=== PATIENT | male | born 1950 | race Caucasian/White ===

== ENCOUNTER 2017-02-12 15:43 | Inpatient (IN) | payer OTHER ==
[~2017-02-12] VITALS: Ht 165.1 cm; Wt 80.4 kg
[~2017-02-12 15:43] MED LIST: ALBU1AER9; ALBUAER19 INH; ASPI1TAB83 PO; CICL0.7718 TOP; COEN150C PO; DOCU-94 PO; FLUT0.0529 NAE; FLUT220A INH; FRS/40 PO; METF1000 PO; METO-478 PO; NITR0.4S UT; OXYC1CAP5 PO; POTA10CA28 PO; PRAV20TA PO; PREN1CAP7 PEG; SENN8.6T94 PO; SNG10 PO; TRAZ-119 PO
[2017-02-12] MEDS ORDERED: SODIUM CHLORIDE 0.9% 1000ML 1,000 ML IV STA (16:00)
[2017-02-12] MEDS ORDERED: DILTIAZEM BOLUS / DRIP IV STA (16:00)
[2017-02-12] MEDS ORDERED: DILTIAZEM BOLUS FROM BAG IV ONE (16:30)
[2017-02-12] MEDS: DILTIAZEM HCL INJ 125 MG in DEXTROSE 5% 100ML IV PRN (16:30)
--- NOTE | 2017-02-12 16:32 | DIAGNOSTIC IMAGING REPORT ---
SINGLE VIEW CHEST CLINICAL HISTORY: Atypical chest pain. FINDINGS: An AP, portable, upright chest radiograph is obtained. No prior studies are available for comparison at the time of dictation. The examination is degraded by portable technique, apical lordotic positioning, and patient rotation. The patient is status post midline sternotomy. The heart is enlarged. The pulmonary vasculature is noncongested. There are layering pleural effusions with bibasilar consolidation. No pneumothorax is seen. The skeletal structures are osteopenic. The bony thorax is grossly intact. IMPRESSION: 1. Cardiomegaly without radiographic evidence of congestive failure. 2. Layering pleural effusions with bibasilar consolidation. This likely represents atelectasis. Clinical correlation will be required. Electronically signed by: Umesh Fyo M.D. 02/12/2017 4:31 PM Dictated Date/Time: 02/12/2017 4:30 PM
[2017-02-12 16:57] LABS: BASO % 0.5 %; BASO ABS # 0.04 K/uL (0-0.2); EOS % 5.7 %; EOS ABS # 0.43 K/uL (0-0.5); HEMATOCRIT 34.5 % (42-52); HEMOGLOBIN 11.3 g/dL (14.0-18.0); IG# 0.02 K/uL (0.00-0.02); LYMPH % 11.2 %; LYMPH ABS # 0.85 K/uL (1.2-3.4); MEAN CORPUSCULAR HEMOGLOBIN 30.5 pg (25-34); MEAN CORPUSCULAR HGB CONC 32.8 g/dl (32-36); MEAN PLATELET VOLUME 9.4 fL (7.4-10.4); MONO % 10.4 %; MONO ABS # 0.79 K/uL (0.11-0.59); NEUT % 71.9 %; NEUT ABS # 5.48 K/uL (1.4-6.5); PLATELET COUNT 264 K/uL (130-400); RED CELL DISTRIBUTION WIDTH CV 14.3 % (11.5-14.5); RED CELL DISTRIBUTION WIDTH SD 48.6 fL (36.4-46.3); WHITE BLOOD COUNT 7.61 K/uL (4.8-10.8)
[2017-02-12] MEDS ORDERED: VNTHFA/IN INH (17:05)
[2017-02-12] MEDS ORDERED: FLVHFA44 INH (17:05)
[2017-02-12] MEDS ORDERED: ACET325T96 PO (17:05)
[2017-02-12] MEDS ORDERED: FLUT0.15 NAE (17:05)
[2017-02-12 17:15] LABS: BLOOD UREA NITROGEN 19 mg/dl (7-18); CALCIUM 10.4 mg/dl (8.5-10.1); CARBON DIOXIDE 26 mmol/L (21-32); CREATININE 0.83 mg/dl (0.60-1.40); GLUCOSE 98 mg/dl (70-99); POTASSIUM 4.3 mmol/L (3.5-5.1); SODIUM 138 mmol/L (136-145)
--- NOTE | 2017-02-12 17:18 | EMERGENCY ROOM VISIT NOTE ---
History Report prepared by Mino: Brad Levy Under the Supervision of: Dr. Toan Mehta D.O. First contact with patient: 15:54 Chief Complaint: IRREGULAR HEARTBEAT Stated Complaint: FAST HEART RATE History of Present Illness The patient is a 66 year old male who presents to the Emergency Room with complaints of constant shortness of breath for the past two days. The patient states that he went to the doctor this morning for his shortness of breath, and he also had a very fast heart rate of 160. The patient states that he had some diarrhea yesterday, and he has a chronic cough. He does not have a history of blood clots or irregular heart beats, though he had open heart surgery 3-4 years ago. Pt denies headache, change in vision, fevers, chest pain, nausea, vomiting, pain with urination, and melena. Source of History: patient Onset: two days ago Position: other (global) Quality: other (shortness of breath) Timing: constant Associated Symptoms: + diarrhea, No chest pain Review of Systems See HPI for pertinent positives & negatives. A total of 10 systems reviewed and were otherwise negative. Past Medical & Surgical Surgical Problems: (1) History of open heart surgery Social History Smoking Status: Never Smoker Marital Status: Housing Status: lives with family Occupation Status: retired Current/Historical Medications Scheduled Aspirin (Aspirin), 81 MG PO BID Docusate Sodium (Colace), 1 TAB PO BID Fluticasone Propionate (Flovent Hfa), 2 PUFFS INH BID Fluticasone Propionate (Nasal) (Flonase Allergy Relief), 1 SPRAY SHALONDA DAILY Metformin Hcl (Glucophage), 1,000 MG PO BID Metoprolol Succinate (Toprol Xl), 25 MG PO BID Montelukast Sod (Montelukast Sodium), 10 MG PO QPM Nitroglycerin (Nitrostat), 0.4 MG UT PRN Potassium Chloride (Micro-K Ext Rel), 10 MEQ PO DAILY Trazodone Hcl (Desyrel), 50 MG PO HS Scheduled PRN Acetaminophen Tab (Tylenol), 650 MG PO UD PRN for BACK PAIN Albuterol Hfa (Ventolin Hfa), 2 PUFFS INH Q4H PRN for SOB/Wheezing Furosemide (Lasix), 40 MG PO DAILY PRN for SWELLING Oxycodone Hcl (Oxycodone Hcl), 5 MG PO Q6 PRN for Pain Allergies Coded Allergies: Statins (Unverified Allergy, Severe, LEG WEAKNESS, 02/12/17) Physical Exam Vital Signs Date Time Temp Pulse Resp B/P (MAP) Pulse Ox O2 Delivery O2 Flow Rate FiO2 02/12/17 16:45 113 20 93/56 94 Room Air 02/12/17 16:07 140 02/12/17 16:06 Room Air 02/12/17 15:51 36.5 154 20 115/75 94 Room Air Physical Exam GENERAL: Sitting up in bed, disheveled, no acute distress, hard of hearing EYE EXAM: normal conjunctiva. OROPHARYNX: no exudate, no erythema, lips, buccal mucosa, and tongue normal and mucous membranes are moist NECK: supple, no nuchal rigidity, no adenopathy, non-tender LUNGS: Clear to auscultation. Normal chest wall mechanics HEART: Tachycardic and irregularly irregular. ABDOMEN: abdomen soft, non-tender, normo-active bowel sounds, no masses, no rebound or guarding. BACK: Back is symmetrical on inspection and there is no deformity, no midline tenderness, no CVA tenderness. SKIN: no rashes and no bruising UPPER EXTREMITIES: upper extremities are grossly normal. LOWER EXTREMITIES: Calves are equal bilaterally with faint pitting edema. NEURO EXAM: Normal sensorium, cranial nerves II-XII grossly intact, normal speech, no gross weakness of arms, no gross weakness of legs. Gross sensation intact. Medical Decision & Procedures ER Provider Diagnostic Interpretation: Radiology results as stated below per my review and the radiologist's interpretation: SINGLE VIEW CHEST CLINICAL HISTORY: Atypical chest pain. FINDINGS: An AP, portable, upright chest radiograph is obtained. No prior studies are available for comparison at the time of dictation. The examination is degraded by portable technique, apical lordotic positioning, and patient rotation. The patient is status post midline sternotomy. The heart is enlarged. The pulmonary vasculature is noncongested. There are layering pleural effusions with bibasilar consolidation. No pneumothorax is seen. The skeletal structures are osteopenic. The bony thorax is grossly intact. IMPRESSION: 1. Cardiomegaly without radiographic evidence of congestive failure. 2. Layering pleural effusions with bibasilar consolidation. This likely represents atelectasis. Clinical correlation will be required. Electronically signed by: Umesh Foy M.D. 02/12/2017 4:31 PM Dictated Date/Time: 02/12/2017 4:30 PM Laboratory Results 02/12/17 16:39 Red Blood Count 3.71, Mean Corpuscular Volume 93.0, Mean Corpuscular Hemoglobin 30.5, Mean Corpuscular Hemoglobin Concent 32.8, Mean Platelet Volume 9.4, Neutrophils (%) (Auto) 71.9, Lymphocytes (%) (Auto) 11.2, Monocytes (%) (Auto) 10.4, Eosinophils (%) (Auto) 5.7, Basophils (%) (Auto) 0.5, Neutrophils # (Auto ) 5.48, Lymphocytes # (Auto) 0.85, Monocytes # (Auto) 0.79, Eosinophils # (Auto ) 0.43, Basophils # (Auto) 0.04 02/12/17 16:39 Test 02/12/17 16:39 White Blood Count 7.61 K/uL (4.8-10.8) Red Blood Count 3.71 M/uL (4.7-6.1) Hemoglobin 11.3 g/dL (14.0-18.0) Hematocrit 34.5 % (42-52) Mean Corpuscular Volume 93.0 fL (80-100) Mean Corpuscular Hemoglobin 30.5 pg (25-34) Mean Corpuscular Hemoglobin Concent 32.8 g/dl (32-36) Platelet Count 264 K/uL (130-400) Mean Platelet Volume 9.4 fL (7.4-10.4) Neutrophils (%) (Auto) 71.9 % Lymphocytes (%) (Auto) 11.2 % Monocytes (%) (Auto) 10.4 % Eosinophils (%) (Auto) 5.7 % Basophils (%) (Auto) 0.5 % Neutrophils # (Auto) 5.48 K/uL (1.4-6.5) Lymphocytes # (Auto) 0.85 K/uL (1.2-3.4) Monocytes # (Auto) 0.79 K/uL (0.11-0.59) Eosinophils # (Auto) 0.43 K/uL (0-0.5) Basophils # (Auto) 0.04 K/uL (0-0.2) RDW Standard Deviation 48.6 fL (36.4-46.3) RDW Coefficient of Variation 14.3 % (11.5-14.5) Immature Granulocyte % (Auto) 0.3 % Immature Granulocyte # (Auto) 0.02 K/uL (0.00-0.02) Anion Gap 9.0 mmol/L (3-11) Est Creatinine Clear Calc Drug Dose 88.8 ml/min Estimated GFR () 106.3 Estimated GFR (Non- 91.7 BUN/Creatinine Ratio 23.4 (10-20) Calcium Level 10.4 mg/dl (8.5-10.1) Total Creatine Kinase 40 U/L (39-308) Creatine Kinase MB < 0.5 ng/ml (0.5-3.6) Creatine Kinase MB Ratio (0-3.0) Troponin I < 0.015 ng/ml (0-0.045) Laboratory results per my review. Medications Administered Medications (Trade) Dose Ordered Sig/Sal Route Start Time Stop Time Status Last Admin Dose Admin Sodium Chloride 1,000 ml @ 999 mls/hr Q1H1M STAT IV 02/12/17 16:00 02/12/17 17:00 DC 02/12/17 16:34 999 MLS/HR Diltiazem HCl (Cardizem Bolus / Drip) 1 ea NOW STAT IV 02/12/17 16:00 02/12/17 16:02 DC 02/12/17 16:00 1 EA Diltiazem HCl (Cardizem Bolus From Bag) 10 mg ONE ONCE IV 02/12/17 16:30 02/12/17 16:31 DC 02/12/17 16:30 10 MG Diltiazem HCl 125 mg/Dextrose 125 ml @ 0 mls/hr Q0M PRN IV 02/12/17 16:15 02/12/17 23:59 02/12/17 16:30 5 MLS/HR ECG Indication: SOB/dyspnea Rate (beats per minute): 156 Rhythm: atrial fibrillation (with RVR) Findings: RBBB, T-wave inversion (Inferior), other (right axis deviation) Comparison ECG Date: 08/29/14 Change: Atrial fibrillation and right axis deviation are new. ED Course ED COURSE: Vital signs were reviewed and showed tachycardia The patients medical record was reviewed The above diagnostic studies were performed and reviewed. ED treatments and interventions as stated above. 1554: The patient was evaluated in room A4. A complete history and physical examination was performed. 1600: Diltiazem HCl IV, Sodium Chloride 1000 ml @ 999 mls/hr IV 1615: Diltiazem HCl 125mg/ Dextrose 5mls/hr IV 1630: Diltiazem HCl 10mg IV 1635: Dr. Brown - Cardiology evaluated the patient at the bedside. 1637: I reevaluated the patient, and his heart rate was down to 120 1702: I reviewed the patient's case with Estelle PEARL. She will evaluate the patient for further management. 1704: Upon reevaluation, the patient is doing well. His heart rate is 114 and systolic pressure down to 111. I discussed my findings with the patient and he understands and agrees with the treatment plan. Based on the patients age, coexisting illnesses, exam and lab findings the decision to treat as an inpatient was made. The patient remained stable while under my care. The patient will be evaluated for further management. Medical Decision Differential diagnoses includes but is not limited to pneumonia, bronchitis, COPD/Asthma exacerbation, pneumothorax, pulmonary embolism, congestive heart failure, acute coronary syndrome. Patient is a 66-year-old male who presents to ER for A. fib with RVR. Heart rate is in the 160s upon presentation. EKG does not show STEMI. Chest x-ray shows bilateral pleural effusions. Patient has no upper respiratory symptoms to suggest infection. He denies any chest pain. He is comfortable as long as he is resting. He was given a bolus of Cardizem at 10mg and placed on a drip of Cardizem at 10mg per hour. Heart rate trended down into the 110s. Systolic blood pressures did dip into the 90s 1 but on repeat was 111. Patient has no complaints. He was evaluated by cardiology at bedside. Discussed with internal medicine and patient will be admitted for A. fib with RVR with initial heart rates in the 160s which trended down to the 110s. Patient family were updated bedside. Patient was admitted to internal medicine for further workup. He will likely need to be diuresed throughout his stay as well after rate control. Medication Reconcilliation Current Medication List: was personally reviewed by me Blood Pressure Screening Patient's blood pressure: Normal blood pressure Consults Consulting Physician: Dr Brown - Cardiology Dr. Brown - Cardiology, evaluated the patient at the bedside. Additional Consults: Time Called: 1655 Consulted Physician: Estelle PEARL Returned Call: 1702 Additional Comments: I reviewed the patient's case with Estelle PEARL. She will evaluate the patient for further management. Impression Primary Impression: Atrial fibrillation with RVR Additional Impressions: Pleural effusion Anemia Critical Care I have personally spent 35 minutes of critical care time in the direct management of this patient. This includes bedside care, interpretation of diagnostic studies, and testing, discussion with consultants, patient, and family members, and other required patient management activities. This 35 minutes is in excess of all separately billable procedures. Scribe Attestation The scribe's documentation has been prepared under my direction and personally reviewed by me in its entirety. I confirm that the note above accurately reflects all work, treatment, procedures, and medical decision making performed by me. Departure Information Dispostion Being Evaluated By Hospitalist Redd Jama D.O. (PCP) Patient Instructions My [facility] [address] Problem Qualifiers Additional Impressions: Anemia Anemia type: unspecified type Qualified Codes: D64.9 - Anemia, unspecified
[2017-02-12 17:20] LABS: CKMB < 0.5 ng/ml (0.5-3.6)
[2017-02-12 17:27] VITALS: O2SAT 94; Ht 165.1 cm; Wt 80.4 kg
[2017-02-12] MEDS ORDERED: DILTIAZEM BOLUS / DRIP IV PRN (17:41)
[2017-02-12] MEDS ORDERED: GLUCOSE 10 TABS/TUBE PO PRN (17:45)
[2017-02-12] MEDS ORDERED: ONDANSETRON INJ 2 MG/ML 2 ML VIAL IV PRN (17:45)
[2017-02-12] MEDS ORDERED: GLUCOSE 40% GEL 15 GM TUBE PO PRN (17:45)
[2017-02-12] MEDS ORDERED: ACETAMINOPHEN 325 MG TAB PO PRN (17:45)
[2017-02-12] MEDS ORDERED: FUROSEMIDE INJ 20 MG in SYRINGE 0 ML IV SCH (17:45)
[2017-02-12] MEDS ORDERED: DEXTROSE 50% 50 ML SYR IV PRN (17:45)
[2017-02-12] MEDS ORDERED: GLUCAGON FOR INJ 1 MG VIAL SQ PRN (17:45)
[2017-02-12] MEDS ORDERED: FENO54TA PO (17:49)
[2017-02-12] MEDS ORDERED: TPRSR/50 PO (17:49)
[2017-02-12] MEDS ORDERED: SPIR25TA PO (17:49)
[2017-02-12] MEDS ORDERED: LISI-729 PO (17:49)
[2017-02-12] MEDS ORDERED: CETI10TA84 PO (17:49)
[2017-02-12] MEDS ORDERED: FURO20TA PO (17:49)
[2017-02-12] MEDS ORDERED: DOCUSATE SODIUM 100 MG CAP PO PRN (18:00)
[2017-02-12] MEDS ORDERED: HEPARIN 25000 UNIT/500 ML D5W ONE (18:23)
--- NOTE | 2017-02-12 18:26 | History and Physical ---
History & Physical Date & Time of Service: Feb 12, 2017 ~ 17:00 Chief Complaint: Sent by Cardiology Clinic for A. Flutter with RVR Primary Care Physician: Redd Rojas D.O. History of Present Illness 66 year old male who was sent to the ED from the cardiology clinic for a. flutter with RVR. Patient is somewhat a poor historian. He reports he has not felt well since he got his flu shot in October. He reports he was treated for bronchitis a few months ago and did feel a little better. He reports feeling worse for the past two weeks. He reports increasing shortness of breath and lower extremity edema. He reports his weight has been stable. He denies orthopnea. No chest pain, palpitations, lightheadedness, dizziness, diaphoresis , or syncopal events. He was noted to have a low grade fever at the cardiology clinic today. He reports a cough productive for clear sputum that has been present the past few months. No abdominal pain, nausea, or vomiting. He reports one episode of diarrhea yesterday. No urinary symptoms. In the clinic, patient was found to be in a. flutter with RVR with rates in the 160s. He was sent to the ED for further eval. Heart rate improved with IV Diltiazem bolus and infusion. Labs are unremarkable. Past Medical/Surgical History Medical Problems: (1) Asthma, mild persistent Status: Chronic (2) BPH (benign prostatic hyperplasia) Status: Chronic (3) CAD (coronary artery disease) Permanent Comment: 2015 - CABG x 3 Status: Chronic (4) Diastolic CHF Status: Chronic (5) DM type 2 (diabetes mellitus, type 2) Status: Chronic (6) Dyslipidemia Status: Chronic (7) GERD (gastroesophageal reflux disease) Status: Chronic (8) HTN (hypertension) Status: Chronic (9) Paroxysmal A-fib Status: Chronic (10) Sleep apnea Status: Chronic Surgical Problems: (1) H/O aortic valve replacement Status: Chronic (2) S/P CABG x 3 Status: Chronic Family History non contributory Social History Smoking Status: Never Smoker Alcohol Use: occasionally Immunizations History of Influenza Vaccine: Yes Influenza Vaccine Date: Oct 26, 2016 History of Tetanus Vaccine?: Yes Tetanus Immunization Date: Dec 08, 2005 History of Pneumococcal: Yes Pneumococcal Date: Jul 20, 2016 Multi-Drug Resistant Organisms History of MDRO: No Allergies Coded Allergies: Statins (Unverified Adverse Reaction, Severe, LEG WEAKNESS, 02/12/17) Home Medications Scheduled Aspirin (Aspirin), 81 MG PO BID Cetirizine (Zyrtec), 10 MG PO DAILY Fenofibrate (Tricor), 1 TAB PO DAILY Fluticasone Propionate (Flovent Hfa), 2 PUFFS INH BID Fluticasone Propionate (Nasal) (Flonase Allergy Relief), 1 SPRAY SHALONDA DAILY Furosemide (Lasix), 20 MG PO BID Lisinopril (Prinivil), 5 MG PO DAILY Metformin Hcl (Glucophage), 500 MG PO BID Metoprolol Succinate (Metoprolol Succinate ER), 50 MG PO BID Montelukast Sod (Montelukast Sodium), 10 MG PO QPM Nitroglycerin (Nitrostat), 0.4 MG UT PRN Spironolactone (Aldactone), 12.5 MG PO DAILY Scheduled PRN Acetaminophen Tab (Tylenol), 650 MG PO UD PRN for BACK PAIN Albuterol Hfa (Ventolin Hfa), 2 PUFFS INH Q4H PRN for SOB/Wheezing Docusate Sodium (Colace), 1 TAB PO BID PRN for Constipation Review of Systems ROS per HPI, all other systems reviewed and negative Physical Exam Vital Signs Date Time Temp Pulse Resp B/P (MAP) Pulse Ox O2 Delivery O2 Flow Rate FiO2 02/12/17 16:45 113 20 93/56 94 Room Air 02/12/17 16:07 140 02/12/17 16:06 Room Air 02/12/17 15:51 36.5 154 20 115/75 94 Room Air General Appearance: WD/WN, no apparent distress Head: normocephalic, atraumatic Eyes: normal inspection, EOMI, sclerae normal ENT: hearing grossly normal, + pertinent finding (mucous membranes moist) Neck: supple, no JVD, trachea midline Respiratory/Chest: no respiratory distress, + decreased breath sounds (BL bases ) Cardiovascular: normal peripheral pulses, + tachycardia, + irregularly irregular, + pertinent finding (+1-2 pitting edema BLLE) Abdomen/GI: normal bowel sounds, non tender, soft, no organomegaly, + distended Extremities/Musculoskelatal: normal inspection, no calf tenderness, normal capillary refill Neurologic/Psych: no motor/sensory deficits, alert, normal mood/affect, oriented x 3 Skin: normal color, warm/dry Diagnostics Laboratory Results Results Past 24 Hours Test 02/12/17 16:39 Range/Units White Blood Count 7.61 4.8-10.8 K/uL Red Blood Count 3.71 4.7-6.1 M/uL Hemoglobin 11.3 14.0-18.0 g/dL Hematocrit 34.5 42-52 % Mean Corpuscular Volume 93.0 80-100 fL Mean Corpuscular Hemoglobin 30.5 25-34 pg Mean Corpuscular Hemoglobin Concent 32.8 32-36 g/dl Platelet Count 264 130-400 K/uL Mean Platelet Volume 9.4 7.4-10.4 fL Neutrophils (%) (Auto) 71.9 % Lymphocytes (%) (Auto) 11.2 % Monocytes (%) (Auto) 10.4 % Eosinophils (%) (Auto) 5.7 % Basophils (%) (Auto) 0.5 % Neutrophils # (Auto) 5.48 1.4-6.5 K/uL Lymphocytes # (Auto) 0.85 1.2-3.4 K/uL Monocytes # (Auto) 0.79 0.11-0.59 K/uL Eosinophils # (Auto) 0.43 0-0.5 K/uL Basophils # (Auto) 0.04 0-0.2 K/uL RDW Standard Deviation 48.6 36.4-46.3 fL RDW Coefficient of Variation 14.3 11.5-14.5 % Immature Granulocyte % (Auto) 0.3 % Immature Granulocyte # (Auto) 0.02 0.00-0.02 K/uL Sodium Level 138 136-145 mmol/L Potassium Level 4.3 3.5-5.1 mmol/L Chloride Level 102 98-107 mmol/L Carbon Dioxide Level 26 21-32 mmol/L Anion Gap 9.0 3-11 mmol/L Blood Urea Nitrogen 19 7-18 mg/dl Creatinine 0.83 0.60-1.40 mg/dl Est Creatinine Clear Calc Drug Dose 88.8 ml/min Estimated GFR () 106.3 Estimated GFR (Non- 91.7 BUN/Creatinine Ratio 23.4 10-20 Random Glucose 98 70-99 mg/dl Calcium Level 10.4 8.5-10.1 mg/dl Total Creatine Kinase 40 39-308 U/L Creatine Kinase MB < 0.5 0.5-3.6 ng/ml Creatine Kinase MB Ratio 0-3.0 Troponin I < 0.015 0-0.045 ng/ml Diagnostic Radiology CXR IMPRESSION: 1. Cardiomegaly without radiographic evidence of congestive failure. 2. Layering pleural effusions with bibasilar consolidation. This likely represents atelectasis. Clinical correlation will be required. Impression Assessment and Plan ATRIAL FIBRILLATION WITH RVR - admit to tele - patient presenting from the cardiology office where he was found to be in atrial flutter with RVR; patient reports not feeling well for the past two weeks - given low grade fever, will r/o infectious source - check urine and blood cultures, influenza swab; no signs of pneumonia on CXR - hx of paroxysmal a. fib s/p DCCV 03/2016 - anticoagulation stopped 05/2016 per patient request and after 24h holter showed no further arrhythmias - s/p diltiazem drip in the ED, will continue with and change metoprolol succinate 50mg BID to metoprolol tartrate 25mg q6h - heparin gtt - continue to cycle cardiac enzymes, check resting echo ACUTE ON CHRONIC DIASTOLIC CHF - stress echo 07/2016 - negative for ischemia, EF 55-60%, grade II diastolic dysfunction - on furosemide 20mg BID and Spironolactone 12.5mg daily - will diuresis with furosemide 40mg IV BID and continue spironolactone HX CAD - continue ASA and beta kari - noted to be statin intolerant HX AORTIC VALVE REPLACEMENT - bioprosthetic DM - hgb a1c 4.7 09/2016 - hold oral agents and utilize SSI while hospitalized ASTHMA - no wheezing on exam, do not suspect acute exacerbation - continue home inhalers DVT PROPHYLAXIS - on heparin gtt DISPO - In my clinical judgment this beneficiary meets acute admission criteria, established by [facility], that includes being hospitalized through two midnights. ADDENDUM: This is a 66 year old male with a PMH of A. Fib, CAD s/p CABG, mechanical aortic valve replacement, HTN, DM2, chronic diastolic CHF; preserved EF. Sent by cardiology due to elevated HRs and A. Flutter on EKG. On presentation, he was found to have A. Fib with RVR. states he has been feeling "weak" and "tired" for 3 weeks and also some shortness of breath and cough. On exam; decreased breath sounds, tachycardic and irregular HR, eczema/ excoriations throughout body, mild to moderate respiratory distress and incomplete sentences due to SOB, firm LE b/l due to fluid buildup. Plan: IV Cardizem ggt for rate control Metoprolol Succinate changed to tartrate 25mg q6 IV heparin ggt started (was not on anticoagulation prior to this) IV Lasix BID echo, trend enzymes monitor in tele cardiology aware VTE Prophylaxis VTE Risk Assessment Done? Y/N: Yes Risk Level: Moderate
[2017-02-12] MEDS: HEPARIN 25,000 UNIT/500ML D5W 500 ML IV PRN (18:41)
[2017-02-12] MEDS ORDERED: HEPARIN IV BOLUS 6,000 UNIT in SYRINGE 0 ML IV ONE (18:45)
[2017-02-12 19:21] LABS: INFLUENZA B ANTIGEN Neg for Influ B (NEG)
[2017-02-12 19:29] VITALS: BP 115/65; PULSE 114; TEMP 36.9; O2SAT 93
--- NOTE | 2017-02-12 20:04 | CARDIOLOGY CONSULTATION ---
DATE OF CONSULTATION: 02/12/2017 REFERRING PHYSICIAN: Dr. Toan Mehta. REASON FOR CONSULTATION: Atrial fibrillation with rapid ventricular response and congestive heart failure. HISTORY OF PRESENT ILLNESS: Mr. Keith is a 66-year-old male with complex history noted below. He presented to the outpatient clinic today for routine followup. During that visit, the patient reported progressive dyspnea on exertion, edema, weight gain since [place]. He denies any palpitations. An ECG performed in the office demonstrated atrial flutter with possible 2:1 conduction and a rate of 160 beats per minute. He was sent to the Emergency Department. In the ER, his initial ECG demonstrates atrial fibrillation with rapid ventricular response and a right bundle branch block. Chest x-ray demonstrates bilateral pleural effusions and pulmonary edema. The patient complains of dyspnea with minimal exertion. Notes orthopnea without PND. Denies palpitations. No chest discomfort or heaviness. Family present at bedside. The patient experienced an episode of atrial fibrillation in March of 2016 requiring transesophageal echo guided cardioversion. At that time, the patient declined penitentiary anticoagulation. The patient's blood pressure has improved with addition of IV diltiazem. Heart rate currently 120-135 beats per minute and irregular. He remains in atrial fibrillation on telemetry. REVIEW OF SYSTEMS: The pertinent positive noted above, low grade temperature noted, cough noted, diffuse rash noted, 3-4 pound weight gain reported, pertinent positives are noted in the HPI, a comprehensive 10-system review is otherwise negative. PAST MEDICAL HISTORY: 1. Aortic stenosis, status post bioprosthetic AVR with a [address] [employer] Trifecta valve. 2. Coronary artery disease status post coronary artery bypass grafting x3 with GONZALES to LAD, SVG to diagonal, SVG to OM in February 2014. 3. Diabetes type 2. 4. Obstructive sleep apnea with utilizing supplemental oxygen at night, not CPAP. 5. Dyslipidemia with intolerance to all statins. 6. Paroxysmal atrial fibrillation/flutter, status post DCCV March 2016. 7. GERD. 8. BPH. 9. Reactive airways disease. 10. Sinusitis. 11. Hypertension. 12. Statin intolerance. PAST SURGICAL HISTORY: 1. Coronary artery bypass grafting x3 as noted above in February 2014. 2. Aortic valve replacement in February 2014. 3. Tonsil and adenoidectomy. 4. Nasal surgery. SOCIAL HISTORY: Lifelong nonsmoker, he lives with his , and he does not use alcohol. FAMILY HISTORY: Negative for premature CAD or sudden cardiac ; however, noncontributory at this time. ALLERGIES: CRESTOR, ZETIA, PRAVASTATIN, ZOCOR, OUTPATIENT MEDICATIONS: 1. Amoxicillin prior to dental procedures. 2. Glucophage 500 mg twice daily. 3. Lofibra (fenofibrate) 54 mg daily. 4. Tylenol as needed. 5. Supplemental oxygen 2 liters at bedtime. 6. Zyrtec 10 mg daily. 7. Singulair 10 mg daily. 8. Lasix 20 mg twice daily. 9. Flovent twice daily. 10. Aldactone 12.5 mg daily. 11. Toprol-XL 50 mg twice daily. 12. Ventolin inhaler every 4 hours as needed. 13. Lisinopril 5 mg daily. 14. Nitroglycerin 0.4 mg as needed. 15. Tessalon Perles as needed. 16. Aspirin 81 mg daily. ELECTROCARDIOGRAM ON ADMISSION: Atrial fibrillation with rapid ventricular response, right bundle branch block, and inferior T-wave inversion. LABORATORY DATA: Pending at this time. IMAGING DATA: Chest x-ray preliminary review demonstrates bilateral pleural effusions with interstitial edema. Telemetry demonstrates atrial fibrillation with a heart rate averaging 120-135 beats per minute. PHYSICAL EXAMINATION: VITAL SIGNS: Temperature is 36.5 degrees centigrade, pulse currently 125 beats per minute and irregular, blood pressure 135/81, SaO2 is 95% on room air, his respiratory rate is 20 breaths per minute. GENERAL: Chronically ill, appears older than stated age; awake, alert and oriented x3. THROAT: His mucous membranes are moist. No scleral icterus. Conjunctivae are pink. NECK: Supple without JVD or HJR. No carotid bruit. HEART: Irregular and tachycardic with a normal S1 and S2. There is a 2/6 systolic ejection murmur heard best at the right second intercostal space without radiation. LUNGS: Demonstrate mildly diminished breath sounds in the bilateral lower and mid lung lopez. Crackles are noted in the mid lung lopez. No wheezing appreciated. ABDOMEN: Soft, nontender. There is a diffuse mildly erythematous rash noted with mild excoriation. EXTREMITIES: Demonstrate 2+ edema in the pretibial region. Mildly erythematous rash with excoriation present, stasis changes noted. NEUROLOGIC: Demonstrates no focal motor deficit. FINAL IMPRESSION: 1. Paroxysmal atrial fibrillation/flutter with rapid ventricular response. 2. Acute decompensated heart failure secondary to rapid atrial fibrillation and diastolic dysfunction, history of preserved left ventricular systolic function per 2D echocardiogram - July 2016. 3. Aortic valve disease status post aortic valve replacement - February 2014. 4. Chronic coronary artery disease with history of prior coronary artery bypass grafting x4. 5. History of paroxysmal atrial fibrillation/flutter, status post direct current cardioversion in 2016 with the patient declining long-term anticoagulation at that time. 6. Bilateral pleural effusions. 7. Obstructive sleep apnea. 8. Dyslipidemia, statin intolerance. PLAN AND RECOMMENDATIONS: The patient has received 10 mg of IV Cardizem and is currently receiving an infusion at 5 mg per hour. His heart rate has mildly improved. He denies any palpitations. Awaiting basic metabolic panel, CBC, and baseline coagulation studies at this time. The patient will require intravenous anticoagulation with heparin pending review of these labs. Also, recommend IV diuretic therapy with Lasix, pending review of lab studies. Recommend maintaining negative fluid balance with repeat chest x-ray in a.m. The possible need for cardioversion discussed with the patient. He voiced understanding. Recommend beta-kari be continued uninterrupted as his outpatient dose of 50 mg twice daily. Will continue to follow patient closely during hospitalization. Thank you for allowing me to participate in the care of this patient.
[2017-02-12] MEDS: MONTELUKAST SOD 10 MG TAB PO SCH (20:59)
[2017-02-12] MEDS: ASPIRIN 81 MG ECTAB PO SCH (21:00)
[2017-02-12] MEDS: FLUTICASONE PROP HFA INH 44 MCG INHALER INH SCH (21:00)
[2017-02-12] MEDS: INSULIN ASPART 100 UNITS/ML 3 ML PEN SC SCH (21:00)
[2017-02-12 21:01] VITALS: BP 130/77; PULSE 116
[2017-02-12] MEDS: METOPROLOL TARTRATE 25 MG TAB PO SCH (21:01)
[2017-02-12 23:06] LABS: CKMB < 0.5 ng/ml (0.5-3.6)
[2017-02-12 23:15] VITALS: BP 107/60; PULSE 87; TEMP 37.1; O2SAT 94
[2017-02-13] VITALS (9 sets, daily range): BP systolic 105–120; BP diastolic 62–73; PULSE 76–95; TEMP 36.5–37.2; O2SAT 93–99
[2017-02-13 01:06] LABS: PTT PATIENT 66.8 SECONDS (21.0-31.0)
[2017-02-13] MEDS: HEPARIN 25,000 UNIT/500ML D5W 500 ML IV PRN ×2 (01:44→12:00)
[2017-02-13] MEDS: METOPROLOL TARTRATE 25 MG TAB PO SCH ×4 (01:46→19:54)
[2017-02-13 04:36] LABS: HEMATOCRIT 31.9 % (42-52); HEMOGLOBIN 10.3 g/dL (14.0-18.0); MEAN CORPUSCULAR HGB CONC 32.3 g/dl (32-36); MEAN PLATELET VOLUME 9.2 fL (7.4-10.4); PLATELET COUNT 240 K/uL (130-400); RED CELL DISTRIBUTION WIDTH CV 14.3 % (11.5-14.5); RED CELL DISTRIBUTION WIDTH SD 48.7 fL (36.4-46.3)
[2017-02-13 05:00] LABS: BLOOD UREA NITROGEN 22 mg/dl (7-18); CALCIUM 9.8 mg/dl (8.5-10.1); CARBON DIOXIDE 29 mmol/L (21-32); CREATININE 0.85 mg/dl (0.60-1.40); GLUCOSE 95 mg/dl (70-99); POTASSIUM 4.2 mmol/L (3.5-5.1); SODIUM 137 mmol/L (136-145)
[2017-02-13 05:05] LABS: CKMB < 0.5 ng/ml (0.5-3.6); PTT PATIENT 53.2 SECONDS (21.0-31.0)
[2017-02-13] MEDS ORDERED: FUROSEMIDE INJ 40 MG in SYRINGE 0 ML IV SCH (05:45)
[2017-02-13 06:11] LABS: HEMOGLOBIN A1C 4.7 % (4.5-5.6)
[2017-02-13] MEDS: INSULIN ASPART 100 UNITS/ML 3 ML PEN SC SCH ×4 (07:00→20:46)
[2017-02-13] MEDS: FLUTICASONE PROP HFA INH 44 MCG INHALER INH SCH ×2 (07:58→19:56)
[2017-02-13] MEDS: FLUTICASONE PROPIONATE NA SPR 16 GM BTL NAE SCH (07:58)
[2017-02-13] MEDS: ASPIRIN 81 MG ECTAB PO SCH ×2 (07:59→19:54)
[2017-02-13] MEDS: SPIRONOLACTONE 25 MG TAB PO SCH (08:00)
[2017-02-13] MEDS: CETIRIZINE HCL 10 MG TAB PO SCH (08:00)
[2017-02-13] MEDS ORDERED: MAGNESIUM SULFATE 1GM / D5W 1 GM in PREMIXED IN D5W 100 ML IV ONE (08:45)
[2017-02-13] MEDS ORDERED: NURSING VERBAL MED ORDER ONE ×2 (09:00→21:30)
[2017-02-13] MEDS: MAGNESIUM OXIDE 400 MG TAB PO SCH ×2 (09:29→19:55)
--- NOTE | 2017-02-13 10:40 | Cardiology Follow-Up ---
Subjective General Date of Service: Feb 13, 2017. Chief Complaint: PAF Pt evaluation today including: conversation w/ patient, physical exam, chart review, lab review, review of studies, review of inpatient medication list History of Present Illness Patient seen and examined. Chart, medications, telemetry reviewed. Patient interviewed and examined at 10:00 AM. Feels "a lot better." Notes "I got my strength back." Notes improvement in exercise tolerance just walking to the sink to get cleaned up. No current chest pain. No overt palpitations. I/O's not reflective of patient's reported output. Telemetry: Atrial fibrillation ranging from 70 to 100 bpm. TTE: Pending interpretation. Allergies Coded Allergies: Statins (Unverified Adverse Reaction, Severe, LEG WEAKNESS, 02/12/17) Social History Smoking Status: Never Smoker Hx Tobacco Use In Past Year?: No Hx Alcohol Use - Type And Amou: No Hx Substance Use - Type And Am: No Review of Systems Respiratory: + shortness of breath, + dyspnea on exertion, No cough, No wheezing, No dyspnea at rest, No hemoptysis Cardiac: + edema, No chest pain, No orthopnea, No PND, No claudication, No palpitations Physical Exam Vital Signs Last Vital Signs Documentation Date Time Temp Pulse Resp B/P (MAP) Pulse Ox O2 Delivery O2 Flow Rate FiO2 02/13/17 07:54 36.7 84 95 109/62 (78) 98 02/13/17 03:30 Room Air Physical Exam Constitutional: General Apperance: overweight Level of Distress: chronically ill Psychiatric: Mental Status: active & alert Orientation: to time, to place, to person Memory: recent memory normal, remote memory normal Head: normocephalic, atraumatic Eyes: Pupils: PERRLA Neck: pertinent finding (Elevated JVP) Lungs: Respiratory effort: no dyspnea Auscultation: no wheezing, no rhonchi, deminished air movement, decreased breath sounds, rales/crackles on the left, rales/crackles on the right, pertinent finding (Absent breath sounds 1/[address] up bilaterally) Cardiovascular: Apical Impulse: displaced Heart Auscultation: no rubs, tachycardia (~100 bpm), irregular rate rhythm Peripheral Pulses: Dorsalis Pedis Pulse: absent on the left, absent on the right Abdomen: Bowel Sounds: normal Inspection & Palpation: soft, non-distended, no masses Extremities: no cyanosis, no clubbing, edema (1-2+ hard indurated edema) Neurologic: Cranial Nerves: grossly intact Assessment and Plan Assessment and Plan Admission with symptomatic paroxysmal atrial fibrillation/flutter with rapid ventricular response, resultant acute decompensated heart failure with what appears to be considerable bilateral pleural effusions by auscultation/ examination. History of paroxysmal atrial fibrillation/flutter, status post direct current cardioversion in 2016 with the patient declining long-term anticoagulation at that time. CHADSVASC 5 points History of diastolic dysfunction with suspected left ventricular systolic dysfunction secondary to the above (TTE pending) History of aortic valve disease status post aortic valve replacement - February 2014. Chronic coronary artery disease with history of prior coronary artery bypass grafting x 4. Obstructive sleep apnea. Dyslipidemia, statin intolerance. RECOMMENDATIONS: Continue IV diuretic therapy as presently prescribed. PA and lateral chest x-ray today. Ultrasound chest, quantifying the bilateral pleural effusions Continue IV Cardizem and oral metoprolol for rate control. Continue IV heparin, holding off on starting Coumadin anticoagulation today due to possible need for thoracentesis Await TTE results. ? Initiation of Sotalol then ANDREA guided cardioversion once the acute decompensation has resolved. Daily labs. Cardiology Attending Physician: Patient seen and examined at the bedside. Heart rate improved overnight with intravenous diltiazem. Mild diuresis noted. Symptomatically patient improved. Edema unchanged. Denies chest pain or palpitations. Preliminary review of 2- D transthoracic echo demonstrate right ventricular dysfunction with indirect evidence of pulmonary hypertension. PE: Tachycardic, otherwise VSS. GEN: NAD, AAOx3. Heart: Irregular rhythm with borderline tachycardia. No murmur appreciated. Lungs: Markedly diminished breath sounds at the bases bilaterally with crackles in the midlung lopez. No wheeze. Abdomen: Soft, nontender, nondistended, normal bowel sounds. Extremity : +2 pretibial edema. A/P: Agree with above PA-C history, physical exam, assessment and plan with the following additions: Echocardiogram demonstrates RV dysfunction with indirect evidence of pulmonary hypertension and RV pressure overload. In the presence of new onset atrial flutter I am concerned regarding the potential for pulmonary embolus. I'm ordering CTA of the chest to rule out PE. Continue intravenous heparin, at this time. Patient may be a candidate for sotalol during hospitalization, however, will likely proceed with transesophageal guided cardioversion, prior to initiating antiarrhythmic therapy, to exclude presence of left atrial appendage thrombus. Wean intravenous diltiazem as tolerated. Continue intravenous diuretic therapy. Leonel Brown DO, [facility] Laboratory Results Last 24 Hours Test 02/12/17 16:39 02/12/17 18:20 02/12/17 20:13 02/12/17 22:02 White Blood Count 7.61 K/uL Red Blood Count 3.71 M/uL Hemoglobin 11.3 g/dL Hematocrit 34.5 % Mean Corpuscular Volume 93.0 fL Mean Corpuscular Hemoglobin 30.5 pg Mean Corpuscular Hemoglobin Concent 32.8 g/dl Platelet Count 264 K/uL Mean Platelet Volume 9.4 fL Neutrophils (%) (Auto) 71.9 % Lymphocytes (%) (Auto) 11.2 % Monocytes (%) (Auto) 10.4 % Eosinophils (%) (Auto) 5.7 % Basophils (%) (Auto) 0.5 % Neutrophils # (Auto) 5.48 K/uL Lymphocytes # (Auto) 0.85 K/uL Monocytes # (Auto) 0.79 K/uL Eosinophils # (Auto) 0.43 K/uL Basophils # (Auto) 0.04 K/uL RDW Standard Deviation 48.6 fL RDW Coefficient of Variation 14.3 % Immature Granulocyte % (Auto) 0.3 % Immature Granulocyte # (Auto) 0.02 K/uL Sodium Level 138 mmol/L Potassium Level 4.3 mmol/L Chloride Level 102 mmol/L Carbon Dioxide Level 26 mmol/L Anion Gap 9.0 mmol/L Blood Urea Nitrogen 19 mg/dl Creatinine 0.83 mg/dl Est Creatinine Clear Calc Drug Dose 88.8 ml/min Estimated GFR () 106.3 Estimated GFR (Non- 91.7 BUN/Creatinine Ratio 23.4 Random Glucose 98 mg/dl Calcium Level 10.4 mg/dl Magnesium Level 1.8 mg/dl Total Creatine Kinase 40 U/L Creatine Kinase MB < 0.5 ng/ml < 0.5 ng/ml Creatine Kinase MB Ratio Troponin I < 0.015 ng/ml < 0.015 ng/ml Influenza Type A Antigen Neg for Influ A Influenza Type B Antigen Neg for Influ B Bedside Glucose 83 mg/dl Test 02/13/17 00:05 02/13/17 04:00 02/13/17 04:20 02/13/17 06:43 Activated Partial Thromboplast Time 66.8 SECONDS 53.2 SECONDS Partial Thromboplastin Ratio 2.6 2.0 Creatine Kinase MB Ratio White Blood Count 7.30 K/uL Red Blood Count 3.43 M/uL Hemoglobin 10.3 g/dL Hematocrit 31.9 % Mean Corpuscular Volume 93.0 fL Mean Corpuscular Hemoglobin 30.0 pg Mean Corpuscular Hemoglobin Concent 32.3 g/dl RDW Standard Deviation 48.7 fL RDW Coefficient of Variation 14.3 % Platelet Count 240 K/uL Mean Platelet Volume 9.2 fL Sodium Level 137 mmol/L Potassium Level 4.2 mmol/L Chloride Level 102 mmol/L Carbon Dioxide Level 29 mmol/L Anion Gap 6.0 mmol/L Blood Urea Nitrogen 22 mg/dl Creatinine 0.85 mg/dl Est Creatinine Clear Calc Drug Dose 86.7 ml/min Estimated GFR () 105.2 Estimated GFR (Non- 90.8 BUN/Creatinine Ratio 25.4 Random Glucose 95 mg/dl Estimated Average Glucose 88 mg/dl Hemoglobin A1c 4.7 % Calcium Level 9.8 mg/dl Magnesium Level 1.7 mg/dl Creatine Kinase MB < 0.5 ng/ml Troponin I < 0.015 ng/ml Bedside Glucose 98 mg/dl
[2017-02-13] MEDS: FENOFIBRATE PO SCH (12:15)
--- NOTE | 2017-02-13 12:42 | ECHOCARDIOGRAM REPORT ---
*NOTICE TO RECEIVING LIBERTARIAN AGENCY This information is strictly Confidential and protected under [place] law. [place] law prohibits you from making any further disclosure of this information unless further disclosure is expressly permitted by the written consent of the person to whom it pertains or is authorized by law. A general authorization for the release of medical or other information is not sufficient for this purpose. Hospital accepts no responsibility if the information is made available to any other person, INCLUDING THE PATIENT. Interpretation Summary * Name: LUCIEN JONES Study Date: 02/13/2017 08:58 AM BP: 113/73 mmHg * Patient Location: C.2T\S\E215\S\1 HR: 89 * : 1950 (M/d/yyyy) Gender: Male Height: 65 in * Age: 66 yrs Ethnicity: CA Weight: 192 lb * Ordering Physician: Derrell Hatch * Referring Physician: London Dean D.O. * Performed By: Debi Loza RCS * * Reason For Study: A-FIB * BSA: 1.9 m2 * The study was technically adequate. * Compared to prior study, changes are noted. * -- Conclusions -- * The rhythm is atrial fibrillation. * Ejection Fraction = 60-65%. * There is mild concentric left ventricular hypertrophy. * The left atrium is moderately dilated. * Flattened septum is consistent with RV pressure overload. * Dilated inferior vena cava with reduced collapsability with sniff indicates an elevated right atrial pressure of 15 mmHg * The right ventricle is not well visualized. * The right ventricular systolic function is reduced as assessed by tricuspid annular plane systolic excursion (TAPSE) (TAPSE <1.6 cm). * There is a bioprosthetic aortic valve. * The gradient is normal for this prosthetic aortic valve. * There is mild tricuspid regurgitation. Procedure Details * A complete two-dimensional transthoracic echocardiogram was performed (2D, M-mode, Doppler and color flow Doppler). * A contrast injection of Definity was performed to improve assessment of LV function. * Contrast was injected into an intravenous site in the right arm. * One vial of Definity ultrasound contrast was diluted in normal saline to a total volume of 10 ml. A total of '2' ml of solution was administered during imaging. * Lot # [id number] of Definity utilized for procedure. * Expiration date 1 MAR 26. * The attending nurse who injected the contrast agent was DORENE SIU, RN. Left Ventricle * The left ventricle is normal in size. * The rhythm is atrial fibrillation. * There is no thrombus. * There is mild concentric left ventricular hypertrophy. * Left ventricular systolic function is normal. * Ejection Fraction = 60-65%. * Septal motion is consistent with conduction abnormality. * Flattened septum is consistent with RV pressure overload. Right Ventricle * The right ventricle is not well visualized. * The right ventricular systolic function is reduced as assessed by tricuspid annular plane systolic excursion (TAPSE) (TAPSE <1.6 cm). Atria * The left atrium is moderately dilated. * Right atrial size is normal. * There is no evidence of atrial septal defect, but resolution does not allow assessment for a patent foramen ovale. Mitral Valve * There is mild mitral annular calcification. * The mitral valve leaflets appear thickened, but open well. * There is no mitral valve stenosis. * There is mild mitral regurgitation. Tricuspid Valve * The tricuspid valve is not well visualized. * There is no tricuspid stenosis. * There is mild tricuspid regurgitation. * Right ventricular systolic pressure is elevated at 40-50mmHg. Aortic Valve * There is a bioprosthetic aortic valve. * The gradient is normal for this prosthetic aortic valve. * Bioprosthetic leaflets are thin and move normally. * No significant bioprosthetic aortic valve regurgitation. Pulmonic Valve * The pulmonary valve is not well seen, but the Doppler examination is normal without significant regurgitation or stenosis. Great Vessels * The aortic root is normal size. Pericardium/Pleural * There is no pericardial effusion. Great Vessels * Dilated inferior vena cava with reduced collapsability with sniff indicates an elevated right atrial pressure of 15 mmHg Left Ventricular Diastolic Function * Pulse wave TDI of the anterior and posterior mitral annulas demonstrates abnormal LV relaxation MMode 2D Measurements and Calculations IVSd 1.2 cm IVSs 1.5 cm LVIDd 4.3 cm LVIDs 2.6 cm LVPWd 1.2 cm LVPWs 1.6 cm IVS/LVPW 1.0 FS 40.3 % EDV(Teich) 85.0 ml ESV(Teich) 24.4 ml EF(Teich) 71.2 % EDV(cubed) 81.8 ml ESV(cubed) 17.4 ml EF(cubed) 78.7 % % IVS thick 23.8 % % LVPW thick 33.8 % LV mass(C)d 184.9 grams LV mass(C)dI 95.1 grams/m\S\2 LV mass(C)s 136.5 grams LV mass(C)sI 70.2 grams/m\S\2 SV(Teich) 60.5 ml SI(Teich) 31.1 ml/m\S\2 SV(cubed) 64.4 ml SI(cubed) 33.1 ml/m\S\2 Ao root diam 2.7 cm Ao root area 5.9 cm\S\2 LA dimension 4.8 cm LA/Ao 1.8 LVOT diam 2.0 cm LVOT area 3.2 cm\S\2 LVAd ap4 25.2 cm\S\2 LVLd ap4 7.4 cm EDV(MOD-sp4) 70.3 ml EDV(sp4-el) 72.5 ml LVAs ap4 15.0 cm\S\2 LVLs ap4 6.1 cm ESV(MOD-sp4) 29.1 ml ESV(sp4-el) 31.0 ml EF(MOD-sp4) 58.6 % EF(sp4-el) 57.2 % LVAd ap2 30.1 cm\S\2 LVLd ap2 8.0 cm EDV(MOD-sp2) 88.6 ml EDV(sp2-el) 95.9 ml LVAs ap2 18.6 cm\S\2 LVLs ap2 7.2 cm ESV(MOD-sp2) 38.2 ml ESV(sp2-el) 40.4 ml EF(MOD-sp2) 56.9 % EF(sp2-el) 57.9 % LVLd %diff 7.7 % EDV(MOD-bp) 82.6 ml LVLs %diff 15.4 % ESV(MOD-bp) 35.6 ml EF(MOD-bp) 56.9 % SV(MOD-sp4) 41.2 ml SI(MOD-sp4) 21.2 ml/m\S\2 SV(MOD-sp2) 50.4 ml SI(MOD-sp2) 25.9 ml/m\S\2 SV(MOD-bp) 47.0 ml SI(MOD-bp) 24.2 ml/m\S\2 SV(sp4-el) 41.5 ml SI(sp4-el) 21.3 ml/m\S\2 SV(sp2-el) 55.5 ml SI(sp2-el) 28.6 ml/m\S\2 Doppler Measurements and Calculations MV E max javier 144.5 cm/sec MV P1/2t max javier 221.7 cm/sec MV P1/2t 61.5 msec MVA(P1/2t) 3.6 cm\S\2 MV dec slope 1056.0 cm/sec\S\2 MV dec time 0.19 sec Ao V2 max 200.2 cm/sec Ao max PG 16.0 mmHg Ao max PG (full) 8.0 mmHg JAZMIN(V,A) 2.2 cm\S\2 JAZMIN(V,D) 2.2 cm\S\2 LV V1 max PG 8.1 mmHg LV V1 max 141.9 cm/sec PA V2 max 111.3 cm/sec PA max PG 5.0 mmHg TR max javier 299.0 cm/sec
[2017-02-13] MEDS ORDERED: OPTIRAY 320 IV PRN (13:00)
--- NOTE | 2017-02-13 14:02 | DIAGNOSTIC IMAGING REPORT ---
CHEST 2 VIEWS ROUTINE CLINICAL HISTORY: hf, assess pleural fluid dyspnea COMPARISON STUDY: 02/12/2017 FINDINGS: Bilateral pleural effusions unchanged in the prior study. Mild stable cardiomegaly. Prior median sternotomy. Upper lungs are clear. IMPRESSION: Bilateral pleural effusions unchanged in the prior exam. Mild stable cardiomegaly. The above report was generated using voice recognition software. It may contain grammatical, syntax or spelling errors. Electronically signed by: Pablo Patrick M.D. 02/13/2017 2:00 PM Dictated Date/Time: 02/13/2017 2:00 PM
--- NOTE | 2017-02-13 14:15 | DIAGNOSTIC IMAGING REPORT ---
CHEST CTA for PULMONARY ARTERIES CT DOSE: 500.63 mGycm HISTORY: Short of breath. TECHNIQUE: Multiaxial CT images of the chest were performed following the intravenous administration of contrast to evaluate the pulmonary arteries. Maximal intensity projection images were also obtained. A dose lowering technique was utilized adhering to the principles of ALARA. COMPARISON STUDY: Chest 02/12/2017. FINDINGS: Normal caliber thoracic aorta with no evidence for dissection. Postoperative changes and an aortic valve prosthesis. The heart is mildly enlarged. Small loculated pericardial effusion along the inferior border of the heart. This demonstrates thickening of the pericardial wall and is best seen on image 44 of 246. Moderate bilateral pleural effusions. Nondiagnostic evaluation of the majority of the lower lobe segmental and subsegmental pulmonary arteries as well as the right middle lobe pulmonary arteries due to the motion artifact. Otherwise, no definite filling defects within the remaining pulmonary arteries to suggest pulmonary embolus. Nodular contour to the liver consistent with cirrhosis. The visualized spleen appears unremarkable. Borderline enlarged mediastinal and hilar lymph nodes. No pneumothorax. The central airways are patent. Mild bronchial wall thickening. A 3 mm nodule within the left upper lobe on image 199. Consolidation within the lower lobes is nonspecific but may be due to compressive atelectasis from the pleural effusions. Calcified granuloma within the left lower lobe. Small focal area of consolidation within the base of the right middle lobe. Mild interlobular septal thickening and right perihilar groundglass airspace opacities. This favors mild pulmonary edema. IMPRESSION: 1. No evidence for pulmonary embolus with limitations as described above. 2. Small loculated pericardial effusion along the inferior border of the heart. The pericardium is thickened at this location. This represents nonspecific pericardial thickening possibly due to chronic effusion or a infectious pericarditis. 3. Moderate bilateral pleural effusions with mild interstitial pulmonary edema and mild cardiomegaly. 4. Consolidation within the bilateral lower lobes favors compressive atelectasis. However, a pneumonia could also have a similar appearance. 5. Additional findings as described above. Electronically signed by: Wyatt Thakkar M.D. 02/13/2017 2:14 PM Dictated Date/Time: 02/13/2017 1:58 PM
--- NOTE | 2017-02-13 14:34 | Progress Note ---
Medicine Progress Note Date & Time of Visit: Feb 13, 2017 at 14:34 . Subjective CC: Follow-up visit for atrial flutter. HPI: Feels better. Less fatigued. Less SOB. Cough improved- minimal, nonproductive No chest pain. ROS: General- no fever, no chills Resp- as noted above in HPI Cardiac- as noted above in HPI GI- no nausea, no vomiting, no diarrhea, no constipation - no dysuria, no difficulty voiding . Objective Last 8 Hrs Date Time Temp Pulse Resp B/P (MAP) Pulse Ox O2 Delivery O2 Flow Rate FiO2 02/13/17 12:02 36.5 76 18 115/68 (84) 99 02/13/17 12:00 Room Air 02/13/17 08:00 Room Air 02/13/17 07:54 36.7 84 95 109/62 (78) 98 Physical Exam: General- sitting in chair, no distress Lungs- decreased breath sounds at bases, otherwise clear; no resp distress Cardiovascular- irregular, no murmur or gallop appreciated; + JVD; 1+ pretibial edema Abdomen- + BS, soft, nontender Extremities- no cyanosis; no calf tenderness Neuro- alert, oriented Skin- warm and dry . Laboratory Results: Last 24 Hours Test 02/12/17 16:39 02/12/17 18:20 02/12/17 20:13 02/12/17 22:02 White Blood Count 7.61 K/uL Red Blood Count 3.71 M/uL Hemoglobin 11.3 g/dL Hematocrit 34.5 % Mean Corpuscular Volume 93.0 fL Mean Corpuscular Hemoglobin 30.5 pg Mean Corpuscular Hemoglobin Concent 32.8 g/dl Platelet Count 264 K/uL Mean Platelet Volume 9.4 fL Neutrophils (%) (Auto) 71.9 % Lymphocytes (%) (Auto) 11.2 % Monocytes (%) (Auto) 10.4 % Eosinophils (%) (Auto) 5.7 % Basophils (%) (Auto) 0.5 % Neutrophils # (Auto) 5.48 K/uL Lymphocytes # (Auto) 0.85 K/uL Monocytes # (Auto) 0.79 K/uL Eosinophils # (Auto) 0.43 K/uL Basophils # (Auto) 0.04 K/uL RDW Standard Deviation 48.6 fL RDW Coefficient of Variation 14.3 % Immature Granulocyte % (Auto) 0.3 % Immature Granulocyte # (Auto) 0.02 K/uL Sodium Level 138 mmol/L Potassium Level 4.3 mmol/L Chloride Level 102 mmol/L Carbon Dioxide Level 26 mmol/L Anion Gap 9.0 mmol/L Blood Urea Nitrogen 19 mg/dl Creatinine 0.83 mg/dl Est Creatinine Clear Calc Drug Dose 88.8 ml/min Estimated GFR () 106.3 Estimated GFR (Non- 91.7 BUN/Creatinine Ratio 23.4 Random Glucose 98 mg/dl Calcium Level 10.4 mg/dl Magnesium Level 1.8 mg/dl Total Creatine Kinase 40 U/L Creatine Kinase MB < 0.5 ng/ml < 0.5 ng/ml Creatine Kinase MB Ratio Troponin I < 0.015 ng/ml < 0.015 ng/ml Influenza Type A Antigen Neg for Influ A Influenza Type B Antigen Neg for Influ B Bedside Glucose 83 mg/dl Test 02/13/17 00:05 02/13/17 04:00 02/13/17 04:20 02/13/17 06:43 Activated Partial Thromboplast Time 66.8 SECONDS 53.2 SECONDS Partial Thromboplastin Ratio 2.6 2.0 Creatine Kinase MB Ratio White Blood Count 7.30 K/uL Red Blood Count 3.43 M/uL Hemoglobin 10.3 g/dL Hematocrit 31.9 % Mean Corpuscular Volume 93.0 fL Mean Corpuscular Hemoglobin 30.0 pg Mean Corpuscular Hemoglobin Concent 32.3 g/dl RDW Standard Deviation 48.7 fL RDW Coefficient of Variation 14.3 % Platelet Count 240 K/uL Mean Platelet Volume 9.2 fL Sodium Level 137 mmol/L Potassium Level 4.2 mmol/L Chloride Level 102 mmol/L Carbon Dioxide Level 29 mmol/L Anion Gap 6.0 mmol/L Blood Urea Nitrogen 22 mg/dl Creatinine 0.85 mg/dl Est Creatinine Clear Calc Drug Dose 86.7 ml/min Estimated GFR () 105.2 Estimated GFR (Non- 90.8 BUN/Creatinine Ratio 25.4 Random Glucose 95 mg/dl Estimated Average Glucose 88 mg/dl Hemoglobin A1c 4.7 % Calcium Level 9.8 mg/dl Magnesium Level 1.7 mg/dl Creatine Kinase MB < 0.5 ng/ml Troponin I < 0.015 ng/ml Bedside Glucose 98 mg/dl Test 02/13/17 11:09 Bedside Glucose 114 mg/dl Date/Time Source Procedure Growth Status 02/12/17 20:44 Blood Blood Culture Pending Received 02/12/17 20:33 Blood Blood Culture Pending Received 02/13/17 00:30 Urine , Clean Catch Urine Culture Pending Received Assessment & Plan ATRIAL FIBRILLATION / FLUTTER Presented with atrial fib / flutter with rapid ventricular response. Cardiology consulted. Receiving IV diltiazem and metoprolol. Anticoagulated with IV heparin. CORONARY ARTERY DISEASE No chest pain. Intolerant of statins. Continue aspirin and metoprolol. CHF Acute on chronic left ventricular diastolic CHF. Atrial arrhythmias probably contributing to decompensation. Titrate diuretics. PLEURAL EFFUSIONS Possibly secondary to CHF. Pulmonary Medicine consulted. SLEEP APNEA Continue supplemental O2. PULMONARY HYPERTENSION / RV PRESSURE OVERLOAD Noted on echo. CTA chest negative for PE. Continue supplemental O2 for sleep apnea. DM TYPE 2 Well-controlled. Hgb A1C 4.11 September 2016. Hold metformin during hospital stay. Insulin coverage as needed. VTE PROPHYLAXIS Receiving IV heparin for atrial fib / flutter. DISPOSITION Expected discharge to home. Medical follow-up with Dr. Rojas. . Current Inpatient Medications: Current Inpatient Medications Medications (Trade) Dose Ordered Sig/Sal Route Start Time Stop Time Status Last Admin Dose Admin Diltiazem HCl 125 mg/Dextrose 125 ml @ 0 mls/hr Q0M PRN IV 02/12/17 16:15 03/14/17 16:14 02/12/17 16:30 5 MLS/HR Acetaminophen (Tylenol Tab) 650 mg Q4H PRN PO 02/12/17 17:45 03/14/17 17:44 Ondansetron HCl (Zofran Inj) 4 mg Q6H PRN IV 02/12/17 17:45 03/14/17 17:44 Metoprolol Tartrate (Lopressor Tab) 25 mg Q6H PO 02/12/17 20:00 03/14/17 19:59 02/13/17 14:10 25 MG Insulin Aspart (novoLOG ASPART) SLIDING SCALE If C... ACHS SC 02/12/17 21:00 03/14/17 20:59 02/13/17 11:59 1 UNITS Glucose (Glucose 40% Gel) 15-30 GRAMS 15 GRAMS... UD PRN PO 02/12/17 17:45 03/14/17 17:44 Glucose (Glucose Chew Tab) 4-8 Tablets 4 Tabl... UD PRN PO 02/12/17 17:45 03/14/17 17:44 Dextrose (Dextrose 50% 50ML Syringe) 25-50ML OF 50% DW IV FOR... UD PRN IV 02/12/17 17:45 03/14/17 17:44 Glucagon (Glucagon Inj) 1 mg UD PRN SQ 02/12/17 17:45 03/14/17 17:44 Aspirin (Ecotrin Tab) 81 mg BID PO 02/12/17 21:00 03/14/17 20:59 02/13/17 07:59 81 MG Cetirizine HCl (zyrTEC TAB) 10 mg DAILY PO 02/13/17 09:00 03/15/17 08:59 02/13/17 08:00 10 MG Docusate Sodium (coLACE CAP) 100 mg BID PRN PO 02/12/17 18:00 03/14/17 17:59 Fluticasone Propionate (Flovent Hfa 44MCG Inhaler) 2 puffs BID INH 02/12/17 21:00 03/14/17 20:59 02/13/17 07:58 2 PUFFS Fluticasone Propionate (Flonase Nasal [place]) 2 sprays DAILY SHALONDA 02/13/17 09:00 03/15/17 08:59 02/13/17 07:58 2 SPRAYS Montelukast Sodium (Singulair Tab) 10 mg QPM PO 02/12/17 21:00 03/14/17 20:59 02/12/17 20:59 10 MG Spironolactone (Aldactone Tab) 12.5 mg DAILY PO 02/13/17 09:00 03/15/17 08:59 02/13/17 08:00 12.5 MG Furosemide 40 mg/ Syringe 4 ml @ 4 mls/min Q12H IV 02/13/17 05:45 03/14/17 17:44 02/13/17 05:12 4 MLS/MIN Heparin Sodium/ Dextrose 500 ml @ 26 mls/hr [id number] PRN IV 02/12/17 18:30 03/14/17 18:29 02/13/17 12:00 26 MLS/HR Magnesium Oxide (Mag-Ox Tab) 400 mg BID PO 02/13/17 09:00 03/15/17 08:59 02/13/17 09:29 400 MG Non-Formulary Medication (Non-Formulary Patient'S Own Med) 1 ea DAILY PO 02/13/17 12:00 03/15/17 11:59 02/13/17 12:15 1 EA Ioversol (Optiray 320) 100 ml UD PRN IV 02/13/17 13:00 02/17/17 12:59
[2017-02-13] MEDS: FUROSEMIDE INJ 60 MG in SYRINGE 0 ML IV SCH (19:54)
[2017-02-13] MEDS: MONTELUKAST SOD 10 MG TAB PO SCH (19:55)
--- NOTE | 2017-02-13 20:05 | Pulmonary Consultation ---
History General Date of Service: Feb 13, 2017. Stated Complaint: Atrial Fibrillation With Rvr HPI The patient is a 66 year old male who presents to [facility] with complaints of Atrial Fibrillation With Rvr. The patient's primary care provider is Redd Rojas D.O.. The patient has a prior history of aortic valve replacement and three-vessel CABG completed at [facility] in 2014. Since that time he has had ongoing problems with fluid management. He has been diuresed with Lasix. He is also on chronic Spiriva lactone. In March 2016 the patient also had influenza A with respiratory manifestations. He presented to the outpatient clinic with cardiac decompensation and was found to be in atrial fibrillation by EKG. Chest x-ray on admission showed bilateral pleural effusions. We've been asked by Dr. Brown to evaluate for thoracentesis. Patient is currently seen at bedside with his present. He is asymptomatic at rest but does note that he has easy fatigability with shortness of breath with ambulation. He has no chest pain or tightness. He does have periodic lower extremity edema but it is always symmetrical. He has no prior history of thromboembolic disease. The patient does have a history of obstructive sleep apnea and uses supplemental oxygen at home with no positive pressure apparatus. He does have a history of reactive airway disease and takes Flovent, Zyrtec, Singulair daily he currently is comfortable and has no acute complaints Review of Systems A total of 12 systems was reviewed and is negative other than as listed above in the HPI All Other Symptoms All Other Systems: Reviewed and Negative Past Medical History Past Medical History: 1. Aortic stenosis, status post bioprosthetic AVR with a [address] [employer] Trifecta valve. 2. Coronary artery disease status post coronary artery bypass grafting x3 with GONZALES to LAD, SVG to diagonal, SVG to OM in February 2014. 3. Diabetes type 2. 4. Obstructive sleep apnea with utilizing supplemental oxygen at night, not CPAP. 5. Dyslipidemia with intolerance to all statins. 6. Paroxysmal atrial fibrillation/flutter, status post DCCV March 2016. 7. GERD. 8. BPH. 9. Reactive airways disease. 10. Sinusitis. 11. Hypertension. 12. Statin intolerance. Past Surgical History: PAST SURGICAL HISTORY: 1. Coronary artery bypass grafting x3 as noted above in February 2014. 2. Aortic valve replacement in February 2014. 3. Tonsil and adenoidectomy. 4. Nasal surgery Social History Hx Tobacco Use In Past Year?: No Smoking Status: Former Smoker Drug Use: none Marital status: Housing status: lives with family Occupational Status: retired Immunizations History of Influenza Vaccine: Yes Influenza Vaccine Date: Oct 26, 2016 History of Tetanus Vaccine?: Yes Tetanus Immunization Date: Dec 08, 2005 History of Pneumococcal: Yes Pneumococcal Date: Jul 20, 2016 History of MDRO History of MDRO: No Allergies Coded Allergies: Statins (Unverified Adverse Reaction, Severe, LEG WEAKNESS, 02/12/17) Current Medications Reported Home Medications Medications Dose Route/Sig Max Daily Dose Days Date Category Prinivil (Lisinopril) 5 Mg Tab 5 Mg PO DAILY 02/12/17 Reported Metoprolol Succinate ER (Metoprolol Succinate) 50 Mg Tabcr 50 Mg PO BID 02/12/17 Reported Aldactone (Spironolactone) 25 Mg Tab 12.5 Mg PO DAILY 90 02/12/17 Reported Lasix (Furosemide) 20 Mg Tab 20 Mg PO BID 02/12/17 Reported Zyrtec (Cetirizine HCl) 10 Mg Tab 10 Mg PO DAILY 02/12/17 Reported Tricor (Fenofibrate) 54 Mg Tab 1 Tab PO DAILY 30 02/12/17 Reported Tylenol (Acetaminophen) 325 Mg Tab 650 Mg PO UD PRN 02/12/17 Reported Flonase Allergy Relief (Fluticasone Propionate (Nasal)) 50 Mcg/Act Spr 1 May SHALONDA DAILY 02/12/17 Reported Flovent Hfa (Fluticasone Propionate) 120 Puffs/5280 Mcg Aero 2 Puffs INH BID 30 02/12/17 Reported Ventolin Hfa (Albuterol) 200 Puffs/50091 Mcg Aers 2 Puffs INH Q4H PRN 02/12/17 Reported Glucophage (Metformin Hcl) 1,000 Mg Tab 500 Mg PO BID 04/14/14 Reported Nitrostat (Nitroglycerin) 0.4 Mg Sub 0.4 Mg UT PRN 04/02/14 Reported Colace (Docusate Sodium) 100 Mg Cap 1 Tab PO BID PRN 04/02/14 Reported Aspirin 81 Mg Tab 81 Mg PO BID 04/02/14 Reported Montelukast Sodium (Montelukast Sod) 10 Mg Tab 10 Mg PO QPM 12/22/13 Reported Physical Physical Exam Vital Signs: Date Time Temp Pulse Resp B/P (MAP) Pulse Ox O2 Delivery O2 Flow Rate FiO2 02/13/17 19:22 36.9 94 18 112/66 (81) 97 Room Air 02/13/17 16:00 Room Air 02/13/17 15:54 36.9 95 18 119/66 (83) 96 Room Air 02/13/17 12:02 36.5 76 18 115/68 (84) 99 02/13/17 12:00 Room Air 02/13/17 08:00 Room Air 02/13/17 07:54 36.7 84 95 109/62 (78) 98 02/13/17 05:11 113/73 (86) 02/13/17 03:30 37.2 84 22 120/71 (87) 93 Room Air 02/13/17 03:27 Room Air 02/13/17 01:30 105/66 (79) 02/12/17 23:15 37.1 87 22 107/60 (76) 94 Room Air 02/12/17 23:15 Room Air 02/12/17 21:01 116 130/77 (94) Weight in Kilograms: 87.3 GENERAL : No acute distress. Sitting in bedside chair EYES: No icterus, gaze conjugate NOSE: No evidence of epistaxis MOUTH: No lesions or candidiasis NECK: Supple LUNGS: CTA B/L, no wheezes, rales or rhonchi. Decreased bilaterally HEART: Irregular, irregular, rate controlled ABDOMEN: Soft, NT, ND, BS Present EXTREMITIES: No LE edema, pedal pulses intact NEURO: A&OX3 Diagnostics Labs Results Past 24 Hours Test 02/12/17 20:13 02/12/17 22:02 02/13/17 00:05 02/13/17 04:00 Range/Units Bedside Glucose 83 70-99 mg/dl Creatine Kinase MB < 0.5 0.5-3.6 ng/ml Creatine Kinase MB Ratio 0-3.0 Troponin I < 0.015 0-0.045 ng/ml Activated Partial Thromboplast Time 66.8 21.0-31.0 SECONDS Partial Thromboplastin Ratio 2.6 Test 02/13/17 04:20 02/13/17 06:43 02/13/17 11:09 1/9/18 16:07 Range/Units White Blood Count 7.30 4.8-10.8 K/uL Red Blood Count 3.43 4.7-6.1 M/uL Hemoglobin 10.3 14.0-18.0 g/dL Hematocrit 31.9 42-52 % Mean Corpuscular Volume 93.0 80-100 fL Mean Corpuscular Hemoglobin 30.0 25-34 pg Mean Corpuscular Hemoglobin Concent 32.3 32-36 g/dl RDW Standard Deviation 48.7 36.4-46.3 fL RDW Coefficient of Variation 14.3 11.5-14.5 % Platelet Count 240 130-400 K/uL Mean Platelet Volume 9.2 7.4-10.4 fL Activated Partial Thromboplast Time 53.2 21.0-31.0 SECONDS Partial Thromboplastin Ratio 2.0 Sodium Level 137 136-145 mmol/L Potassium Level 4.2 3.5-5.1 mmol/L Chloride Level 102 98-107 mmol/L Carbon Dioxide Level 29 21-32 mmol/L Anion Gap 6.0 3-11 mmol/L Blood Urea Nitrogen 22 7-18 mg/dl Creatinine 0.85 0.60-1.40 mg/dl Est Creatinine Clear Calc Drug Dose 86.7 ml/min Estimated GFR () 105.2 Estimated GFR (Non- 90.8 BUN/Creatinine Ratio 25.4 10-20 Random Glucose 95 70-99 mg/dl Estimated Average Glucose 88 mg/dl Hemoglobin A1c 4.7 4.5-5.6 % Calcium Level 9.8 8.5-10.1 mg/dl Magnesium Level 1.7 1.8-2.4 mg/dl Creatine Kinase MB < 0.5 0.5-3.6 ng/ml Troponin I < 0.015 0-0.045 ng/ml Bedside Glucose 98 114 120 70-99 mg/dl Microbiology Results 02/12/17 Blood Culture, Received Pending 02/12/17 Blood Culture, Received Pending 02/13/17 Urine Culture, Received Pending Diagnostic Radiology CHEST CTA for PULMONARY ARTERIES CT DOSE: 500.63 mGycm HISTORY: Short of breath. TECHNIQUE: Multiaxial CT images of the chest were performed following the intravenous administration of contrast to evaluate the pulmonary arteries. Maximal intensity projection images were also obtained. A dose lowering technique was utilized adhering to the principles of ALARA. COMPARISON STUDY: Chest 02/12/2017. FINDINGS: Normal caliber thoracic aorta with no evidence for dissection. Postoperative changes and an aortic valve prosthesis. The heart is mildly enlarged. Small loculated pericardial effusion along the inferior border of the heart. This demonstrates thickening of the pericardial wall and is best seen on image 44 of 246. Moderate bilateral pleural effusions. Nondiagnostic evaluation of the majority of the lower lobe segmental and subsegmental pulmonary arteries as well as the right middle lobe pulmonary arteries due to the motion artifact. Otherwise, no definite filling defects within the remaining pulmonary arteries to suggest pulmonary embolus. Nodular contour to the liver consistent with cirrhosis. The visualized spleen appears unremarkable. Borderline enlarged mediastinal and hilar lymph nodes. No pneumothorax. The central airways are patent. Mild bronchial wall thickening. A 3 mm nodule within the left upper lobe on image 199. Consolidation within the lower lobes is nonspecific but may be due to compressive atelectasis from the pleural effusions. Calcified granuloma within the left lower lobe. Small focal area of consolidation within the base of the right middle lobe. Mild interlobular septal thickening and right perihilar groundglass airspace opacities. This favors mild pulmonary edema. IMPRESSION: 1. No evidence for pulmonary embolus with limitations as described above. 2. Small loculated pericardial effusion along the inferior border of the heart. The pericardium is thickened at this location. This represents nonspecific pericardial thickening possibly due to chronic effusion or a infectious pericarditis. 3. Moderate bilateral pleural effusions with mild interstitial pulmonary edema and mild cardiomegaly. 4. Consolidation within the bilateral lower lobes favors compressive atelectasis. However, a pneumonia could also have a similar appearance. 5. Additional findings as described above. Electronically signed by: Wyatt Thakkar M.D. 02/13/2017 2:14 PM Impression Assessment and Plan BILATERAL PLEURAL EFFUSIONS * This point patient is on heparin drip. This will be held tomorrow morning at 5 AM in anticipation of thoracentesis * We'll discuss the case with Dr. Conner * CT scan indicates possible of loculated effusions * We'll do bedside ultrasound prior to procedure * Check PT/INR with a.m. labs * Oxygenating well on room air at rest * Etiology most likely cardiac in origin PERICARDIAL EFFUSION * Identified on CTA of chest * Echocardiogram demonstrated no evidence of pericardial effusion * Cardiology following QUESTION OF CONSOLIDATION AT BILATERAL LOWER LOBES * Most likely compressive atelectasis secondary to bilateral pleural effusions * Will reevaluate with chest x-ray status post thoracentesis * Afebrile and no leukocytosis * No cough or purulent sputum * No indication for antibiotics at this time DVT PROPHYLAXIS * Currently on heparin drip * Ambulate as tolerated Thank you for including us in the care of this patient. We will continue to follow. Please refer to Dr. Workman's addendum for further recommendations Physician Supervision Note: I was present with Umesh Araujo PA-C during the history and exam. I discussed the case with him and agree with the findings and plan as documented in the note. Any exceptions or clarifications are listed here: 66 year-old male with significant cardiac history, SHERWIN on CPAP, admitted for a- fib with RVR, found to have b/l pleural effusions. Likely cardiac in nature Plan is for thoracentesis. On heparin drip, to be held prior to procedure. Continue to use nocturnal CPAP. Documented By: Uzair Workman MD
[2017-02-14] VITALS (8 sets, daily range): BP systolic 103–132; BP diastolic 62–69; PULSE 86–107; TEMP 36.8–37.1; O2SAT 94–97
[2017-02-14] MEDS: METOPROLOL TARTRATE 25 MG TAB PO SCH ×4 (01:42→20:34)
[2017-02-14] MEDS: DILTIAZEM HCL INJ 125 MG in DEXTROSE 5% 100ML IV PRN (03:35)
[2017-02-14 05:59] LABS: HEMATOCRIT 32.7 % (42-52); HEMOGLOBIN 10.7 g/dL (14.0-18.0); MEAN CELL VOLUME 92.1 fL (80-100); MEAN CORPUSCULAR HEMOGLOBIN 30.1 pg (25-34); MEAN CORPUSCULAR HGB CONC 32.7 g/dl (32-36); MEAN PLATELET VOLUME 9.5 fL (7.4-10.4); PLATELET COUNT 261 K/uL (130-400); RED CELL DISTRIBUTION WIDTH CV 14.1 % (11.5-14.5); RED CELL DISTRIBUTION WIDTH SD 48.4 fL (36.4-46.3); WHITE BLOOD COUNT 6.72 K/uL (4.8-10.8)
[2017-02-14 06:13] LABS: PTT PATIENT 36.3 SECONDS (21.0-31.0)
[2017-02-14] MEDS: FUROSEMIDE INJ 60 MG in SYRINGE 0 ML IV SCH ×2 (06:26→17:55)
[2017-02-14] MEDS: FLUTICASONE PROPIONATE NA SPR 16 GM BTL NAE SCH (07:46)
[2017-02-14] MEDS: CETIRIZINE HCL 10 MG TAB PO SCH (07:47)
[2017-02-14] MEDS: SPIRONOLACTONE 25 MG TAB PO SCH (07:47)
[2017-02-14] MEDS: ASPIRIN 81 MG ECTAB PO SCH ×2 (07:47→20:35)
[2017-02-14] MEDS: MAGNESIUM OXIDE 400 MG TAB PO SCH ×2 (07:47→20:36)
[2017-02-14] MEDS: FLUTICASONE PROP HFA INH 44 MCG INHALER INH SCH ×2 (07:47→20:35)
[2017-02-14] MEDS: FENOFIBRATE PO SCH (07:48)
[2017-02-14] MEDS: INSULIN ASPART 100 UNITS/ML 3 ML PEN SC SCH ×4 (08:00→21:00)
--- NOTE | 2017-02-14 09:07 | Cardiology Follow-Up ---
Subjective General Date of Service: Feb 14, 2017. Chief Complaint: atrial fibrillation Pt evaluation today including: conversation w/ patient, physical exam, chart review, lab review, review of studies, review of inpatient medication list History of Present Illness Patient seen and examined. Chart, medications, telemetry reviewed. Patient interviewed and examined at 8:45 AM. + Cough. + Dyspnea. + Chest congestion. No chest pain. No overt palpitations. For thoracentesis today. Telemetry: Atrial fibrillation ranging from 60 to 140 bpm. Occasional PVC. February 13, 2017 TTE Interpretation Summary: The rhythm is atrial fibrillation. Ejection Fraction = 60-65%. There is mild concentric left ventricular hypertrophy. The left atrium is moderately dilated. Flattened septum is consistent with RV pressure overload. Dilated inferior vena cava with reduced collapsability with sniff indicates an elevated right atrial pressure of 15 mmHg. The right ventricle is not well visualized. The right ventricular systolic function is reduced as assessed by tricuspid annular plane systolic excursion (TAPSE) (TAPSE <1.6 cm). There is a bioprosthetic aortic valve. The gradient is normal for this prosthetic aortic valve. There is mild tricuspid regurgitation. Allergies Coded Allergies: Statins (Unverified Adverse Reaction, Severe, LEG WEAKNESS, 02/12/17) Social History Smoking Status: Former Smoker Hx Tobacco Use In Past Year?: No Hx Alcohol Use - Type And Amou: No Hx Substance Use - Type And Am: No Review of Systems Respiratory: + shortness of breath, + dyspnea on exertion, No cough, No sputum , No wheezing, No dyspnea at rest, No hemoptysis Cardiac: + edema, No chest pain, No orthopnea, No PND, No claudication, No palpitations Physical Exam Vital Signs Last Vital Signs Documentation Date Time Temp Pulse Resp B/P (MAP) Pulse Ox O2 Delivery O2 Flow Rate FiO2 02/14/17 07:45 36.8 86 18 132/69 (90) 95 02/14/17 04:00 Room Air Physical Exam Constitutional: General Apperance: overweight Level of Distress: chronically ill Psychiatric: Mental Status: active & alert Orientation: to time, to place, to person Memory: recent memory normal, remote memory normal Head: normocephalic, atraumatic Eyes: Pupils: PERRLA Neck: pertinent finding (Elevated JVP) Lungs: Respiratory effort: no dyspnea Auscultation: no wheezing, no rhonchi, deminished air movement, decreased breath sounds, rales/crackles on the left, rales/crackles on the right, pertinent finding (Absent breath sounds 1/[address] up bilaterally) Cardiovascular: Apical Impulse: displaced Heart Auscultation: no rubs, tachycardia (~100 bpm), irregular rate rhythm Peripheral Pulses: Dorsalis Pedis Pulse: absent on the left, absent on the right Abdomen: Bowel Sounds: normal Inspection & Palpation: soft, non-distended, no masses Extremities: no cyanosis, no clubbing, edema (1-2+ hard indurated edema) Neurologic: Cranial Nerves: grossly intact Assessment and Plan Assessment and Plan Admission with symptomatic paroxysmal atrial fibrillation/flutter with RVR, resultant acute decompensated heart failure with what considerable bilateral pleural effusions History of paroxysmal atrial fibrillation/flutter, status post direct current cardioversion in 2016 with the patient declining long-term anticoagulation at that time. CHADSVASC 5 Diastolic dysfunction. Preserved LV systolic function. Aortic valve disease status post aortic valve replacement in February 2014. Chronic coronary artery disease with history of prior coronary artery bypass grafting x 4. Obstructive sleep apnea. Dyslipidemia, statin intolerance. RECOMMENDATIONS: Thoracentesis today Resume IV heparin when able Initiate Coumadin anticoagulation. Continue IV diuresis. Maintain electrolytes (metabolic panel and magnesium level pending at this time) Cardiology Attending Physician: Patient seen and examined at the bedside. Heart rate improved. Intravenous diltiazem discontinued. Left-sided Thoracentesis performed today with 500 mL of serosanguineous fluid removed. Heparin on hold. Fluid balance negative approximately 2000 mL including thoracentesis volume. Patient symptoms mildly improved. Denies chest pain or heaviness. Reports previously noted chest pressure has improved slightly. Offers no new complaints at this time. is present at bedside. Telemetry: Atrial fibrillation with heart rate averaging 80-90 bpm. PE: VSS. GEN: NAD, AAOx3. Heart: Irregular rhythm with borderline tachycardia. No murmur appreciated. Lungs: Markedly diminished breath sounds at the bases bilaterally. Crackles now present at the left base. Crackles noted in the right sided midlung field. No wheeze. Abdomen: Soft, nontender, nondistended, normal bowel sounds. Extremity: +2 pretibial edema. A/P: Agree with above PA-C history, physical exam, assessment and plan with the following additions: I will not proceed with transesophageal echo guided cardioversion tomorrow as the patient still remains significantly volume overloaded. I would like to improve his overall volume status including repeat thoracentesis on the right side later this evening prior to attempting cardioversion. If there is no evidence of left atrial appendage thrombus I will proceed with cardioversion and likely sotalol loading thereafter. He will continue beta kari therapy for the time being. Case was discussed with pulmonary medicine. Heparin will be restarted after right sided thoracentesis this evening. If thoracentesis is not performed this evening, heparin will be restarted overnight with plans to hold heparin in the a.m. in anticipation of right sided thoracentesis. I will continue intravenous diuretic therapy with close attention to fluid balance, GFR, and electrolytes. Leonel Brown DO, [facility] Laboratory Results Last 24 Hours Test 02/13/17 11:09 02/13/17 16:07 02/13/17 20:22 02/14/17 05:29 Bedside Glucose 114 mg/dl 120 mg/dl 89 mg/dl White Blood Count 6.72 K/uL Red Blood Count 3.55 M/uL Hemoglobin 10.7 g/dL Hematocrit 32.7 % Mean Corpuscular Volume 92.1 fL Mean Corpuscular Hemoglobin 30.1 pg Mean Corpuscular Hemoglobin Concent 32.7 g/dl RDW Standard Deviation 48.4 fL RDW Coefficient of Variation 14.1 % Platelet Count 261 K/uL Mean Platelet Volume 9.5 fL Activated Partial Thromboplast Time 36.3 SECONDS Partial Thromboplastin Ratio 1.4 Test 02/14/17 06:30 Bedside Glucose 96 mg/dl
[2017-02-14 09:14] LABS: CALCIUM 9.7 mg/dl (8.5-10.1); CREATININE 0.84 mg/dl (0.60-1.40)
[2017-02-14 10:17] LABS: INR 1.2 (0.9-1.1)
--- NOTE | 2017-02-14 11:23 | Procedure Note ---
Procedure Note Date of Service Feb 14, 2017. Procedure Note Procedures: Left sided Thoracentesis Consent: obtained via the patient and placed into the chart Pre-Procedural Dx: Bilateral pleural effusions Post-Procedural Dx: bilateral pleural effusions Analgesia: 8cc of 1% Liquid Lidocaine Procedure: The patient was placed in an upright position and thoracic US was used to select a spot for the procedure. A spot along the posterior axillary line was marked in the 7th intercostal space. The patient was then draped and prepped in a sterile fashion. A modified Seldinger technique was then used for catheter placement. Flowing this approximately 500cc of serosanguineous pleural fluid was removed. The patient was then cleaned and placed at a 60 degree angle in the bed were the US was used to evaluate for possible pneumothorax. The US showed good lung sliding and starry night sign/[place]. EBL: none Complications: none
--- NOTE | 2017-02-14 12:05 | DIAGNOSTIC IMAGING REPORT ---
CHEST ONE VIEW PORTABLE CLINICAL HISTORY: S/P Thoracentesis postthoracentesis COMPARISON STUDY: 02/13/2017 FINDINGS: Persistent bilateral pleural effusions. Slight decrease in volume on the left. No evidence for pneumothorax postthoracentesis. IMPRESSION: No evidence for pneumothorax postthoracentesis. The above report was generated using voice recognition software. It may contain grammatical, syntax or spelling errors. Electronically signed by: Pablo Patrick M.D. 02/14/2017 12:04 PM Dictated Date/Time: 02/14/2017 12:03 PM
[2017-02-14 12:12] LABS: PLEURAL FLUID TOTAL PROTEIN 3.1 g/dl
--- NOTE | 2017-02-14 18:33 | Procedure Note ---
Procedure Note Date of Service Feb 14, 2017. Procedure Note Procedures: Right sided Thoracentesis Consent: obtained via the patient and placed into the chart Pre-Procedural Dx: Bilateral Pleural Effusion Post-Procedural Dx:Bilateral Pleural Effusion Analgesia: 8cc of 1% Liquid Lidocaine Procedure: The patient was placed in an upright position and thoracic US was used to select a spot for the procedure. A spot along the posterior axillary line was marked in the 7th intercostal space. The patient was then draped and prepped in a sterile fashion. A modified Seldinger technique was then used for catheter placement. Flowing this approximately 800cc of serosanguineous pleural fluid was removed. The patient was then cleaned and placed at a 60 degree angle in the bed were the US was used to evaluate for possible pneumothorax. The US showed good lung sliding and starry night sign. EBL: 1cc Complications: none
[2017-02-14] MEDS ORDERED: NURSING VERBAL MED ORDER ONE (19:00)
--- NOTE | 2017-02-14 19:03 | DIAGNOSTIC IMAGING REPORT ---
CHEST ONE VIEW PORTABLE CLINICAL HISTORY: S/P Thoracentesis COMPARISON STUDY: 02/14/2017 FINDINGS: There are postsurgical changes of a midline sternotomy. The heart remains enlarged. There are persistent bilateral pleural effusions. There is no pneumothorax status post thoracentesis.[ IMPRESSION: No evidence of pneumothorax status post thoracentesis. Electronically signed by: Zeeshan Phelan M.D. 02/14/2017 7:01 PM Dictated Date/Time: 02/14/2017 7:01 PM
[2017-02-14 20:11] LABS: PLEURAL FLUID TOTAL PROTEIN 3.3 g/dl
[2017-02-14] MEDS: MONTELUKAST SOD 10 MG TAB PO SCH (20:36)
--- NOTE | 2017-02-14 20:38 | Pulmonology Progress Note ---
Pulmonary Progress Note Date of Service Feb 14, 2017. Attending Dr. Workman Subjective 66-year-old male admitted for A. fib a flutter. Patient has history of cardiac disease with valve replacement and CABG in 2014. Patient presented with bilateral pleural effusions. Heparin drip was held this morning at 0500. Thoracentesis performed at Dr. Conner on the left this morning for 500 mL. No evidence of pneumothorax per bedside ultrasound. Right-sided thoracentesis and performed this evening with 800 mL evacuated. Again no evidence of pneumothorax. Both samples were sero-sanguinous. The heparin was to be started two hours post-evening procedure of the right thoracentesis. Patient tolerated both procedures well Patient denies any chest pain or tightness. He is unaware of any tachyarrhythmia. Cardizem was held last night secondary to heart rate below 60. Patient is noted to have accelerated heart rate of 140-150 with exertion particularly when cleaning up this morning in the bathroom. He has no specific dyspnea. He has no acute complaints.` Objective Vital Signs - as noted below Laboratory Data - as noted below Physical Exam: General - NAD Eyes - No icterus, gaze conjugate ENT - Mucosa moist, no lesions or candidiasis Neck - Supple, No JVD Lungs - No bronchospasm, rales, or rhonchi. Decreased breath sounds bilaterally Heart - irregular irregular, rate in the low 100s Abdomen - Soft, NT, ND, BS present Extremities - No edema, pedal pulses intact Neuro - A&OX3 Assessment & Plan BILATERAL PLEURAL EFFUSIONS * Thoracentesis to the left pleural space with 500 mL evacuated this morning * Thoracentesis to the right pleural space with 800 mL evacuated this evening * No evidence of pneumothorax after either procedure * Heparin restarted two hours after evening procedure * Await lab results for pleural fluid ATRIAL FIBRILLATION * Cardiology consulted and managing * May attempt cardioversion no earlier than Sunday per Dr. Triplett * Chronic anticoagulation per cardiology DVT PROPHYLAXIS * Heparin drip for atrial fibrillation Thank you for including us in the care of this patient. Please refer to Dr. Workman's addendum for further recommendations. I was present with Umesh Araujo PA-C during the history and exam. I discussed the case with him and agree with the findings and plan as documented in the note. Any exceptions or clarifications are listed here: 66 year-old male with significant cardiac history, SHERWIN on CPAP, admitted for a- fib with RVR, found to have b/l pleural effusions. Likely cardiac in nature S/p bilateral thoracentesis today, removed 500 ml from the left and 800 ml from the right lung. Fluid was serosanguineous b/l, appears to be exudative (will check protein and LDH levels in AM) Heparin drip resumed Continue to use nocturnal CPAP. Documented By: Uzair Workman MD Data Medications: Current Inpatient Medications Medications (Trade) Dose Ordered Sig/Sal Route Start Time Stop Time Status Last Admin Dose Admin Diltiazem HCl 125 mg/Dextrose 125 ml @ 0 mls/hr Q0M PRN IV 02/12/17 16:15 03/14/17 16:14 02/14/17 03:35 5 MLS/HR Acetaminophen (Tylenol Tab) 650 mg Q4H PRN PO 02/12/17 17:45 03/14/17 17:44 Ondansetron HCl (Zofran Inj) 4 mg Q6H PRN IV 02/12/17 17:45 03/14/17 17:44 Metoprolol Tartrate (Lopressor Tab) 25 mg Q6H PO 02/12/17 20:00 03/14/17 19:59 02/14/17 13:17 25 MG Insulin Aspart (novoLOG ASPART) SLIDING SCALE If C... ACHS SC 02/12/17 21:00 03/14/17 20:59 02/14/17 18:02 3 UNITS Glucose (Glucose 40% Gel) 15-30 GRAMS 15 GRAMS... UD PRN PO 02/12/17 17:45 03/14/17 17:44 Glucose (Glucose Chew Tab) 4-8 Tablets 4 Tabl... UD PRN PO 02/12/17 17:45 03/14/17 17:44 Dextrose (Dextrose 50% 50ML Syringe) 25-50ML OF 50% DW IV FOR... UD PRN IV 02/12/17 17:45 03/14/17 17:44 Glucagon (Glucagon Inj) 1 mg UD PRN SQ 02/12/17 17:45 03/14/17 17:44 Aspirin (Ecotrin Tab) 81 mg BID PO 02/12/17 21:00 03/14/17 20:59 1/10/18 07:47 81 MG Cetirizine HCl (zyrTEC TAB) 10 mg DAILY PO 02/13/17 09:00 03/15/17 08:59 02/14/17 07:47 10 MG Docusate Sodium (coLACE CAP) 100 mg BID PRN PO 02/12/17 18:00 03/14/17 17:59 Fluticasone Propionate (Flovent Hfa 44MCG Inhaler) 2 puffs BID INH 02/12/17 21:00 03/14/17 20:59 02/14/17 07:47 2 PUFFS Fluticasone Propionate (Flonase Nasal [place]) 2 sprays DAILY SHALONDA 02/13/17 09:00 03/15/17 08:59 02/14/17 07:46 2 SPRAYS Montelukast Sodium (Singulair Tab) 10 mg QPM PO 02/12/17 21:00 03/14/17 20:59 02/13/17 19:55 10 MG Spironolactone (Aldactone Tab) 12.5 mg DAILY PO 02/13/17 09:00 03/15/17 08:59 02/14/17 07:47 12.5 MG Magnesium Oxide (Mag-Ox Tab) 400 mg BID PO 02/13/17 09:00 03/15/17 08:59 02/14/17 07:47 400 MG Non-Formulary Medication (Non-Formulary Patient'S Own Med) 1 ea DAILY PO 02/13/17 12:00 03/15/17 11:59 02/14/17 07:48 1 EA Ioversol (Optiray 320) 100 ml UD PRN IV 02/13/17 13:00 02/17/17 12:59 Furosemide 60 mg/ Syringe 6 ml @ 4 mls/min Q12H IV 02/13/17 19:00 03/15/17 18:59 02/14/17 17:55 4 MLS/MIN Heparin Sodium/ Dextrose 500 ml @ 26 mls/hr [id number] PRN IV 02/14/17 21:00 03/16/17 20:59 I & O: 24-Hour Column 02/15/17 08:00 Intake Total 420 ml Output Total 200 ml Balance 220 ml Vital Signs: Date Time Temp Pulse Resp B/P (MAP) Pulse Ox O2 Delivery O2 Flow Rate FiO2 02/14/17 19:54 37.0 87 20 107/64 (78) 94 Room Air 02/14/17 16:01 37.1 88 20 104/62 (76) 96 Room Air 02/14/17 16:00 Room Air 02/14/17 12:00 Room Air 02/14/17 11:42 36.8 94 18 106/63 (77) 97 02/14/17 08:00 Room Air 02/14/17 07:45 36.8 86 18 132/69 (90) 95 02/14/17 04:00 96 Room Air 02/14/17 03:26 37.1 86 18 103/64 (77) 95 Room Air 02/14/17 01:42 107 117/68 (84) 02/14/17 00:00 97 Room Air 02/13/17 23:44 36.8 87 18 106/69 (81) 93 Room Air Laboratory Results: Last 24 Hours Test 02/14/17 00:00 02/14/17 05:29 02/14/17 06:30 02/14/17 10:51 Pleural Fluid Source RIGHT LUNG Pleural Fluid Color CLOV[place] Pleural Fluid Appearance CLOUDY Pleural Fluid WBC 236 /uL Pleural Fluid RBC 24375 /uL Pleural Fluid pH 7.34 Pleural Fluid Polynuclear WBCs % 15.5 % Pleural Fluid Mononuclear WBCs % 84.5 % Pleural Fluid Total Protein 3.1 g/dl Pleural Fluid LDH 158 IU Pleural Fluid Glucose 73 mg/dl Pleural Fluid Amylase 11 U/L White Blood Count 6.72 K/uL Red Blood Count 3.55 M/uL Hemoglobin 10.7 g/dL Hematocrit 32.7 % Mean Corpuscular Volume 92.1 fL Mean Corpuscular Hemoglobin 30.1 pg Mean Corpuscular Hemoglobin Concent 32.7 g/dl RDW Standard Deviation 48.4 fL RDW Coefficient of Variation 14.1 % Platelet Count 261 K/uL Mean Platelet Volume 9.5 fL Prothrombin Time 12.4 SECONDS Prothromb Time International Ratio 1.2 Activated Partial Thromboplast Time 36.3 SECONDS Partial Thromboplastin Ratio 1.4 Sodium Level 135 mmol/L Potassium Level 4.0 mmol/L Chloride Level 100 mmol/L Carbon Dioxide Level 29 mmol/L Anion Gap 7.0 mmol/L Blood Urea Nitrogen 23 mg/dl Creatinine 0.84 mg/dl Est Creatinine Clear Calc Drug Dose 87.8 ml/min Estimated GFR () 105.7 Estimated GFR (Non- 91.2 BUN/Creatinine Ratio 27.2 Random Glucose 92 mg/dl Calcium Level 9.7 mg/dl Magnesium Level 2.1 mg/dl Chemistry Specimen Hemolysis Bedside Glucose 96 mg/dl 112 mg/dl Test 02/14/17 16:15 02/14/17 18:49 Bedside Glucose 95 mg/dl Pleural Fluid Total Protein 3.3 g/dl Pleural Fluid LDH 244 IU Pleural Fluid Glucose 92 mg/dl Pleural Fluid Amylase 10 U/L
--- NOTE | 2017-02-14 20:47 | Progress Note ---
Medicine Progress Note Date & Time of Visit: Feb 14, 2017 at ~ 13:30 . Subjective CC: Follow-up visit for atrial fibrillation / flutter. HPI: Feels better. No chest pain. Less SOB. Minimal cough. Right thoracentesis performed this morning by Pulmonary Medicine. ROS: General- no fever, no chills Resp- as noted above in HPI Cardiac- as noted above in HPI GI- no nausea, no vomiting, no diarrhea, melena, hematochezia - no dysuria, no difficulty voiding . Objective Last 8 Hrs Date Time Temp Pulse Resp B/P (MAP) Pulse Ox O2 Delivery O2 Flow Rate FiO2 02/14/17 19:54 37.0 87 20 107/64 (78) 94 Room Air 02/14/17 16:01 37.1 88 20 104/62 (76) 96 Room Air 02/14/17 16:00 Room Air Physical Exam: General- sitting in chair, no distress Lungs- decreased breath sounds at bases, otherwise clear; no resp distress Cardiovascular- irregular, no murmur or gallop appreciated; + JVD; 1+ pretibial edema Abdomen- + BS, soft, nontender Extremities- no cyanosis; no calf tenderness Neuro- alert, oriented Skin- warm and dry . Laboratory Results: Last 24 Hours Test 02/14/17 00:00 02/14/17 05:29 02/14/17 06:30 02/14/17 10:51 Pleural Fluid Source RIGHT LUNG Pleural Fluid Color [place] Pleural Fluid Appearance CLOUDY Pleural Fluid WBC 236 /uL Pleural Fluid RBC 79861 /uL Pleural Fluid pH 7.34 Pleural Fluid Polynuclear WBCs % 15.5 % Pleural Fluid Mononuclear WBCs % 84.5 % Pleural Fluid Total Protein 3.1 g/dl Pleural Fluid LDH 158 IU Pleural Fluid Glucose 73 mg/dl Pleural Fluid Amylase 11 U/L White Blood Count 6.72 K/uL Red Blood Count 3.55 M/uL Hemoglobin 10.7 g/dL Hematocrit 32.7 % Mean Corpuscular Volume 92.1 fL Mean Corpuscular Hemoglobin 30.1 pg Mean Corpuscular Hemoglobin Concent 32.7 g/dl RDW Standard Deviation 48.4 fL RDW Coefficient of Variation 14.1 % Platelet Count 261 K/uL Mean Platelet Volume 9.5 fL Prothrombin Time 12.4 SECONDS Prothromb Time International Ratio 1.2 Activated Partial Thromboplast Time 36.3 SECONDS Partial Thromboplastin Ratio 1.4 Sodium Level 135 mmol/L Potassium Level 4.0 mmol/L Chloride Level 100 mmol/L Carbon Dioxide Level 29 mmol/L Anion Gap 7.0 mmol/L Blood Urea Nitrogen 23 mg/dl Creatinine 0.84 mg/dl Est Creatinine Clear Calc Drug Dose 87.8 ml/min Estimated GFR () 105.7 Estimated GFR (Non- 91.2 BUN/Creatinine Ratio 27.2 Random Glucose 92 mg/dl Calcium Level 9.7 mg/dl Magnesium Level 2.1 mg/dl Chemistry Specimen Hemolysis Bedside Glucose 96 mg/dl 112 mg/dl Test 02/14/17 16:15 02/14/17 18:49 Bedside Glucose 95 mg/dl Pleural Fluid Total Protein 3.3 g/dl Pleural Fluid LDH 244 IU Pleural Fluid Glucose 92 mg/dl Pleural Fluid Amylase 10 U/L Date/Time Source Procedure Growth Status 02/14/17 00:00 Pleural Fluid (Thoracentesis) Right Acid Fast Stain Pending Received 02/14/17 00:00 Pleural Fluid (Thoracentesis) Right Mycobacterial Culture Pending Received 02/14/17 00:00 Pleural Fluid (Thoracentesis) Right Gram Stain - Final Resulted 02/14/17 00:00 Pleural Fluid (Thoracentesis) Right Bacterial Culture Pending Resulted 02/14/17 00:00 Pleural Fluid (Thoracentesis) Left Acid Fast Stain Pending Received 02/14/17 00:00 Pleural Fluid (Thoracentesis) Left Mycobacterial Culture Pending Received 02/14/17 00:00 Pleural Fluid (Thoracentesis) Left Gram Stain - Final Resulted 02/14/17 00:00 Pleural Fluid (Thoracentesis) Left Bacterial Culture Pending Resulted Assessment & Plan ATRIAL FIBRILLATION / FLUTTER Presented with atrial fib / flutter with rapid ventricular response. Cardiology consulted. Received IV diltiazem and metoprolol. IV diltiazem discontinued. Continue metoprolol. Anticoagulated with IV heparin- held for thoracentesis. Further management per Cardiology. Eventual transition to warfarin. CORONARY ARTERY DISEASE No chest pain. Intolerant of statins. Continue aspirin and metoprolol. CHF Acute on chronic left ventricular diastolic CHF. Atrial arrhythmias probably contributing to decompensation. Titrate diuretics. PLEURAL EFFUSIONS Possibly secondary to CHF. Pulmonary Medicine consulted. SLEEP APNEA Continue supplemental O2. PULMONARY HYPERTENSION / RV PRESSURE OVERLOAD Noted on echo. CTA chest negative for PE. Continue supplemental O2 for sleep apnea. DM TYPE 2 Well-controlled. Hgb A1C 4.11 September 2016. Hold metformin during hospital stay. Insulin coverage as needed. FBS this morning = 96. VTE PROPHYLAXIS Receiving IV heparin for atrial fib / flutter. DISPOSITION Expected discharge to home. Medical follow-up with Dr. Rojas. . Current Inpatient Medications: Current Inpatient Medications Medications (Trade) Dose Ordered Sig/Sal Route Start Time Stop Time Status Last Admin Dose Admin Diltiazem HCl 125 mg/Dextrose 125 ml @ 0 mls/hr Q0M PRN IV 02/12/17 16:15 03/14/17 16:14 02/14/17 03:35 5 MLS/HR Acetaminophen (Tylenol Tab) 650 mg Q4H PRN PO 02/12/17 17:45 03/14/17 17:44 Ondansetron HCl (Zofran Inj) 4 mg Q6H PRN IV 02/12/17 17:45 03/14/17 17:44 Metoprolol Tartrate (Lopressor Tab) 25 mg Q6H PO 02/12/17 20:00 03/14/17 19:59 02/14/17 20:34 25 MG Insulin Aspart (novoLOG ASPART) SLIDING SCALE If C... ACHS SC 02/12/17 21:00 03/14/17 20:59 02/14/17 18:02 3 UNITS Glucose (Glucose 40% Gel) 15-30 GRAMS 15 GRAMS... UD PRN PO 02/12/17 17:45 03/14/17 17:44 Glucose (Glucose Chew Tab) 4-8 Tablets 4 Tabl... UD PRN PO 02/12/17 17:45 03/14/17 17:44 Dextrose (Dextrose 50% 50ML Syringe) 25-50ML OF 50% DW IV FOR... UD PRN IV 02/12/17 17:45 03/14/17 17:44 Glucagon (Glucagon Inj) 1 mg UD PRN SQ 02/12/17 17:45 03/14/17 17:44 Aspirin (Ecotrin Tab) 81 mg BID PO 02/12/17 21:00 03/14/17 20:59 02/14/17 20:35 81 MG Cetirizine HCl (zyrTEC TAB) 10 mg DAILY PO 02/13/17 09:00 03/15/17 08:59 02/14/17 07:47 10 MG Docusate Sodium (coLACE CAP) 100 mg BID PRN PO 02/12/17 18:00 03/14/17 17:59 Fluticasone Propionate (Flovent Hfa 44MCG Inhaler) 2 puffs BID INH 02/12/17 21:00 03/14/17 20:59 02/14/17 20:35 2 PUFFS Fluticasone Propionate (Flonase Nasal [place]) 2 sprays DAILY SHALONDA 02/13/17 09:00 03/15/17 08:59 02/14/17 07:46 2 SPRAYS Montelukast Sodium (Singulair Tab) 10 mg QPM PO 02/12/17 21:00 03/14/17 20:59 02/14/17 20:36 10 MG Spironolactone (Aldactone Tab) 12.5 mg DAILY PO 02/13/17 09:00 03/15/17 08:59 02/14/17 07:47 12.5 MG Magnesium Oxide (Mag-Ox Tab) 400 mg BID PO 02/13/17 09:00 03/15/17 08:59 02/14/17 20:36 400 MG Non-Formulary Medication (Non-Formulary Patient'S Own Med) 1 ea DAILY PO 02/13/17 12:00 03/15/17 11:59 02/14/17 07:48 1 EA Ioversol (Optiray 320) 100 ml UD PRN IV 02/13/17 13:00 02/17/17 12:59 Furosemide 60 mg/ Syringe 6 ml @ 4 mls/min Q12H IV 02/13/17 19:00 03/15/17 18:59 02/14/17 17:55 4 MLS/MIN Heparin Sodium/ Dextrose 500 ml @ 26 mls/hr [id number] PRN IV 02/14/17 21:00 03/16/17 20:59
[2017-02-14] MEDS: HEPARIN 25,000 UNIT/500ML D5W 500 ML IV PRN (22:02)
[2017-02-15] VITALS (9 sets, daily range): BP systolic 96–121; BP diastolic 59–82; PULSE 78–112; TEMP 36.7–37.2; O2SAT 93–97
[2017-02-15] MEDS: METOPROLOL TARTRATE 25 MG TAB PO SCH ×2 (01:43→08:49)
[2017-02-15 04:40] LABS: PTT PATIENT 44.4 SECONDS (21.0-31.0)
[2017-02-15 04:46] LABS: ALBUMIN 2.9 gm/dl (3.4-5.0); CALCIUM 9.5 mg/dl (8.5-10.1); CREATININE 0.84 mg/dl (0.60-1.40); POTASSIUM 3.9 mmol/L (3.5-5.1)
[2017-02-15 04:59] LABS: TOTAL PROTEIN 7.7 gm/dl (6.4-8.2)
[2017-02-15] MEDS ORDERED: HEPARIN IV BOLUS 3,000 UNIT in SYRINGE 0 ML IV ONE (05:00)
[2017-02-15] MEDS: FUROSEMIDE INJ 60 MG in SYRINGE 0 ML IV SCH (06:11)
--- NOTE | 2017-02-15 07:46 | History & Physical Bridge Note ---
H&P Re-Evaluation Bridge Note: I have examined the patient, reviewed the History & Physical and in the interval since the performance of the History & Physical I have noted the following changes of clinical significance: No changes noted
[2017-02-15] MEDS: INSULIN ASPART 100 UNITS/ML 3 ML PEN SC SCH ×4 (08:41→20:26)
[2017-02-15] MEDS: FENOFIBRATE PO SCH (08:48)
[2017-02-15] MEDS: FLUTICASONE PROP HFA INH 44 MCG INHALER INH SCH ×2 (08:49→20:25)
[2017-02-15] MEDS: FLUTICASONE PROPIONATE NA SPR 16 GM BTL NAE SCH (08:49)
[2017-02-15] MEDS: ASPIRIN 81 MG ECTAB PO SCH ×2 (08:49→20:26)
[2017-02-15] MEDS: MAGNESIUM OXIDE 400 MG TAB PO SCH ×2 (08:50→20:26)
[2017-02-15] MEDS: CETIRIZINE HCL 10 MG TAB PO SCH (08:50)
[2017-02-15] MEDS: SPIRONOLACTONE 25 MG TAB PO SCH (08:50)
--- NOTE | 2017-02-15 10:14 | Cardiology Follow-Up ---
Subjective General Date of Service: Feb 15, 2017. Chief Complaint: atrial fibrillation Pt evaluation today including: conversation w/ patient, physical exam, chart review, lab review, review of studies, review of inpatient medication list History of Present Illness Patient seen and examined around 09:00 AM. Chart, medications, telemetry reviewed. Status post bilateral thoracentesis on 02/14/2017 + Cough. + Dyspnea. Symptomatic when washing up this morning, heart rates ~150 bpm observed at that time. No chest pain. No overt palpitations. Telemetry: Atrial fibrillation ranging from 70 to 150 bpm. Occasional PVC. February 13, 2017 TTE Interpretation Summary: The rhythm is atrial fibrillation. Ejection Fraction = 60-65%. There is mild concentric left ventricular hypertrophy. The left atrium is moderately dilated. Flattened septum is consistent with RV pressure overload. Dilated inferior vena cava with reduced collapsability with sniff indicates an elevated right atrial pressure of 15 mmHg. The right ventricle is not well visualized. The right ventricular systolic function is reduced as assessed by tricuspid annular plane systolic excursion (TAPSE) (TAPSE <1.6 cm). There is a bioprosthetic aortic valve. The gradient is normal for this prosthetic aortic valve. There is mild tricuspid regurgitation. Allergies Coded Allergies: Statins (Unverified Adverse Reaction, Severe, LEG WEAKNESS, 02/12/17) Social History Smoking Status: Former Smoker Hx Tobacco Use In Past Year?: No Hx Alcohol Use - Type And Amou: No Hx Substance Use - Type And Am: No Review of Systems Respiratory: + cough, + shortness of breath, + dyspnea on exertion, No sputum, No wheezing, No dyspnea at rest, No hemoptysis Cardiac: + edema, No chest pain, No orthopnea, No PND, No claudication, No palpitations Physical Exam Vital Signs Last Vital Signs Documentation Date Time Temp Pulse Resp B/P (MAP) Pulse Ox O2 Delivery O2 Flow Rate FiO2 02/15/17 08:32 37.0 112 18 113/82 (92) 96 02/15/17 04:00 Room Air Physical Exam Constitutional: General Apperance: overweight Level of Distress: chronically ill Psychiatric: Mental Status: active & alert Orientation: to time, to place, to person Memory: recent memory normal, remote memory normal Head: normocephalic, atraumatic Eyes: Pupils: PERRLA Neck: pertinent finding (Elevated JVP) Lungs: Respiratory effort: no dyspnea Auscultation: no wheezing, no rhonchi, deminished air movement, decreased breath sounds, rales/crackles on the left, rales/crackles on the right, pertinent finding (Absent breath sounds 1/[address] way up on the left. ) Cardiovascular: Apical Impulse: displaced Heart Auscultation: no rubs, tachycardia (~120 bpm), irregular rate rhythm Peripheral Pulses: Dorsalis Pedis Pulse: absent on the left, absent on the right Abdomen: Bowel Sounds: normal Inspection & Palpation: soft, non-distended, no masses Extremities: no cyanosis, no clubbing, edema (1-2+ hard indurated edema) Neurologic: Cranial Nerves: grossly intact Assessment and Plan Assessment and Plan Admission with symptomatic paroxysmal atrial fibrillation/flutter with RVR Acute decompensated heart failure with bilateral pleural effusions, status post 02/14/2017 bilateral thoracenteses. History of paroxysmal atrial fibrillation/flutter, status post direct current cardioversion in 2016 with the patient declining long-term anticoagulation at that time. CHADSVASC 5 Diastolic dysfunction. Preserved LV systolic function. Aortic valve disease status post aortic valve replacement in February 2014. Chronic coronary artery disease with history of prior coronary artery bypass grafting x 4. Obstructive sleep apnea. Dyslipidemia, statin intolerance. RECOMMENDATIONS: Increase IV furosemide to 80 mg twice a day Increase metoprolol for additional heart rate control. IV heparin to proper Coumadin anticoagulation. Maintain electrolytes Cardiology Attending Physician: Patient seen and examined at the bedside. Bilateral thoracentesis performed yesterday with 500 mL removed on the left, and 800 mL on the right. Respiratory status mildly improved. Fair heart rate controlled noted at rest. Atrial ablation with rapid ventricular response noted during activity. Urine output has declined. Offers no new complaints at this time. is present at bedside. Telemetry: Atrial fibrillation with heart rate averaging 80-90 bpm. RVR with activity PE: VSS. GEN: NAD, AAOx3. Heart: Irregular rhythm with borderline tachycardia. No murmur appreciated. Lungs: Markedly diminished breath sounds at the bases bilaterally No wheeze. Abdomen: Soft, nontender, nondistended, normal bowel sounds. Extremity: +2 pretibial edema. A/P: Agree with above PA-C history, physical exam, assessment and plan with the following additions: Recommend transesophageal guided direct current cardioversion in a.m. The risks , benefits, and alternatives to the procedure were discussed in detail but not limited to esophageal trauma, esophageal rupture, dental trauma, and/or aspiration. Patient is agreeable to procedure. Diuretics will be titrated today. Continue intravenous heparin as a bridge to oral Coumadin. Repeat INR today as well as in the a.m. Leonel Brown DO [facility] Laboratory Results Last 24 Hours Test 02/14/17 10:51 02/14/17 16:15 02/14/17 18:49 02/14/17 20:50 Bedside Glucose 112 mg/dl 95 mg/dl 82 mg/dl Pleural Fluid Total Protein 3.3 g/dl Pleural Fluid LDH 244 IU Pleural Fluid Glucose 92 mg/dl Pleural Fluid Amylase 10 U/L Test 02/15/17 04:10 02/15/17 06:42 Activated Partial Thromboplast Time 44.4 SECONDS Partial Thromboplastin Ratio 1.7 Sodium Level 133 mmol/L Potassium Level 3.9 mmol/L Chloride Level 98 mmol/L Carbon Dioxide Level 29 mmol/L Anion Gap 6.0 mmol/L Blood Urea Nitrogen 22 mg/dl Creatinine 0.84 mg/dl Est Creatinine Clear Calc Drug Dose 87.8 ml/min Estimated GFR () 105.7 Estimated GFR (Non- 91.2 BUN/Creatinine Ratio 26.5 Random Glucose 95 mg/dl Calcium Level 9.5 mg/dl Total Bilirubin 1.6 mg/dl Direct Bilirubin 0.6 mg/dl Aspartate Amino Transf (AST/SGOT) 32 U/L Alanine Aminotransferase (ALT/SGPT) 13 U/L Alkaline Phosphatase 134 U/L Lactate Dehydrogenase 203 U/L Total Protein 7.7 gm/dl Albumin 2.9 gm/dl Bedside Glucose 100 mg/dl
--- NOTE | 2017-02-15 11:10 | Progress Note ---
Progress Note Date of Service Feb 15, 2017. Progress Note Follow up appointment with Dr. Conner 02/26/17 at 2:00pm Patient aware
[2017-02-15 11:47] LABS: PTT PATIENT 57.3 SECONDS (21.0-31.0)
[2017-02-15] MEDS: METOPROLOL TARTRATE 50 MG TAB PO SCH ×2 (13:15→20:25)
[2017-02-15 13:21] LABS: INR 1.2 (0.9-1.1)
--- NOTE | 2017-02-15 16:21 | Progress Note ---
Progress Note Date of Service Feb 15, 2017. Progress Note Patient is a 66 year old M who presented in acute heart failure secondary to AFib with RVR. On admission the patient had significant diastolic L and R heart failure with peripheral edema and bilateral pleural effusions. His effusions have been drained and he has undergone diuresis along with heart rate control. He does feel much better since admission with his fatigue and breathing, but still does spike tachycardia with exertion and still has exertional dyspnea. Medical history is significant for CABG/AVR in 2014 with a bioprosthetic aortic valve, nocturnal O2 for SHERWIN, chronic anemia, and mild asthma. He also has a history of paroxysmal Afib but has declined senior care anticoagulation. An echo performed in August of 2016 showed normal systolic function. Echo performed on admission showed significant RV overload, with preserved LV systolic function, but significant diastolic dysfunction. On exam, the patient is mildly dyspneic returning from the bathroom. He has decreased breath sounds at his bases and trace edema. According to records, these are all significantly improved since admission. He is on heparin drip. He is no longer on diltiazem drip. We will plan for ANDREA with cardioversion in the morning. The patient appears to be improving from his acute CHF, and may require lutheran of NSR to improve further. He is moderate cardiopulmonary risk. Risks and benefits discussed. Anticipate moderate to deep sedation.
[2017-02-15] MEDS: FUROSEMIDE INJ 80 MG in SYRINGE 0 ML IV SCH (17:13)
[2017-02-15] MEDS: WARFARIN SOD 5 MG TAB PO SCH (17:13)
[2017-02-15] MEDS: MONTELUKAST SOD 10 MG TAB PO SCH (20:26)
--- NOTE | 2017-02-15 21:02 | Progress Note ---
Medicine Progress Note Date & Time of Visit: Feb 15, 2017 at 14:10 . Subjective CC: Follow-up visit for atrial flutter and other problems. HPI: Persistent atrial flutter. Ventricular rate usually well-controlled at rest, but fast with minimal activity. Less SOB. No cough. ROS: General- no fever, no chills Resp- as noted above in HPI Cardiac- as noted above in HPI GI- no nausea, no vomiting, no diarrhea, no constipation - no dysuria . Objective Last 8 Hrs Date Time Temp Pulse Resp B/P (MAP) Pulse Ox O2 Delivery O2 Flow Rate FiO2 02/15/17 20:02 37.2 101 16 109/73 (85) 97 Room Air 02/15/17 20:00 Room Air 02/15/17 16:07 37.1 82 20 121/71 (88) 93 02/15/17 16:00 Room Air Physical Exam: General- sitting in chair, no distress Lungs- better aeration right base, decreased breath sounds left base; no respiratory distress Cardiovascular- irregular, no murmur or gallop appreciated; + JVD; 1-2 + pretibial edema Abdomen- + BS, soft, nontender Extremities- no cyanosis; no calf tenderness Neuro- alert, oriented Skin- warm and dry . Laboratory Results: Last 24 Hours Test 02/15/17 04:10 02/15/17 06:42 02/15/17 10:56 02/15/17 11:13 Activated Partial Thromboplast Time 44.4 SECONDS 57.3 SECONDS Partial Thromboplastin Ratio 1.7 2.2 Sodium Level 133 mmol/L Potassium Level 3.9 mmol/L Chloride Level 98 mmol/L Carbon Dioxide Level 29 mmol/L Anion Gap 6.0 mmol/L Blood Urea Nitrogen 22 mg/dl Creatinine 0.84 mg/dl Est Creatinine Clear Calc Drug Dose 87.8 ml/min Estimated GFR () 105.7 Estimated GFR (Non- 91.2 BUN/Creatinine Ratio 26.5 Random Glucose 95 mg/dl Calcium Level 9.5 mg/dl Total Bilirubin 1.6 mg/dl Direct Bilirubin 0.6 mg/dl Aspartate Amino Transf (AST/SGOT) 32 U/L Alanine Aminotransferase (ALT/SGPT) 13 U/L Alkaline Phosphatase 134 U/L Lactate Dehydrogenase 203 U/L Total Protein 7.7 gm/dl Albumin 2.9 gm/dl Bedside Glucose 100 mg/dl 116 mg/dl Prothrombin Time 13.0 SECONDS Prothromb Time International Ratio 1.2 Test 02/15/17 16:10 02/15/17 20:03 Bedside Glucose 109 mg/dl 162 mg/dl Assessment & Plan ATRIAL FIBRILLATION / FLUTTER Presented with atrial fib / flutter with rapid ventricular response. Cardiology consulted. Received IV diltiazem and metoprolol; diltiazem changed to PRN. Anticoagulated with IV heparin. Further management per Cardiology. Possible cardioversion tomorrow. Warfarin being started today. CORONARY ARTERY DISEASE No chest pain. Intolerant of statins. Continue aspirin and metoprolol. CHF Acute on chronic left ventricular diastolic CHF. Atrial arrhythmias probably contributing to decompensation. Titrate diuretics. PLEURAL EFFUSIONS Pulmonary Medicine consulted. Bilateral thoracenteses performed with serosanguinous fluid drained. SLEEP APNEA Continue supplemental O2. PULMONARY HYPERTENSION / RV PRESSURE OVERLOAD Noted on echo. CTA chest negative for PE. Continue supplemental O2 for sleep apnea. DM TYPE 2 Well-controlled. Hgb A1C 4.11 September 2016. Hold metformin during hospital stay. Insulin coverage as needed. FBS this morning = 100. VTE PROPHYLAXIS Receiving IV heparin for atrial fib / flutter. Warfarin being started. DISPOSITION Expected discharge to home. Medical follow-up with Dr. Rojas. . Current Inpatient Medications: Current Inpatient Medications Medications (Trade) Dose Ordered Sig/Sal Route Start Time Stop Time Status Last Admin Dose Admin Diltiazem HCl 125 mg/Dextrose 125 ml @ 0 mls/hr Q0M PRN IV 02/12/17 16:15 03/14/17 16:14 02/14/17 03:35 5 MLS/HR Acetaminophen (Tylenol Tab) 650 mg Q4H PRN PO 02/12/17 17:45 03/14/17 17:44 Ondansetron HCl (Zofran Inj) 4 mg Q6H PRN IV 02/12/17 17:45 03/14/17 17:44 Insulin Aspart (novoLOG ASPART) SLIDING SCALE If C... ACHS SC 02/12/17 21:00 03/14/17 20:59 02/15/17 11:39 3 UNITS Glucose (Glucose 40% Gel) 15-30 GRAMS 15 GRAMS... UD PRN PO 02/12/17 17:45 03/14/17 17:44 Glucose (Glucose Chew Tab) 4-8 Tablets 4 Tabl... UD PRN PO 02/12/17 17:45 03/14/17 17:44 Dextrose (Dextrose 50% 50ML Syringe) 25-50ML OF 50% DW IV FOR... UD PRN IV 02/12/17 17:45 03/14/17 17:44 Glucagon (Glucagon Inj) 1 mg UD PRN SQ 02/12/17 17:45 03/14/17 17:44 Aspirin (Ecotrin Tab) 81 mg BID PO 02/12/17 21:00 03/14/17 20:59 02/15/17 20:26 81 MG Cetirizine HCl (zyrTEC TAB) 10 mg DAILY PO 02/13/17 09:00 03/15/17 08:59 02/15/17 08:50 10 MG Docusate Sodium (coLACE CAP) 100 mg BID PRN PO 02/12/17 18:00 03/14/17 17:59 Fluticasone Propionate (Flovent Hfa 44MCG Inhaler) 2 puffs BID INH 02/12/17 21:00 03/14/17 20:59 02/15/17 20:25 2 PUFFS Fluticasone Propionate (Flonase Nasal Ray) 2 sprays DAILY SHALONDA 02/13/17 09:00 03/15/17 08:59 02/15/17 08:49 2 SPRAYS Montelukast Sodium (Singulair Tab) 10 mg QPM PO 02/12/17 21:00 03/14/17 20:59 02/15/17 20:26 10 MG Magnesium Oxide (Mag-Ox Tab) 400 mg BID PO 02/13/17 09:00 03/15/17 08:59 02/15/17 20:26 400 MG Non-Formulary Medication (Non-Formulary Patient'S Own Med) 1 ea DAILY PO 02/13/17 12:00 03/15/17 11:59 02/15/17 08:48 1 EA Ioversol (Optiray 320) 100 ml UD PRN IV 02/13/17 13:00 02/17/17 12:59 Heparin Sodium/ Dextrose 500 ml @ 29 mls/hr [id number] PRN IV 02/14/17 21:00 03/16/17 20:59 02/14/17 22:02 26 MLS/HR Furosemide 80 mg/ Syringe 8 ml @ 4 mls/min Q12H IV 02/15/17 19:00 03/15/17 18:59 02/15/17 17:13 4 MLS/MIN Metoprolol Tartrate (Lopressor Tab) 50 mg Q6H PO 02/15/17 14:00 03/14/17 19:59 02/15/17 20:25 50 MG Spironolactone (Aldactone Tab) 25 mg DAILY PO 02/16/17 09:00 03/15/17 08:59 Warfarin Sodium (Coumadin Tab) 5 mg DAILY@16 PO 02/15/17 16:00 03/17/17 15:59 02/15/17 17:13 5 MG
[2017-02-16] VITALS (14 sets, daily range): BP systolic 91–128; BP diastolic 55–71; PULSE 73–105; TEMP 36.7–37.3; O2SAT 93–97
[2017-02-16] MEDS: METOPROLOL TARTRATE 50 MG TAB PO SCH ×4 (01:16→20:39)
[2017-02-16 05:52] LABS: HEMATOCRIT 34.9 % (42-52); HEMOGLOBIN 11.6 g/dL (14.0-18.0); MEAN CELL VOLUME 91.1 fL (80-100); MEAN CORPUSCULAR HEMOGLOBIN 30.3 pg (25-34); MEAN CORPUSCULAR HGB CONC 33.2 g/dl (32-36); MEAN PLATELET VOLUME 9.2 fL (7.4-10.4); PLATELET COUNT 238 K/uL (130-400); RED CELL DISTRIBUTION WIDTH CV 14.1 % (11.5-14.5); RED CELL DISTRIBUTION WIDTH SD 46.3 fL (36.4-46.3); WHITE BLOOD COUNT 7.17 K/uL (4.8-10.8)
[2017-02-16 06:14] LABS: INR 1.3 (0.9-1.1)
[2017-02-16 06:19] LABS: PTT PATIENT 66.1 SECONDS (21.0-31.0)
[2017-02-16 06:28] LABS: CALCIUM 9.6 mg/dl (8.5-10.1); CREATININE 0.93 mg/dl (0.60-1.40)
[2017-02-16] MEDS: FUROSEMIDE INJ 80 MG in SYRINGE 0 ML IV SCH ×2 (06:30→18:34)
[2017-02-16] MEDS: INSULIN ASPART 100 UNITS/ML 3 ML PEN SC SCH ×4 (07:00→20:47)
[2017-02-16] MEDS ORDERED: FENTANYL CITRATE INJ 50 MCG/1 ML 2 ML VIAL ONE (07:14)
[2017-02-16] MEDS ORDERED: KETAMINE HCL INJ 50 MG/ML 10 ML VIAL ONE (07:14)
[2017-02-16] MEDS ORDERED: PROPOFOL IV EMULSION 10 MG/ML 20 ML VIAL IV ONE (07:14)
[2017-02-16] MEDS ORDERED: MIDAZOLAM HCL 1 MG/ML 2ML VIAL ONE (07:14)
[2017-02-16] MEDS ORDERED: LIDOCAINE HCL 2% 2 ML VIAL (20MG/ML) ONE (07:14)
[2017-02-16] MEDS ORDERED: PHENYLEPHRINE 100MCG/ML 5ML SYR ONE (08:21)
[2017-02-16] MEDS ORDERED: SODIUM CHLORIDE 0.9% INJ 10 ML VIAL ONE (08:22)
[2017-02-16] MEDS: FLUTICASONE PROP HFA INH 44 MCG INHALER INH SCH ×2 (08:51→20:39)
[2017-02-16] MEDS: FLUTICASONE PROPIONATE NA SPR 16 GM BTL NAE SCH (08:51)
[2017-02-16] MEDS: ASPIRIN 81 MG ECTAB PO SCH ×2 (08:52→20:38)
[2017-02-16] MEDS: SPIRONOLACTONE 25 MG TAB PO SCH (08:52)
[2017-02-16] MEDS: CETIRIZINE HCL 10 MG TAB PO SCH (08:52)
[2017-02-16] MEDS: MAGNESIUM OXIDE 400 MG TAB PO SCH ×2 (08:52→20:39)
[2017-02-16] MEDS: FENOFIBRATE PO SCH (08:53)
[2017-02-16] MEDS ORDERED: NURSING VERBAL MED ORDER ONE (10:00)
[2017-02-16] MEDS: HEPARIN 25,000 UNIT/500ML D5W 500 ML IV PRN (11:20)
--- NOTE | 2017-02-16 11:26 | TEE ---
*NOTICE TO RECEIVING CONSTITUTION PARTY AGENCY This information is strictly Confidential and protected under [place] law. [place] law prohibits you from making any further disclosure of this information unless further disclosure is expressly permitted by the written consent of the person to whom it pertains or is authorized by law. A general authorization for the release of medical or other information is not sufficient for this purpose. Hospital accepts no responsibility if the information is made available to any other person, INCLUDING THE PATIENT. Interpretation Summary * Name: LUCIEN JONES Study Date: 02/16/2017 07:30 AM BP: 139/74 mmHg * Patient Location: C.2T\S\E215\S\1 HR: 111 * : 1950 (M/d/yyyy) Gender: Male Height: 65 in * Age: 66 yrs Ethnicity: CA Weight: 185 lb * Ordering Physician: Sagar Brown * Referring Physician: London Dean D.O. * Performed By: Chalino Gonzalez RCS * * Reason For Study: A-FIB, Pre C/V, Eval for CSOE * BSA: 1.9 m2 * There is no comparison study available. * -- Conclusions -- * Left ventricular systolic function is normal. * Ejection Fraction = 60-65%. * The left atrium is moderately dilated. * There is a large mobile echodensity suggestive of left atrial thrombus measuring 1.4cm x 1.4cm attached to the atrial endocardial surface near the ostium of the left atrial appendage above the mitral valve leaflet. * Differential also includes tumor or vegetation. * There is a small left atrial appendage thrombus. Procedure Details * ANDREA Probe #1 utilized for procedure. * The study was performed in Cardiac Catheterization Lab. * Time out was conducted by the physician, nurse, and park maintenance technician with positive identification of patient and procedure. * Informed consent for Transesophageal Echocardiogram was obtained prior to the procedure. * An intravenous line was placed. A topical anesthetic agent was used for oropharangeal anesthesia. A bite block was inserted. * The patient's vital signs, including blood pressure, heart rate, pulse oximetry and cardiac rhythm were monitored throughout the procedure . * Fentanyl 50 mcg was administered for procedural sedation. * Midazolam 1 mg administered for sedation. * Ketamine 10mg administered for sedation. Proprofol 1mg administered for sedation. Procedure Start Time - 747 Procedure Stop Time - 808 * A multifrequency, multiplane transesopheageal echocardiographic endoscope was inserted and manipulated in the standard fashion to achieve multiplane views. * The transesophageal probe was passed without difficulty. * Contrast injection with agitated saline was performed. * The usual views were obtained; basal, mid-esophageal, transgastric and aortic views. * The patient tolerated the procedure well without evidence of orophangeal or esophageal trauma. * A 2D transesophageal echocardiogram was performed. * A 2D transesophageal echocardiogram with color flow Doppler was performed. * A 2D transesophageal echocardiogram with Doppler and color flow Doppler was performed. Left Ventricle * The left ventricle is normal in size. * There is normal left ventricular wall thickness. * Left ventricular systolic function is normal. * Ejection Fraction = 60-65%. * The left ventricular wall motion is normal. Right Ventricle * The right ventricle is normal in size and function. Atria * A thrombus is seen in the left atrium. * The left atrium is moderately dilated. * There is a large mobile echodensity suggestive of left atrial thrombus measuring 1.4cm x 1.4cm attached to the atrial endocardial surface near the ostium of the left atrial appendage above the mitral valve leaflet. Differential also includes tumor or vegetation. There is a small left atrial appendage thrombus. * Right atrial size is normal. * The interatrial septum is intact with no evidence for an atrial septal defect. Mitral Valve * The mitral valve anatomy is normal. * There is no mitral valve stenosis. * There is mild mitral regurgitation. Tricuspid Valve * The tricuspid valve is normal. * There is no tricuspid stenosis. * There is mild tricuspid regurgitation. * The estimated systolic PAP is 40mmHg. Aortic Valve * There is a bioprosthetic aortic valve. * The bioprosthetic aortic valve is poorly visualized, however, no evidence of stenosis or regurgitation in limited views. Pulmonic Valve * The pulmonary valve is not well seen, but the Doppler examination is normal without significant regurgitation or stenosis. Great Vessels * The aortic root is normal size. Pericardium * There is no pericardial effusion.
--- NOTE | 2017-02-16 11:26 | Cardiology Follow-Up ---
Subjective General Date of Service: Feb 16, 2017. Chief Complaint: atrial fibrillation Pt evaluation today including: conversation w/ patient, physical exam, chart review, lab review, review of studies, review of inpatient medication list History of Present Illness Patient seen and examined. Status post ANDREA this AM. No cardioversion. Left atrial clot observed. Feeling better. Notes sleeping in bed x 5 hours last night, better than he has in quite some time. + Cough and dyspnea. No chest pain or overt palpitations. Heart rates have improved with titration of metoprolol, currently in the lower 80's. Allergies Coded Allergies: Statins (Unverified Adverse Reaction, Severe, LEG WEAKNESS, 02/12/17) Social History Smoking Status: Former Smoker Hx Tobacco Use In Past Year?: No Hx Alcohol Use - Type And Amou: No Hx Substance Use - Type And Am: No Review of Systems Respiratory: + shortness of breath, + dyspnea on exertion, No cough, No wheezing, No dyspnea at rest, No hemoptysis Cardiac: + edema, No chest pain, No orthopnea, No PND, No claudication, No palpitations Physical Exam Vital Signs Last Vital Signs Documentation Date Time Temp Pulse Resp B/P (MAP) Pulse Ox O2 Delivery O2 Flow Rate FiO2 02/16/17 08:35 88 16 112/63 (79) 93 Room Air 02/16/17 08:09 5 02/16/17 07:57 36.8 Physical Exam Constitutional: General Apperance: overweight Level of Distress: chronically ill Psychiatric: Mental Status: active & alert Orientation: to time, to place, to person Memory: recent memory normal, remote memory normal Head: normocephalic, atraumatic Eyes: Pupils: PERRLA Neck: pertinent finding (Elevated JVP) Lungs: Respiratory effort: no dyspnea Auscultation: no wheezing, no rhonchi, deminished air movement, decreased breath sounds, rales/crackles on the left, rales/crackles on the right, pertinent finding (Absent breath sounds 1/[address] way up on the left. ) Cardiovascular: Apical Impulse: displaced Heart Auscultation: no rubs, irregular rate rhythm Peripheral Pulses: Dorsalis Pedis Pulse: absent on the left, absent on the right Abdomen: Bowel Sounds: normal Inspection & Palpation: soft, non-distended, no masses Extremities: no cyanosis, no clubbing, edema (1+ edema) Neurologic: Cranial Nerves: grossly intact Assessment and Plan Assessment and Plan Admission with symptomatic paroxysmal atrial fibrillation/flutter with RVR, acute decompensated heart failure with bilateral pleural effusions ANDREA this morning with a left atrial clot. Status post 02/14/2017 bilateral thoracenteses. CHADSVASC 5 Diastolic dysfunction. Preserved LV systolic function. Aortic valve disease status post aortic valve replacement in February 2014. Chronic coronary artery disease with history of prior coronary artery bypass grafting x 4. Obstructive sleep apnea. Dyslipidemia, statin intolerance. RECOMMENDATIONS: Continue IV furosemide, 80 mg twice a day Metoprolol increased on 02/15/2017, now rate controlled. IV heparin to proper Coumadin anticoagulation. INR goal 2.0 to 3.0 Maintain electrolytes Cardiology Attending Physician: Patient seen and examined at the bedside. Transesophageal echo this morning performed demonstrating left atrial thrombus. Bilateral thoracentesis performed 02/14/2017 with 500 mL removed on the left, and 800 mL on the right. Respiratory status mildly improved. Fair heart rate controlled noted at rest. Telemetry: Atrial fibrillation with heart rate averaging 80-90 bpm. RVR with activity PE: VSS. GEN: NAD, AAOx3. Heart: Irregular rhythm with borderline tachycardia. No murmur appreciated. Lungs: Markedly diminished breath sounds at the bases bilaterally No wheeze. Abdomen: Soft, nontender, nondistended, normal bowel sounds. Extremity: +2 pretibial edema. A/P: Agree with above PA-C history, physical exam, assessment and plan with the following additions. Continue IV heparin as a bridge to Coumadin. Goal INR 2.0 -3.0. Continue IV diuretic therapy and rate control medications. Plan for repeat transesophageal echo in 4 weeks with possible direct current cardioversion if necessary at that time. Leonel Brown DO [facility] Laboratory Results Last 24 Hours Test 02/15/17 16:10 02/15/17 20:03 02/16/17 05:38 02/16/17 06:29 Bedside Glucose 109 mg/dl 162 mg/dl 98 mg/dl White Blood Count 7.17 K/uL Red Blood Count 3.83 M/uL Hemoglobin 11.6 g/dL Hematocrit 34.9 % Mean Corpuscular Volume 91.1 fL Mean Corpuscular Hemoglobin 30.3 pg Mean Corpuscular Hemoglobin Concent 33.2 g/dl RDW Standard Deviation 46.3 fL RDW Coefficient of Variation 14.1 % Platelet Count 238 K/uL Mean Platelet Volume 9.2 fL Prothrombin Time 14.0 SECONDS Prothromb Time International Ratio 1.3 Activated Partial Thromboplast Time 66.1 SECONDS Partial Thromboplastin Ratio 2.5 Sodium Level 135 mmol/L Potassium Level 4.0 mmol/L Chloride Level 97 mmol/L Carbon Dioxide Level 31 mmol/L Anion Gap 7.0 mmol/L Blood Urea Nitrogen 22 mg/dl Creatinine 0.93 mg/dl Est Creatinine Clear Calc Drug Dose 77.9 ml/min Estimated GFR () 98.8 Estimated GFR (Non- 85.2 BUN/Creatinine Ratio 24.0 Random Glucose 96 mg/dl Calcium Level 9.6 mg/dl
[2017-02-16] MEDS: WARFARIN SOD 5 MG TAB PO SCH (15:59)
[2017-02-16] MEDS: MONTELUKAST SOD 10 MG TAB PO SCH (20:38)
--- NOTE | 2017-02-16 23:05 | Progress Note ---
Medicine Progress Note Date & Time of Visit: Feb 16, 2017 at 16:20 . Subjective CC: Follow-up visit for atrial flutter and other problems. HPI: Persistent atrial flutter with variable rate. Less SOB. No cough. ANDREA this morning demonstrated left atrial thrombus, so cardioversion could not be performed. ROS: General- no fever, no chills Resp- as noted above in HPI Cardiac- as noted above in HPI GI- no nausea, no vomiting, no diarrhea, no constipation - no dysuria . Objective Last 8 Hrs Date Time Temp Pulse Resp B/P (MAP) Pulse Ox O2 Delivery O2 Flow Rate FiO2 02/16/17 16:05 Room Air 02/16/17 16:02 36.7 82 20 101/63 (76) 95 Room Air 02/16/17 15:02 Room Air 02/16/17 12:01 Room Air 02/16/17 11:53 36.8 85 18 122/71 (88) 96 Physical Exam: General- sitting in chair, no distress Lungs- better aeration right base, decreased breath sounds left base; no respiratory distress Cardiovascular- RRR, no murmur or gallop appreciated; + JVD; 1+ pretibial edema Abdomen- + BS, soft, nontender Extremities- no cyanosis; no calf tenderness Neuro- alert, oriented Skin- warm and dry . Laboratory Results: Last 24 Hours Test 02/15/17 20:03 02/16/17 05:38 02/16/17 06:29 02/16/17 11:24 Bedside Glucose 162 mg/dl 98 mg/dl 107 mg/dl White Blood Count 7.17 K/uL Red Blood Count 3.83 M/uL Hemoglobin 11.6 g/dL Hematocrit 34.9 % Mean Corpuscular Volume 91.1 fL Mean Corpuscular Hemoglobin 30.3 pg Mean Corpuscular Hemoglobin Concent 33.2 g/dl RDW Standard Deviation 46.3 fL RDW Coefficient of Variation 14.1 % Platelet Count 238 K/uL Mean Platelet Volume 9.2 fL Prothrombin Time 14.0 SECONDS Prothromb Time International Ratio 1.3 Activated Partial Thromboplast Time 66.1 SECONDS Partial Thromboplastin Ratio 2.5 Sodium Level 135 mmol/L Potassium Level 4.0 mmol/L Chloride Level 97 mmol/L Carbon Dioxide Level 31 mmol/L Anion Gap 7.0 mmol/L Blood Urea Nitrogen 22 mg/dl Creatinine 0.93 mg/dl Est Creatinine Clear Calc Drug Dose 77.9 ml/min Estimated GFR () 98.8 Estimated GFR (Non- 85.2 BUN/Creatinine Ratio 24.0 Random Glucose 96 mg/dl Calcium Level 9.6 mg/dl Assessment & Plan ATRIAL FIBRILLATION / FLUTTER Presented with atrial fib / flutter with rapid ventricular response. Cardiology consulted. Received IV diltiazem and metoprolol; diltiazem changed to PRN. Anticoagulated with IV heparin and warfarin initiated. Cardioversion could not be performed due to left atrial thrombus noted on ANDREA. Further management per Cardiology. CORONARY ARTERY DISEASE No chest pain. Intolerant of statins. Continue aspirin and metoprolol. CHF Acute on chronic left ventricular diastolic CHF. Atrial arrhythmias probably contributing to decompensation. Continue diuretics. PLEURAL EFFUSIONS Pulmonary Medicine consulted. Bilateral thoracenteses performed with serosanguinous fluid drained. Cultures, cytology negative. SLEEP APNEA Continue supplemental O2. PULMONARY HYPERTENSION / RV PRESSURE OVERLOAD Noted on echo. CTA chest negative for PE. Continue supplemental O2 for sleep apnea. DM TYPE 2 Well-controlled. Hgb A1C 4.11 September 2016. Hold metformin during hospital stay. Insulin coverage as needed. FBS this morning = 98. VTE PROPHYLAXIS Receiving IV heparin --> warfarin for atrial fib / flutter. DISPOSITION Expected discharge to home. Medical follow-up with Dr. Rojas. . Current Inpatient Medications: Current Inpatient Medications Medications (Trade) Dose Ordered Sig/Sal Route Start Time Stop Time Status Last Admin Dose Admin Diltiazem HCl 125 mg/Dextrose 125 ml @ 0 mls/hr Q0M PRN IV 02/12/17 16:15 03/14/17 16:14 02/14/17 03:35 5 MLS/HR Acetaminophen (Tylenol Tab) 650 mg Q4H PRN PO 02/12/17 17:45 03/14/17 17:44 Ondansetron HCl (Zofran Inj) 4 mg Q6H PRN IV 02/12/17 17:45 03/14/17 17:44 Insulin Aspart (novoLOG ASPART) SLIDING SCALE If C... ACHS SC 02/12/17 21:00 03/14/17 20:59 02/15/17 11:39 3 UNITS Glucose (Glucose 40% Gel) 15-30 GRAMS 15 GRAMS... UD PRN PO 02/12/17 17:45 03/14/17 17:44 Glucose (Glucose Chew Tab) 4-8 Tablets 4 Tabl... UD PRN PO 02/12/17 17:45 03/14/17 17:44 Dextrose (Dextrose 50% 50ML Syringe) 25-50ML OF 50% DW IV FOR... UD PRN IV 02/12/17 17:45 03/14/17 17:44 Glucagon (Glucagon Inj) 1 mg UD PRN SQ 02/12/17 17:45 03/14/17 17:44 Aspirin (Ecotrin Tab) 81 mg BID PO 02/12/17 21:00 03/14/17 20:59 02/16/17 08:52 81 MG Cetirizine HCl (zyrTEC TAB) 10 mg DAILY PO 02/13/17 09:00 03/15/17 08:59 02/16/17 08:52 10 MG Docusate Sodium (coLACE CAP) 100 mg BID PRN PO 02/12/17 18:00 03/14/17 17:59 Fluticasone Propionate (Flovent Hfa 44MCG Inhaler) 2 puffs BID INH 02/12/17 21:00 03/14/17 20:59 02/16/17 08:51 2 PUFFS Fluticasone Propionate (Flonase Nasal [place]) 2 sprays DAILY SHALONDA 02/13/17 09:00 03/15/17 08:59 02/16/17 08:51 2 SPRAYS Montelukast Sodium (Singulair Tab) 10 mg QPM PO 02/12/17 21:00 03/14/17 20:59 02/15/17 20:26 10 MG Magnesium Oxide (Mag-Ox Tab) 400 mg BID PO 02/13/17 09:00 03/15/17 08:59 02/16/17 08:52 400 MG Non-Formulary Medication (Non-Formulary Patient'S Own Med) 1 ea DAILY PO 02/13/17 12:00 03/15/17 11:59 02/16/17 08:53 1 EA Ioversol (Optiray 320) 100 ml UD PRN IV 02/13/17 13:00 02/17/17 12:59 Heparin Sodium/ Dextrose 500 ml @ 29 mls/hr [id number] PRN IV 02/14/17 21:00 03/16/17 20:59 02/16/17 11:20 29 MLS/HR Furosemide 80 mg/ Syringe 8 ml @ 4 mls/min Q12H IV 02/15/17 19:00 03/15/17 18:59 02/16/17 06:30 4 MLS/MIN Metoprolol Tartrate (Lopressor Tab) 50 mg Q6H PO 02/15/17 14:00 03/14/17 19:59 02/16/17 14:21 50 MG Spironolactone (Aldactone Tab) 25 mg DAILY PO 02/16/17 09:00 03/15/17 08:59 02/16/17 08:52 25 MG Warfarin Sodium (Coumadin Tab) 5 mg DAILY@16 PO 02/15/17 16:00 03/17/17 15:59 02/16/17 15:59 5 MG
[2017-02-17] VITALS (7 sets, daily range): BP systolic 96–124; BP diastolic 62–69; PULSE 77–101; TEMP 36.5–37.5; O2SAT 93–96
[2017-02-17] MEDS: METOPROLOL TARTRATE 50 MG TAB PO SCH ×3 (02:56→13:31)
[2017-02-17] MEDS: HEPARIN 25,000 UNIT/500ML D5W 500 ML IV PRN ×2 (05:32→09:15)
[2017-02-17] MEDS: FUROSEMIDE INJ 80 MG in SYRINGE 0 ML IV SCH ×2 (06:22→19:36)
[2017-02-17 06:51] LABS: INR 2.3 (0.9-1.1)
[2017-02-17 06:52] LABS: CREATININE 0.95 mg/dl (0.60-1.40)
[2017-02-17 06:53] LABS: CALCIUM 9.3 mg/dl (8.5-10.1); POTASSIUM 3.8 mmol/L (3.5-5.1)
[2017-02-17] MEDS: MAGNESIUM OXIDE 400 MG TAB PO SCH ×2 (08:16→19:36)
[2017-02-17] MEDS: SPIRONOLACTONE 25 MG TAB PO SCH (08:16)
[2017-02-17] MEDS: ASPIRIN 81 MG ECTAB PO SCH ×2 (08:16→19:37)
[2017-02-17] MEDS: CETIRIZINE HCL 10 MG TAB PO SCH (08:16)
[2017-02-17] MEDS: FLUTICASONE PROPIONATE NA SPR 16 GM BTL NAE SCH (08:17)
[2017-02-17] MEDS: FLUTICASONE PROP HFA INH 44 MCG INHALER INH SCH ×2 (08:17→19:36)
[2017-02-17] MEDS: FENOFIBRATE PO SCH (08:17)
[2017-02-17] MEDS: INSULIN ASPART 100 UNITS/ML 3 ML PEN SC SCH ×4 (08:22→20:54)
--- NOTE | 2017-02-17 13:47 | CARDIOLOGY PROGRESS NOTE ---
DATE: 02/17/2017 The patient seen and examined. Chart, medications, telemetry reviewed. SUBJECTIVE: The patient feels better this morning though still feels breathless with exertion. Heart rates remained variable and elevated with activity. Notes no syncope or near syncope. Notes no chest pain or discomfort. Lower extremity edema has improved. Weight is down approximately 5 kilograms per records from admission, status post bilateral thoracenteses. OBJECTIVE: VITAL SIGNS: Heart rate is 80-120, blood pressure is 105/62. NECK: Without distinct jugular venous distention, though winn waves are visible. LUNGS: Reveal diminished breath sounds bibasilar. CARDIOVASCULAR: Irregularly irregular. There is no S3 gallop. ABDOMEN: Soft. EXTREMITIES: Reveal 1+ lower extremity edema. IMPRESSION: A 66-year-old male admitted with decompensated congestive heart failure secondary to atrial arrhythmias, atrial flutter with rapid ventricular response with notable bilateral pleural effusions. He demonstrated continued improvement, though remains breathless with moderate exertion. Heart rate are controlled, but still elevated with minimal activity. Anticoagulation has been successfully initiated with warfarin. Cardioversion contraindicated due to left atrial thrombus. RECOMMENDATIONS: Simplify medical regimen, changing metoprolol tartrate to metoprolol succinate 100 mg twice per day with patient on metoprolol succinate as prehospital medication, this represents increased dose. Continue IV furosemide through this evening then hold dosing. Repeat examination, lab work and chest x-ray in a.m.
[2017-02-17] MEDS: WARFARIN SOD 2 MG TAB PO SCH (16:08)
[2017-02-17] MEDS: METOPROLOL SUCC 50MG EXT REL TAB PO SCH (17:18)
[2017-02-17] MEDS: MONTELUKAST SOD 10 MG TAB PO SCH (19:37)
--- NOTE | 2017-02-17 19:39 | Progress Note ---
Medicine Progress Note Date & Time of Visit: Feb 17, 2017 at 11:10 . Subjective CC: Follow-up visit for atrial flutter and other problems. HPI: Still experiencing dyspnea on exertion, although improved. No chest pain. Lower extremity edema improved. Rare cough. ROS: General- no fever, no chills Resp- as noted above in HPI Cardiac- as noted above in HPI GI- no nausea, no vomiting, no diarrhea, no constipation - no dysuria . Objective Last 8 Hrs Date Time Temp Pulse Resp B/P (MAP) Pulse Ox O2 Delivery O2 Flow Rate FiO2 02/17/17 16:00 Room Air 02/17/17 15:27 36.9 80 22 107/69 (82) 96 Room Air 02/17/17 12:32 Room Air 02/17/17 12:18 36.5 79 20 105/62 (76) 93 Room Air Physical Exam: General- sitting in chair, no distress Lungs- decreased breath sounds left base; no respiratory distress Cardiovascular- RRR, no murmur or gallop appreciated; + JVD; 1+ pretibial edema Abdomen- + BS, soft, nontender Extremities- no cyanosis; no calf tenderness Neuro- alert, oriented Skin- warm and dry . Laboratory Results: Last 24 Hours Test 02/16/17 20:46 02/17/17 05:56 02/17/17 06:23 02/17/17 11:01 Bedside Glucose 106 mg/dl 97 mg/dl 107 mg/dl Prothrombin Time 23.5 SECONDS Prothromb Time International Ratio 2.3 Activated Partial Thromboplast Time 71.0 SECONDS Partial Thromboplastin Ratio 2.7 Sodium Level 134 mmol/L Potassium Level 3.8 mmol/L Chloride Level 96 mmol/L Carbon Dioxide Level 30 mmol/L Anion Gap 8.0 mmol/L Blood Urea Nitrogen 24 mg/dl Creatinine 0.95 mg/dl Est Creatinine Clear Calc Drug Dose 76.3 ml/min Estimated GFR () 96.3 Estimated GFR (Non- 83.1 BUN/Creatinine Ratio 25.7 Random Glucose 91 mg/dl Calcium Level 9.3 mg/dl Test 02/17/17 16:25 Bedside Glucose 90 mg/dl Assessment & Plan ATRIAL FIBRILLATION / FLUTTER Presented with atrial fib / flutter with rapid ventricular response. Cardiology consulted. Received IV diltiazem and metoprolol; diltiazem changed to PRN. Anticoagulated with IV heparin and warfarin initiated. Cardioversion could not be performed due to left atrial thrombus noted on ANDREA. INR therapeutic today. Stop heparin. Further management per Cardiology. CORONARY ARTERY DISEASE No chest pain. Intolerant of statins. Continue aspirin and metoprolol. CHF Acute on chronic left ventricular diastolic CHF. Atrial arrhythmias probably contributing to decompensation. Continue diuretics. PLEURAL EFFUSIONS Pulmonary Medicine consulted. Bilateral thoracenteses performed with serosanguinous fluid drained. Cultures, cytology negative. SLEEP APNEA Continue supplemental O2. PULMONARY HYPERTENSION / RV PRESSURE OVERLOAD Noted on echo. CTA chest negative for PE. Continue supplemental O2 for sleep apnea. DM TYPE 2 Well-controlled. Hgb A1C 4.11 September 2016. Hold metformin during hospital stay. Insulin coverage as needed. FBS this morning = 97. VTE PROPHYLAXIS Receiving IV heparin --> warfarin for atrial fib / flutter. DISPOSITION Expected discharge to home. Medical follow-up with Dr. Rojas. Cardiology follow-up with [facility] Cardiology. . Current Inpatient Medications: Current Inpatient Medications Medications (Trade) Dose Ordered Sig/Sal Route Start Time Stop Time Status Last Admin Dose Admin Diltiazem HCl 125 mg/Dextrose 125 ml @ 0 mls/hr Q0M PRN IV 02/12/17 16:15 03/14/17 16:14 02/14/17 03:35 5 MLS/HR Acetaminophen (Tylenol Tab) 650 mg Q4H PRN PO 02/12/17 17:45 03/14/17 17:44 Ondansetron HCl (Zofran Inj) 4 mg Q6H PRN IV 02/12/17 17:45 03/14/17 17:44 Insulin Aspart (novoLOG ASPART) SLIDING SCALE If C... ACHS SC 02/12/17 21:00 03/14/17 20:59 02/17/17 17:18 2 UNITS Glucose (Glucose 40% Gel) 15-30 GRAMS 15 GRAMS... UD PRN PO 02/12/17 17:45 03/14/17 17:44 Glucose (Glucose Chew Tab) 4-8 Tablets 4 Tabl... UD PRN PO 02/12/17 17:45 03/14/17 17:44 Dextrose (Dextrose 50% 50ML Syringe) 25-50ML OF 50% DW IV FOR... UD PRN IV 02/12/17 17:45 03/14/17 17:44 Glucagon (Glucagon Inj) 1 mg UD PRN SQ 02/12/17 17:45 03/14/17 17:44 Aspirin (Ecotrin Tab) 81 mg BID PO 02/12/17 21:00 03/14/17 20:59 02/17/17 19:37 81 MG Cetirizine HCl (zyrTEC TAB) 10 mg DAILY PO 02/13/17 09:00 03/15/17 08:59 02/17/17 08:16 10 MG Docusate Sodium (coLACE CAP) 100 mg BID PRN PO 02/12/17 18:00 03/14/17 17:59 Fluticasone Propionate (Flovent Hfa 44MCG Inhaler) 2 puffs BID INH 02/12/17 21:00 03/14/17 20:59 02/17/17 19:36 2 PUFFS Fluticasone Propionate (Flonase Nasal [place]) 2 sprays DAILY SHALONDA 02/13/17 09:00 03/15/17 08:59 02/17/17 08:17 2 SPRAYS Montelukast Sodium (Singulair Tab) 10 mg QPM PO 02/12/17 21:00 03/14/17 20:59 02/17/17 19:37 10 MG Magnesium Oxide (Mag-Ox Tab) 400 mg BID PO 02/13/17 09:00 03/15/17 08:59 02/17/17 19:36 400 MG Non-Formulary Medication (Non-Formulary Patient'S Own Med) 1 ea DAILY PO 02/13/17 12:00 03/15/17 11:59 02/17/17 08:17 1 EA Furosemide 80 mg/ Syringe 8 ml @ 4 mls/min Q12H IV 02/15/17 19:00 03/15/17 18:59 02/17/17 19:36 4 MLS/MIN Spironolactone (Aldactone Tab) 25 mg DAILY PO 02/16/17 09:00 03/15/17 08:59 02/17/17 08:16 25 MG Warfarin Sodium (Coumadin Tab) 2 mg DAILY@16 PO 02/17/17 16:00 03/19/17 15:59 1/13/18 16:08 2 MG Metoprolol Succinate (Toprol Xl Tab) 100 mg BID17 PO 02/17/17 17:00 03/19/17 16:59 02/17/17 17:18 100 MG
[2017-02-18] VITALS (8 sets, daily range): BP systolic 92–112; BP diastolic 56–72; PULSE 79–96; TEMP 36.5–37.3; O2SAT 93–96
[2017-02-18] MEDS: FUROSEMIDE INJ 80 MG in SYRINGE 0 ML IV SCH ×2 (07:31→19:31)
[2017-02-18] MEDS: FLUTICASONE PROP HFA INH 44 MCG INHALER INH SCH ×2 (07:31→20:58)
[2017-02-18] MEDS: MAGNESIUM OXIDE 400 MG TAB PO SCH ×2 (07:32→20:58)
[2017-02-18] MEDS: ASPIRIN 81 MG ECTAB PO SCH ×2 (07:32→20:57)
[2017-02-18] MEDS: CETIRIZINE HCL 10 MG TAB PO SCH (07:32)
[2017-02-18] MEDS: FLUTICASONE PROPIONATE NA SPR 16 GM BTL NAE SCH (07:32)
[2017-02-18] MEDS: SPIRONOLACTONE 25 MG TAB PO SCH (07:33)
[2017-02-18] MEDS: METOPROLOL SUCC 50MG EXT REL TAB PO SCH ×2 (07:33→17:48)
[2017-02-18] MEDS: FENOFIBRATE PO SCH (07:34)
[2017-02-18] MEDS: INSULIN ASPART 100 UNITS/ML 3 ML PEN SC SCH ×4 (07:43→20:58)
[2017-02-18 07:47] LABS: CALCIUM 9.7 mg/dl (8.5-10.1); CREATININE 0.91 mg/dl (0.60-1.40); POTASSIUM 3.8 mmol/L (3.5-5.1)
--- NOTE | 2017-02-18 11:51 | DIAGNOSTIC IMAGING REPORT ---
CHEST 2 VIEWS ROUTINE HISTORY: CHF, pleural effusions COMPARISON: Chest 02/14/2017. FINDINGS: No pneumothorax. The heart remains mildly enlarged. There are poststernotomy changes. No evidence for pulmonary edema. Aortic valve prosthesis. Small left pleural effusion has slightly improved. Small right pleural effusion persist. Bibasilar densities favor compressive atelectasis. IMPRESSION: 1. Slight improvement in the small left pleural effusion. 2. Small right pleural effusion persists. Electronically signed by: Wyatt Thakkar M.D. 02/18/2017 11:50 AM Dictated Date/Time: 02/18/2017 11:49 AM
--- NOTE | 2017-02-18 12:20 | PROGRESS NOTE ---
DATE: 02/18/2017 CARDIOLOGY CONSULTATION FOLLOWUP NOTE The patient seen and examined. Chart, medications, telemetry reviewed. SUBJECTIVE: The patient feels again slightly improved, was ambulatory in the hallway yesterday and does become breathless with moderate exertion and speech. Notes no chest pains, dizziness, lightheadedness, syncope or near syncope. Heart rates are trending towards better control. OBJECTIVE: VITAL SIGNS: Heart rate is 88, blood pressure is 112/68. NECK: Thin. There is no jugular venous distention. LUNGS: Reveal blunted breath sounds bibasilar, right greater than left. CARDIOVASCULAR: Irregularly irregular. There is no S3 gallop. There is a grade 2/6 systolic murmur. ABDOMEN: Soft, nontender. EXTREMITIES: Without cyanosis or clubbing. There are chronic stasis changes of lower extremities with trace to 1+ edema. LABORATORY DATA: Sodium is 135, potassium is 3.8, chloride is 97, bicarbonate is 32, BUN is 24, and creatinine 0.9. IMAGING DATA: Chest x-ray pending. INR is 3.0. IMPRESSION: Complex 66-year-old male admitted with persistent atrial fibrillation/flutter with rapid ventricular response, rates have come under better control on titration of medication. Initial presentation was notable for acute decompensated congestive heart failure and bilateral pleural effusions. The patient has gradually improved post-thoracentesis and IV diuretics, though continues to have evidence of pleural effusions by physical examination. Rates are trending towards better control and is appropriately anticoagulated. RECOMMENDATIONS: We will continue IV diuresis for doses ordered for today, hold for a.m. assessment. Chest x-ray will be ordered for today. Continue oral warfarin. Gradually increase activities. Underlying medical problems include history of coronary bypass grafting x4 and aortic valve replacement with bioprosthesis February 2014.
[2017-02-18] MEDS: WARFARIN SOD 2 MG TAB PO SCH (16:10)
--- NOTE | 2017-02-18 16:45 | Consultant Recommendations ---
Final Block Press Operator Recommendations Date of Service Feb 18, 2017. Final Block Press Operator Recommendations Follow up appointment with Dr. Conner 02/26/17 at 2:00pm
--- NOTE | 2017-02-18 19:36 | Progress Note ---
Medicine Progress Note Date & Time of Visit: Feb 18, 2017 at 10:00 . Subjective CC: Follow-up visit for atrial flutter and other problems. HPI: Persistent atrial flutter. Dyspnea with exertion, but comfortable at rest. No cough. No chest pain. ROS: General- no fever, no chills Resp- as noted above in HPI Cardiac- as noted above in HPI GI- no nausea, no vomiting, no diarrhea - no dysuria, no difficulty voiding . Objective Last 8 Hrs Date Time Temp Pulse Resp B/P (MAP) Pulse Ox O2 Delivery O2 Flow Rate FiO2 02/18/17 07:20 Room Air 02/18/17 07:19 36.5 79 18 111/72 (85) 94 Room Air 02/18/17 04:16 37.1 81 20 102/66 (78) 93 Room Air 02/18/17 04:00 Room Air Physical Exam: General- no distress Lungs- decreased breath sounds left base; no respiratory distress Cardiovascular- RRR, no murmur or gallop appreciated; + JVD; trace-1+ pretibial edema Abdomen- + BS, soft, nontender Extremities- no cyanosis; no calf tenderness Neuro- alert, oriented Skin- warm and dry . Laboratory Results: Last 24 Hours Test 02/17/17 11:01 02/17/17 16:25 02/17/17 20:12 02/18/17 06:48 Bedside Glucose 107 mg/dl 90 mg/dl 98 mg/dl Prothrombin Time 30.8 SECONDS Prothromb Time International Ratio 3.0 Sodium Level 135 mmol/L Potassium Level 3.8 mmol/L Chloride Level 97 mmol/L Carbon Dioxide Level 32 mmol/L Anion Gap 6.0 mmol/L Blood Urea Nitrogen 24 mg/dl Creatinine 0.91 mg/dl Est Creatinine Clear Calc Drug Dose 78.2 ml/min Estimated GFR () 101.4 Estimated GFR (Non- 87.5 BUN/Creatinine Ratio 26.8 Random Glucose 88 mg/dl Calcium Level 9.7 mg/dl Test 02/18/17 06:56 Bedside Glucose 92 mg/dl Assessment & Plan ATRIAL FIBRILLATION / FLUTTER Presented with atrial fib / flutter with rapid ventricular response. Cardiology consulted. Received IV diltiazem and metoprolol; diltiazem changed to PRN. Anticoagulated with IV heparin and warfarin initiated. Cardioversion could not be performed due to left atrial thrombus noted on ANDREA. INR therapeutic 02/17. Stopped heparin. Transitioned from metoprolol tartrate to metoprolol succinate 100 mg BID. Further management per Cardiology. CORONARY ARTERY DISEASE History ischemic heart disease, s/p CABG. No chest pain. Intolerant of statins. Continue aspirin and metoprolol. CHF Echo showed LVEF 60-65%. Acute on chronic left ventricular diastolic CHF. Atrial arrhythmias probably contributing to decompensation. Continue diuretics. Check f/u chest x-ray. S/P BIOPROSTHETIC AVR Normal structure / function per echo. PLEURAL EFFUSIONS Pulmonary Medicine consulted. Bilateral thoracenteses performed with serosanguinous fluid drained. Cultures, cytology negative.Check f/u chest x-ray. SLEEP APNEA Continue supplemental O2. PULMONARY HYPERTENSION / RV PRESSURE OVERLOAD Noted on echo. CTA chest negative for PE. Continue supplemental O2 for sleep apnea. DM TYPE 2 Well-controlled. Hgb A1C 4.11 September 2016. Hold metformin during hospital stay. Insulin coverage as needed. FBS this morning = 92. VTE PROPHYLAXIS Received IV heparin --> warfarin for atrial fib / flutter. DISPOSITION Expected discharge to home. Medical follow-up with Dr. Rojas. Cardiology follow-up with [facility] Cardiology. . Current Inpatient Medications: Current Inpatient Medications Medications (Trade) Dose Ordered Sig/Sal Route Start Time Stop Time Status Last Admin Dose Admin Diltiazem HCl 125 mg/Dextrose 125 ml @ 0 mls/hr Q0M PRN IV 02/12/17 16:15 03/14/17 16:14 02/14/17 03:35 5 MLS/HR Acetaminophen (Tylenol Tab) 650 mg Q4H PRN PO 02/12/17 17:45 03/14/17 17:44 Ondansetron HCl (Zofran Inj) 4 mg Q6H PRN IV 02/12/17 17:45 03/14/17 17:44 Insulin Aspart (novoLOG ASPART) SLIDING SCALE If C... ACHS SC 02/12/17 21:00 03/14/17 20:59 02/18/17 07:43 4 UNITS Glucose (Glucose 40% Gel) 15-30 GRAMS 15 GRAMS... UD PRN PO 02/12/17 17:45 03/14/17 17:44 Glucose (Glucose Chew Tab) 4-8 Tablets 4 Tabl... UD PRN PO 02/12/17 17:45 03/14/17 17:44 Dextrose (Dextrose 50% 50ML Syringe) 25-50ML OF 50% DW IV FOR... UD PRN IV 02/12/17 17:45 03/14/17 17:44 Glucagon (Glucagon Inj) 1 mg UD PRN SQ 02/12/17 17:45 03/14/17 17:44 Aspirin (Ecotrin Tab) 81 mg BID PO 02/12/17 21:00 03/14/17 20:59 02/18/17 07:32 81 MG Cetirizine HCl (zyrTEC TAB) 10 mg DAILY PO 02/13/17 09:00 03/15/17 08:59 02/18/17 07:32 10 MG Docusate Sodium (coLACE CAP) 100 mg BID PRN PO 02/12/17 18:00 03/14/17 17:59 Fluticasone Propionate (Flovent Hfa 44MCG Inhaler) 2 puffs BID INH 02/12/17 21:00 03/14/17 20:59 02/18/17 07:31 2 PUFFS Fluticasone Propionate (Flonase Nasal [place]) 2 sprays DAILY SHALONDA 02/13/17 09:00 03/15/17 08:59 02/18/17 07:32 2 SPRAYS Montelukast Sodium (Singulair Tab) 10 mg QPM PO 02/12/17 21:00 03/14/17 20:59 02/17/17 19:37 10 MG Magnesium Oxide (Mag-Ox Tab) 400 mg BID PO 02/13/17 09:00 03/15/17 08:59 02/18/17 07:32 400 MG Non-Formulary Medication (Non-Formulary Patient'S Own Med) 1 ea DAILY PO 02/13/17 12:00 03/15/17 11:59 02/18/17 07:34 1 EA Furosemide 80 mg/ Syringe 8 ml @ 4 mls/min Q12H IV 02/15/17 19:00 03/15/17 18:59 02/18/17 07:31 4 MLS/MIN Spironolactone (Aldactone Tab) 25 mg DAILY PO 02/16/17 09:00 03/15/17 08:59 1/14/18 07:33 25 MG Warfarin Sodium (Coumadin Tab) 2 mg DAILY@16 PO 02/17/17 16:00 03/19/17 15:59 02/17/17 16:08 2 MG Metoprolol Succinate (Toprol Xl Tab) 100 mg BID17 PO 02/17/17 17:00 03/19/17 16:59 02/18/17 07:33 100 MG
[2017-02-18] MEDS: MONTELUKAST SOD 10 MG TAB PO SCH (20:57)
[2017-02-19 03:47] VITALS: BP 106/65; PULSE 78; TEMP 37; O2SAT 93
[2017-02-19 07:14] LABS: INR 2.8 (0.9-1.1)
[2017-02-19 07:21] VITALS: BP 105/66; PULSE 79; TEMP 37.1; O2SAT 94
[2017-02-19 07:39] LABS: CALCIUM 9.6 mg/dl (8.5-10.1); CREATININE 0.98 mg/dl (0.60-1.40); POTASSIUM 4.2 mmol/L (3.5-5.1)
[2017-02-19] MEDS: INSULIN ASPART 100 UNITS/ML 3 ML PEN SC SCH ×2 (08:28→11:59)
[2017-02-19] MEDS: FLUTICASONE PROPIONATE NA SPR 16 GM BTL NAE SCH (08:29)
[2017-02-19] MEDS: FLUTICASONE PROP HFA INH 44 MCG INHALER INH SCH (08:29)
[2017-02-19] MEDS: SPIRONOLACTONE 25 MG TAB PO SCH (08:29)
[2017-02-19] MEDS: ASPIRIN 81 MG ECTAB PO SCH (08:30)
[2017-02-19] MEDS: MAGNESIUM OXIDE 400 MG TAB PO SCH (08:30)
[2017-02-19] MEDS: CETIRIZINE HCL 10 MG TAB PO SCH (08:30)
[2017-02-19] MEDS: METOPROLOL SUCC 50MG EXT REL TAB PO SCH (08:31)
[2017-02-19] MEDS: FENOFIBRATE PO SCH (08:31)
[2017-02-19] MEDS ORDERED: FUROSEMIDE 40 MG TAB PO ONE (10:38)
--- NOTE | 2017-02-19 10:38 | Cardiology Follow-Up ---
Subjective General Date of Service: Feb 19, 2017. Chief Complaint: atrial fibrillation Pt evaluation today including: conversation w/ patient, conversation w/ family , physical exam, chart review, lab review, review of studies, review of inpatient medication list History of Present Illness Patient feeling well this AM. Hoping to go home today. Notes improvement in overall SOB. No dyspnea at rest. Mild dyspnea with exertional activities, but improved from admission. Orthopnea improved. Not using O2 at night here as recommended. Has supplemental O2 for nighttime use at home. He denies chest pain. Edema improved. Cough improving. No dizziness, syncope or near syncope. Allergies Coded Allergies: Statins (Unverified Adverse Reaction, Severe, LEG WEAKNESS, 02/12/17) Social History Smoking Status: Former Smoker Hx Tobacco Use In Past Year?: No Hx Alcohol Use - Type And Amou: No Hx Substance Use - Type And Am: No Review of Systems Respiratory: + dyspnea on exertion, No cough, No wheezing, No dyspnea at rest, No hemoptysis Cardiac: + edema, No chest pain, No orthopnea, No PND, No palpitations Physical Exam Vital Signs Last Vital Signs Documentation Date Time Temp Pulse Resp B/P (MAP) Pulse Ox O2 Delivery O2 Flow Rate FiO2 02/19/17 07:21 37.1 79 18 105/66 (79) 94 Room Air 02/16/17 08:09 5 Physical Exam Constitutional: General Apperance: overweight Level of Distress: chronically ill Psychiatric: Mental Status: active & alert Orientation: to time, to place, to person Memory: recent memory normal, remote memory normal Head: normocephalic, atraumatic Eyes: Pupils: PERRLA Neck: pertinent finding (Elevated JVP) Lungs: Respiratory effort: no dyspnea Auscultation: no wheezing, no rhonchi, deminished air movement, decreased breath sounds, pertinent finding (Absent breath sounds bases b/l.) Cardiovascular: Apical Impulse: displaced Heart Auscultation: no rubs, irregular rate rhythm Peripheral Pulses: Dorsalis Pedis Pulse: absent on the left, absent on the right Abdomen: Bowel Sounds: normal Inspection & Palpation: soft, non-distended, no masses Extremities: no cyanosis, no clubbing, edema (1+ edema with hard stasis) Neurologic: Cranial Nerves: grossly intact Assessment and Plan Assessment and Plan Assessment and Plan Admission with symptomatic paroxysmal atrial fibrillation/flutter with RVR Left atrial thrombus noted on ANDREA. Acute decompensated heart failure with bilateral pleural effusions, status post 02/14/2017 bilateral thoracenteses. History of paroxysmal atrial fibrillation/flutter status post direct current cardioversion in 2016 with the patient declining long-term anticoagulation at that time. CHADSVASC 5 Diastolic dysfunction. Preserved LV systolic function. Aortic valve disease status post aortic valve replacement in February 2014. Chronic coronary artery disease with history of prior coronary artery bypass grafting x 4. Obstructive sleep apnea. Dyslipidemia, statin intolerance. RECOMMENDATIONS: Recommend 2 Step prior to discharge Continue metoprolol succinate 100 mg BID for rate control Attempt to transition to oral diuretics today - initiate furosemide 40 mg daily with close CHF f/u. Continue spirolactone 25 mg daily (increased from 12.5 mg) Daily weight, salt/sodium restrictions reviewed. Close CHF f/u will be arranged. Close f/u with [facility] will be arranged. Case discussed with Dr. Gee Patient seen and examined with assessment as above. CHF instruction recommended, daily weights post discharge as may need diuretic increased Ultimate plan repeat ANDREA cardioversion 4-8 weeks Reilly Gee MD Laboratory Results Last 24 Hours Test 02/18/17 11:01 02/18/17 16:08 02/18/17 20:10 02/19/17 06:41 Bedside Glucose 101 mg/dl 108 mg/dl 97 mg/dl Prothrombin Time 29.2 SECONDS Prothromb Time International Ratio 2.8 Sodium Level 136 mmol/L Potassium Level 4.2 mmol/L Chloride Level 97 mmol/L Carbon Dioxide Level 30 mmol/L Anion Gap 9.0 mmol/L Blood Urea Nitrogen 23 mg/dl Creatinine 0.98 mg/dl Est Creatinine Clear Calc Drug Dose 72.4 ml/min Estimated GFR () 92.7 Estimated GFR (Non- 80.0 BUN/Creatinine Ratio 23.8 Random Glucose 86 mg/dl Calcium Level 9.6 mg/dl Test 02/19/17 06:44 Bedside Glucose 89 mg/dl
[2017-02-19 10:51] VITALS: BP 115/71; PULSE 78; TEMP 36.9; O2SAT 95
[2017-02-19] MEDS ORDERED: METO100T44 PO (14:38)
[2017-02-19] MEDS ORDERED: WARF4TAB43 PO (14:38)
[2017-02-19] MEDS ORDERED: LSX40 PO (14:38)
[2017-02-19] MEDS ORDERED: ASPI-428 PO (14:38)
[2017-02-19] MEDS ORDERED: MAGN400C3 PO (14:38)
[2017-02-19] MEDS ORDERED: SPR25 PO (14:38)
--- NOTE | 2017-02-19 14:47 | Discharge Instructions ---
Discharge Instructions Date of Service Feb 19, 2017. Admission Reason for Admission: shortness of breath . Discharge Discharge Diagnosis / Problem: atrial flutter (fast heart beat), congestive heart failure (fluid in lungs) Discharge Goals Goal(s): Decrease discomfort, Improve function, Improve disease control Activity Recommendations Activity Limitations: as noted below Lifting Limitations: gradually increase as tolerated Exercise/Sports Limitations: gradually increase as tolerated . Instructions / Follow-Up Instructions / Follow-Up APPOINTMENTS: PRIMARY CARE JUAN JOSE JEFFREY 02/22/2017 12:00 PM Jacky Leal PA-C (covering for Dr. Rojas) CARDIOLOGY [facility] in [place] Office will call you with an appointment. PULMONARY Dr. Conner [facility] [place] 02/26/17 at 2:00 PM OTHER INSTRUCTIONS: Don't take large doses of aspirin when you are taking warfarin (Coumadin). 81 mg a day is OK. Don't take anti-inflammatory medicines like ibuprofen (Advil or Motrin), naproxen (Aleve), or similar medicines. They can cause bleeding problems when you are taking warfarin (Coumadin). You may take acetaminophen (Tylenol) as directed. Seek medical attention if you have: * temperature above 101 * chest pain or trouble breathing * abdominal pain, nausea, vomiting * diarrhea, dark stools or bloody stools * blood in urine * abnormal bruising * any unanswered questions or concerns Call [phone] if symptoms are severe. Call if you have any questions or problems. My cell # is [phone]. You can also reach a [facility] hospitalist on duty at [facility] 24 hours a day by calling [phone]. Please take good care of yourself. Derrell Hatch . Call your Primary Care doctor if any of the following symptoms or problems start or get worse: * Shortness of breath or difficulty breathing * Wake up at night short of breath * Chest pain * Cough * Swelling of your hands, feet, or legs * More fatigued or tired with your normal activity * Palpitations - sudden fast heart beats WEIGHT * Weigh yourself every morning after using the bathroom. * Use the same scale. * Wear the same amount of clothing. * Write your weight down on a chart. * Call your Primary Care doctor if you gain more than 2-3 pounds in 1-2 days. MEDICATIONS * Use this discharge instruction sheet for medication instructions. * Take your medications at the time your doctor ordered. * Do not skip a dose of your medicines. * If you miss a dose of medicine, take it as soon as possible, but DO NOT DOUBLE A DOSE. * Read your medicine information when you get home. * Know all of the side effects of your medicine. If in doubt, ask your pharmacist * Call your Primary Care doctor's office if you have any side effects. * Be sure all of your doctors know what medicine and herbs you take (including cold, flu, and herbal medicine). Take the following with you to your follow-up doctor appointments: * Weight Chart * Medication List * List of questions Do not drink excessive alcohol, beer or wine. Current Hospital Diet Patient's current hospital diet: AHA Diet (Heart Healthy), Diabetes Type 2 Diet , Low Sodium Diet (2gm Na) Discharge Diet Recommended Diet: AHA Diet (Heart Healthy), Diabetes Type 2 Diet Pending Studies Studies pending at discharge: no Laboratory Results Hemoglobin A1c Test 02/13/17 04:20 Range/Units Estimated Average Glucose 88 mg/dl Hemoglobin A1c 4.7 4.5-5.6 % Medical Emergencies . Who to Call and When: Call 911 or go to the Emergency Room if: * If at any time you feel your situation is an emergency * You have tightness or pain in your chest that does not go away with rest or Nitroglycerin * You are very short of breath even with rest . Non-Emergent Contact Non-Emergency issues call your: Primary Care Provider, Stamper Blocker, Hospital Doctor, Kaitara Taraka . . "Provider Documentation" section prepared by Derrell Hatch. . Sewer Hand Recommendations Sewer Hand Recommendations: Follow up appointment with Dr. Conner 02/26/17 at 2:00pm VTE Core Measure Inpt VTE Proph given/why not?: Warfarin (Coumadin), Other Anticoagulation (IV heparin)
[2017-02-19 14:51] VITALS: BP 115/71; PULSE 78; TEMP 36.9; O2SAT 95
[2017-02-19] MEDS: WARFARIN SOD 2 MG TAB PO SCH (15:18)
--- NOTE | 2017-02-19 20:30 | Progress Note ---
Medicine Progress Note Date & Time of Visit: Feb 19, 2017 at 14:20 . Subjective Doing well. Dyspnea improved. No chest pain. No palpitations. Remains in atrial flutter with variable block with rate under better control. Ambulating. . Objective Last 8 Hrs Date Time Temp Pulse Resp B/P (MAP) Pulse Ox O2 Delivery O2 Flow Rate FiO2 02/19/17 12:00 Room Air 02/19/17 10:51 36.9 78 18 115/71 (86) 95 Room Air 02/19/17 07:21 37.1 79 18 105/66 (79) 94 Room Air 02/19/17 07:20 Room Air Physical Exam: General- no distress Lungs- decreased breath sounds at bases; no respiratory distress Cardiovascular- RRR, no murmur or gallop appreciated; + JVD; trace-1+ pretibial edema Abdomen- + BS, soft, nontender Extremities- no cyanosis; no calf tenderness Neuro- alert, oriented Skin- warm and dry . Laboratory Results: Last 24 Hours Test 02/18/17 16:08 02/18/17 20:10 02/19/17 06:41 02/19/17 06:44 Bedside Glucose 108 mg/dl 97 mg/dl 89 mg/dl Prothrombin Time 29.2 SECONDS Prothromb Time International Ratio 2.8 Sodium Level 136 mmol/L Potassium Level 4.2 mmol/L Chloride Level 97 mmol/L Carbon Dioxide Level 30 mmol/L Anion Gap 9.0 mmol/L Blood Urea Nitrogen 23 mg/dl Creatinine 0.98 mg/dl Est Creatinine Clear Calc Drug Dose 72.4 ml/min Estimated GFR () 92.7 Estimated GFR (Non- 80.0 BUN/Creatinine Ratio 23.8 Random Glucose 86 mg/dl Calcium Level 9.6 mg/dl Test 02/19/17 11:01 Bedside Glucose 93 mg/dl Assessment & Plan ATRIAL FIBRILLATION / FLUTTER Presented with atrial fib / flutter with rapid ventricular response. Cardiology consulted. Received IV diltiazem and metoprolol; diltiazem changed to PRN. Anticoagulated with IV heparin and warfarin initiated. Cardioversion could not be performed due to left atrial thrombus noted on ANDREA. INR therapeutic 02/17. Stopped heparin. Transitioned from metoprolol tartrate to metoprolol succinate 100 mg BID. Further management per Cardiology. LEFT ATRIAL THROMBUS Noted on ANDREA. Anticoagulated with IV heparin and transitioned to warfarin. Sensitive to warfarin; became therapeutic after 2 doses of 5 mg. Discharge on warfarin 2 mg daily, then as directed by [facility]. CORONARY ARTERY DISEASE History ischemic heart disease, s/p CABG. No chest pain. Intolerant of statins. Continue aspirin and metoprolol. CHF Echo showed LVEF 60-65%. Acute on chronic left ventricular diastolic CHF. Atrial arrhythmias probably contributing to decompensation. Received IV furosemide with improvement. Discharged on furosemide 40 mg daily + spironolactone 25 mg daily. S/P BIOPROSTHETIC AVR Normal structure / function per echo. PLEURAL EFFUSIONS Pulmonary Medicine consulted. Bilateral thoracenteses performed with serosanguinous fluid drained. Cultures, cytology negative.Check f/u chest x-ray. Follow-up chest x-ray showed residual bilateral effusions. SLEEP APNEA Continue supplemental O2. PULMONARY HYPERTENSION / RV PRESSURE OVERLOAD Noted on echo. CTA chest negative for PE. Continue supplemental O2 for sleep apnea. DM TYPE 2 Well-controlled. Hgb A1C 4.11 September 2016. Hold metformin during hospital stay. Insulin coverage as needed. FBS this morning = 89. Discharge on usual regimen. VTE PROPHYLAXIS Received IV heparin --> warfarin for atrial fib / flutter. DISPOSITION Discharge to home. Medical follow-up with Dr. Rojas. Cardiology follow-up with [facility]. Pulmonary Medicine follow-up with [facility] (Dr. Conner). . Consultants: Cardiology Pulmonary Medicine . Procedures: CTA chest transthoracic echo transesophageal echo bilateral thoracenteses . Current Inpatient Medications: Current Inpatient Medications Medications (Trade) Dose Ordered Sig/Sal Route Start Time Stop Time Status Last Admin Dose Admin Diltiazem HCl 125 mg/Dextrose 125 ml @ 0 mls/hr Q0M PRN IV 02/12/17 16:15 03/14/17 16:14 02/14/17 03:35 5 MLS/HR Acetaminophen (Tylenol Tab) 650 mg Q4H PRN PO 02/12/17 17:45 03/14/17 17:44 Ondansetron HCl (Zofran Inj) 4 mg Q6H PRN IV 02/12/17 17:45 03/14/17 17:44 Insulin Aspart (novoLOG ASPART) SLIDING SCALE If C... ACHS SC 02/12/17 21:00 03/14/17 20:59 02/19/17 11:59 1 UNITS Glucose (Glucose 40% Gel) 15-30 GRAMS 15 GRAMS... UD PRN PO 02/12/17 17:45 03/14/17 17:44 Glucose (Glucose Chew Tab) 4-8 Tablets 4 Tabl... UD PRN PO 02/12/17 17:45 03/14/17 17:44 Dextrose (Dextrose 50% 50ML Syringe) 25-50ML OF 50% DW IV FOR... UD PRN IV 02/12/17 17:45 03/14/17 17:44 Glucagon (Glucagon Inj) 1 mg UD PRN SQ 02/12/17 17:45 03/14/17 17:44 Aspirin (Ecotrin Tab) 81 mg BID PO 02/12/17 21:00 03/14/17 20:59 02/19/17 08:30 81 MG Cetirizine HCl (zyrTEC TAB) 10 mg DAILY PO 02/13/17 09:00 03/15/17 08:59 02/19/17 08:30 10 MG Docusate Sodium (coLACE CAP) 100 mg BID PRN PO 02/12/17 18:00 03/14/17 17:59 Fluticasone Propionate (Flovent Hfa 44MCG Inhaler) 2 puffs BID INH 02/12/17 21:00 03/14/17 20:59 02/19/17 08:29 2 PUFFS Fluticasone Propionate (Flonase Nasal [place]) 2 sprays DAILY SHALONDA 02/13/17 09:00 03/15/17 08:59 02/19/17 08:29 2 SPRAYS Montelukast Sodium (Singulair Tab) 10 mg QPM PO 02/12/17 21:00 03/14/17 20:59 02/18/17 20:57 10 MG Magnesium Oxide (Mag-Ox Tab) 400 mg BID PO 02/13/17 09:00 03/15/17 08:59 02/19/17 08:30 400 MG Non-Formulary Medication (Non-Formulary Patient'S Own Med) 1 ea DAILY PO 02/13/17 12:00 03/15/17 11:59 02/19/17 08:31 1 EA Spironolactone (Aldactone Tab) 25 mg DAILY PO 02/16/17 09:00 03/15/17 08:59 02/19/17 08:29 25 MG Warfarin Sodium (Coumadin Tab) 2 mg DAILY@16 PO 02/17/17 16:00 03/19/17 15:59 02/18/17 16:10 2 MG Metoprolol Succinate (Toprol Xl Tab) 100 mg BID17 PO 02/17/17 17:00 03/19/17 16:59 02/19/17 08:31 100 MG Furosemide (Lasix Tab) 40 mg QAM PO 02/20/17 09:00 03/22/17 08:59
[2017-02-20] MEDS ORDERED: FUROSEMIDE 40 MG TAB PO SCH (09:00)
--- NOTE | 2017-02-20 10:31 | Discharge Summary ---
Discharge Summary Date of Service Feb 20, 2017. Discharge Summary Admission Date: Feb 12, 2017 at 17:32 Discharge Date: Feb 19, 2017 Discharge Disposition: Home Principal Diagnosis: atrial fibrillation / flutter with rapid ventricular response OTHER ACUTE DIAGNOSES CHF (acute on chronic left ventricular diastolic heart failure) left atrial thrombus bilateral pleural effusions . Secondary Diagnoses/Problems: Chronic and Resolved Medical Problems: (1) Asthma, mild persistent Status: Chronic (2) BPH (benign prostatic hyperplasia) Status: Chronic (3) CAD (coronary artery disease) Permanent Comment: 2015 - CABG x 3 Status: Chronic (4) Diastolic CHF Status: Chronic (5) DM type 2 (diabetes mellitus, type 2) Status: Chronic (6) Dyslipidemia Status: Chronic (7) GERD (gastroesophageal reflux disease) Status: Chronic (8) HTN (hypertension) Status: Chronic (9) Paroxysmal A-fib Status: Chronic (10) Sleep apnea Status: Chronic Surgical Problems: (1) H/O aortic valve replacement (bioprosthetic) Status: Chronic (2) S/P CABG x 3 Status: Chronic . Procedures: CTA chest transthoracic echo transesophageal echo bilateral thoracenteses . Consultations: Cardiology Pulmonary Medicine . Pending Studies/Follow-Up: Please check basic metabolic profile and INR in clinic. . Medication Reconciliation New Medications: Aspirin (Ecotrin Low Strength) 81 Mg Tab 81 MG PO DAILY, #30 TAB 12 Refills Furosemide (Furosemide) 40 Mg Tab 40 MG PO DAILY, #30 TAB 12 Refills Magnesium Oxide (mg Supplement (Magnesium Oxide) 400 Mg Cap 400 MG PO BID, #60 TAB 12 Refills Metoprolol Succ (Toprol Xl) (Toprol-Xl ) 100 Mg Tabcr 100 MG PO BID, #60 TAB 12 Refills Spironolactone (Spironolactone) 25 Mg Tab 25 MG PO DAILY, #30 TAB 12 Refills Warfarin Sodium (Warfarin Sodium) 2 Mg Tab 2 MG PO DAILY, #60 TAB 12 Refills Dose will vary. Initial dose is 1 pill (2 mg) daily). Continued Medications: Acetaminophen Tab (Tylenol) 325 Mg Tab 650 MG PO UD PRN for BACK PAIN, TAB Albuterol Hfa (Ventolin Hfa) 200 Puffs/60474 Mcg Aers 2 PUFFS INH Q4H PRN for SOB/Wheezing, #1 INHALER Cetirizine (Zyrtec) 10 Mg Tab 10 MG PO DAILY, TAB Docusate Sodium (Colace) 100 Mg Cap 1 TAB PO BID PRN for Constipation Fenofibrate (Tricor) 54 Mg Tab 1 TAB PO DAILY for 30 Days, #30 TAB 5 Refills Fluticasone Propionate (Flovent Hfa) 120 Puffs/5280 Mcg Aero 2 PUFFS INH BID for 30 Days, #1 INHALER 2 Refills Fluticasone Propionate (Nasal) (Flonase Allergy Relief) 50 Mcg/Act Spr 1 SPRAY SHALONDA DAILY Metformin Hcl (Glucophage) 1,000 Mg Tab 500 MG PO BID, TAB Montelukast Sod (Montelukast Sodium) 10 Mg Tab 10 MG PO QPM Nitroglycerin (Nitrostat) 0.4 Mg Sub 0.4 MG UT PRN, BTL Discontinued Medications: Aspirin (Aspirin) 81 Mg Tab 81 MG PO BID Furosemide (Lasix) 20 Mg Tab 20 MG PO BID Lisinopril (Prinivil) 5 Mg Tab 5 MG PO DAILY, TAB Metoprolol Succinate (Metoprolol Succinate ER) 50 Mg Tabcr 50 MG PO BID Spironolactone (Aldactone) 25 Mg Tab 12.5 MG PO DAILY for 90 Days, #45 TAB 1 Refill Admission Information HPI (per Admitting provider): 66 year old male who was sent to the ED from the cardiology clinic for a. flutter with RVR. Patient is somewhat a poor historian. He reports he has not felt well since he got his flu shot in October. He reports he was treated for bronchitis a few months ago and did feel a little better. He reports feeling worse for the past two weeks. He reports increasing shortness of breath and lower extremity edema. He reports his weight has been stable. He denies orthopnea. No chest pain, palpitations, lightheadedness, dizziness, diaphoresis , or syncopal events. He was noted to have a low grade fever at the cardiology clinic today. He reports a cough productive for clear sputum that has been present the past few months. No abdominal pain, nausea, or vomiting. He reports one episode of diarrhea yesterday. No urinary symptoms. In the clinic, patient was found to be in a. flutter with RVR with rates in the 160s. He was sent to the ED for further eval. Heart rate improved with IV Diltiazem bolus and infusion. Labs are unremarkable. . Physical Exam (per Admitting): General Appearance: WD/WN, no apparent distress Head: normocephalic, atraumatic Eyes: normal inspection, EOMI, sclerae normal ENT: hearing grossly normal, + pertinent finding (mucous membranes moist) Neck: supple, no JVD, trachea midline Respiratory/Chest: no respiratory distress, + decreased breath sounds (BL bases) Cardiovascular: normal peripheral pulses, + tachycardia, + irregularly irregular, + pertinent finding (+1-2 pitting edema BLLE) Abdomen/GI: normal bowel sounds, non tender, soft, no organomegaly, + distended Extremities/Musculoskelatal: normal inspection, no calf tenderness, normal capillary refill Neurologic/Psych: no motor/sensory deficits, alert, normal mood/affect, oriented x 3 Skin: normal color, warm/dry Hospital Course ATRIAL FIBRILLATION / FLUTTER Presented with atrial fib / flutter with rapid ventricular response. Cardiology consulted. Received IV diltiazem and metoprolol; diltiazem changed to PRN. Anticoagulated with IV heparin and warfarin initiated. Cardioversion could not be performed due to left atrial thrombus noted on ANDREA. INR therapeutic 02/17. Stopped heparin. Transitioned from metoprolol tartrate to metoprolol succinate 100 mg BID. Further management per Cardiology. LEFT ATRIAL THROMBUS Noted on ANDREA. Anticoagulated with IV heparin and transitioned to warfarin. Sensitive to warfarin; became therapeutic after 2 doses of 5 mg. Discharge on warfarin 2 mg daily, then as directed by [facility]. CORONARY ARTERY DISEASE History ischemic heart disease, s/p CABG. No chest pain. Intolerant of statins. Continue aspirin and metoprolol. CHF Echo showed LVEF 60-65%. Acute on chronic left ventricular diastolic CHF. Atrial arrhythmias probably contributing to decompensation. Received IV furosemide with improvement. Discharged on furosemide 40 mg daily + spironolactone 25 mg daily. S/P BIOPROSTHETIC AVR Normal structure / function per echo. PLEURAL EFFUSIONS Pulmonary Medicine consulted. Bilateral thoracenteses performed with serosanguinous fluid drained. Cultures, cytology negative.Check f/u chest x-ray. Follow-up chest x-ray showed residual bilateral effusions. SLEEP APNEA Continue supplemental O2. PULMONARY HYPERTENSION / RV PRESSURE OVERLOAD Noted on echo. CTA chest negative for PE. Continue supplemental O2 for sleep apnea. DM TYPE 2 Well-controlled. Hgb A1C 4.11 September 2016. Hold metformin during hospital stay. Insulin coverage as needed. FBS this morning = 89. Discharge on usual regimen. VTE PROPHYLAXIS Received IV heparin --> warfarin for atrial fib / flutter. DISPOSITION Discharge to home. Medical follow-up with Dr. Rojas. Cardiology follow-up with [facility]. Pulmonary Medicine follow[facility] with [facility] (Dr. Conner). [facility]. . Total time spent on discharge = 40 min. This includes examination of the patient, discharge planning, medication reconciliation, and communication with other providers. . Discharge Instructions Date of Service Feb 19, 2017. Admission Reason for Admission: shortness of breath . Discharge Discharge Diagnosis / Problem: atrial flutter (fast heart beat), congestive heart failure (fluid in lungs) Discharge Goals Goal(s): Decrease discomfort, Improve function, Improve disease control Activity Recommendations Activity Limitations: as noted below Lifting Limitations: gradually increase as tolerated Exercise/Sports Limitations: gradually increase as tolerated . Instructions / Follow-Up Instructions / Follow-Up APPOINTMENTS: PRIMARY CARE JUAN JOSE JEFFREY 02/22/2017 12:00 PM Jacky Leal PA-C (covering for Dr. Rojas) CARDIOLOGY [facility] in [place] Office will call you with an appointment. PULMONARY Dr. Conner [facility] [place] 02/26/17 at 2:00 PM OTHER INSTRUCTIONS: Don't take large doses of aspirin when you are taking warfarin (Coumadin). 81 mg a day is OK. Don't take anti-inflammatory medicines like ibuprofen (Advil or Motrin), naproxen (Aleve), or similar medicines. They can cause bleeding problems when you are taking warfarin (Coumadin). You may take acetaminophen (Tylenol) as directed. Seek medical attention if you have: * temperature above 101 * chest pain or trouble breathing * abdominal pain, nausea, vomiting * diarrhea, dark stools or bloody stools * blood in urine * abnormal bruising * any unanswered questions or concerns Call [phone] if symptoms are severe. Call if you have any questions or problems. My cell # is [phone]. You can also reach a [facility] hospitalist on duty at [facility] 24 hours a day by calling [phone]. Please take good care of yourself. Derrell Hatch . Call your Primary Care doctor if any of the following symptoms or problems start or get worse: * Shortness of breath or difficulty breathing * Wake up at night short of breath * Chest pain * Cough * Swelling of your hands, feet, or legs * More fatigued or tired with your normal activity * Palpitations - sudden fast heart beats WEIGHT * Weigh yourself every morning after using the bathroom. * Use the same scale. * Wear the same amount of clothing. * Write your weight down on a chart. * Call your Primary Care doctor if you gain more than 2-3 pounds in 1-2 days. MEDICATIONS * Use this discharge instruction sheet for medication instructions. * Take your medications at the time your doctor ordered. * Do not skip a dose of your medicines. * If you miss a dose of medicine, take it as soon as possible, but DO NOT DOUBLE A DOSE. * Read your medicine information when you get home. * Know all of the side effects of your medicine. If in doubt, ask your pharmacist * Call your Primary Care doctor's office if you have any side effects. * Be sure all of your doctors know what medicine and herbs you take (including cold, flu, and herbal medicine). Take the following with you to your follow-up doctor appointments: * Weight Chart * Medication List * List of questions Do not drink excessive alcohol, beer or wine. Current Hospital Diet Patient's current hospital diet: AHA Diet (Heart Healthy), Diabetes Type 2 Diet , Low Sodium Diet (2gm Na) Discharge Diet Recommended Diet: AHA Diet (Heart Healthy), Diabetes Type 2 Diet Pending Studies Studies pending at discharge: no Laboratory Results Hemoglobin A1c Test 02/13/17 04:20 Range/Units Estimated Average Glucose 88 mg/dl Hemoglobin A1c 4.7 4.5-5.6 % Medical Emergencies . Who to Call and When: Call 911 or go to the Emergency Room if: * If at any time you feel your situation is an emergency * You have tightness or pain in your chest that does not go away with rest or Nitroglycerin * You are very short of breath even with rest . Non-Emergent Contact Non-Emergency issues call your: Primary Care Provider, Credit Balance Specialist, Hospital Doctor, Asbestos Brake Lining Finisher . . "Provider Documentation" section prepared by Derrell Hatch. . Size Changer Recommendations Size Changer Recommendations: Follow up appointment with Dr. Conner 02/26/17 at 2:00pm VTE Core Measure Inpt VTE Proph given/why not?: Warfarin (Coumadin), Other Anticoagulation (IV heparin) . Additional Copies To Redd Rojas D.O.; Sagar Brown DO; Umesh Araujo PA-C; Pablo Rogers PA-C; Hilda Byrne PA-C; Sagar Conner MD
== END 2017-02-19 15:28 | disposition home or self-care (01) | DRG 308 ==
LOC: C.EDB 15:45 → C.2T 17:32 → ENRESERV 17:58
PROVIDERS: ADMIT Family Medicine; ATTEND Hospitalist
PROC: 0W993ZZ Drainage of Right Pleural Cavity, Percutaneous Approach (ICD-10-PCS; principal; 2017-02-14)
PROC: 0W9B3ZZ Drainage of Left Pleural Cavity, Percutaneous Approach (ICD-10-PCS; principal; 2017-02-14)
DX: I48.0 Paroxysmal atrial fibrillation (principal); I50.33 Acute on chronic diastolic (congestive) heart failure; J90 Pleural effusion, not elsewhere classified; I35.0 Nonrheumatic aortic (valve) stenosis; I48.92 Unspecified atrial flutter; I25.10 Atherosclerotic heart disease of native coronary artery without angina pectoris; E11.9 Type 2 diabetes mellitus without complications; I27.20 Pulmonary hypertension, unspecified; N40.0 Benign prostatic hyperplasia without lower urinary tract symptoms; I11.0 Hypertensive heart disease with heart failure; K21.9 Gastro-esophageal reflux disease without esophagitis; J45.909 Unspecified asthma, uncomplicated; G47.33 Obstructive sleep apnea (adult) (pediatric); Z79.82 Long term (current) use of aspirin; Z79.84 Long term (current) use of oral hypoglycemic drugs; Z79.899 Other long term (current) drug therapy; Z95.1 Presence of aortocoronary bypass graft; Z95.2 Presence of prosthetic heart valve

== ENCOUNTER 2017-03-30 09:20 | Inpatient (IN) | payer OTHER ==
[~2017-03-30] VITALS: Ht 165.1 cm; Wt 78.7 kg
[~2017-03-30 09:20] MED LIST changes: +ACET-1693 PO; -ALBU1AER9; -ALBUAER19 INH; +ASPI-428 PO; -ASPI1TAB83 PO; +CETI10TA84 PO; -CICL0.7718 TOP; -COEN150C PO; +FENO54TA PO; -FLUT0.0529 NAE; +FLUT0.15 NAE; -FLUT220A INH; +FLVHFA44 INH; -FRS/40 PO; +LSX40 PO; +MAGN400C3 PO; -METO-478 PO; +METO100T44 PO; -OXYC1CAP5 PO; -POTA10CA28 PO; -PRAV20TA PO; -PREN1CAP7 PEG; -SENN8.6T94 PO; +SPR25 PO; -TRAZ-119 PO; +VNTHFA/IN INH; +WARF4TAB43 PO
[2017-03-30] MEDS ORDERED: SODIUM CHLORIDE 0.9% 500ML 500 ML IV STA (09:36)
--- NOTE | 2017-03-30 09:49 | EMERGENCY ROOM VISIT NOTE ---
History Report prepared by Mino: Henny Mancuso Under the Supervision of: Dr. Pop Lutz D.O. First contact with patient: 09:31 Chief Complaint: RAPID HEART RATE Stated Complaint: RAPID HEAT RATE, REFERRED BY Nursing Triage Summary: Pt at f/u appt this morning with Dr. Madrid, charu HR, performed EKG in office, pt found to be in atrial flutter, hr 150's. Hx of a. flutter. Pt feels like his heart is racing, dyspenic with talking, and is lethargic. Denies CP. On coumadin. History of Present Illness The patient is a 66 year old male who presents to the Emergency Room with complaints of persistent tachycardia that was noticed today during an EKG performed at his rehanger's office. The patient denies any chest pain or being sick recently, but notes that he has been losing weight. He reports that he experienced similar symptoms in February, noting he was retaining fluids. The patient states that he took all of his medication this morning, noting he has not had any changes in his medication. Source of History: patient Onset: today Position: other (heart) Quality: other (tachycardia) Timing: other (persistent) Associated Symptoms: No chest pain Note: Patient denies: being sick recently Review of Systems See HPI for pertinent positives & negatives. A total of 10 systems reviewed and were otherwise negative. Past Medical & Surgical Medical Problems: (1) Asthma, mild persistent (2) BPH (benign prostatic hyperplasia) (3) CAD (coronary artery disease) (4) Diastolic CHF (5) DM type 2 (diabetes mellitus, type 2) (6) Dyslipidemia (7) GERD (gastroesophageal reflux disease) (8) HTN (hypertension) (9) Hyperthyroidism (10) Paroxysmal A-fib (11) Sleep apnea Surgical Problems: (1) H/O aortic valve replacement (2) S/P CABG x 3 Family History Patient reports no known family medical history. No pertinent family history. Social History Smoking Status: Never Smoker Smokeless Tobacco Use: No Drug Use: none Marital Status: Housing Status: lives with family Occupation Status: retired Current/Historical Medications Scheduled Aspirin (Ecotrin Low Strength), 81 MG PO DAILY Cetirizine (Zyrtec), 10 MG PO DAILY Fenofibrate (Tricor), 1 TAB PO DAILY Fluticasone Propionate (Flovent Hfa), 2 PUFFS INH BID Fluticasone Propionate (Nasal) (Flonase Allergy Relief), 1 SPRAY SHALONDA DAILY Furosemide (Furosemide), 40 MG PO DAILY Magnesium Oxide (mg Supplement (Magnesium Oxide), 400 MG PO BID Metformin Hcl (Glucophage), 500 MG PO BID Metoprolol Succ (Toprol Xl) (Toprol-Xl ), 100 MG PO BID Montelukast Sod (Montelukast Sodium), 10 MG PO QPM Nitroglycerin (Nitrostat), 0.4 MG UT PRN Spironolactone (Aldactone), 12.5 MG PO QAM Warfarin Sod (Jantoven), 2 MG PO DIRECTED Scheduled PRN Acetaminophen Tab (Tylenol), 650 MG PO UD PRN for BACK PAIN Albuterol Hfa (Ventolin Hfa), 2 PUFFS INH Q4H PRN for SOB/Wheezing Docusate Sodium (Colace), 1 TAB PO BID PRN for Constipation Allergies Coded Allergies: Statins (Unverified Adverse Reaction, Severe, LEG WEAKNESS, 03/30/17) Physical Exam Vital Signs Date Time Temp Pulse Resp B/P (MAP) Pulse Ox O2 Delivery O2 Flow Rate FiO2 03/30/17 10:33 107 03/30/17 10:15 115 20 107/76 98 03/30/17 09:41 144 03/30/17 09:39 Room Air 03/30/17 09:39 145 123/78 94 Room Air 03/30/17 09:26 36.6 146 22 111/51 96 Room Air 03/30/17 09:26 96 Room Air Physical Exam GENERAL: Patient is awake, alert, and in no acute distress. Patient is resting comfortably and showing no signs of anxiety EYES: The conjunctivae are clear. The pupils are round and reactive. EARS, NOSE, MOUTH AND THROAT: The nose is without any evidence of any deformity. Mucous membranes are moist tongue is midline NECK: The neck is nontender and supple. RESPIRATORY: Lung sounds diminished at both bases. No tachypnea or conversational dyspnea. CARDIOVASCULAR: Tachycardic rate and irregular rhythm noted there. No definite murmurs noted, rubs, or gallops normal S1 normal S2 GASTROINTESTINAL: The abdomen is soft. Bowel sounds are present in all quadrants. Abdomen is nontender MUSCULOSKELETAL/EXTREMITIES: There is no evidence of gross deformity full range of motion is noted in the hips and shoulders SKIN: Trace pedal edema bilaterally. Warm and dry. There is no obvious evidence of any rash. There are no petechiae, pallor or cyanosis noted. NEUROLOGIC: Patient is awake alert and oriented x3 strength is symmetric patellar reflexes are 2+ bilaterally Medical Decision & Procedures ER Provider Diagnostic Interpretation: Radiology results as stated below per my review and radiologist interpretation: SINGLE VIEW CHEST CLINICAL HISTORY: Dyspnea. FINDINGS: An AP, portable, upright chest radiograph is compared to study dated 02/18/2017. The examination is degraded by portable technique and apical lordotic positioning. The patient is status post midline sternotomy. The heart is enlarged and there is atherosclerotic calcification of the thoracic aorta. The pulmonary vasculature is noncongested. There are layering pleural effusions with bibasilar consolidation. No pneumothorax is seen. The skeletal structures appear osteopenic. The bony thorax is grossly intact. IMPRESSION: 1. Cardiomegaly without radiographic evidence of congestive failure. 2. There are layering pleural effusions with bibasilar consolidation, similar to the 02/18/2017 examination. This likely represents atelectasis. Clinical correlation will be required. Electronically signed by: Umesh Foy M.D. 03/30/2017 10:21 AM Dictated Date/Time: 03/30/2017 10:19 AM Laboratory Results 03/30/17 10:01 Red Blood Count 4.26, Mean Corpuscular Volume 94.6, Mean Corpuscular Hemoglobin 31.2, Mean Corpuscular Hemoglobin Concent 33.0, Mean Platelet Volume 9.5, Neutrophils (%) (Auto) 85.1, Lymphocytes (%) (Auto) 4.6, Monocytes (%) (Auto) 8.4, Eosinophils (%) (Auto) 1.1, Basophils (%) (Auto) 0.4, Neutrophils # (Auto) 8.96, Lymphocytes # (Auto) 0.49, Monocytes # (Auto) 0.89, Eosinophils # (Auto) 0.12, Basophils # (Auto) 0.04 03/30/17 10:01 Test 03/30/17 10:01 White Blood Count 10.54 K/uL (4.8-10.8) Red Blood Count 4.26 M/uL (4.7-6.1) Hemoglobin 13.3 g/dL (14.0-18.0) Hematocrit 40.3 % (42-52) Mean Corpuscular Volume 94.6 fL (80-100) Mean Corpuscular Hemoglobin 31.2 pg (25-34) Mean Corpuscular Hemoglobin Concent 33.0 g/dl (32-36) Platelet Count 259 K/uL (130-400) Mean Platelet Volume 9.5 fL (7.4-10.4) Neutrophils (%) (Auto) 85.1 % Lymphocytes (%) (Auto) 4.6 % Monocytes (%) (Auto) 8.4 % Eosinophils (%) (Auto) 1.1 % Basophils (%) (Auto) 0.4 % Neutrophils # (Auto) 8.96 K/uL (1.4-6.5) Lymphocytes # (Auto) 0.49 K/uL (1.2-3.4) Monocytes # (Auto) 0.89 K/uL (0.11-0.59) Eosinophils # (Auto) 0.12 K/uL (0-0.5) Basophils # (Auto) 0.04 K/uL (0-0.2) RDW Standard Deviation 55.2 fL (36.4-46.3) RDW Coefficient of Variation 16.0 % (11.5-14.5) Immature Granulocyte % (Auto) 0.4 % Immature Granulocyte # (Auto) 0.04 K/uL (0.00-0.02) Prothrombin Time 39.4 SECONDS (9.0-12.0) Prothromb Time International Ratio 3.9 (0.9-1.1) Activated Partial Thromboplast Time 42.9 SECONDS (21.0-31.0) Partial Thromboplastin Ratio 1.7 Anion Gap 8.0 mmol/L (3-11) Est Creatinine Clear Calc Drug Dose 83.3 ml/min Estimated GFR () 105.2 Estimated GFR (Non- 90.8 BUN/Creatinine Ratio 17.6 (10-20) Calcium Level 9.9 mg/dl (8.5-10.1) Magnesium Level 1.8 mg/dl (1.8-2.4) Total Bilirubin 1.7 mg/dl (0.2-1) Aspartate Amino Transf (AST/SGOT) 53 U/L (15-37) Alanine Aminotransferase (ALT/SGPT) 14 U/L (12-78) Alkaline Phosphatase 177 U/L (45-117) Troponin I < 0.015 ng/ml (0-0.045) Pro-B-Type Natriuretic Peptide 1336 pg/ml (0-900) Total Protein 7.7 gm/dl (6.4-8.2) Albumin 2.5 gm/dl (3.4-5.0) Globulin 5.2 gm/dl (2.5-4.0) Albumin/Globulin Ratio 0.5 (0.9-2) Thyroid Stimulating Hormone (TSH) < 0.005 uIu/ml (0.300-4.500) Free Thyroxine 2.65 ng/dl (0.80-1.60) Laboratory results per my review. Medications Administered Medications (Trade) Dose Ordered Sig/Sal Route Start Time Stop Time Status Last Admin Dose Admin Sodium Chloride 500 ml @ 999 mls/hr Q31M STAT IV 03/30/17 09:36 03/30/17 10:06 DC 03/30/17 09:47 999 MLS/HR ECG Per My Interpretation Indication: tachycardia Rate (beats per minute): 146 Rhythm: atrial fibrillation Findings: RBBB, other (increased rate) Change: no significant change (02/14/17) ED Course 0931: The patient was evaluated in room A3. A complete history and physical examination were performed. 0936: Ordered Sodium Chloride 500 ml @ 999 mls/hr IV. 1036: I reevaluated the patient, who was feeling much better. His heart rate is down to 113. 1058: I discussed the patient's case with Kezia Hernandez. The patient will be evaluated for further management. 1102: I reevaluated the patient and updated him on test findings. The patient verbalized understanding and agreement of the treatment plan. Medical Decision Prior records/ancillary studies reviewed. Triage Nursing notes reviewed. Additional history obtained from patient's rehanger's office. The patient's history was concerning for palpitations. Differential diagnosis: Etiologies such as premature contractions, electrolyte abnormality, cardiac dysrhythmia, thyroid dysfunction, pulmonary embolism, infection, gastrointestinal, as well as others were entertained. The patient is a 66-year-old male who has a history of atrial fibrillation. He had a follow-up appointment with his rehanger group today and was found to be in rapid atrial fibrillation. The patient was sent to the emergency department for further evaluation and for admission. The patient was treated with IV fluids in the emergency department. His rate improved. His blood pressure was borderline so no Cardizem was given to the patient. I discussed patient's laboratory and radiographic studies with him. I also discussed this case with the on-call Kezia rehanger. Medication Reconcilliation Current Medication List: was personally reviewed by me Blood Pressure Screening Patient's blood pressure: Normal blood pressure Blood pressure disposition: Did not require urgent referral Consults Time Called: [phone] Consulting Physician: Kezia Hernandez Returned Call: [phone] I discussed the patient's case with Dr. Madrid. The patient will be evaluated for further management. Impression Primary Impression: Atrial fibrillation with rapid ventricular response Scribe Attestation The scribe's documentation has been prepared under my direction and personally reviewed by me in its entirety. I confirm that the note above accurately reflects all work, treatment, procedures, and medical decision making performed by me. Departure Information Dispostion Being Evaluated By Hospitalist Referrals Redd Rojas D.O. (PCP) Forms HOME CARE DOCUMENTATION FORM, IMPORTANT VISIT INFORMATION Patient Instructions My [facility]
[2017-03-30] MEDS ORDERED: SPIR25TA PO (10:08)
[2017-03-30] MEDS ORDERED: WARF2TAB8 PO (10:08)
[2017-03-30] MEDS ORDERED: WARF1TAB6 PO (10:08)
[2017-03-30 10:12] LABS: BASO % 0.4 %; BASO ABS # 0.04 K/uL (0-0.2); EOS % 1.1 %; EOS ABS # 0.12 K/uL (0-0.5); HEMATOCRIT 40.3 % (42-52); HEMOGLOBIN 13.3 g/dL (14.0-18.0); IG# 0.04 K/uL (0.00-0.02); LYMPH % 4.6 %; LYMPH ABS # 0.49 K/uL (1.2-3.4); MEAN CELL VOLUME 94.6 fL (80-100); MEAN CORPUSCULAR HEMOGLOBIN 31.2 pg (25-34); MEAN PLATELET VOLUME 9.5 fL (7.4-10.4); MONO % 8.4 %; MONO ABS # 0.89 K/uL (0.11-0.59); NEUT % 85.1 %; NEUT ABS # 8.96 K/uL (1.4-6.5); PLATELET COUNT 259 K/uL (130-400); RED CELL DISTRIBUTION WIDTH SD 55.2 fL (36.4-46.3); WHITE BLOOD COUNT 10.54 K/uL (4.8-10.8)
--- NOTE | 2017-03-30 10:22 | DIAGNOSTIC IMAGING REPORT ---
SINGLE VIEW CHEST CLINICAL HISTORY: Dyspnea. FINDINGS: An AP, portable, upright chest radiograph is compared to study dated 02/18/2017. The examination is degraded by portable technique and apical lordotic positioning. The patient is status post midline sternotomy. The heart is enlarged and there is atherosclerotic calcification of the thoracic aorta. The pulmonary vasculature is noncongested. There are layering pleural effusions with bibasilar consolidation. No pneumothorax is seen. The skeletal structures appear osteopenic. The bony thorax is grossly intact. IMPRESSION: 1. Cardiomegaly without radiographic evidence of congestive failure. 2. There are layering pleural effusions with bibasilar consolidation, similar to the 02/18/2017 examination. This likely represents atelectasis. Clinical correlation will be required. Electronically signed by: Umesh Foy M.D. 03/30/2017 10:21 AM Dictated Date/Time: 03/30/2017 10:19 AM
[2017-03-30 10:26] LABS: PTT PATIENT 42.9 SECONDS (21.0-31.0)
[2017-03-30 10:28] LABS: ALBUMIN 2.5 gm/dl (3.4-5.0); ALT/SGPT 14 U/L (12-78); BLOOD UREA NITROGEN 15 mg/dl (7-18); CALCIUM 9.9 mg/dl (8.5-10.1); CARBON DIOXIDE 26 mmol/L (21-32); CREATININE 0.85 mg/dl (0.60-1.40); GLUCOSE 83 mg/dl (70-99); POTASSIUM 3.9 mmol/L (3.5-5.1); SODIUM 136 mmol/L (136-145)
[2017-03-30 10:30] LABS: INR 3.9 (0.9-1.1)
[2017-03-30 10:39] LABS: ALKALINE PHOSPHATASE 177 U/L (45-117); AST/SGOT 53 U/L (15-37); TOTAL PROTEIN 7.7 gm/dl (6.4-8.2)
[2017-03-30] MEDS ORDERED: GLUCOSE 40% GEL 15 GM TUBE PO PRN (11:45)
[2017-03-30] MEDS ORDERED: GLUCAGON FOR INJ 1 MG VIAL SQ PRN (11:45)
[2017-03-30] MEDS ORDERED: DEXTROSE 50% 50 ML SYR IV PRN (11:45)
[2017-03-30] MEDS ORDERED: MAGNESIUM HYDROXIDE SUSP 30 ML UDC PO PRN (11:45)
[2017-03-30] MEDS ORDERED: NITROGLYCERIN 0.4 MG SL PER TAB CHARGE SL PRN (11:45)
[2017-03-30] MEDS ORDERED: POLYETHYLENE (MIRALAX) 17 GM PACK PO PRN (11:45)
[2017-03-30] MEDS ORDERED: ALUMINUM/MAGNESIUM/SIMETH (MAALOX MAX) 30 ML UDC PO PRN (11:45)
[2017-03-30] MEDS ORDERED: GLUCOSE 10 TABS/TUBE PO PRN (11:45)
--- NOTE | 2017-03-30 12:14 | History and Physical ---
History & Physical Date & Time of Service: Mar 30, 2017 at 11:58 Chief Complaint: Rapid Heat Rate, Referred By . Primary Care Physician: Redd Rojas D.O. History of Present Illness Source: patient, spouse (at bedside ) This is a 66yo M with a PMH of persistent A flutter with RVR, CAD s/p CABG, diastolic CHF, s/p AVR, SHERWIN, DM II and other medical problems listed below who presents from cardio clinic with symptomatic A flutter. Patient was admitted in February for SOB and was found to be in A Flutter with RVR. Cardioversion could not be performed due to a left atrial thrombus found on ANDREA. Patient was discharged on coumadin and has been following with cardio and coag clinic as an out-patient. At the time of discharge, patient's lasix dose was increased from 20mg daily to 40mg daily, Toprol was increased to 100mg BID and spironolactone was decreased to 12.5mg daily. Patient states that he has been feeling okay at home but does endorse intermittent bouts of dizziness as well as fatigue. His , at bedside, notes that he seems to be SOB when talking and has also been losing weight unintentionally 2/2 decreased appetite. She also notes increased agitation. Went to cardio clinic follow up today and was found to have a HR ~ 150s. EKG showed A Flutter with RVR and patient was sent to ED for further evaluation. Denies any fever, chills, lightheadedness, near-syncope, CP, palpitations, abdominal pain, nausea, vomiting, bowel or bladder changes. Denies LE swelling. Has been taking all medications as prescribed since hospital discharge. In the ED, patient was found to have a HR of 146 that decreased to 110s after 500 cc NSS bolus. TSH is very low at <0.0005. Past Medical/Surgical History Medical Problems: (1) Asthma, mild persistent Status: Chronic (2) BPH (benign prostatic hyperplasia) Status: Chronic (3) CAD (coronary artery disease) Permanent Comment: 2014 - CABG x 3 Status: Chronic (4) Diastolic CHF Status: Chronic (5) DM type 2 (diabetes mellitus, type 2) Status: Chronic (6) Dyslipidemia Status: Chronic (7) GERD (gastroesophageal reflux disease) Status: Chronic (8) HTN (hypertension) Status: Chronic (9) Paroxysmal A-fib Status: Chronic (10) Sleep apnea Status: Chronic Surgical Problems: (1) H/O aortic valve replacement Status: Chronic (2) S/P CABG x 3 Status: Chronic Family History Patient reports no known family medical history. Social History Smoking Status: Never Smoker Smokeless Tobacco Use: No Drug Use: none Marital Status: Housing status: lives with family Occupational Status: retired Immunizations History of Influenza Vaccine: Yes Influenza Vaccine Date: Oct 26, 2016 History of Tetanus Vaccine?: Yes Tetanus Immunization Date: Dec 08, 2005 History of Pneumococcal: Yes Pneumococcal Date: Jul 20, 2016 Multi-Drug Resistant Organisms History of MDRO: No Allergies Coded Allergies: Statins (Unverified Adverse Reaction, Severe, LEG WEAKNESS, 03/30/17) Home Medications Scheduled Aspirin (Ecotrin Low Strength), 81 MG PO DAILY Cetirizine (Zyrtec), 10 MG PO DAILY Fenofibrate (Tricor), 1 TAB PO DAILY Fluticasone Propionate (Flovent Hfa), 2 PUFFS INH BID Fluticasone Propionate (Nasal) (Flonase Allergy Relief), 1 SPRAY SHALONDA DAILY Furosemide (Furosemide), 40 MG PO DAILY Magnesium Oxide (mg Supplement (Magnesium Oxide), 400 MG PO BID Metformin Hcl (Glucophage), 500 MG PO BID Metoprolol Succ (Toprol Xl) (Toprol-Xl ), 100 MG PO BID Montelukast Sod (Montelukast Sodium), 10 MG PO QPM Nitroglycerin (Nitrostat), 0.4 MG UT PRN Spironolactone (Aldactone), 12.5 MG PO QAM Warfarin Sodium (Coumadin), 1 TAB PO 4XWK Warfarin Sodium (Coumadin), 1 TAB PO 3XWK Scheduled PRN Acetaminophen Tab (Tylenol), 650 MG PO UD PRN for BACK PAIN Albuterol Hfa (Ventolin Hfa), 2 PUFFS INH Q4H PRN for SOB/Wheezing Docusate Sodium (Colace), 1 TAB PO BID PRN for Constipation Review of Systems Ten systems reviewed and negative except as noted in the HPI. Physical Exam Vital Signs Date Time Temp Pulse Resp B/P (MAP) Pulse Ox O2 Delivery O2 Flow Rate FiO2 03/30/17 10:33 107 03/30/17 10:15 115 20 107/76 98 03/30/17 09:41 144 03/30/17 09:39 Room Air 03/30/17 09:39 145 123/78 94 Room Air 03/30/17 09:26 36.6 146 22 111/51 96 Room Air 03/30/17 09:26 96 Room Air General Appearance: WD/WN, no apparent distress, + pertinent finding ( Breathing comfortably on room air. ) Head: normocephalic, atraumatic Eyes: normal inspection, PERRL, sclerae normal ENT: normal ENT inspection, hearing grossly normal, pharynx normal (dry mucous membranes ) Neck: supple, thyroid normal, no JVD, trachea midline Respiratory/Chest: chest non-tender, lungs clear, normal breath sounds, no respiratory distress, no accessory muscle use Cardiovascular: normal peripheral pulses, + tachycardia Abdomen/GI: non tender, soft, no organomegaly Back: normal inspection Extremities/Musculoskelatal: normal inspection, no calf tenderness, no pedal edema Neurologic/Psych: no motor/sensory deficits, alert, normal mood/affect, oriented x 3 Skin: normal color, warm/dry Diagnostics Laboratory Results Results Past 24 Hours Test 03/30/17 10:01 03/30/17 10:51 Range/Units White Blood Count 10.54 4.8-10.8 K/uL Red Blood Count 4.26 4.7-6.1 M/uL Hemoglobin 13.3 14.0-18.0 g/dL Hematocrit 40.3 42-52 % Mean Corpuscular Volume 94.6 80-100 fL Mean Corpuscular Hemoglobin 31.2 25-34 pg Mean Corpuscular Hemoglobin Concent 33.0 32-36 g/dl Platelet Count 259 130-400 K/uL Mean Platelet Volume 9.5 7.4-10.4 fL Neutrophils (%) (Auto) 85.1 % Lymphocytes (%) (Auto) 4.6 % Monocytes (%) (Auto) 8.4 % Eosinophils (%) (Auto) 1.1 % Basophils (%) (Auto) 0.4 % Neutrophils # (Auto) 8.96 1.4-6.5 K/uL Lymphocytes # (Auto) 0.49 1.2-3.4 K/uL Monocytes # (Auto) 0.89 0.11-0.59 K/uL Eosinophils # (Auto) 0.12 0-0.5 K/uL Basophils # (Auto) 0.04 0-0.2 K/uL RDW Standard Deviation 55.2 36.4-46.3 fL RDW Coefficient of Variation 16.0 11.5-14.5 % Immature Granulocyte % (Auto) 0.4 % Immature Granulocyte # (Auto) 0.04 0.00-0.02 K/uL Prothrombin Time 39.4 9.0-12.0 SECONDS Prothromb Time International Ratio 3.9 0.9-1.1 Activated Partial Thromboplast Time 42.9 21.0-31.0 SECONDS Partial Thromboplastin Ratio 1.7 Sodium Level 136 136-145 mmol/L Potassium Level 3.9 3.5-5.1 mmol/L Chloride Level 102 98-107 mmol/L Carbon Dioxide Level 26 21-32 mmol/L Anion Gap 8.0 3-11 mmol/L Blood Urea Nitrogen 15 7-18 mg/dl Creatinine 0.85 0.60-1.40 mg/dl Est Creatinine Clear Calc Drug Dose 83.3 ml/min Estimated GFR () 105.2 Estimated GFR (Non- 90.8 BUN/Creatinine Ratio 17.6 10-20 Random Glucose 83 70-99 mg/dl Calcium Level 9.9 8.5-10.1 mg/dl Magnesium Level 1.8 1.8-2.4 mg/dl Total Bilirubin 1.7 0.2-1 mg/dl Aspartate Amino Transf (AST/SGOT) 53 15-37 U/L Alanine Aminotransferase (ALT/SGPT) 14 12-78 U/L Alkaline Phosphatase 177 45-117 U/L Troponin I < 0.015 0-0.045 ng/ml Pro-B-Type Natriuretic Peptide 1336 0-900 pg/ml Total Protein 7.7 6.4-8.2 gm/dl Albumin 2.5 3.4-5.0 gm/dl Globulin 5.2 2.5-4.0 gm/dl Albumin/Globulin Ratio 0.5 0.9-2 Thyroid Stimulating Hormone (TSH) < 0.005 0.300-4.500 uIu/ml Diagnostic Radiology CXR: IMPRESSION: 1. Cardiomegaly without radiographic evidence of congestive failure. 2. There are layering pleural effusions with bibasilar consolidation, similar to the 02/18/2017 examination. This likely represents atelectasis. Clinical correlation will be required. EKG Atrial fibrillation with rapid ventricular response Right bundle branch block Left posterior fascicular block T wave abnormality, consider inferior ischemia Abnormal ECG When compared with ECG of 14-FEB-2017 06:37, T wave inversion more evident in Inferior leads T wave inversion more evident in Anterior leads Impression Assessment and Plan Patient seen in collaboration with Dr. Moya. See attending addendum for assessment and plan. ATTENDING ADDENDUM : pt seen and examined care co-ordinated with Elena Morales PA-C 66 yo M with complex cardiac hx was evaluated at [facility] Cardiology office for 1 month follow up found to be in Aflutter with HR 130 pt sent to ER in ER HR remains variable between 100-120 no complain of chest heaviness , palpitation pt mentions of having increased fatigue , limited endurance and getting SOB with exertion P/E: as per Elena Morales PA-C A/P : A FLUTTER : recent Dx with Paroxysmal Afib /a flutter started on Beta kari and Coumadin cardioversion could not be done as Left atrial Thrombus found in ANDREA was at Cardiology office today for routine follow up -found to be in Aflutter with HR 130 -150 in ER pt given IV NSS 500 ml , HR slowed down to 100's pt is admitted to Tele case D/w [employer] Driver cardiology -pt will be continued on Toprol XL 100 mg BID ( took AM dose ) added Cardizem 30 mg QID INR 3.9 resting ECHO ordered ; serial cardiac markers , AM EKG may need ANDREA cardioversion if ECHO shows no evidence of Atrial thrombus HYPERTHYROIDISM: TSH < 0.005 with free T4 elevated 2.65 ( upper limit 1.6 ) pt mention that since Jan 2017 -he was more fatigued , had interpreted sleep , more anxious , unintentional wt loss almost 30 lbs since Jan no hair loss , no GI symptom occasional flushed and breaking into sweats New DX Aflutter /Afib also co relates to same time frame D/w case with call out operator Endocrine in [facility] since pt is already symptomatic -recommend to start on Methimazole 15 mg daily ( ordered for one dose now , and cont daily dose in AM ) pt should be continued on Beta kari check TSI( thyroid stimulating immunoglobulin ) , free T3 , Thyroid USG pt will need repeat TSH level checked in next 4 -6 weeks strongly recommends Endocrine follow up with in a week of discharge S/P BIOPROSTHETIC AVR ordered for ECHO HTN : BP stable cont Toprol XL 100 mg BID added Cardizem on Aldactone and Lasix TYPE 2 DM : hold oral meds insulin sliding scale ACUTE DECOMPENSATED CHF WITH DIASTOLIC DYSFUNCTION due to Aflutter Cxray shows pulmonary congestion , BNP elevated ordered for IV Lasix X1 dise continue Aldactone and PO Lasix in AM repeat ECHO ordered monitor vol status /daily wt FULL CODE DVT PROPHYLAXIS : INR elevated DISPOSITION : expected to be discharged home when medically stable Medicine followup with Dr Rojas -Kezia [facility] Cardiology follow up with Dr Gerard Moya MD Level of Care Telemetry Resuscitation Status FULL RESUSCITATION VTE Prophylaxis VTE Risk Assessment Done? Y/N: Yes Risk Level: Moderate Given or contraindicated: Warfarin (Coumadin) Additional Copies To Redd Rojas D.O. Henry, Sheldon D., M.D.
[2017-03-30] MEDS ORDERED: DOCUSATE SODIUM 100 MG CAP PO PRN (12:15)
[2017-03-30] MEDS ORDERED: ALBUTEROL HFA 8 GM INHALER INH PRN (12:15)
[2017-03-30] MEDS ORDERED: NITROGLYCERIN 0.4 MG SL PER TAB CHARGE UT SCH (12:15)
[2017-03-30] MEDS ORDERED: METOPROLOL TARTRATE 1 MG/ML VIAL IV STA (14:04)
[2017-03-30 14:15] VITALS: BP 122/67; PULSE 96; TEMP 37.4; Ht 165.1 cm; Wt 78.7 kg
[2017-03-30] MEDS ORDERED: METOPROLOL TARTRATE 1 MG/ML VIAL IV PRN (14:15)
[2017-03-30 14:23] VITALS: O2SAT 95
[2017-03-30] MEDS ORDERED: DILTIAZEM HCL 30 MG TAB PO ONE (14:30)
[2017-03-30] MEDS ORDERED: PERFLUTREN LIPID MICROSPHERE (DEFINITY) IV ONE (14:47)
[2017-03-30] MEDS: FENOFIBRATE: ORDER AWAITING ACTION SCH (15:36)
--- NOTE | 2017-03-30 15:53 | CARDIOLOGY CONSULTATION ---
DATE OF CONSULTATION: 03/30/2017 The patient seen and examined. Chart and laboratory studies reviewed. REFERRING: Dr. Moya and Dr. Brown. PRIMARY CARE PHYSICIAN: Dr. Rojas. INDICATIONS: Atrial fibrillation/flutter with rapid ventricular response. HISTORY OF PRESENT ILLNESS: The patient is a complex 66-year-old male recently hospitalized at [facility] on 02/12/2017 with aFib/flutter with rapid ventricular response. His past medical history is notable for prior aortic valve replacement and coronary artery bypass grafting x3 in February 2014, receiving a [address] [employer] Trifecta bioprosthesis and a GONZALES graft to the LAD, a saphenous vein graft to diagonal, and a saphenous vein graft to the obtuse marginal. Underlying medical problems in addition to cardiac issues include obstructive sleep apnea, dyslipidemia with poor statin tolerance, history of hypertension, reactive airways disease. The patient's last admission was treated with medications for rate control and anticoagulated, initial approach was planned ANDREA guided cardioversion; however, ANDREA demonstrated a left atrial thrombus. He was subsequently discharged home, but presents now with worsening shortness of breath again and rapid heart rates found in the outpatient clinic. He is referred for hospitalization inpatient management with elevated ventricular response rate 130s-140s, worsening dyspnea. The patient denies any chest pains. Notes no dizziness or lightheadedness, is aware of sensed rapid heart rates. Notes no acute weight gain. Feels has, however, put on some edema in his lower extremities. Notes no fevers, chills or sweats. Notes no headache or visual changes. Has been taking medications as prescribed. Notes no rash or arthritic complaint. ALLERGIES: NOTED TO BE STATINS. MEDICATIONS: Listed as aspirin 81 mg per day, fenofibrate 54 mg p.o. daily, spironolactone 12.5 grams p.o. daily, metformin 500 mg twice per day, Zyrtec 10 mg daily, Singulair 1 tablet daily, warfarin, aspirin, furosemide 40 mg p.o. daily, metoprolol succinate 100 mg b.i.d., and Mag-Ox 400 mg b.i.d. PAST SURGICAL HISTORY: As described coronary bypass grafting and aortic valve replacement in February 2014, and remote tonsillectomy. SOCIAL HISTORY: The patient is a nonsmoker, nondrinker. PHYSICAL EXAMINATION: VITAL SIGNS: Heart rate is 90-130, blood pressure is 126/76, O2 saturations 95% on room air. HEENT: Normocephalic, atraumatic. NECK: Thick. There is no distinct jugular venous distention at 30 degrees. LUNGS: Reveal diminished breath sounds bibasilar. CARDIOVASCULAR: Irregularly irregular with rapid rate. There is a grade 1/6 systolic murmur. There is no diastolic murmur. Heart sounds are distant. ABDOMEN: Soft, nontender. EXTREMITIES: Reveal 1-2+ lower extremity edema. NEUROLOGIC: The patient is alert and answering questions. LABORATORY DATA: White cell count is 10.5, hemoglobin is 13.3. Sodium is 136, potassium is 3.9, chloride is 102, bicarbonate 26, BUN is 15, and creatinine is 0.85. TSH is undetectable, with a T4 of 2.65. BNP is mildly elevated. Bilirubin and AST are mildly elevated, albumin level is 2.5. IMAGING DATA: Chest x-ray by my review demonstrates clear apices with bilateral pleural effusions. IMPRESSION: A 66-year-old male with history of recent hospitalization with newly noted atrial fibrillation/flutter with difficult to control ventricular response rates. He is maintained on medical therapy who represented today with worsening shortness of breath, worsening dyspnea with exertion, elevated ventricular response rates, has been anticoagulated with intentions of undergoing synchronized cardioversion, as part of course of management. RECOMMENDATIONS: The patient will be placed on telemetry. IV furosemide has been given in the ER, will give an additional dose this evening. Continue oral furosemide. Rates will be controlled with a combination of diltiazem added today at 30 mg q.i.d. and baseline metoprolol 100 mg b.i.d.. Thyroid abnormalities will be addressed. The patient likely to undergo ANDREA cardioversion depending on clinical course. The patient is agreeable to plan. LUÍSD
[2017-03-30 15:59] VITALS: BP 122/75; PULSE 102; TEMP 37.6; O2SAT 96
[2017-03-30 16:00] VITALS: O2SAT 95
[2017-03-30] MEDS ORDERED: WARFARIN SOD 2 MG TAB PO SCH (16:00)
[2017-03-30] MEDS ORDERED: POTASSIUM CHLORIDE 10 MEQ TABCR PO ONE (16:00)
[2017-03-30] MEDS: INSULIN HUMAN REGULAR SC SCH ×2 (16:15→21:00)
[2017-03-30] MEDS: DILTIAZEM HCL 30 MG TAB PO SCH ×2 (17:05→19:58)
--- NOTE | 2017-03-30 17:11 | ECHOCARDIOGRAM REPORT ---
*NOTICE TO RECEIVING DEMOCRAT AGENCY This information is strictly Confidential and protected under [place] law. [place] law prohibits you from making any further disclosure of this information unless further disclosure is expressly permitted by the written consent of the person to whom it pertains or is authorized by law. A general authorization for the release of medical or other information is not sufficient for this purpose. Hospital accepts no responsibility if the information is made available to any other person, INCLUDING THE PATIENT. Interpretation Summary * Name: LUCIEN JONES Study Date: 03/30/2017 02:26 PM BP: 126/76 mmHg * Patient Location: S230 HR: 119 * : 1950 (M/d/yyyy) Gender: Male Height: 65 in * Age: 66 yrs Ethnicity: CA Weight: 176 lb * Ordering Physician: Emily Moya * Referring Physician: No Doctor, Assigned * Performed By: Debi Loza RCS * * Reason For Study: EF / MR / LA - PROBABLE THROMBUS / AVR * BSA: 1.9 m2 * -- Conclusions -- * Limited views were obtained. * A contrast injection of Definity was performed to improve assessment of LV function. * The left ventricle is normal in size. * There is moderate concentric left ventricular hypertrophy. * Flattened septum is consistent with RV pressure overload. * No regional wall motion abnormalities noted. * Ejection Fraction = 60-65%. * There is a bioprosthetic aortic valve. * The left atrium is severely dilated. * There is mild mitral regurgitation. Procedure Details * Limited views were obtained. * A contrast injection of Definity was performed to improve assessment of LV function. * Contrast was injected into an intravenous site in the right arm. * One vial of Definity ultrasound contrast was diluted in normal saline to a total volume of 10 ml. A total of '2' ml of solution was administered during imaging. * Lot # [id number] of Definity utilized for procedure. * Expiration date 1 MAR 26. * The attending nurse who injected the contrast agent was DORENE DINERO, RN. Left Ventricle * The left ventricle is normal in size. * There is moderate concentric left ventricular hypertrophy. * Ejection Fraction = 60-65%. * Flattened septum is consistent with RV pressure overload. * No regional wall motion abnormalities noted. Atria * The left atrium is severely dilated. Mitral Valve * There is mild mitral regurgitation. Aortic Valve * There is no significant aortic regurgitation. * There is a bioprosthetic aortic valve. MMode 2D Measurements and Calculations IVSd 1.2 cm IVSs 1.4 cm LVIDd 3.5 cm LVIDs 1.9 cm LVPWd 1.1 cm LVPWs 1.5 cm IVS/LVPW 1.1 FS 45.8 % EDV(Teich) 52.3 ml ESV(Teich) 11.4 ml EF(Teich) 78.1 % EDV(cubed) 44.3 ml ESV(cubed) 7.1 ml EF(cubed) 84.1 % % IVS thick 16.5 % % LVPW thick 35.1 % LV mass(C)d 130.3 grams LV mass(C)dI 69.6 grams/m\S\2 LV mass(C)s 87.7 grams LV mass(C)sI 46.8 grams/m\S\2 SV(Teich) 40.8 ml SI(Teich) 21.8 ml/m\S\2 SV(cubed) 37.3 ml SI(cubed) 19.9 ml/m\S\2 Ao root diam 2.3 cm Ao root area 4.3 cm\S\2 LA dimension 5.0 cm LA/Ao 2.1 LVOT diam 1.8 cm LVOT area 2.6 cm\S\2 Doppler Measurements and Calculations MR max javier 521.9 cm/sec MR max PG 109.1 mmHg
[2017-03-30 19:43] VITALS: BP 119/71; PULSE 70; TEMP 37.4; O2SAT 97
[2017-03-30] MEDS: FLUTICASONE PROP HFA INH 44 MCG INHALER INH SCH (19:58)
[2017-03-30] MEDS: MAGNESIUM OXIDE 400 MG TAB PO SCH (19:58)
[2017-03-30] MEDS: METOPROLOL SUCC 50MG EXT REL TAB PO SCH (19:59)
[2017-03-30] MEDS: MONTELUKAST SOD 10 MG TAB PO SCH (19:59)
[2017-03-30 20:00] VITALS: O2SAT 95
[2017-03-30] MEDS ORDERED: FUROSEMIDE INJ 20 MG in SYRINGE 0 ML IV SCH (20:00)
[2017-03-30] MEDS ORDERED: WARF1TAB PO (22:32)
[2017-03-30] MEDS ORDERED: WARF2TAB PO (22:32)
[2017-03-30] MEDS ORDERED: METHIMAZOLE 5 MG TAB PO STA (23:15)
[2017-03-31] VITALS (7 sets, daily range): BP systolic 98–146; BP diastolic 62–72; PULSE 73–111; TEMP 36.4–37.7; O2SAT 92–96
[2017-03-31 05:54] LABS: HEMATOCRIT 34.9 % (42-52); HEMOGLOBIN 11.5 g/dL (14.0-18.0); MEAN CELL VOLUME 92.8 fL (80-100); MEAN CORPUSCULAR HEMOGLOBIN 30.6 pg (25-34); MEAN PLATELET VOLUME 9.3 fL (7.4-10.4); PLATELET COUNT 249 K/uL (130-400); RED CELL DISTRIBUTION WIDTH CV 16.5 % (11.5-14.5); RED CELL DISTRIBUTION WIDTH SD 56.6 fL (36.4-46.3); WHITE BLOOD COUNT 10.28 K/uL (4.8-10.8)
[2017-03-31 06:31] LABS: BLOOD UREA NITROGEN 17 mg/dl (7-18); CALCIUM 9.8 mg/dl (8.5-10.1); CARBON DIOXIDE 27 mmol/L (21-32); CREATININE 0.76 mg/dl (0.60-1.40); GLUCOSE 86 mg/dl (70-99); POTASSIUM 4.3 mmol/L (3.5-5.1); SODIUM 133 mmol/L (136-145)
[2017-03-31 06:37] LABS: CHOLESTEROL 73 mg/dl (0-200); LDL CHOLESTEROL CALCULATED 36 mg/dl; PHOSPHORUS 2.9 mg/dl (2.5-4.9)
--- NOTE | 2017-03-31 06:59 | DIAGNOSTIC IMAGING REPORT ---
THYROID ULTRASOUND CLINICAL HISTORY: hyperthyroidism /assess for thyroid nodule COMPARISON STUDY: Chest CT February 13, 2017. TECHNIQUE: Sonography of the thyroid gland was performed. FINDINGS: The right lobe measures 3.3 x 2 x 1.2 cm and the left lobe measures 2.5 x 1.2 x 1.3 cm. Evaluation is somewhat difficult given suboptimal penetration and depth of the gland. However, no thyroid nodule is identified. The gland is slightly heterogeneous. IMPRESSION: 1. No thyroid nodule identified. 2. Slightly heterogeneous, slightly small thyroid gland. Electronically signed by: Ricardo Harris M.D. 03/31/2017 6:58 AM Dictated Date/Time: 03/31/2017 6:56 AM
[2017-03-31] MEDS: INSULIN HUMAN REGULAR SC SCH ×4 (07:00→20:33)
[2017-03-31 07:22] LABS: HEMOGLOBIN A1C 4.6 % (4.5-5.6)
[2017-03-31] MEDS: FENOFIBRATE: ORDER AWAITING ACTION SCH ×2 (07:54)
[2017-03-31] MEDS: METHIMAZOLE 5 MG TAB PO SCH (07:55)
[2017-03-31] MEDS: DILTIAZEM HCL 30 MG TAB PO SCH ×4 (07:56→20:35)
[2017-03-31] MEDS: SPIRONOLACTONE 25 MG TAB PO SCH (07:57)
[2017-03-31] MEDS: METOPROLOL SUCC 50MG EXT REL TAB PO SCH ×2 (07:57→20:36)
[2017-03-31] MEDS: ASPIRIN 81 MG ECTAB PO SCH (07:57)
[2017-03-31] MEDS: CETIRIZINE HCL 10 MG TAB PO SCH (07:58)
[2017-03-31] MEDS: MAGNESIUM OXIDE 400 MG TAB PO SCH ×2 (07:58→20:36)
[2017-03-31] MEDS: FLUTICASONE PROPIONATE NA SPR 16 GM BTL NAE SCH (07:59)
[2017-03-31] MEDS: FLUTICASONE PROP HFA INH 44 MCG INHALER INH SCH ×2 (07:59→20:35)
[2017-03-31] MEDS ORDERED: ASPIRIN 81 MG ECTAB PO SCH (09:00)
[2017-03-31] MEDS ORDERED: FUROSEMIDE 40 MG TAB PO SCH (09:00)
--- NOTE | 2017-03-31 10:49 | Progress Note ---
Medicine Progress Note Date & Time of Visit: Mar 31, 2017 at 10:40. Subjective seen resting in bed, comfortable in good spirits states he feels improved today has more energy denies dyspnea, chest pain, palpitations, dizziness (+) constipation no other symptoms Objective Last 8 Hrs Date Time Temp Pulse Resp B/P (MAP) Pulse Ox O2 Delivery O2 Flow Rate FiO2 03/31/17 08:00 Room Air 03/31/17 07:44 36.9 79 18 117/72 (87) 96 Room Air 03/31/17 04:15 36.9 98 20 101/64 (76) 94 Room Air 03/31/17 04:00 Room Air Physical Exam: General- oriented x 3, not in distress, speaks in sentences with no effort Head- atraumatic Eyes- PERRL, EOMI, anicteric ENT- oropharynx clear Neck- supple, no JVD, no adenopathy, no thyromegaly; carotids +2/2 Lungs- clear breath sounds bilaterally Heart- irregularly irregular rhythm; no murmur, normal rate Abdomen- normal bowel sounds, soft, nontender Extremities- no pretibial edema, no calf tenderness; peripheral pulses intact Neuro- alert, oriented x 3;no gross focal deficits Skin- warm & dry Laboratory Results: Last 24 Hours Test 03/30/17 13:47 03/30/17 16:09 03/30/17 17:32 03/30/17 20:54 Bedside Glucose 78 mg/dl 79 mg/dl 85 mg/dl Troponin I < 0.015 ng/ml Test 03/30/17 23:19 03/31/17 00:30 03/31/17 05:29 03/31/17 06:45 Troponin I < 0.015 ng/ml < 0.015 ng/ml Urine Color ORANGE Urine Appearance CLEAR Urine pH 5.0 Urine Specific [place] 1.019 Urine Protein TRACE Urine Glucose (UA) NEG Urine Ketones TRACE Urine Occult Blood NEG Urine Nitrite NEG Urine Bilirubin NEG Urine Urobilinogen NEG Urine Leukocyte Esterase TRACE Urine WBC (Auto) 1-5 /hpf Urine RBC (Auto) 0-4 /hpf Urine Hyaline Casts (Auto) 1-5 /lpf Urine Epithelial Cells (Auto) 10-20 /lpf Urine Bacteria (Auto) NEG White Blood Count 10.28 K/uL Red Blood Count 3.76 M/uL Hemoglobin 11.5 g/dL Hematocrit 34.9 % Mean Corpuscular Volume 92.8 fL Mean Corpuscular Hemoglobin 30.6 pg Mean Corpuscular Hemoglobin Concent 33.0 g/dl RDW Standard Deviation 56.6 fL RDW Coefficient of Variation 16.5 % Platelet Count 249 K/uL Mean Platelet Volume 9.3 fL Prothrombin Time 30.5 SECONDS Prothromb Time International Ratio 3.0 Sodium Level 133 mmol/L Potassium Level 4.3 mmol/L Chloride Level 99 mmol/L Carbon Dioxide Level 27 mmol/L Anion Gap 7.0 mmol/L Blood Urea Nitrogen 17 mg/dl Creatinine 0.76 mg/dl Est Creatinine Clear Calc Drug Dose 92.7 ml/min Estimated GFR () 110.2 Estimated GFR (Non- 95.1 BUN/Creatinine Ratio 22.1 Random Glucose 86 mg/dl Estimated Average Glucose 85 mg/dl Hemoglobin A1c 4.6 % Calcium Level 9.8 mg/dl Phosphorus Level 2.9 mg/dl Magnesium Level 1.9 mg/dl Triglycerides Level 108 mg/dl Cholesterol Level 73 mg/dl HDL Cholesterol 15 mg/dl LDL Cholesterol, Calculated 36 mg/dl VLDL Cholesterol, Calculated 22 mg/dl Cholesterol/HDL Ratio 4.9 Bedside Glucose 79 mg/dl Assessment & Plan 66 year old male with history of CAD,CHF, A Fib on Coumadin, Bioprosthetic AVR, DM ,HTN presenting with Tachycardia. ATRIAL FLUTTER recent Dx with Paroxysmal Afib /a flutter started on Beta kari and Coumadin cardioversion could not be done as Left atrial Thrombus found in ANDREA was at Cardiology office today for routine follow up -found to be in Aflutter with HR 130 -150 - Echo: * The left ventricle is normal in size. * There is moderate concentric left ventricular hypertrophy. * Flattened septum is consistent with RV pressure overload. * No regional wall motion abnormalities noted. * Ejection Fraction = 60-65%. * There is a bioprosthetic aortic valve. * The left atrium is severely dilated. * There is mild mitral regurgitation. - Cardizem QID added Metoprolol XL continued Coumadin on hold for coumadin 3.0 - Cardiology consulted HYPERTHYROIDISM: TSH < 0.005 with free T4 elevated 2.65 ( upper limit 1.6 ) pt mention that since Jan 2017 -he was more fatigued , had interpreted sleep , more anxious , unintentional wt loss almost 30 lbs since Jan New DX Aflutter /Afib also co relates to same time frame D/w case with documentation designer Endocrine in [facility] since pt is already symptomatic -recommend to start on Methimazole 15 mg daily ( ordered for one dose now , and cont daily dose in AM ) check TSI( thyroid stimulating immunoglobulin ) : pending free T3: high Thyroid USG : no nodules pt will need repeat TSH level checked in next 4 -6 weeks strongly recommends Endocrine follow up with in a week of discharge ACUTE DECOMPENSATED CHF WITH DIASTOLIC DYSFUNCTION due to Aflutter Cxray shows pulmonary congestion , BNP elevated -- received 2 doses of Lasix IV euvolemic now -- continue Aldactone and PO Lasix CAD S/P BIOPROSTHETIC AVR continue ASA, Statin, Metoprolol HTN : BP stable cont Toprol XL 100 mg BID added Cardizem on Aldactone and Lasix TYPE 2 DM : hold oral meds insulin sliding scale FULL CODE DVT PROPHYLAXIS : INR 3.0 DISPOSITION : expected to be discharged home when medically stable Medicine followup with Dr Rojas -[facility] Cardiology follow up with Dr Gee Current Inpatient Medications: Current Inpatient Medications Medications (Trade) Dose Ordered Sig/Sal Route Start Time Stop Time Status Last Admin Dose Admin Acetaminophen (Tylenol Tab) 650 mg Q4H PRN PO 03/30/17 11:45 04/29/17 11:44 Al Hydrox/Mg Hydrox/Simethicone (Maalox Max Susp) 15 ml Q4H PRN PO 03/30/17 11:45 04/29/17 11:44 Magnesium Hydroxide (Milk Of Magnesia Susp) 30 ml Q12H PRN PO 03/30/17 11:45 04/29/17 11:44 Nitroglycerin (Nitrostat Tab) 0.4 mg UD PRN SL 03/30/17 11:45 04/29/17 11:44 Polyethylene (Miralax Powder Packet) 17 gm DAILY PRN PO 03/30/17 11:45 04/29/17 11:44 Insulin Human Regular (novoLIN-R) SLIDING SCALE IF C... ACHS SC 03/30/17 16:15 04/29/17 16:14 Glucose (Glucose 40% Gel) 15-30 GRAMS 15 GRAMS... UD PRN PO 03/30/17 11:45 04/29/17 11:44 Glucose (Glucose Chew Tab) 4-8 Tablets 4 Tabl... UD PRN PO 03/30/17 11:45 04/29/17 11:44 Dextrose (Dextrose 50% 50ML Syringe) 25-50ML OF 50% DW IV FOR... UD PRN IV 03/30/17 11:45 04/29/17 11:44 Glucagon (Glucagon Inj) 1 mg UD PRN SQ 03/30/17 11:45 04/29/17 11:44 Albuterol (Ventolin Hfa Inhaler) 2 puffs Q4H PRN INH 03/30/17 12:15 04/29/17 12:14 Aspirin (Ecotrin Tab) 81 mg DAILY PO 03/31/17 09:00 04/30/17 08:59 03/31/17 07:57 81 MG Cetirizine HCl (zyrTEC TAB) 10 mg DAILY PO 03/31/17 09:00 04/30/17 08:59 03/31/17 07:58 10 MG Docusate Sodium (coLACE CAP) 100 mg BID PRN PO 03/30/17 12:15 04/29/17 12:14 Fluticasone Propionate (Flovent Hfa 44MCG Inhaler) 2 puffs BID INH 03/30/17 21:00 04/29/17 20:59 03/31/17 07:59 2 PUFFS Fluticasone Propionate (Flonase Nasal [place]) 1 sprays DAILY SHALONDA 03/31/17 09:00 04/30/17 08:59 03/31/17 07:59 1 SPRAYS Metoprolol Succinate (Toprol Xl Tab) 100 mg BID PO 03/30/17 21:00 04/29/17 20:59 03/31/17 07:57 100 MG Montelukast Sodium (Singulair Tab) 10 mg QPM PO 03/30/17 21:00 04/29/17 20:59 03/30/17 19:59 10 MG Miscellaneous Information (Order Awaiting Action) 1 ea QS N/A 03/30/17 16:00 04/29/17 15:59 Magnesium Oxide (Mag-Ox Tab) 400 mg BID PO 03/30/17 21:00 04/29/17 20:59 03/31/17 07:58 400 MG Warfarin Sodium (Coumadin Tab) 2 mg DAILY@16 PO 03/30/17 16:00 04/29/17 15:59 Future Hold Metoprolol Tartrate (Lopressor Iv) 5 mg Q6 PRN IV 03/30/17 14:15 04/29/17 14:14 Furosemide (Lasix Tab) 40 mg DAILY PO 03/31/17 09:00 04/30/17 08:59 03/31/17 07:58 40 MG Spironolactone (Aldactone Tab) 12.5 mg QAM PO 03/31/17 09:00 04/30/17 08:59 03/31/17 07:57 12.5 MG Diltiazem HCl (Cardizem Tab) 30 mg QID PO 03/30/17 17:00 04/29/17 16:59 03/31/17 07:56 30 MG Methimazole (Methimazole Tab) 15 mg DAILY PO 03/31/17 09:00 04/30/17 08:59 03/31/17 07:55 15 MG
[2017-03-31] MEDS ORDERED: DOCUSATE SODIUM/SENNA 50/8.6MG TAB PO ONE (11:00)
[2017-03-31] MEDS: EUCERIN CR 120 GM JAR EXT SCH ×2 (11:46→20:34)
[2017-03-31] MEDS: ACETAMINOPHEN 325 MG TAB PO PRN (14:28)
--- NOTE | 2017-03-31 17:14 | Cardiology Follow-Up ---
Subjective General Date of Service: Mar 31, 2017. Chief Complaint: Follow-up shortness of breath, atrial flutter with RVR Pt evaluation today including: conversation w/ patient, physical exam History of Present Illness The patient is a 66 year old male seen in cardiology follow-up with initial consultation having been performed yesterday by Dr. Gee. The patient atrial flutter has persisted. The rate is much better controlled today having received IV furosemide yesterday and having received oral diltiazem 30 mg 4 times daily in addition to his prior metoprolol. It is noted that his ventricular rates are down to the 70-80 bpm range at rest, and right now while he is sitting upright eating his evening meal his ventricular rates are between 96 and 107 bpm. Mild lower extremity edema is noted. Allergies Coded Allergies: Statins (Unverified Adverse Reaction, Severe, LEG WEAKNESS, 03/30/17) Social History Smoking Status: Never Smoker Hx Tobacco Use In Past Year?: No Hx Alcohol Use - Type And Amou: No Hx Substance Use - Type And Am: No Problem List Medical Problems: (1) Atrial fibrillation with rapid ventricular response Status: Acute Physical Exam Vital Signs Last Vital Signs Documentation Date Time Temp Pulse Resp B/P (MAP) Pulse Ox O2 Delivery O2 Flow Rate FiO2 03/31/17 16:00 Room Air 03/31/17 15:25 36.9 82 18 104/66 (79) 95 Physical Exam Constitutional: Level of Distress: NAD Neck: supple, trachea midline Lungs: Auscultation: pertinent finding (Mildly decreased breath sounds bilaterally at the bases) Cardiovascular: Heart Auscultation: RRR (Regular rhythm, 1/6 systolic murmur) Abdomen: Inspection & Palpation: soft, non-distended Extremities: pertinent finding (Mild bilateral ankle edema) Neurologic: Gait & Station: pertinent finding (No focal neurologic deficits) Assessment and Plan Assessment and Plan Impression: 66-year-old male 1. Atrial flutter rapid ventricular rate 2. Decompensation, biventricular heart failure, with LV diastolic dysfunction 3. History of CAD, CABG 3 4. History of bioprosthetic aortic valve replacement along with CABG in 2049 5. Echocardiogram this admission normal LVEF 60-65%, with flattened interventricular septum consistent with right ventricular pressure overload, per review of Doppler data, the tricuspid regurgitation envelope was insufficient to allow calculation of the right ventricular systolic or pulmonary artery systolic pressure 6. History of left atrial thrombus noted on transesophageal echocardiogram 02/16 7. Newly diagnosed hypothyroidism, TSH undetectable, elevated T4 T3 thyroid- stimulating immunoglobulin is pending no significant thyroid nodule noted on ultrasound Plan: Continue metoprolol and oral diltiazem for rate control. Continue Coumadin. Methimazole 15 mg added for the thyroid. We will proceed with 20 mg of furosemide, next dose due morning of 04/01/17 INR is 3.9 on admission therefore warfarin was held, it is 3 today, we will continue to hold warfarin today and will reassess the INR tomorrow This patient is compensated from a heart failure and thyroid standpoint, will likely need to proceed with transesophageal echocardiogram to assess for left atrial thrombus, followed by consideration of cardioversion or even ablation therapy. Laboratory Results Last 24 Hours Test 03/30/17 17:32 03/30/17 20:54 03/30/17 23:19 03/31/17 00:30 Troponin I < 0.015 ng/ml < 0.015 ng/ml Bedside Glucose 85 mg/dl Urine Color ORANGE Urine Appearance CLEAR Urine pH 5.0 Urine Specific [place] 1.019 Urine Protein TRACE Urine Glucose (UA) NEG Urine Ketones TRACE Urine Occult Blood NEG Urine Nitrite NEG Urine Bilirubin NEG Urine Urobilinogen NEG Urine Leukocyte Esterase TRACE Urine WBC (Auto) 1-5 /hpf Urine RBC (Auto) 0-4 /hpf Urine Hyaline Casts (Auto) 1-5 /lpf Urine Epithelial Cells (Auto) 10-20 /lpf Urine Bacteria (Auto) NEG Test 03/31/17 05:29 03/31/17 06:45 03/31/17 11:18 03/31/17 12:29 White Blood Count 10.28 K/uL Red Blood Count 3.76 M/uL Hemoglobin 11.5 g/dL Hematocrit 34.9 % Mean Corpuscular Volume 92.8 fL Mean Corpuscular Hemoglobin 30.6 pg Mean Corpuscular Hemoglobin Concent 33.0 g/dl RDW Standard Deviation 56.6 fL RDW Coefficient of Variation 16.5 % Platelet Count 249 K/uL Mean Platelet Volume 9.3 fL Prothrombin Time 30.5 SECONDS Prothromb Time International Ratio 3.0 Sodium Level 133 mmol/L Potassium Level 4.3 mmol/L Chloride Level 99 mmol/L Carbon Dioxide Level 27 mmol/L Anion Gap 7.0 mmol/L Blood Urea Nitrogen 17 mg/dl Creatinine 0.76 mg/dl Est Creatinine Clear Calc Drug Dose 92.7 ml/min Estimated GFR () 110.2 Estimated GFR (Non- 95.1 BUN/Creatinine Ratio 22.1 Random Glucose 86 mg/dl Estimated Average Glucose 85 mg/dl Hemoglobin A1c 4.6 % Calcium Level 9.8 mg/dl Phosphorus Level 2.9 mg/dl Magnesium Level 1.9 mg/dl Troponin I < 0.015 ng/ml < 0.015 ng/ml Triglycerides Level 108 mg/dl Cholesterol Level 73 mg/dl HDL Cholesterol 15 mg/dl LDL Cholesterol, Calculated 36 mg/dl VLDL Cholesterol, Calculated 22 mg/dl Cholesterol/HDL Ratio 4.9 Bedside Glucose 79 mg/dl 97 mg/dl Test 03/31/17 15:55 Bedside Glucose 80 mg/dl
[2017-03-31] MEDS: MONTELUKAST SOD 10 MG TAB PO SCH (20:36)
[2017-04-01] MEDS: ACETAMINOPHEN 325 MG TAB PO PRN ×2 (02:51→20:42)
[2017-04-01 03:46] VITALS: BP 105/65; PULSE 81; TEMP 37.1; O2SAT 94
[2017-04-01] MEDS: INSULIN HUMAN REGULAR SC SCH ×4 (07:00→20:26)
[2017-04-01 07:08] LABS: INR 2.7 (0.9-1.1)
[2017-04-01 07:34] LABS: CALCIUM 9.9 mg/dl (8.5-10.1); CREATININE 0.82 mg/dl (0.60-1.40); PHOSPHORUS 2.9 mg/dl (2.5-4.9); POTASSIUM 4.2 mmol/L (3.5-5.1)
[2017-04-01 07:40] VITALS: BP 109/66; PULSE 69; TEMP 36.4; O2SAT 93
[2017-04-01] MEDS: MAGNESIUM OXIDE 400 MG TAB PO SCH ×2 (08:11→20:29)
[2017-04-01] MEDS: CETIRIZINE HCL 10 MG TAB PO SCH (08:11)
[2017-04-01] MEDS: EUCERIN CR 120 GM JAR EXT SCH ×2 (08:11→20:27)
[2017-04-01] MEDS: ASPIRIN 81 MG ECTAB PO SCH (08:12)
[2017-04-01] MEDS: METOPROLOL SUCC 50MG EXT REL TAB PO SCH ×2 (08:12→20:28)
[2017-04-01] MEDS: FLUTICASONE PROPIONATE NA SPR 16 GM BTL NAE SCH (08:12)
[2017-04-01] MEDS: DOCUSATE SODIUM/SENNA 50/8.6MG TAB PO SCH (08:13)
[2017-04-01] MEDS: DILTIAZEM HCL 30 MG TAB PO SCH ×4 (08:13→20:27)
[2017-04-01] MEDS: SPIRONOLACTONE 25 MG TAB PO SCH (08:13)
[2017-04-01] MEDS: FENOFIBRATE 54 MG PO SCH (08:14)
[2017-04-01] MEDS: METHIMAZOLE 5 MG TAB PO SCH (08:14)
[2017-04-01] MEDS: FLUTICASONE PROP HFA INH 44 MCG INHALER INH SCH ×2 (08:19→20:27)
[2017-04-01] MEDS ORDERED: FUROSEMIDE INJ 20 MG in SYRINGE 0 ML IV SCH (09:00)
[2017-04-01 11:33] VITALS: BP 99/63; PULSE 81; TEMP 36.8; O2SAT 96
--- NOTE | 2017-04-01 13:39 | Cardiology Follow-Up ---
Subjective General Date of Service: Apr 01, 2017. Chief Complaint: Follow-up shortness of breath, atrial flutter with RVR Pt evaluation today including: conversation w/ patient, conversation w/ family , physical exam History of Present Illness The patient is a 66 year old male seen in cardiology follow-up. His spouse is accompanying him at the bedside. Telemetry reveals ongoing atrial flutter with controlled ventricular response in the 60-80 beat per minute range. INR is at goal at 2.7. EKG performed today reveals atrial flutter with controlled ventricular response at 79 bpm, possible age-indeterminate inferior infarction pattern, right bundle branch block. Compared to prior tracings, recurrent EKG is stable. Allergies Coded Allergies: Statins (Unverified Adverse Reaction, Severe, LEG WEAKNESS, 03/30/17) Social History Smoking Status: Never Smoker Hx Tobacco Use In Past Year?: No Hx Alcohol Use - Type And Amou: No Hx Substance Use - Type And Am: No Problem List Medical Problems: (1) Atrial fibrillation with rapid ventricular response Status: Acute Physical Exam Vital Signs Last Vital Signs Documentation Date Time Temp Pulse Resp B/P (MAP) Pulse Ox O2 Delivery O2 Flow Rate FiO2 04/01/17 12:00 Room Air 04/01/17 11:33 36.8 81 18 99/63 (75) 96 Physical Exam Constitutional: Level of Distress: NAD Neck: supple, trachea midline Lungs: Auscultation: pertinent finding (Mildly decreased breath sounds bilaterally at the bases) Cardiovascular: Heart Auscultation: RRR (Regular rhythm, 1/6 systolic murmur) Abdomen: Inspection & Palpation: soft, non-distended Extremities: pertinent finding (Mild bilateral ankle edema) Neurologic: Gait & Station: pertinent finding (No focal neurologic deficits) Assessment and Plan Assessment and Plan Impression: 66-year-old male 1. Atrial flutter rapid ventricular rate-improved with addition of short acting diltiazem orally 2. Decompensation, biventricular heart failure, with LV diastolic dysfunction 3. History of CAD, CABG 3 4. History of bioprosthetic aortic valve replacement along with CABG in 2049 5. Echocardiogram this admission normal LVEF 60-65%, with flattened interventricular septum consistent with right ventricular pressure overload, per review of Doppler data, the tricuspid regurgitation envelope was insufficient to allow calculation of the right ventricular systolic or pulmonary artery systolic pressure 6. History of left atrial thrombus noted on transesophageal echocardiogram 1/12 /18 7. Newly diagnosed hypothyroidism, TSH undetectable, elevated T4 T3 thyroid- stimulating immunoglobulin is pending no significant thyroid nodule noted on ultrasound Plan: Continue metoprolol and oral diltiazem for rate control. Continue Coumadin. Methimazole 15 mg added for the thyroid. Respiratory status much improved compared to initial presentation with improved rate control having had short acting oral diltiazem to the metoprolol and having received diuretic therapy. Continue low-dose IV furosemide. I'm going to tentatively make the patient nothing by mouth for tomorrow for possible transesophageal echocardiogram guided cardioversion. The success of cardioversion may be limited by his hyperthyroidism, that he is now on suppressive therapy. Will tentatively the patient clinically reassessed by Dr. Dean regarding the feasibility of the procedure tomorrow. Laboratory Results Last 24 Hours Test 03/31/17 15:55 03/31/17 19:53 04/01/17 06:14 04/01/17 06:47 Bedside Glucose 80 mg/dl 105 mg/dl 90 mg/dl Prothrombin Time 27.8 SECONDS Prothromb Time International Ratio 2.7 Sodium Level 135 mmol/L Potassium Level 4.2 mmol/L Chloride Level 99 mmol/L Carbon Dioxide Level 31 mmol/L Anion Gap 5.0 mmol/L Blood Urea Nitrogen 22 mg/dl Creatinine 0.82 mg/dl Est Creatinine Clear Calc Drug Dose 85.8 ml/min Estimated GFR () 106.8 Estimated GFR (Non- 92.1 BUN/Creatinine Ratio 26.3 Random Glucose 86 mg/dl Calcium Level 9.9 mg/dl Phosphorus Level 2.9 mg/dl Magnesium Level 2.0 mg/dl Test 04/01/17 11:24 Bedside Glucose 93 mg/dl
[2017-04-01 15:48] VITALS: BP 95/55; PULSE 68; TEMP 36.9; O2SAT 95
[2017-04-01] MEDS ORDERED: WARFARIN SOD 1 MG TAB PO ONE (17:40)
[2017-04-01 19:49] VITALS: BP 114/69; PULSE 84; TEMP 37.2; O2SAT 95
[2017-04-01] MEDS: MONTELUKAST SOD 10 MG TAB PO SCH (20:28)
[2017-04-01 23:10] VITALS: BP 101/65; PULSE 74; TEMP 37; O2SAT 95
[2017-04-02] VITALS (11 sets, daily range): BP systolic 98–115; BP diastolic 52–72; PULSE 80–86; TEMP 36.6–36.7; O2SAT 93–98
--- NOTE | 2017-04-02 05:31 | Progress Note ---
Medicine Progress Note Date & Time of Visit: Apr 02, 2017 at 05:28. Subjective seen resting in bed, comfortable denies dizziness, weakness no chest pain, dyspnea, palpitations no other symptoms Objective Last 8 Hrs Date Time Temp Pulse Resp B/P (MAP) Pulse Ox O2 Delivery O2 Flow Rate FiO2 04/02/17 04:02 Room Air 04/02/17 03:31 36.7 83 18 115/68 (84) 95 Room Air 04/02/17 00:02 Room Air 04/01/17 23:10 37.0 74 18 101/65 (77) 95 Room Air Physical Exam: General- oriented x 3, not in distress, speaks in sentences with no effort Eyes- anicteric Neck- supple, no JVD Lungs- clear breath sounds bilaterally, no rales/wheezes Heart- irregularly irregular rhythm; no murmur, normal rate Abdomen- normal bowel sounds, soft, nontender Extremities- no pretibial edema, no calf tenderness Neuro- alert, oriented x 3;no gross focal deficits Skin- warm & dry Laboratory Results: Last 24 Hours Test 04/01/17 06:14 04/01/17 06:47 04/01/17 11:24 04/01/17 16:24 Prothrombin Time 27.8 SECONDS Prothromb Time International Ratio 2.7 Sodium Level 135 mmol/L Potassium Level 4.2 mmol/L Chloride Level 99 mmol/L Carbon Dioxide Level 31 mmol/L Anion Gap 5.0 mmol/L Blood Urea Nitrogen 22 mg/dl Creatinine 0.82 mg/dl Est Creatinine Clear Calc Drug Dose 85.8 ml/min Estimated GFR () 106.8 Estimated GFR (Non- 92.1 BUN/Creatinine Ratio 26.3 Random Glucose 86 mg/dl Calcium Level 9.9 mg/dl Phosphorus Level 2.9 mg/dl Magnesium Level 2.0 mg/dl Bedside Glucose 90 mg/dl 93 mg/dl 98 mg/dl Test 04/01/17 20:25 04/02/17 04:44 Bedside Glucose 91 mg/dl Assessment & Plan 66 year old male with history of CAD,CHF, A Fib on Coumadin, Bioprosthetic AVR, DM ,HTN presenting with Tachycardia. ATRIAL FLUTTER recent Dx with Paroxysmal Afib /a flutter started on Beta kari and Coumadin cardioversion could not be done as Left atrial Thrombus found in ANDREA was at Cardiology office today for routine follow up -found to be in Aflutter with HR 130 -150 - Echo: * The left ventricle is normal in size. * There is moderate concentric left ventricular hypertrophy. * Flattened septum is consistent with RV pressure overload. * No regional wall motion abnormalities noted. * Ejection Fraction = 60-65%. * There is a bioprosthetic aortic valve. * The left atrium is severely dilated. * There is mild mitral regurgitation. - HR constrolled - Cardizem QID added Metoprolol XL continued INR 2.0, coumadin 1mg - Cardiology consulted possible ANDREA with CV HYPERTHYROIDISM: TSH < 0.005 with free T4 elevated 2.65 ( upper limit 1.6 ) pt mention that since Jan 2017 -he was more fatigued , had interpreted sleep , more anxious , unintentional wt loss almost 30 lbs since Jan New DX Aflutter /Afib also co relates to same time frame D/w case with call center associate Endocrine in [facility] since pt is already symptomatic -recommend to start on Methimazole 15 mg daily ( ordered for one dose now , and cont daily dose in AM ) check TSI( thyroid stimulating immunoglobulin ) : pending free T3: high Thyroid USG : no nodules pt will need repeat TSH level checked in next 4 -6 weeks strongly recommends Endocrine follow up with in a week of discharge ACUTE DECOMPENSATED CHF WITH DIASTOLIC DYSFUNCTION due to Aflutter Cxray shows pulmonary congestion , BNP elevated -- received 2 doses of Lasix IV euvolemic now -- continue Aldactone and PO Lasix CAD S/P BIOPROSTHETIC AVR continue ASA, Statin, Metoprolol HTN : BP stable cont Toprol XL 100 mg BID added Cardizem on Aldactone and Lasix TYPE 2 DM : hold oral meds insulin sliding scale FULL CODE DVT PROPHYLAXIS : INR 2.0, on coumadin DISPOSITION : expected to be discharged home when medically stable Medicine followup with Dr Rojas -[facility] Cardiology follow up with Dr Gee Current Inpatient Medications: Current Inpatient Medications Medications (Trade) Dose Ordered Sig/Sal Route Start Time Stop Time Status Last Admin Dose Admin Acetaminophen (Tylenol Tab) 650 mg Q4H PRN PO 03/30/17 11:45 04/29/17 11:44 04/01/17 20:42 650 MG Al Hydrox/Mg Hydrox/Simethicone (Maalox Max Susp) 15 ml Q4H PRN PO 03/30/17 11:45 04/29/17 11:44 Magnesium Hydroxide (Milk Of Magnesia Susp) 30 ml Q12H PRN PO 03/30/17 11:45 04/29/17 11:44 Nitroglycerin (Nitrostat Tab) 0.4 mg UD PRN SL 03/30/17 11:45 04/29/17 11:44 Polyethylene (Miralax Powder Packet) 17 gm DAILY PRN PO 03/30/17 11:45 04/29/17 11:44 Insulin Human Regular (novoLIN-R) SLIDING SCALE IF C... ACHS SC 03/30/17 16:15 04/29/17 16:14 03/31/17 16:52 2 UNITS Glucose (Glucose 40% Gel) 15-30 GRAMS 15 GRAMS... UD PRN PO 03/30/17 11:45 04/29/17 11:44 Glucose (Glucose Chew Tab) 4-8 Tablets 4 Tabl... UD PRN PO 03/30/17 11:45 04/29/17 11:44 Dextrose (Dextrose 50% 50ML Syringe) 25-50ML OF 50% DW IV FOR... UD PRN IV 03/30/17 11:45 04/29/17 11:44 Glucagon (Glucagon Inj) 1 mg UD PRN SQ 03/30/17 11:45 04/29/17 11:44 Albuterol (Ventolin Hfa Inhaler) 2 puffs Q4H PRN INH 03/30/17 12:15 04/29/17 12:14 03/31/17 21:15 2 PUFFS Aspirin (Ecotrin Tab) 81 mg DAILY PO 03/31/17 09:00 04/30/17 08:59 04/01/17 08:12 81 MG Cetirizine HCl (zyrTEC TAB) 10 mg DAILY PO 03/31/17 09:00 04/30/17 08:59 04/01/17 08:11 10 MG Docusate Sodium (coLACE CAP) 100 mg BID PRN PO 03/30/17 12:15 04/29/17 12:14 Fluticasone Propionate (Flovent Hfa 44MCG Inhaler) 2 puffs BID INH 03/30/17 21:00 04/29/17 20:59 2/25/18 20:27 2 PUFFS Fluticasone Propionate (Flonase Nasal [place]) 1 sprays DAILY SHALONDA 03/31/17 09:00 04/30/17 08:59 04/01/17 08:12 1 SPRAYS Metoprolol Succinate (Toprol Xl Tab) 100 mg BID PO 03/30/17 21:00 04/29/17 20:59 04/01/17 20:28 100 MG Montelukast Sodium (Singulair Tab) 10 mg QPM PO 03/30/17 21:00 04/29/17 20:59 04/01/17 20:28 10 MG Magnesium Oxide (Mag-Ox Tab) 400 mg BID PO 03/30/17 21:00 04/29/17 20:59 04/01/17 20:29 400 MG Warfarin Sodium (Coumadin Tab) 2 mg DAILY@16 PO 03/30/17 16:00 04/29/17 15:59 Future Hold Metoprolol Tartrate (Lopressor Iv) 5 mg Q6 PRN IV 03/30/17 14:15 04/29/17 14:14 Spironolactone (Aldactone Tab) 12.5 mg QAM PO 03/31/17 09:00 04/30/17 08:59 04/01/17 08:13 12.5 MG Diltiazem HCl (Cardizem Tab) 30 mg QID PO 03/30/17 17:00 04/29/17 16:59 04/01/17 20:27 30 MG Methimazole (Methimazole Tab) 15 mg DAILY PO 03/31/17 09:00 04/30/17 08:59 04/01/17 08:14 15 MG Senna/Docusate Sodium (Senokot S Tab) 1 tab QAM PO 04/01/17 09:00 05/01/17 08:59 04/01/17 08:13 1 TAB Multi-Ingredient Ointment (Eucerin Unscented Cr) 1 appln BID EXT 03/31/17 12:00 04/30/17 11:59 04/01/17 20:27 1 APPLN Non-Formulary Medication (Non-Formulary Patient'S Own Med) 1 ea DAILY PO 04/01/17 09:00 3/27/18 08:59 04/01/17 08:14 1 EA Furosemide 20 mg/ Syringe 2 ml @ 4 mls/min DAILY IV 04/01/17 09:00 05/01/17 08:59 Future Hold 04/01/17 08:12 4 MLS/MIN Warfarin Sodium (Coumadin Tab) 1 mg DAILY@16 PO 04/02/17 16:00 05/02/17 15:59
[2017-04-02 06:32] LABS: INR 2.5 (0.9-1.1)
[2017-04-02 06:55] LABS: CALCIUM 9.8 mg/dl (8.5-10.1); CREATININE 0.71 mg/dl (0.60-1.40); PHOSPHORUS 2.8 mg/dl (2.5-4.9); POTASSIUM 4.1 mmol/L (3.5-5.1)
[2017-04-02] MEDS: INSULIN HUMAN REGULAR SC SCH ×3 (07:00→16:15)
[2017-04-02] MEDS: EUCERIN CR 120 GM JAR EXT SCH (08:56)
[2017-04-02] MEDS: FLUTICASONE PROP HFA INH 44 MCG INHALER INH SCH (08:57)
[2017-04-02] MEDS: FLUTICASONE PROPIONATE NA SPR 16 GM BTL NAE SCH (08:57)
[2017-04-02] MEDS: SPIRONOLACTONE 25 MG TAB PO SCH (08:58)
[2017-04-02] MEDS: DILTIAZEM HCL 30 MG TAB PO SCH ×3 (08:58→16:51)
[2017-04-02] MEDS: MAGNESIUM OXIDE 400 MG TAB PO SCH (09:00)
[2017-04-02] MEDS: ASPIRIN 81 MG ECTAB PO SCH (09:00)
[2017-04-02] MEDS: FENOFIBRATE 54 MG PO SCH (09:01)
[2017-04-02] MEDS: METHIMAZOLE 5 MG TAB PO SCH (09:01)
[2017-04-02] MEDS: DOCUSATE SODIUM/SENNA 50/8.6MG TAB PO SCH (09:02)
[2017-04-02] MEDS: METOPROLOL SUCC 50MG EXT REL TAB PO SCH (09:02)
[2017-04-02] MEDS: CETIRIZINE HCL 10 MG TAB PO SCH (09:03)
[2017-04-02] MEDS ORDERED: FENTANYL CITRATE INJ 50 MCG/1 ML 2 ML VIAL ONE (11:40)
[2017-04-02] MEDS ORDERED: MIDAZOLAM HCL 1 MG/ML 2ML VIAL ONE (11:40)
--- NOTE | 2017-04-02 12:09 | Pre Sedation Assessment ---
Pre Sedation Assessment General Date of Sedation: Apr 02, 2017. Vital Signs Past 12 Hours Date Time Temp Pulse Resp B/P (MAP) Pulse Ox O2 Delivery O2 Flow Rate FiO2 04/02/17 11:57 36.7 82 16 101/60 (74) 94 Room Air 04/02/17 08:00 Room Air 04/02/17 07:44 36.7 86 16 103/65 (78) 95 Room Air 04/02/17 04:02 Room Air 04/02/17 03:31 36.7 83 18 115/68 (84) 95 Room Air Review Cardiovascular: no edema, no gallop, no JVD, no murmur, normal peripheral pulses, + irregularly irregular Lungs: chest non-tender, lungs clear, normal breath sounds, no respiratory distress, no accessory muscle use Pre-Sedation Airway Assessment Smoking Status: Never Smoker Hx of Sleep Apnea: No Short Thick Neck: No Thyro-mental Distance: > 3 Finger Breadths Oral Cavity: WNL Mallampati Classification: Class I ASA Classification: Class III NPO Status Date of Last Intake of Fluids: Apr 01, 2017 Time of Last Intake of Fluids: 2359 Date of Last Intake of Solids: Apr 01, 2017 Time of Last Intake of Solids: 1800 Notes The planned sedation has been discussed with the patient. Informed Consent was obtained. I have identified the patient, determined the appropriateness of sedation and have assessed the patient immediately prior to the procedure. All medicine(s) and interventions are by my order.
--- NOTE | 2017-04-02 12:33 | Post Sedation Assessment ---
Post Sedation Assessment General Date of Sedation Apr 02, 2017. Vital Signs: Vital Signs Past 12 Hours Date Time Temp Pulse Resp B/P (MAP) Pulse Ox O2 Delivery O2 Flow Rate FiO2 04/02/17 12:25 82 18 111/58 96 Room Air 04/02/17 12:20 81 18 101/52 96 Nasal Cannula 6 04/02/17 12:15 81 18 114/66 98 Nasal Cannula 6 04/02/17 11:57 36.7 82 16 101/60 (74) 94 Room Air 04/02/17 08:00 Room Air 04/02/17 07:44 36.7 86 16 103/65 (78) 95 Room Air 04/02/17 04:02 Room Air 04/02/17 03:31 36.7 83 18 115/68 (84) 95 Room Air Post Procedure Recovery Score Activity: (2) Moves 4 extremities * Respiration: (2) Deep breath/cough Circulation: (2) +/-20% PreAnes Value Consciousness: (2) Fully Awake Oxygen Saturation: (2) > 92% On Room Air Post Anesthesia Score: 10 Discharge Sedation Level of Care: Fast Track Phase II Post Sedation Plan On clinical assessment, the patient appears to have tolerated the sedation without complications. Patient is recovering as anticipated. Patient will continue to be monitored by nursing and may be discharged when sedation discharge criteria are met per below protocol. Upon Completions of procedure and additional 15 minutes continue every 5 minute vital signs and the P.A.R. score; then discharge to a Phase I or Fast Track to Phase II per the following guidelines: * Discharge Patient to appropriate Phase II area if PAR is 8 or greater or return to pre- procedure baseline. The post - procedure orders will be as directed. * If PAR score is less than 8 or not return to pre-procedure baseline then patient will follow Phase I monitoring till PAR is reached for Phase II. The Phase I may be done in procedure room or may call to secure a Phase I area. * If naloxone or flumazenil are used for reversal, hold in Phase I for an additional 60 -120 minutes before discharge to Phase II. Please call the Sedation Physician to re-evaluate and complete post-note for discharge to Phase II area. Do NOT discharge from procedure sedation or Phase 1 until post- sedation evaluation note is complete by procedure /sedation MD Sedation Discharge Instructions to be given to the patient at discharge to home.
--- NOTE | 2017-04-02 12:36 | [facility] Post Operative Brief Note ---
Immediate Operative Summary Operative Date Apr 02, 2017. Pre-Operative Diagnosis atrial flutter with left atrial appendage thrombus Post-Operative Diagnosis same Procedure(s) Performed ANDREA start time: 1215 stop time: 1227 conscious sedation achieved with Versed 2mg and Fentanyl 50mcg Surgeon Jermaine Compliance Attorney Surgeon(s) none Estimated Blood Loss none Findings Consistent with Post-Op Diagnosis Specimens none Drains None Anesthesia Type IV Sedat Cons RN Only Complication(s) none
--- NOTE | 2017-04-02 12:38 | Procedure Note ---
Procedure Note Date of Service Apr 02, 2017. Procedure Note informed consent obtained pt prepped adequate conscious sedation achieved with 2mg of Versed and 50mcg of Fentanyl ANDREA performed revealing no change in left atrial appendage thrombus no complications pt tolerated well recover in cardiac lab director and return to room per protocol ok to resume diet with no hot liquids or hard foods, i.e. pretzels and crackers , for the rest of today
--- NOTE | 2017-04-02 12:49 | Cardiology Follow-Up ---
Subjective Subjective Date of Service: Apr 02, 2017. Pt evaluation today including: conversation w/ patient, conversation w/ family , physical exam, chart review, lab review, review of studies, review of inpatient medication list Additional Details: Pt seen and examined, with at bedside. States that he's feeling well. No events overnight. Denies cp, sob, palpitations, lightheadedness or dizziness. Tele reviewed: atrial flutter rate controlled Problem List Medical Problems: (1) Atrial fibrillation with rapid ventricular response Status: Acute Review of Systems Respiratory: + dyspnea on exertion, No see HPI, No cough, No sputum, No wheezing, No shortness of breath, No dyspnea at rest, No hemoptysis, No problem reported Cardiac: + edema, No see HPI, No chest pain, No orthopnea, No PND, No claudication, No palpitations, No problem reported Objective Vital Signs Last Vital Signs Documentation Date Time Temp Pulse Resp B/P (MAP) Pulse Ox O2 Delivery O2 Flow Rate FiO2 04/02/17 12:25 82 18 111/58 96 Room Air 04/02/17 12:20 6 04/02/17 11:57 36.7 Physical Exam: General Appearance: WD/WN, no apparent distress Eyes: bilateral eyes normal inspection, bilateral eyes PERRL, bilateral eyes EOMI ENT: normal ENT inspection, hearing grossly normal, pharynx normal Neck: supple, no adenopathy, thyroid normal, no JVD Respiratory/Chest: chest non-tender, lungs clear, normal breath sounds, no respiratory distress, no accessory muscle use Cardiovascular: regular rate, rhythm, no edema, no JVD, no murmur Abdomen: normal bowel sounds, non tender, soft, no organomegaly, no pulsatile mass Extremities: normal inspection, no pedal edema, no calf tenderness Neurologic/Psychiatric: lead pharmacy technician II-XII nml as tested, no motor/sensory deficits, alert, normal mood/affect, oriented x 3 Skin: normal color, warm/dry, no rash Lymphatic: no adenopathy Assessment and Plan 1. atrial flutter rate controlled appropriately anticoagulated on coumadin discussed treatment options with patient and 1. perform allyn and cardioversion, with low likelihood of remaining in sinus rhythm due to hyperthyroidism 2. perform allyn and refer to EP for ablation 3. rate control strategy only patient and both agreed that they would like to perform ALLYN and undergo ablation unfortunately, ALLYN today reveals no change in thrombus will cont metoprolol and coumadin will change diltiazem to cardizem cd will still refer for EP eval as an outpatient but will require repeat ALLYN prior to any ablation attempts 2. acute decompensated diastolic heart failure secondary to #1 does not examine as volume overloaded at this time resume po lasix 40mg daily, can take an extra dose in PM as needed for volume overload cont spironolactone ok to d/c to home today from cardiac standpoint my office will call to arrange f/u with cardiology and EP
--- NOTE | 2017-04-02 15:49 | Progress Note ---
Medicine Progress Note Date & Time of Visit: Apr 02, 2017 at 15:35. Subjective seen resting in bed, visiting patient is comfortable , in good spirits denies chest pain, dyspnea, dizziness, weakness denies other symptoms states he is ready and would like to be discharged today Objective Last 8 Hrs Date Time Temp Pulse Resp B/P (MAP) Pulse Ox O2 Delivery O2 Flow Rate FiO2 04/02/17 13:25 82 20 102/64 (77) 93 Room Air 04/02/17 13:10 80 18 98/63 (75) 95 Room Air 04/02/17 12:55 36.6 81 18 102/65 (77) 94 Room Air 04/02/17 12:39 81 16 115/58 (77) 96 Room Air 04/02/17 12:27 81 16 111/58 (75) 96 Room Air 04/02/17 12:25 82 18 111/58 96 Room Air 04/02/17 12:20 81 18 101/52 96 Nasal Cannula 6 04/02/17 12:15 81 18 114/66 98 Nasal Cannula 6 04/02/17 12:00 Room Air 04/02/17 11:57 36.7 82 16 101/60 (74) 94 Room Air 04/02/17 08:00 Room Air 04/02/17 07:44 36.7 86 16 103/65 (78) 95 Room Air Physical Exam: General- oriented x 3, not in distress, speaks in sentences with no effort Eyes- anicteric Neck- no JVD Lungs- clear breath sounds bilaterally, no rales/wheezes Heart- irregularly irregular rhythm; no murmur, normal rate Abdomen- normal bowel sounds, soft, nontender Extremities- no pretibial edema, no calf tenderness Neuro- alert, oriented x 3;no gross focal deficits Skin- warm & dry Laboratory Results: Last 24 Hours Test 04/01/17 16:24 04/01/17 20:25 04/02/17 05:44 04/02/17 06:35 Bedside Glucose 98 mg/dl 91 mg/dl 89 mg/dl Prothrombin Time 25.7 SECONDS Prothromb Time International Ratio 2.5 Sodium Level 134 mmol/L Potassium Level 4.1 mmol/L Chloride Level 101 mmol/L Carbon Dioxide Level 26 mmol/L Anion Gap 7.0 mmol/L Blood Urea Nitrogen 19 mg/dl Creatinine 0.71 mg/dl Est Creatinine Clear Calc Drug Dose 99.0 ml/min Estimated GFR () 113.3 Estimated GFR (Non- 97.8 BUN/Creatinine Ratio 26.4 Random Glucose 90 mg/dl Calcium Level 9.8 mg/dl Phosphorus Level 2.8 mg/dl Magnesium Level 2.1 mg/dl Test 04/02/17 11:36 Bedside Glucose 94 mg/dl Assessment & Plan 66 year old male with history of CAD,CHF, A Fib on Coumadin, Bioprosthetic AVR, DM ,HTN presenting with Tachycardia. ATRIAL FLUTTER recent Dx with Paroxysmal Afib /a flutter started on Beta kari and Coumadin cardioversion could not be done as Left atrial Thrombus found in ANDREA was at Cardiology office today for routine follow up -found to be in Aflutter with HR 130 -150 - Echo: * The left ventricle is normal in size. * There is moderate concentric left ventricular hypertrophy. * Flattened septum is consistent with RV pressure overload. * No regional wall motion abnormalities noted. * Ejection Fraction = 60-65%. * There is a bioprosthetic aortic valve. * The left atrium is severely dilated. * There is mild mitral regurgitation. - Cardizem QID added Metoprolol XL continued INR 2.0, coumadin 1mg - heart rate controlled since - Cardiology consulted - Dr. Carpenter s/p ANDREA 04/02/[address] Dean ANDREA performed revealing no change in left atrial appendage thrombus - per Dr. Dean: patient and both agreed that they would like to perform ANDREA and undergo ablation unfortunately, ANDREA reveals no change in thrombus cont metoprolol and coumadin change diltiazem to cardizem cd still refer for EP eval as an outpatient but will require repeat ANDREA prior to any ablation attempts continue coumadin - ff up with Dr. Dean as scheduled HYPERTHYROIDISM: TSH < 0.005 with free T4 elevated 2.65 ( upper limit 1.6 ) D/w case with [facility] in [facility] since pt is already symptomatic -recommend to start on Methimazole 15 mg daily check TSI( thyroid stimulating immunoglobulin ) : pending free T3: high Thyroid USG : no nodules pt will need repeat TSH level checked in next 4 -6 weeks strongly recommends Endocrine follow up with in a week of discharge - [facility]: ACUTE DECOMPENSATED CHF WITH DIASTOLIC DYSFUNCTION due to Aflutter Cxray shows pulmonary congestion , BNP elevated -- received 2 doses of Lasix IV euvolemic now -- continue Aldactone and PO Lasix may take additional lasix in the evening if needed for volume overload CAD S/P BIOPROSTHETIC AVR continue ASA, Statin, Metoprolol HTN : BP stable cont Toprol XL 100 mg BID added Cardizem on Aldactone and Lasix monitor TYPE 2 DM : continue usual medications DISPOSITION : d/c home Medicine followup with Dr Rojas [facility] in 3-5 days Cardiology follow up with Dr Gee as scheduled Refer to Account Adjuster for Hyperthyroid Current Inpatient Medications: Current Inpatient Medications Medications (Trade) Dose Ordered Sig/Sal Route Start Time Stop Time Status Last Admin Dose Admin Acetaminophen (Tylenol Tab) 650 mg Q4H PRN PO 03/30/17 11:45 04/29/17 11:44 04/01/17 20:42 650 MG Al Hydrox/Mg Hydrox/Simethicone (Maalox Max Susp) 15 ml Q4H PRN PO 03/30/17 11:45 04/29/17 11:44 Magnesium Hydroxide (Milk Of Magnesia Susp) 30 ml Q12H PRN PO 03/30/17 11:45 04/29/17 11:44 Nitroglycerin (Nitrostat Tab) 0.4 mg UD PRN SL 03/30/17 11:45 04/29/17 11:44 Polyethylene (Miralax Powder Packet) 17 gm DAILY PRN PO 03/30/17 11:45 04/29/17 11:44 Insulin Human Regular (novoLIN-R) SLIDING SCALE IF C... ACHS SC 03/30/17 16:15 04/29/17 16:14 03/31/17 16:52 2 UNITS Glucose (Glucose 40% Gel) 15-30 GRAMS 15 GRAMS... UD PRN PO 03/30/17 11:45 04/29/17 11:44 Glucose (Glucose Chew Tab) 4-8 Tablets 4 Tabl... UD PRN PO 03/30/17 11:45 04/29/17 11:44 Dextrose (Dextrose 50% 50ML Syringe) 25-50ML OF 50% DW IV FOR... UD PRN IV 03/30/17 11:45 04/29/17 11:44 Glucagon (Glucagon Inj) 1 mg UD PRN SQ 03/30/17 11:45 04/29/17 11:44 Albuterol (Ventolin Hfa Inhaler) 2 puffs Q4H PRN INH 03/30/17 12:15 04/29/17 12:14 03/31/17 21:15 2 PUFFS Aspirin (Ecotrin Tab) 81 mg DAILY PO 03/31/17 09:00 04/30/17 08:59 04/02/17 09:00 81 MG Cetirizine HCl (zyrTEC TAB) 10 mg DAILY PO 03/31/17 09:00 04/30/17 08:59 04/02/17 09:03 10 MG Docusate Sodium (coLACE CAP) 100 mg BID PRN PO 03/30/17 12:15 04/29/17 12:14 Fluticasone Propionate (Flovent Hfa 44MCG Inhaler) 2 puffs BID INH 03/30/17 21:00 04/29/17 20:59 04/02/17 08:57 2 PUFFS Fluticasone Propionate (Flonase Nasal [place]) 1 sprays DAILY SHALONDA 03/31/17 09:00 04/30/17 08:59 04/02/17 08:57 1 SPRAYS Metoprolol Succinate (Toprol Xl Tab) 100 mg BID PO 03/30/17 21:00 04/29/17 20:59 04/02/17 09:02 100 MG Montelukast Sodium (Singulair Tab) 10 mg QPM PO 03/30/17 21:00 04/29/17 20:59 04/01/17 20:28 10 MG Magnesium Oxide (Mag-Ox Tab) 400 mg BID PO 03/30/17 21:00 04/29/17 20:59 04/02/17 09:00 400 MG Warfarin Sodium (Coumadin Tab) 2 mg DAILY@16 PO 03/30/17 16:00 04/29/17 15:59 Future Hold Metoprolol Tartrate (Lopressor Iv) 5 mg Q6 PRN IV 03/30/17 14:15 04/29/17 14:14 Spironolactone (Aldactone Tab) 12.5 mg QAM PO 03/31/17 09:00 04/30/17 08:59 04/02/17 08:58 12.5 MG Diltiazem HCl (Cardizem Tab) 30 mg QID PO 03/30/17 17:00 04/02/17 23:59 04/02/17 08:58 30 MG Methimazole (Methimazole Tab) 15 mg DAILY PO 03/31/17 09:00 04/30/17 08:59 04/02/17 09:01 15 MG Senna/Docusate Sodium (Senokot S Tab) 1 tab QAM PO 04/01/17 09:00 05/01/17 08:59 04/02/17 09:02 1 TAB Multi-Ingredient Ointment (Eucerin Unscented Cr) 1 appln BID EXT 03/31/17 12:00 04/30/17 11:59 04/02/17 08:56 1 APPLN Non-Formulary Medication (Non-Formulary Patient'S Own Med) 1 ea DAILY PO 04/01/17 09:00 05/01/17 08:59 04/02/17 09:01 1 EA Furosemide 20 mg/ Syringe 2 ml @ 4 mls/min DAILY IV 04/01/17 09:00 05/01/17 08:59 Future Hold 04/01/17 08:12 4 MLS/MIN Warfarin Sodium (Coumadin Tab) 1 mg DAILY@16 PO 04/02/17 16:00 05/02/17 15:59 Diltiazem HCl (Cardizem Cd Cap) 180 mg QAM PO 04/03/17 09:00 05/03/17 08:59
[2017-04-02] MEDS ORDERED: TPZ5 PO (15:53)
[2017-04-02] MEDS ORDERED: CMD1 PO (15:53)
[2017-04-02] MEDS ORDERED: CRDCD180 PO (15:53)
[2017-04-02] MEDS ORDERED: WARFARIN SOD 1 MG TAB PO SCH (16:00)
--- NOTE | 2017-04-02 16:06 | Discharge Instructions ---
Discharge Instructions Date of Service Apr 02, 2017. Admission Reason for Admission: Atrial Fibrillation With Rvr, Hyperthyroidism, H/O Discharge Discharge Diagnosis / Problem: ATRIAL FIBRILLATION, HYPERTHYROIDISM Discharge Goals Goal(s): Diagnostic testing, Therapeutic intervention Activity Recommendations Activity Limitations: as noted below (NO HEAVY EXERTION ) Lifting Limitations: until after follow-up appointment Exercise/Sports Limitations: until after follow-up appointment Driving or Machine Use: NO DRIVING UNTIL CLEARED BY INSTRUCTIONAL MEDIA SERVICES TECHNICIAN/PRIMARY CARE PHYSICIAN . Instructions / Follow-Up Instructions / Follow-Up PLEASE REFER TO YOUR NEW MEDICATION LIST AND FOLLOW INSTRUCTIONS CAREFULLY. PLEASE CALL [facility] REGARDING ADVICE ON FURTHER DOSING OF COUMADIN. CALL PRIMARY CARE PHYSICIAN OR RETURN TO ER IMMEDIATELY IF WITH RECURRENCE OF SYMPTOMS, HEART RACING, CHEST PAIN, WEAKNESS, DIZZINESS, SHORTNESS OF BREATH, LEG SWELLING. FOLLOW UP WITH PRIMARY CARE PROVIDER SADIQ FLEMING ON Sunday04/05/17 AT 2:45PM FOLLOW UP WITH INSTRUCTIONAL MEDIA SERVICES TECHNICIAN SCHEDULED (CLINIC WILL CALL YOU ABOUT THE APPOINTMENT). YOU ALSO NEED TO BE ESTABLISHED WITH AN COUNTER MANAGER/THYROID SPECIALIST. PLEASE DISCUSS THIS WITH YOUR PRIMARY CARE PROVIDER. ([facility]- [phone] AT [address] [place] [address], [place] [address]) Current Hospital Diet Patient's current hospital diet: AHA Diet (Heart Healthy) Discharge Diet Recommended Diet: AHA Diet (Heart Healthy), Diabetes Type 2 Diet Procedures Procedures Performed: TRANSESOPHAGEAL ECHOCARDIOGRAM Pending Studies Studies pending at discharge: yes List of pending studies: REPEAT BLOODWORK (INR) C/O COUMADIN CLINIC. Laboratory Results Hemoglobin A1c Test 03/31/17 05:29 Range/Units Estimated Average Glucose 85 mg/dl Hemoglobin A1c 4.6 4.5-5.6 % Lipid Panel Test 03/31/17 05:29 Range/Units Triglycerides Level 108 0-150 mg/dl Cholesterol Level 73 0-200 mg/dl HDL Cholesterol 15 mg/dl Cholesterol/HDL Ratio 4.9 LDL Cholesterol, Calculated 36 mg/dl Medical Emergencies . Who to Call and When: Medical Emergencies: If at any time you feel your situation is an emergency, please call 911 immediately. . Non-Emergent Contact Non-Emergency issues call your: Primary Care Provider, Supervisor Composing Room Call Non-Emergent contact if: you have a fever, you have any medication questions . . "Provider Documentation" section prepared by Gelacio Kellogg. . VTE Core Measure Inpt VTE Proph given/why not?: Warfarin (Coumadin)
--- NOTE | 2017-04-02 16:13 | Discharge Summary ---
Discharge Summary Date of Service Apr 02, 2017. Discharge Summary Admission Date: Mar 30, 2017 at 11:30 Discharge Date: Apr 02, 2017 Discharge Disposition: Home Principal Diagnosis: ATRIAL FLUTTER Secondary Diagnoses/Problems: PLEASE REFER TO HOSPITAL COURSE BELOW. Procedures: SINGLE VIEW CHEST CLINICAL HISTORY: Dyspnea. FINDINGS: An AP, portable, upright chest radiograph is compared to study dated 02/18/2017. The examination is degraded by portable technique and apical lordotic positioning. The patient is status post midline sternotomy. The heart is enlarged and there is atherosclerotic calcification of the thoracic aorta. The pulmonary vasculature is noncongested. There are layering pleural effusions with bibasilar consolidation. No pneumothorax is seen. The skeletal structures appear osteopenic. The bony thorax is grossly intact. IMPRESSION: 1. Cardiomegaly without radiographic evidence of congestive failure. 2. There are layering pleural effusions with bibasilar consolidation, similar to the 02/18/2017 examination. This likely represents atelectasis. Clinical correlation will be required. Electronically signed by: Umesh Foy M.D. 03/30/2017 10:21 AM THYROID ULTRASOUND CLINICAL HISTORY: hyperthyroidism /assess for thyroid nodule COMPARISON STUDY: Chest CT February 13, 2017. TECHNIQUE: Sonography of the thyroid gland was performed. FINDINGS: The right lobe measures 3.3 x 2 x 1.2 cm and the left lobe measures 2.5 x 1.2 x 1.3 cm. Evaluation is somewhat difficult given suboptimal penetration and depth of the gland. However, no thyroid nodule is identified. The gland is slightly heterogeneous. IMPRESSION: 1. No thyroid nodule identified. 2. Slightly heterogeneous, slightly small thyroid gland. Electronically signed by: Ricardo Harris M.D. 03/31/2017 6:58 AM Consultations: MSWS DR. TODD, DR. WARNER Pending Studies/Follow-Up: PLEASE REFER TO HOSPITAL COURSE BELOW. Medication Reconciliation New Medications: Diltiazem HCl (Diltiazem HCl ER) 180 Mg Capcr 180 MG PO QAM for 30 Days, #30 TAB 2 Refills Methimazole (Methimazole) 5 Mg Tab 15 MG PO DAILY for 30 Days, #90 TAB 2 Refills Warfarin Sod (Coumadin) 1 Mg Tab 1 MG PO DAILY@16 for 30 Days please call [facility] clinic tomorrow for repeat bloodwork (INR) and further advice on Coumadin dose Continued Medications: Acetaminophen Tab (Tylenol) 325 Mg Tab 650 MG PO UD PRN for BACK PAIN, TAB Albuterol Hfa (Ventolin Hfa) 200 Puffs/02954 Mcg Aers 2 PUFFS INH Q4H PRN for SOB/Wheezing, #1 INHALER Aspirin (Ecotrin Low Strength) 81 Mg Tab 81 MG PO DAILY, #30 TAB 12 Refills Cetirizine (Zyrtec) 10 Mg Tab 10 MG PO DAILY, TAB Docusate Sodium (Colace) 100 Mg Cap 1 TAB PO BID PRN for Constipation Fenofibrate (Tricor) 54 Mg Tab 1 TAB PO DAILY for 30 Days, #30 TAB 5 Refills Fluticasone Propionate (Flovent Hfa) 120 Puffs/5280 Mcg Aero 2 PUFFS INH BID for 30 Days, #1 INHALER 2 Refills Fluticasone Propionate (Nasal) (Flonase Allergy Relief) 50 Mcg/Act Spr 1 SPRAY SHALONDA DAILY Furosemide (Furosemide) 40 Mg Tab 40 MG PO DAILY, #30 TAB 12 Refills Magnesium Oxide (mg Supplement (Magnesium Oxide) 400 Mg Cap 400 MG PO BID, #60 TAB 12 Refills Metformin Hcl (Glucophage) 1,000 Mg Tab 500 MG PO BID, TAB Metoprolol Succ (Toprol Xl) (Toprol-Xl ) 100 Mg Tabcr 100 MG PO BID, #60 TAB 12 Refills Montelukast Sod (Montelukast Sodium) 10 Mg Tab 10 MG PO QPM Nitroglycerin (Nitrostat) 0.4 Mg Sub 0.4 MG UT PRN, BTL Spironolactone (Aldactone) 25 Mg Tab 12.5 MG PO QAM, TAB Discontinued Medications: Warfarin Sodium (Coumadin) 1 Mg Tab 1 TAB PO 4XWK for 30 Days, TAB 5 Refills Warfarin Sodium (Coumadin) 2 Mg Tab 1 TAB PO 3XWK for 30 Days, TAB 3 Refills Admission Information HPI (per Admitting provider): This is a 66yo M with a PMH of persistent A flutter with RVR, CAD s/p CABG, diastolic CHF, s/p AVR, SHERWIN, DM II and other medical problems listed below who presents from cardio clinic with symptomatic A flutter. Patient was admitted in February for SOB and was found to be in A Flutter with RVR. Cardioversion could not be performed due to a left atrial thrombus found on ANDREA. Patient was discharged on coumadin and has been following with cardio and coag clinic as an out-patient. At the time of discharge, patient's lasix dose was increased from 20mg daily to 40mg daily, Toprol was increased to 100mg BID and spironolactone was decreased to 12.5mg daily. Patient states that he has been feeling okay at home but does endorse intermittent bouts of dizziness as well as fatigue. His , at bedside, notes that he seems to be SOB when talking and has also been losing weight unintentionally 2/2 decreased appetite. She also notes increased agitation. Went to cardio clinic follow up today and was found to have a HR ~ 150s. EKG showed A Flutter with RVR and patient was sent to ED for further evaluation. Denies any fever, chills, lightheadedness, near-syncope, CP, palpitations, abdominal pain, nausea, vomiting, bowel or bladder changes. Denies LE swelling. Has been taking all medications as prescribed since hospital discharge. In the ED, patient was found to have a HR of 146 that decreased to 110s after 500 cc NSS bolus. TSH is very low at <0.0005. Physical Exam (per Admitting): General Appearance: WD/WN, no apparent distress, + pertinent finding ( Breathing comfortably on room air. ) Head: normocephalic, atraumatic Eyes: normal inspection, PERRL, sclerae normal ENT: normal ENT inspection, hearing grossly normal, pharynx normal (dry mucous membranes ) Neck: supple, thyroid normal, no JVD, trachea midline Respiratory/Chest: chest non-tender, lungs clear, normal breath sounds, no respiratory distress, no accessory muscle use Cardiovascular: normal peripheral pulses, + tachycardia Abdomen/GI: non tender, soft, no organomegaly Back: normal inspection Extremities/Musculoskelatal: normal inspection, no calf tenderness, no pedal edema Neurologic/Psych: no motor/sensory deficits, alert, normal mood/affect, oriented x 3 Skin: normal color, warm/dry Hospital Course 66 year old male with history of CAD,CHF, A Fib on Coumadin, Bioprosthetic AVR, DM ,HTN presenting with Tachycardia. ATRIAL FLUTTER recent Dx with Paroxysmal Afib /a flutter started on Beta kari and Coumadin cardioversion could not be done as Left atrial Thrombus found in ANDREA was at Cardiology office today for routine follow up -found to be in Aflutter with HR 130 -150 - Echo: * The left ventricle is normal in size. * There is moderate concentric left ventricular hypertrophy. * Flattened septum is consistent with RV pressure overload. * No regional wall motion abnormalities noted. * Ejection Fraction = 60-65%. * There is a bioprosthetic aortic valve. * The left atrium is severely dilated. * There is mild mitral regurgitation. - Cardizem QID added Metoprolol XL continued INR 2.0, coumadin 1mg - heart rate controlled since - Cardiology consulted - Dr. Todd s/p ANDREA 04/02/[address] Warner ANDREA performed revealing no change in left atrial appendage thrombus - per Dr. Warner: patient and both agreed that they would like to perform ANDREA and undergo ablation unfortunately, ANDREA reveals no change in thrombus cont metoprolol and coumadin change diltiazem to cardizem cd still refer for EP eval as an outpatient but will require repeat ANDREA prior to any ablation attempts continue coumadin - ff up with Dr. Warner as scheduled HYPERTHYROIDISM: TSH < 0.005 with free T4 elevated 2.65 ( upper limit 1.6 ) D/w case with apron trimmer Endocrine in [facility] since pt is already symptomatic -recommend to start on Methimazole 15 mg daily check TSI( thyroid stimulating immunoglobulin ) : pending free T3: high Thyroid USG : no nodules pt will need repeat TSH level checked in next 4 -6 weeks strongly recommends Endocrine follow up with in a week of discharge - [facility] Endocr[facility]ology: ACUTE DECOMPENSATED CHF WITH DIASTOLIC DYSFUNCTION due to Aflutter Cxray shows pulmonary congestion , BNP elevated -- received 2 doses of Lasix IV euvolemic now -- continue Aldactone and PO Lasix may take additional lasix in the evening if needed for volume overload CAD S/P BIOPROSTHETIC AVR continue ASA, Statin, Metoprolol HTN : BP stable cont Toprol XL 100 mg BID added Cardizem on Aldactone and Lasix monitor TYPE 2 DM : continue usual medications DISPOSITION : d/c home Medicine followup with Dr Rojas -[facility] in 3-5 days Cardiology follow up with Dr Gee as scheduled Refer to Wool Presser for Hyperthyroid Total time spent on discharge = 40 MINUTES This includes examination of the patient, discharge planning, medication reconciliation, and communication with other providers. Discharge Instructions Discharge Instructions Date of Service Apr 02, 2017. Admission Reason for Admission: Atrial Fibrillation With Rvr, Hyperthyroidism, H/O Discharge Discharge Diagnosis / Problem: ATRIAL FIBRILLATION, HYPERTHYROIDISM Discharge Goals Goal(s): Diagnostic testing, Therapeutic intervention Activity Recommendations Activity Limitations: as noted below (NO HEAVY EXERTION ) Lifting Limitations: until after follow-up appointment Exercise/Sports Limitations: until after follow-up appointment Driving or Machine Use: NO DRIVING UNTIL CLEARED BY MSWS/PRIMARY CARE PHYSICIAN . Instructions / Follow-Up Instructions / Follow-Up PLEASE REFER TO YOUR NEW MEDICATION LIST AND FOLLOW INSTRUCTIONS CAREFULLY. PLEASE CALL [facility] REGARDING ADVICE ON FURTHER DOSING OF COUMADIN. CALL PRIMARY CARE PHYSICIAN OR RETURN TO ER IMMEDIATELY IF WITH RECURRENCE OF SYMPTOMS, HEART RACING, CHEST PAIN, WEAKNESS, DIZZINESS, SHORTNESS OF BREATH, LEG SWELLING. FOLLOW UP WITH PRIMARY CARE PROVIDER SADIQ FLEMING ON Sunday04/05/17 AT 2:45PM FOLLOW UP WITH MSWS SCHEDULED (CLINIC WILL CALL YOU ABOUT THE APPOINTMENT). YOU ALSO NEED TO BE ESTABLISHED WITH AN [employer] OF NURSING/THYROID SPECIALIST. PLEASE DISCUSS THIS WITH YOUR PRIMARY CARE PROVIDER. ([facility]- [phone] [place] [address], [place] [address]) Current Hospital Diet Patient's current hospital diet: AHA Diet (Heart Healthy) Discharge Diet Recommended Diet: AHA Diet (Heart Healthy), Diabetes Type 2 Diet Procedures Procedures Performed: TRANSESOPHAGEAL ECHOCARDIOGRAM Pending Studies Studies pending at discharge: yes List of pending studies: REPEAT BLOODWORK (INR) C/O COUMADIN CLINIC. Laboratory Results Hemoglobin A1c Test 03/31/17 05:29 Range/Units Estimated Average Glucose 85 mg/dl Hemoglobin A1c 4.6 4.5-5.6 % Lipid Panel Test 03/31/17 05:29 Range/Units Triglycerides Level 108 0-150 mg/dl Cholesterol Level 73 0-200 mg/dl HDL Cholesterol 15 mg/dl Cholesterol/HDL Ratio 4.9 LDL Cholesterol, Calculated 36 mg/dl Medical Emergencies . Who to Call and When: Medical Emergencies: If at any time you feel your situation is an emergency, please call 911 immediately. . Non-Emergent Contact Non-Emergency issues call your: Primary Care Provider, [place] Consultant Call Non-Emergent contact if: you have a fever, you have any medication questions . . "Provider Documentation" section prepared by Gelacio Kellogg. . VTE Core Measure Inpt VTE Proph given/why not?: Warfarin (Coumadin)
[2017-04-03] MEDS ORDERED: DILTIAZEM HCL 180 MG CAPCR PO SCH (09:00)
--- NOTE | 2017-04-03 11:51 | TEE ---
*NOTICE TO RECEIVING REPUBLICAN AGENCY This information is strictly Confidential and protected under [place] law. [place] law prohibits you from making any further disclosure of this information unless further disclosure is expressly permitted by the written consent of the person to whom it pertains or is authorized by law. A general authorization for the release of medical or other information is not sufficient for this purpose. Hospital accepts no responsibility if the information is made available to any other person, INCLUDING THE PATIENT. Interpretation Summary * Name: LUCIEN JONES Study Date: 04/02/2017 11:22 AM BP: 114/66 mmHg * Patient Location: [facility] HR: 81 * : 1950 (M/d/yyyy) Gender: Male Height: 65 in * Age: 66 yrs Ethnicity: CA Weight: 173 lb * Performed By: Tonya Weaver RDCS * * Reason For Study: H/O LEFT ATRIAL THROMBUS * BSA: 1.9 m2 * START TIME 12:15PM * END TIME 12:27PM * -- Conclusions -- * There is a large mobile echodensity measuring 1.4cm x 1.4cm attached to the atrial endocardial surface near the ostium of the left atrial appendage above the mitral valve leaflet. This lesion is unchanged compared to study of 02/16/17. * No thrombus visualized within the left atrial appendage. Procedure Details * ANDREA Probe #1 utilized for procedure. * The study was performed in Cardiac Catheterization Lab. * Time out was conducted by the physician, nurse, and hospital laboratory technician with positive identification of patient and procedure. * Informed consent for Transesophageal Echocardiogram was obtained prior to the procedure. * An intravenous line was placed. A topical anesthetic agent was used for oropharangeal anesthesia. A bite block was inserted. * The patient's vital signs, including blood pressure, heart rate, pulse oximetry and cardiac rhythm were monitored throughout the procedure . * Fentanyl 50 mcg was administered for procedural sedation. * Midazolam 2 mg administered for sedation. * The posterior oropharynx was anesthetized using a topical anesthetic spray. A bite guard was inserted. * A multifrequency, multiplane transesopheageal echocardiographic endoscope was inserted and manipulated in the standard fashion to achieve multiplane views. * The transesophageal probe was passed without difficulty. * The usual views were obtained; basal, mid-esophageal, transgastric and aortic views. * The patient tolerated the procedure well without evidence of orophangeal or esophageal trauma. * A 2D transesophageal echocardiogram with spectral and color flow Doppler was performed. Atria * There is a large mobile echodensity measuring 1.4cm x 1.4cm attached to the atrial endocardial surface near the ostium of the left atrial appendage above the mitral valve leaflet. This lesion is unchanged compared to study of 02/16/17. No thrombus visualized within the left atrial appendage.
[2017-04-05 01:36] LABS: TSI 616 % baseline (<140)
== END 2017-04-02 17:17 | disposition home or self-care (01) | DRG 308 ==
LOC: C.EDB 09:22 → C.2T 11:30 → ENRESERV 13:09
PROVIDERS: ADMIT Hospitalist; ATTEND Internal Medicine
PROC: B246ZZ4 Ultrasonography of Right and Left Heart, Transesophageal (ICD-10-PCS; principal; 2017-04-02 11:51)
DX: I48.92 Unspecified atrial flutter (principal); I50.31 Acute diastolic (congestive) heart failure; I51.3 Intracardiac thrombosis, not elsewhere classified; Z79.01 Long term (current) use of anticoagulants; E05.90 Thyrotoxicosis, unspecified without thyrotoxic crisis or storm; J45.909 Unspecified asthma, uncomplicated; N40.0 Benign prostatic hyperplasia without lower urinary tract symptoms; I25.10 Atherosclerotic heart disease of native coronary artery without angina pectoris; E11.9 Type 2 diabetes mellitus without complications; K21.9 Gastro-esophageal reflux disease without esophagitis; I10 Essential (primary) hypertension; I48.0 Paroxysmal atrial fibrillation; Z95.1 Presence of aortocoronary bypass graft; Z95.2 Presence of prosthetic heart valve; Z79.82 Long term (current) use of aspirin; Z79.84 Long term (current) use of oral hypoglycemic drugs; G47.33 Obstructive sleep apnea (adult) (pediatric); I45.10 Unspecified right bundle-branch block

== ENCOUNTER 2017-04-12 13:38 | Inpatient (IN) | payer OTHER ==
[~2017-04-12] VITALS: Ht 165.1 cm; Wt 90.0 kg
[~2017-04-12 13:38] MED LIST changes: +CMD1 PO; +CRDCD180 PO; +SPIR25TA PO; -SPR25 PO; +TPZ5 PO; -WARF4TAB43 PO
[2017-04-12] MEDS ORDERED: ONDANSETRON INJ 2 MG/ML 2 ML VIAL IV STA (13:58)
[2017-04-12] MEDS ORDERED: LACTATED RINGER'S 1000ML 1,000 ML IV STA (13:58)
--- NOTE | 2017-04-12 14:23 | DIAGNOSTIC IMAGING REPORT ---
SINGLE VIEW CHEST CLINICAL HISTORY: Generalized weakness. FINDINGS: An AP, portable, upright chest radiograph is compared to study dated 03/30/2017. The examination is degraded by portable technique and apical lordotic positioning. The patient is status post midline sternotomy. The heart is enlarged and there is atherosclerotic calcification of the thoracic aorta. The pulmonary vasculature is noncongested. There are layering pleural effusions with bibasilar consolidation. No pneumothorax is seen. The skeletal structures appear osteopenic. The bony thorax is grossly intact. Calcific tendinopathy is noted in the right shoulder. IMPRESSION: 1. Cardiomegaly without radiographic evidence of congestive failure. 2. There are layering pleural effusions with bibasilar consolidation, similar to the 03/30/2017 examination. This likely represents atelectasis. Clinical correlation will be required. Electronically signed by: Umesh Foy M.D. 04/12/2017 2:22 PM Dictated Date/Time: 04/12/2017 2:21 PM
[2017-04-12 14:39] LABS: BASO % 0.2 %; BASO ABS # 0.03 K/uL (0-0.2); EOS % 1.1 %; EOS ABS # 0.17 K/uL (0-0.5); HEMOGLOBIN 16.7 g/dL (14.0-18.0); IG# 0.11 K/uL (0.00-0.02); LYMPH % 5.6 %; LYMPH ABS # 0.83 K/uL (1.2-3.4); MEAN CELL VOLUME 92.6 fL (80-100); MEAN CORPUSCULAR HEMOGLOBIN 31.6 pg (25-34); MEAN CORPUSCULAR HGB CONC 34.1 g/dl (32-36); MEAN PLATELET VOLUME 9.3 fL (7.4-10.4); MONO % 6.3 %; MONO ABS # 0.94 K/uL (0.11-0.59); NEUT % 86.1 %; NEUT ABS # 12.77 K/uL (1.4-6.5); PLATELET COUNT 336 K/uL (130-400); RED CELL DISTRIBUTION WIDTH CV 16.7 % (11.5-14.5); RED CELL DISTRIBUTION WIDTH SD 55.9 fL (36.4-46.3); WHITE BLOOD COUNT 14.85 K/uL (4.8-10.8)
--- NOTE | 2017-04-12 15:08 | DIAGNOSTIC IMAGING REPORT ---
CT SCAN OF THE ABDOMEN AND PELVIS WITHOUT CONTRAST CLINICAL HISTORY: Left-sided abdominal pain COMPARISON STUDY: No previous studies for comparison. TECHNIQUE: CT scan of the abdomen and pelvis was performed from the lung bases to the proximal femurs. Images are reviewed in the axial, sagittal, and coronal planes. IV contrast was not administered for this examination. A dose lowering technique was utilized adhering to the principles of ALARA. CT DOSE: 866.88 mGy.cm FINDINGS: Lower chest: There are bilateral pleural effusions with bilateral lower lobe atelectasis/consolidation. Liver: The liver has a cirrhotic morphology. There is a 5 mm subcapsular hypodensity within the right hepatic lobe Gallbladder: No calculi are visualized. Borderline gallbladder wall thickening is likely secondary to hepatocellular disease Spleen: There is a 5.5 cm lower pole splenic hypodense lesion. Given its somewhat straight margin it is conceivable this represents a splenic infarct. The spleen is enlarged measuring 14 cm. Pancreas: There is infiltrative mass contiguous with the pancreatic body measuring in excess of 5 cm. This is contiguous with gastrohepatic ligament lymphadenopathy, celiac axis lymphadenopathy, and aortocaval lymphadenopathy. The splenic artery appears encased. Adrenal glands: Unremarkable. Kidneys: The unenhanced kidneys are normal in size without hydronephrosis. There is no contour deforming renal mass lesion. No renal calculi are identified. Bowel: There are no transition zones indicate bowel obstruction. Postsurgical changes are present within the right colon. Peritoneum: There is moderate ascites. No free intraperitoneal air is visualized. Vasculature: The abdominal aorta is normal in course and caliber. Adenopathy: There is left para-aortic lymphadenopathy. There is celiac axis adenopathy. There is gastrohepatic ligament adenopathy. There is peripancreatic adenopathy. Pelvic viscera: The bladder, and pelvic viscera are unremarkable. 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 IMPRESSION: 1. Examination limited given the lack of intravenous and oral contrast 2. Bilateral pleural effusions and bilateral lower lobe atelectasis/consolidation 3. 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 There is moderately extensive peripancreatic gastrohepatic ligament celiac and para-aortic adenopathy. 4. Cirrhotic morphology of the liver 5. Splenomegaly. 5.5 cm hypodense lower pole splenic lesion. The straight margins raise the possibility of an infarct although neoplasm could appear similar. 6. Moderate ascites Electronically signed by: Zeeshan Phelan M.D. 04/12/2017 3:07 PM Dictated Date/Time: 04/12/2017 2:55 PM
[2017-04-12 15:11] LABS: INR 9.5 (0.9-1.1); PTT PATIENT 67.9 SECONDS (21.0-31.0)
[2017-04-12 15:21] LABS: ALBUMIN 2.8 gm/dl (3.4-5.0); ALT/SGPT 12 U/L (12-78); BLOOD UREA NITROGEN 49 mg/dl (7-18); CALCIUM 11.4 mg/dl (8.5-10.1); CARBON DIOXIDE 26 mmol/L (21-32); CREATININE 2.01 mg/dl (0.60-1.40); GLUCOSE 85 mg/dl (70-99); LIPASE 607 U/L (73-393); POTASSIUM 5.4 mmol/L (3.5-5.1); SODIUM 130 mmol/L (136-145)
[2017-04-12] MEDS ORDERED: PHYTONADIONE 5 MG TAB PO ONE (15:30)
[2017-04-12] MEDS ORDERED: PHYTONADIONE INJ 5 MG in SODIUM CHLORIDE 0.9% 50ML 50 ML IV ONE (15:30)
[2017-04-12 15:33] LABS: ALKALINE PHOSPHATASE 169 U/L (45-117); AST/SGOT 31 U/L (15-37); CKMB 0.6 ng/ml (0.5-3.6); TOTAL PROTEIN 8.3 gm/dl (6.4-8.2)
[2017-04-12] MEDS ORDERED: ACETAMINOPHEN 325 MG TAB PO PRN (18:30)
--- NOTE | 2017-04-12 18:34 | EMERGENCY ROOM VISIT NOTE ---
History Report prepared by Mino: Patrice Mg Under the Supervision of: Dr. Derrell Cho M.D. First contact with patient: 13:49 Chief Complaint: WEAKNESS Stated Complaint: WEAKNESS NOT EATING, POSSIBLE DEHYDRATION Nursing Triage Summary: Pt presents with who states d/c from here on 04/02/17, discovered his thyroid is "out of whack". states pt not eating, gags and gets nauseated when trying to eat. Weak, dehydrated. INR 7.9 yesterday. PMH: Afib, diabetic, PE History of Present Illness The patient is a 66 year old male who presents to the Emergency Room with complaints of persistent fatigue and nausea that he has been experiencing since he was discharged from the Hospital on March 30, 13 days ago. The patient states that he has been fatigued and nauseous with eating since he has been home. His at bedside notes that he has not been eating at all. The patient denies any abdominal pain or vomiting with the nausea. He is urinating normally , but has not been having bowel movements as usual as normal. The patient was diagnosed with Atrial Flutter with RVR and Hyperthyroidism on his inpatient stay. He was told that the fatigue could be the result of his thyroid disorder. The patient denies any LOC, headache, fevers, chills, diaphoresis, visual changes, neck pain, chest pain, breathing difficulties, back pain, melena, hematochezia, urinary symptoms, numbness, lymphadenopathy, rash, or other complaints. 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 A total of ten systems were reviewed and were otherwise negative. Past Medical & Surgical Medical Problems: (1) Asthma, mild persistent (2) BPH (benign prostatic hyperplasia) (3) CAD (coronary artery disease) (4) Diastolic CHF (5) DM type 2 (diabetes mellitus, type 2) (6) Dyslipidemia (7) GERD (gastroesophageal reflux disease) (8) HTN (hypertension) (9) Hyperthyroidism (10) Paroxysmal A-fib (11) Sleep apnea (12) Weakness Surgical Problems: (1) H/O aortic valve replacement (2) S/P CABG x 3 Family History Patient reports no known family medical history. Social History Smoking Status: Never Smoker Drug Use: none Marital Status: Housing Status: lives with family Occupation Status: retired Current/Historical Medications Scheduled Aspirin (Ecotrin Low Strength), 81 MG PO DAILY Cetirizine (Zyrtec), 10 MG PO DAILY Diltiazem HCl (Diltiazem HCl ER), 180 MG PO QAM Fenofibrate (Tricor), 1 TAB PO DAILY Fluticasone Propionate (Flovent Hfa), 2 PUFFS INH BID Fluticasone Propionate (Nasal) (Flonase Allergy Relief), 1 SPRAY SHALONDA DAILY Furosemide (Furosemide), 40 MG PO DAILY Magnesium Oxide (mg Supplement (Magnesium Oxide), 400 MG PO BID Metformin Hcl (Glucophage), 500 MG PO BID Methimazole (Methimazole), 15 MG PO DAILY Metoprolol Succ (Toprol Xl) (Toprol-Xl ), 100 MG PO BID Montelukast Sod (Montelukast Sodium), 10 MG PO QPM Nitroglycerin (Nitrostat), 0.4 MG UT PRN Spironolactone (Aldactone), 12.5 MG PO QAM Warfarin Sod (Coumadin), 1 MG PO DAILY@16 Scheduled PRN Acetaminophen Tab (Tylenol), 650 MG PO UD PRN for BACK PAIN Albuterol Hfa (Ventolin Hfa), 2 PUFFS INH Q4H PRN for SOB/Wheezing Docusate Sodium (Colace), 1 TAB PO BID PRN for Constipation Allergies Coded Allergies: Statins (Unverified Adverse Reaction, Severe, LEG WEAKNESS, 03/30/17) Physical Exam Vital Signs Date Time Temp Pulse Resp B/P (MAP) Pulse Ox O2 Delivery O2 Flow Rate FiO2 04/12/17 17:58 67 20 110/77 96 Room Air 04/12/17 16:21 71 113/63 97 Room Air 73 105/65 73 104/59 04/12/17 16:00 65 04/12/17 15:30 69 20 126/65 97 Room Air 04/12/17 14:44 73 04/12/17 14:08 Room Air 04/12/17 13:40 36.7 74 16 111/61 96 Room Air Physical Exam GENERAL: Awake, alert, Tired-appearing, in no acute distress HENT: Normocephalic, atraumatic. Oropharynx unremarkable. Mucous Membranes are DRY. EYES: Normal conjunctiva. Sclera non-icteric. NECK: Supple. No nuchal rigidity. FROM. No JVD. RESPIRATORY: Clear to auscultation. CARDIAC: Regular rate, normal rhythm. Extremities warm and well perfused. Pulses equal. ABDOMEN: Soft, non-distended. No tenderness to palpation. No rebound or guarding. No masses. RECTAL: Deferred. MUSCULOSKELETAL: Chest examination reveals no tenderness. The back is symmetrical on inspection without obvious abnormality. There is no CVA tenderness to palpation. No joint edema. LOWER EXTREMITIES: Calves are equal size bilaterally and non-tender. No edema. No discoloration. NEURO: Normal sensorium. No sensory or motor deficits noted. SKIN: No rash or jaundice noted. Medical Decision & Procedures ER Provider Diagnostic Interpretation: Radiology results as stated below per my review and radiologist interpretation: CT SCAN OF THE ABDOMEN AND PELVIS WITHOUT CONTRAST CLINICAL HISTORY: Left-sided abdominal pain COMPARISON STUDY: No previous studies for comparison. TECHNIQUE: CT scan of the abdomen and pelvis was performed from the lung bases to the proximal femurs. Images are reviewed in the axial, sagittal, and coronal planes. IV contrast was not administered for this examination. A dose lowering technique was utilized adhering to the principles of ALARA. CT DOSE: 866.88 mGy.cm FINDINGS: Lower chest: There are bilateral pleural effusions with bilateral lower lobe atelectasis/consolidation. Liver: The liver has a cirrhotic morphology. There is a 5 mm subcapsular hypodensity within the right hepatic lobe Gallbladder: No calculi are visualized. Borderline gallbladder wall thickening is likely secondary to hepatocellular disease Spleen: There is a 5.5 cm lower pole splenic hypodense lesion. Given its somewhat straight margin it is conceivable this represents a splenic infarct. The spleen is enlarged measuring 14 cm. Pancreas: There is infiltrative mass contiguous with the pancreatic body measuring in excess of 5 cm. This is contiguous with gastrohepatic ligament lymphadenopathy, celiac axis lymphadenopathy, and aortocaval lymphadenopathy. The splenic artery appears encased. Adrenal glands: Unremarkable. Kidneys: The unenhanced kidneys are normal in size without hydronephrosis. There is no contour deforming renal mass lesion. No renal calculi are identified. Bowel: There are no transition zones indicate bowel obstruction. Postsurgical changes are present within the right colon. Peritoneum: There is moderate ascites. No free intraperitoneal air is visualized. Vasculature: The abdominal aorta is normal in course and caliber. Adenopathy: There is left para-aortic lymphadenopathy. There is celiac axis adenopathy. There is gastrohepatic ligament adenopathy. There is peripancreatic adenopathy. Pelvic viscera: The bladder, and pelvic viscera are unremarkable. 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 IMPRESSION: 1. Examination limited given the lack of intravenous and oral contrast 2. Bilateral pleural effusions and bilateral lower lobe atelectasis/consolidation 3. 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 There is moderately extensive peripancreatic gastrohepatic ligament celiac and para-aortic adenopathy. 4. Cirrhotic morphology of the liver 5. Splenomegaly. 5.5 cm hypodense lower pole splenic lesion. The straight margins raise the possibility of an infarct although neoplasm could appear similar. 6. Moderate ascites Electronically signed by: Zeeshan Phelan M.D. 04/12/2017 3:07 PM Dictated Date/Time: 04/12/2017 2:55 PM SINGLE VIEW CHEST CLINICAL HISTORY: Generalized weakness. FINDINGS: An AP, portable, upright chest radiograph is compared to study dated 03/30/2017. The examination is degraded by portable technique and apical lordotic positioning. The patient is status post midline sternotomy. The heart is enlarged and there is atherosclerotic calcification of the thoracic aorta. The pulmonary vasculature is noncongested. There are layering pleural effusions with bibasilar consolidation. No pneumothorax is seen. The skeletal structures appear osteopenic. The bony thorax is grossly intact. Calcific tendinopathy is noted in the right shoulder. IMPRESSION: 1. Cardiomegaly without radiographic evidence of congestive failure. 2. There are layering pleural effusions with bibasilar consolidation, similar to the 03/30/2017 examination. This likely represents atelectasis. Clinical correlation will be required. Electronically signed by: Umesh Foy M.D. 04/12/2017 2:22 PM Dictated Date/Time: 04/12/2017 2:21 PM Laboratory Results 04/12/17 14:30 Red Blood Count 5.29, Mean Corpuscular Volume 92.6, Mean Corpuscular Hemoglobin 31.6, Mean Corpuscular Hemoglobin Concent 34.1, Mean Platelet Volume 9.3, Neutrophils (%) (Auto) 86.1, Lymphocytes (%) (Auto) 5.6, Monocytes (%) (Auto) 6.3, Eosinophils (%) (Auto) 1.1, Basophils (%) (Auto) 0.2, Neutrophils # (Auto) 12.77, Lymphocytes # (Auto) 0.83, Monocytes # (Auto) 0.94, Eosinophils # (Auto) 0.17, Basophils # (Auto) 0.03 Test 04/12/17 13:45 04/12/17 14:15 04/12/17 14:30 04/12/17 18:09 Bedside Glucose 83 mg/dl (70-99) Urine Color DK YELLOW Urine Appearance CLOUDY (CLEAR) Urine pH 5.0 (4.5-7.5) Urine Specific [place] 1.017 (1.000-1.030) Urine Protein NEG (NEG) Urine Glucose (UA) NEG (NEG) Urine Ketones NEG (NEG) Urine Occult Blood NEG (NEG) Urine Nitrite NEG (NEG) Urine Bilirubin NEG (NEG) Urine Urobilinogen NEG (NEG) Urine Leukocyte Esterase TRACE (NEG) Urine WBC (Auto) 1-5 /hpf (0-5) Urine RBC (Auto) 0-4 /hpf (0-4) Urine Hyaline Casts (Auto) >30 /lpf (0-5) Urine Epithelial Cells (Auto) 10-20 /lpf (0-5) Urine Bacteria (Auto) 1+ (NEG) Urine Pathogenic Casts /lpf (0) White Blood Count 14.85 K/uL (4.8-10.8) Red Blood Count 5.29 M/uL (4.7-6.1) Hemoglobin 16.7 g/dL (14.0-18.0) Hematocrit 49.0 % (42-52) Mean Corpuscular Volume 92.6 fL (80-100) Mean Corpuscular Hemoglobin 31.6 pg (25-34) Mean Corpuscular Hemoglobin Concent 34.1 g/dl (32-36) Platelet Count 336 K/uL (130-400) Mean Platelet Volume 9.3 fL (7.4-10.4) Neutrophils (%) (Auto) 86.1 % Lymphocytes (%) (Auto) 5.6 % Monocytes (%) (Auto) 6.3 % Eosinophils (%) (Auto) 1.1 % Basophils (%) (Auto) 0.2 % Neutrophils # (Auto) 12.77 K/uL (1.4-6.5) Lymphocytes # (Auto) 0.83 K/uL (1.2-3.4) Monocytes # (Auto) 0.94 K/uL (0.11-0.59) Eosinophils # (Auto) 0.17 K/uL (0-0.5) Basophils # (Auto) 0.03 K/uL (0-0.2) RDW Standard Deviation 55.9 fL (36.4-46.3) RDW Coefficient of Variation 16.7 % (11.5-14.5) Immature Granulocyte % (Auto) 0.7 % Immature Granulocyte # (Auto) 0.11 K/uL (0.00-0.02) Prothrombin Time 95.0 SECONDS (9.0-12.0) Prothromb Time International Ratio 9.5 (0.9-1.1) Activated Partial Thromboplast Time 67.9 SECONDS (21.0-31.0) Partial Thromboplastin Ratio 2.6 Est Creatinine Clear Calc Drug Dose 35.0 ml/min Magnesium Level 2.7 mg/dl (1.8-2.4) Total Bilirubin 1.5 mg/dl (0.2-1) Direct Bilirubin 0.5 mg/dl (0-0.2) Aspartate Amino Transf (AST/SGOT) 31 U/L (15-37) Alanine Aminotransferase (ALT/SGPT) 12 U/L (12-78) Alkaline Phosphatase 169 U/L (45-117) Total Creatine Kinase 27 U/L (39-308) Creatine Kinase MB 0.6 ng/ml (0.5-3.6) Creatine Kinase MB Ratio 2.2 (0-3.0) Troponin I < 0.015 ng/ml (0-0.045) Total Protein 8.3 gm/dl (6.4-8.2) Albumin 2.8 gm/dl (3.4-5.0) Lipase 607 U/L (73-393) Thyroid Stimulating Hormone (TSH) 0.014 uIu/ml (0.300-4.500) Free Thyroxine 1.13 ng/dl (0.80-1.60) Free Triiodothyronine 1.46 pg/ml (2.30-4.20) Laboratory results reviewed by me Medications Administered Medications (Trade) Dose Ordered Sig/Sal Route Start Time Stop Time Status Last Admin Dose Admin Lactated Ringer's 1,000 ml @ 125 mls/hr Q8H STAT IV 04/12/17 13:58 04/12/17 18:05 DC 04/12/17 14:39 125 MLS/HR Ondansetron HCl (Zofran Inj) 4 mg NOW STAT IV 04/12/17 13:58 04/12/17 14:00 DC 04/12/17 14:39 4 MG Phytonadione (Mephyton Tab) 5 mg ONE ONCE PO 04/12/17 15:30 04/12/17 15:31 DC 04/12/17 15:48 5 MG ECG Per My Interpretation Indication: weakness Rate (beats per minute): 74 Rhythm: atrial flutter Findings: LAFB, RBBB, other (No ELSA/STD) ED Course 1357: The patient was evaluated in room A4. A complete history and physical exam was performed. 1358: Ordered Zofran 4 mg IV, Lactated Ringer's 1000 mL @ 125 mL/hr IV. 1432: I discussed the case with Dr. Phelan - Radiology. He states the fluid on the patients abdomen does not measure to be blood by CT criteria. 1530: Ordered Phytonadione 5 mg PO. 1610: I discussed the case with Betty Milan - [facility] Hospitalist HARESH Baptiste. She will evaluate the patient for further treatment. Medical Decision Triage Nursing notes reviewed. The patient's presentation and history were concerning for weakness, nausea, and recent admission for rapid a flutter. Etiologies such as metabolic, infection, hypo/hyperglycemia, electrolyte abnormalities, cardiac sources, intracerebral event, toxicologic, neurologic, as well as others were entertained. The patient was evaluated. He look dehydrated.An IV was established. He was given IV Zofran. He was hydrated. The patient was found to have a mild leukocytosis and acute renal failure on blood work. His CT imaging revealed findings concerning for splenic infarct as well as a pancreatic mass. The patient was informed. The patient was also found to have a supratherapeutic INR. He was given 5 mg of oral vitamin K. Consultation was made with internal medicine for further evaluation and management. Consults Time Called: 1428 Consulting Physician: Dr. Phelan - Radiology Returned Call: 1432 I discussed the case with Dr. Phelan - Radiology. He states the fluid on the patients abdomen does not measure to be blood by CT criteria. Additional Consults: Time Called: 1602 Consulted Physician: Betty Braun PA-C Returned Call: 1610 Additional Comments: I discussed the case with Betty Braun PA-C. She will evaluate the patient for further treatment. Impression Primary Impression: Acute renal failure Additional Impressions: Pancreatic mass Splenic infarct Supratherapeutic INR Scribe Attestation The scribe's documentation has been prepared under my direction and personally reviewed by me in its entirety. I confirm that the note above accurately reflects all work, treatment, procedures, and medical decision making performed by me. Departure Information Dispostion Being Evaluated By Hospitalist Referrals Redd Rojas D.O. (PCP) Patient Instructions My [facility] Problem Qualifiers
--- NOTE | 2017-04-12 18:38 | History and Physical ---
History & Physical Date & Time of Service: Apr 12, 2017 at 18:23 Chief Complaint: Weakness Not Eating, Possible Dehydration Primary Care Physician: Redd Rojas D.O. History of Present Illness Source: patient, spouse, clinic records, hospital records 66 year old male with history of CAD, CHF, A fib on coumadin, DM, HTN, Hyperthyroidism presenting with poor oral intake and weakness. Patient was discharged last March 2017 after evaluation and management of A fib with RVR. During that time, patient was found to have low TSH and high Free T4. Methimazole PO initiated. Diltiazem PO also started. Since discharge, patient was apparently having loss of appetite, generalized malaise. Patient also noted to have abdominal distention, but denies abdominal pain, nausea, changes with BM or urination. No fever/chills, cough, dyspnea, chest pain, palpitations, dizziness. Patient then presented to the ER. CT abdomen notable for pancreatic mass with moderate ascites. Crea also elevated at 2.0 with K 5.4 and Ca Corrected 12.3. EKG a fib. CXR possible bilateral effusion/atelectasis: unchanged from previous INR 9.5 Patient was given IV Lactated Ringer's and Vit K. On exam, patient seen resting in bed, alert, oriented, comfortable. States he feels slightly better after IV fluids. No active dyspnea, chest pain, abdominal pain, nausea. No bleeding. denies other symptoms Family History Patient reports no known family medical history. Social History Smoking Status: Never Smoker Drug Use: none Marital Status: Housing status: lives with family Occupational Status: retired Immunizations History of Influenza Vaccine: Yes Influenza Vaccine Date: Oct 26, 2016 History of Tetanus Vaccine?: Yes Tetanus Immunization Date: Dec 08, 2005 History of Pneumococcal: Yes Pneumococcal Date: Jul 20, 2016 Allergies Coded Allergies: Statins (Unverified Adverse Reaction, Severe, LEG WEAKNESS, 03/30/17) Home Medications Scheduled Aspirin (Ecotrin Low Strength), 81 MG PO DAILY Cetirizine (Zyrtec), 10 MG PO DAILY Diltiazem HCl (Diltiazem HCl ER), 180 MG PO QAM Fenofibrate (Tricor), 1 TAB PO DAILY Fluticasone Propionate (Flovent Hfa), 2 PUFFS INH BID Fluticasone Propionate (Nasal) (Flonase Allergy Relief), 1 SPRAY SHALONDA DAILY Furosemide (Furosemide), 40 MG PO DAILY Magnesium Oxide (mg Supplement (Magnesium Oxide), 400 MG PO BID Metformin Hcl (Glucophage), 500 MG PO BID Methimazole (Methimazole), 15 MG PO DAILY Metoprolol Succ (Toprol Xl) (Toprol-Xl ), 100 MG PO BID Montelukast Sod (Montelukast Sodium), 10 MG PO QPM Nitroglycerin (Nitrostat), 0.4 MG UT PRN Spironolactone (Aldactone), 12.5 MG PO QAM Warfarin Sod (Coumadin), 1 MG PO DAILY@16 Scheduled PRN Acetaminophen Tab (Tylenol), 650 MG PO UD PRN for BACK PAIN Albuterol Hfa (Ventolin Hfa), 2 PUFFS INH Q4H PRN for SOB/Wheezing Docusate Sodium (Colace), 1 TAB PO BID PRN for Constipation Review of Systems Constitutional- no fever; (+) weight loss Eyes- no acute visual changes ENT- no sinus drainage; no pharyngitis Pulmonary- no cough, no wheezing, no shortness of breath Cardiac- no chest pain, no palpitations, no orthopnea, no dependent edema GI- (+) occ nausea, no vomiting, no diarrhea, no melena, no hematochezia - no dysuria, no hematuria Musculoskeletal- no arthralgias, no myalgias Derm- no rashes, no new skin lesions, no changing skin lesions Hematologic- no unusual bruising, no unusual bleeding Lymphatics- no adenopathy Endocrine- no polyuria or polydipsia; no heat or cold intolerance Neuro- no headaches, no focal neurologic symptoms Psych- no anxiety, no depression Physical Exam Vital Signs Date Time Temp Pulse Resp B/P (MAP) Pulse Ox O2 Delivery O2 Flow Rate FiO2 04/12/17 17:58 67 20 110/77 96 Room Air 04/12/17 16:21 71 113/63 97 Room Air 73 105/65 73 104/59 04/12/17 16:00 65 04/12/17 15:30 69 20 126/65 97 Room Air 04/12/17 14:44 73 04/12/17 14:08 Room Air 04/12/17 13:40 36.7 74 16 111/61 96 Room Air General Appearance: WD/WN, no apparent distress Head: normocephalic, atraumatic Eyes: normal inspection, PERRL, EOMI, sclerae normal ENT: normal ENT inspection, hearing grossly normal, pharynx normal Neck: supple, no adenopathy, thyroid normal, no JVD, trachea midline Respiratory/Chest: chest non-tender, lungs clear, no respiratory distress, no accessory muscle use, + decreased breath sounds (bilateral bases) Cardiovascular: no edema, no JVD, no murmur, + irregularly irregular Abdomen/GI: soft, + pertinent finding (moderately distended, non tender) Back: normal inspection, no CVA tenderness Extremities/Musculoskelatal: normal inspection, no calf tenderness, normal capillary refill, no pedal edema, normal range of motion, pelvis stable 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, no motor/sensory deficits, alert, normal mood/affect, normal reflexes, oriented x 3 Skin: normal color, warm/dry, no rash Lymphatic: no adenopathy Diagnostics Laboratory Results Results Past 24 Hours Test 04/12/17 13:45 04/12/17 14:15 04/12/17 14:30 04/12/17 18:09 Range/Units Bedside Glucose 83 70-99 mg/dl Urine Color DK YELLOW Urine Appearance CLOUDY CLEAR Urine pH 5.0 4.5-7.5 Urine Specific [place] 1.017 1.000-1.030 Urine Protein NEG NEG Urine Glucose (UA) NEG NEG Urine Ketones NEG NEG Urine Occult Blood NEG NEG Urine Nitrite NEG NEG Urine Bilirubin NEG NEG Urine Urobilinogen NEG NEG Urine Leukocyte Esterase TRACE NEG Urine WBC (Auto) 1-5 0-5 /hpf Urine RBC (Auto) 0-4 0-4 /hpf Urine Hyaline Casts (Auto) >30 0-5 /lpf Urine Epithelial Cells (Auto) 10-20 0-5 /lpf Urine Bacteria (Auto) 1+ NEG Urine Pathogenic Casts 0 /lpf White Blood Count 14.85 4.8-10.8 K/uL Red Blood Count 5.29 4.7-6.1 M/uL Hemoglobin 16.7 14.0-18.0 g/dL Hematocrit 49.0 42-52 % Mean Corpuscular Volume 92.6 80-100 fL Mean Corpuscular Hemoglobin 31.6 25-34 pg Mean Corpuscular Hemoglobin Concent 34.1 32-36 g/dl Platelet Count 336 130-400 K/uL Mean Platelet Volume 9.3 7.4-10.4 fL Neutrophils (%) (Auto) 86.1 % Lymphocytes (%) (Auto) 5.6 % Monocytes (%) (Auto) 6.3 % Eosinophils (%) (Auto) 1.1 % Basophils (%) (Auto) 0.2 % Neutrophils # (Auto) 12.77 1.4-6.5 K/uL Lymphocytes # (Auto) 0.83 1.2-3.4 K/uL Monocytes # (Auto) 0.94 0.11-0.59 K/uL Eosinophils # (Auto) 0.17 0-0.5 K/uL Basophils # (Auto) 0.03 0-0.2 K/uL RDW Standard Deviation 55.9 36.4-46.3 fL RDW Coefficient of Variation 16.7 11.5-14.5 % Immature Granulocyte % (Auto) 0.7 % Immature Granulocyte # (Auto) 0.11 0.00-0.02 K/uL Prothrombin Time 95.0 9.0-12.0 SECONDS Prothromb Time International Ratio 9.5 0.9-1.1 Activated Partial Thromboplast Time 67.9 21.0-31.0 SECONDS Partial Thromboplastin Ratio 2.6 Sodium Level 130 136-145 mmol/L Potassium Level 5.4 3.5-5.1 mmol/L Chloride Level 95 98-107 mmol/L Carbon Dioxide Level 26 21-32 mmol/L Anion Gap 9.0 3-11 mmol/L Blood Urea Nitrogen 49 7-18 mg/dl Creatinine 2.01 0.60-1.40 mg/dl Est Creatinine Clear Calc Drug Dose 35.0 ml/min Estimated GFR () 38.9 Estimated GFR (Non- 33.6 BUN/Creatinine Ratio 24.2 10-20 Random Glucose 85 70-99 mg/dl Calcium Level 11.4 8.5-10.1 mg/dl Magnesium Level 2.7 1.8-2.4 mg/dl Total Bilirubin 1.5 0.2-1 mg/dl Direct Bilirubin 0.5 0-0.2 mg/dl Aspartate Amino Transf (AST/SGOT) 31 15-37 U/L Alanine Aminotransferase (ALT/SGPT) 12 12-78 U/L Alkaline Phosphatase 169 45-117 U/L Total Creatine Kinase 27 39-308 U/L Creatine Kinase MB 0.6 0.5-3.6 ng/ml Creatine Kinase MB Ratio 2.2 0-3.0 Troponin I < 0.015 0-0.045 ng/ml Total Protein 8.3 6.4-8.2 gm/dl Albumin 2.8 3.4-5.0 gm/dl Lipase 607 73-393 U/L Thyroid Stimulating Hormone (TSH) 0.014 0.300-4.500 uIu/ml Free Thyroxine 1.13 0.80-1.60 ng/dl Free Triiodothyronine 1.46 2.30-4.20 pg/ml Microbiology Results 04/12/17 Urine Culture, Received Pending Diagnostic Radiology CT abdomen: 1. Examination limited given the lack of intravenous and oral contrast 2. Bilateral pleural effusions and bilateral lower lobe atelectasis/consolidation 3. 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 There is moderately extensive peripancreatic gastrohepatic ligament celiac and para-aortic adenopathy. 4. Cirrhotic morphology of the liver 5. Splenomegaly. 5.5 cm hypodense lower pole splenic lesion. The straight margins raise the possibility of an infarct although neoplasm could appear similar. 6. Moderate ascites CXR: 1. Cardiomegaly without radiographic evidence of congestive failure. 2. There are layering pleural effusions with bibasilar consolidation, similar to the 03/30/2017 examination. This likely represents atelectasis. Clinical correlation will be required. EKG a flutter HR 74 Impression Assessment and Plan 66 year old male with history of CAD, CHF, A fib on coumadin, DM, HTN, Hyperthyroidism presenting with poor oral intake and weakness. WEAKNESS, POOR ORAL INTAKE FROM: PANCREATIC MASS WITH ASCITES will consult GI ACUTE RENAL FAILURE LIKELY PRERENAL, with HYPER CA AND HYPER K hold lasix, spironolactone, metformin repeat PRP at 6pm IV NSS at 125cc/hr Renal Diet will consult Nephrology METHIMAZOLE? TSH and Free T4 improving from last month will consult Endo ELEVATED INR INR 9.5 Vit K 5mg po given repeat in AM CAD no cardiac symptoms hold Aspirin while INR 9.5 CHF euvolemic (+) ascites, 3rd spacing from pancreatic mass? hold diuretics for now, monitor AFIB ON COUMADIN continue Diltiazem and Metoprolol with holding parameters INR 9.5, Vit K given, hold coumadin, INR monitoring DM hold Metformin Pharm Gly Cx HTN on Diltiazem and Metoprolol with parameters HYPERTHYROIDISM TFTs slightly improved from last month Endo consulted FULL CODE DVT PPX INR 9.5 Disposition pending Resuscitation Status VTE Prophylaxis Will order VTE Prophylaxis: No Reason for no VTE drug order: Contraindicated Reason no Mechanical VTE Order: Contraindicated
[2017-04-12 18:45] LABS: CALCIUM 11.2 mg/dl (8.5-10.1); CREATININE 1.7 mg/dl (0.60-1.40); POTASSIUM 5.4 mmol/L (3.5-5.1)
[2017-04-12] MEDS ORDERED: PHARMACY GLYCEMIC MGMT CONSULT PRN (18:45)
[2017-04-12] MEDS ORDERED: GLUCOSE 10 TABS/TUBE PO PRN (18:45)
[2017-04-12] MEDS ORDERED: GLUCOSE 40% GEL 15 GM TUBE PO PRN (18:45)
[2017-04-12] MEDS ORDERED: DEXTROSE 50% 50 ML SYR IV PRN (18:45)
[2017-04-12] MEDS ORDERED: GLUCAGON FOR INJ 1 MG VIAL SQ PRN (18:45)
[2017-04-12] MEDS: SODIUM CHLORIDE 0.9% 1000ML 1,000 ML IV SCH (18:48)
[2017-04-12 19:00] VITALS: BP 116/72; PULSE 73; TEMP 36.4; Ht 165.1 cm; Wt 90.0 kg
[2017-04-12 20:48] VITALS: BP 111/70; PULSE 73
[2017-04-12] MEDS: FLUTICASONE PROP HFA INH 44 MCG INHALER INH SCH (20:50)
[2017-04-12] MEDS: MONTELUKAST SOD 10 MG TAB PO SCH (20:51)
[2017-04-12] MEDS: INSULIN ASPART 100 UNITS/ML 3 ML PEN SC SCH (20:51)
[2017-04-12] MEDS: METOPROLOL SUCC 50MG EXT REL TAB PO SCH (20:51)
[2017-04-12 23:07] VITALS: BP 110/70; PULSE 69; TEMP 36.7; O2SAT 96
[2017-04-13] VITALS (12 sets, daily range): BP systolic 106–117; BP diastolic 61–72; PULSE 62–98; TEMP 36.2–36.8; O2SAT 93–96
[2017-04-13] MEDS: SODIUM CHLORIDE 0.9% 1000ML 1,000 ML IV SCH ×3 (02:49→16:05)
[2017-04-13] MEDS: INSULIN ASPART 100 UNITS/ML 3 ML PEN SC SCH ×4 (06:30→20:55)
[2017-04-13 06:40] LABS: BASO % 0.2 %; BASO ABS # 0.03 K/uL (0-0.2); EOS % 1.9 %; EOS ABS # 0.24 K/uL (0-0.5); HEMATOCRIT 47.1 % (42-52); HEMOGLOBIN 15.9 g/dL (14.0-18.0); IG# 0.08 K/uL (0.00-0.02); LYMPH % 6.1 %; LYMPH ABS # 0.76 K/uL (1.2-3.4); MEAN CELL VOLUME 93.1 fL (80-100); MEAN CORPUSCULAR HEMOGLOBIN 31.4 pg (25-34); MEAN CORPUSCULAR HGB CONC 33.8 g/dl (32-36); MEAN PLATELET VOLUME 9.5 fL (7.4-10.4); MONO ABS # 0.87 K/uL (0.11-0.59); NEUT % 84.2 %; NEUT ABS # 10.48 K/uL (1.4-6.5); PLATELET COUNT 262 K/uL (130-400); RED CELL DISTRIBUTION WIDTH CV 16.8 % (11.5-14.5); RED CELL DISTRIBUTION WIDTH SD 56.4 fL (36.4-46.3); WHITE BLOOD COUNT 12.46 K/uL (4.8-10.8)
[2017-04-13 06:57] LABS: INR 3.6 (0.9-1.1)
[2017-04-13 07:18] LABS: CALCIUM 10.4 mg/dl (8.5-10.1); CREATININE 1.55 mg/dl (0.60-1.40); POTASSIUM 5.1 mmol/L (3.5-5.1)
[2017-04-13] MEDS: FLUTICASONE PROPIONATE NA SPR 16 GM BTL NAE SCH (07:25)
[2017-04-13] MEDS: FLUTICASONE PROP HFA INH 44 MCG INHALER INH SCH ×2 (07:25→20:54)
[2017-04-13] MEDS: DILTIAZEM HCL 180 MG CAPCR PO SCH (07:25)
[2017-04-13] MEDS: METOPROLOL SUCC 50MG EXT REL TAB PO SCH ×2 (07:26→20:52)
--- NOTE | 2017-04-13 10:45 | Gastrointestinal Consultation ---
Gastrointestinal Consultation Date of Consultation: Apr 13, 2017 Attending Physician: Bess Consulting Physician: Bijan Reason for Consultation: ascites History of Present Illness Patient is a 66 year old male w/. history of CAD s/p CABG x 3, aortic valve replacement, afib on coumadin and others listed below who presented to [facility] a few weeks after discharge for weakness, decreased appetite. GI was asked to evaluate the pt given abnormal CT imaging. Pt was seen and evaluated, chart reviewed. Pt notes that he has been losing weight over the course of the past few months, but has been gaining fluid weight w/ abdominal distention. This has been going on for a few weeks but has worsened acutely over the past few days. He has abdominal fullness but no pain. Denies epigastric abdominal pain, nausea , vomiting. Moving his bowels well, no black or bloody stools. Reports appetite, early satiety and mild chronic nausea x months. Today, denies fever, chills, CP, SOB ETOH: none Family history of cirrhosis: none Family history of GI malignancy: none CT ABD/Pelvis 04/12/17: Examination limited given the lack of intravenous and oral contrast Bilateral pleural effusions and bilateral lower lobe atelectasis/ consolidation Infiltrative mass contiguous with the pancreas, with suspected splenic artery and vein encasement. There is moderately extensive peripancreatic gastrohepatic ligament celiac and para-aortic adenopathy. Cirrhotic morphology of the liver Splenomegaly. 5.5 cm hypodense lower pole splenic lesion. The straight margins raise the possibility of an infarct although neoplasm could appear similar. Moderate ascites Past Medical/Surgical History Medical Problems: (1) Acute renal failure Status: Acute (2) Atrial fibrillation with rapid ventricular response Status: Acute (3) Pancreatic mass Status: Acute (4) Splenic infarct Status: Acute (5) Supratherapeutic INR Status: Acute Past Medical History: T2DM, dyslipidemia, asthma, sleep apnea, COPD, CHF, afib on coumadin, CAD, BPH Past Surgical History: CABG x 3 Aortic valve replacement EGD Tonsillectomy Family History Patient reports no known family medical history. Social History Smoking Status: Never Smoker Drug Use: none Marital Status: Housing Status: lives with family Occupation Status: retired Allergies Coded Allergies: Statins (Unverified Adverse Reaction, Severe, LEG WEAKNESS, 03/30/17) Current Medications Home Meds and Scripts Medications Dose Route/Sig Max Daily Dose Days Date Category Methimazole 5 Mg Tab 15 Mg PO DAILY 30 04/02/17 Rx Diltiazem HCl ER (Diltiazem HCl) 180 Mg Capcr 180 Mg PO QAM 30 04/02/17 Rx Aldactone (Spironolactone) 25 Mg Tab 12.5 Mg PO QAM 03/30/17 Reported Magnesium Oxide (Magnesium Oxide (mg Supplement) 400 Mg Cap 400 Mg PO BID 02/19/17 Rx Furosemide 40 Mg Tab 40 Mg PO DAILY 02/19/17 Rx Toprol-Xl (Metoprolol Succinate) 100 Mg Tabcr 100 Mg PO BID 02/19/17 Rx Ecotrin Low Strength (Aspirin) 81 Mg Tab 81 Mg PO DAILY 02/19/17 Rx Zyrtec (Cetirizine HCl) 10 Mg Tab 10 Mg PO DAILY 02/12/17 Reported Tricor (Fenofibrate) 54 Mg Tab 1 Tab PO DAILY 30 02/12/17 Reported Tylenol (Acetaminophen) 325 Mg Tab 650 Mg PO UD PRN 02/12/17 Reported Flonase Allergy Relief (Fluticasone Propionate (Nasal)) 50 Mcg/Act Spr 1 [place] SHALONDA DAILY 02/12/17 Reported Flovent Hfa (Fluticasone Propionate) 120 Puffs/5280 Mcg Aero 2 Puffs INH BID 30 02/12/17 Reported Ventolin Hfa (Albuterol) 200 Puffs/81811 Mcg Aers 2 Puffs INH Q4H PRN 02/12/17 Reported Glucophage (Metformin Hcl) 1,000 Mg Tab 500 Mg PO BID 04/14/14 Reported Nitrostat (Nitroglycerin) 0.4 Mg Sub 0.4 Mg UT PRN 04/02/14 Reported Colace (Docusate Sodium) 100 Mg Cap 1 Tab PO BID PRN 04/02/14 Reported Montelukast Sodium (Montelukast Sod) 10 Mg Tab 10 Mg PO QPM 12/22/13 Reported Review of Systems Constitutional: + weight loss, + weakness, + fatigue, No fever, No chills Respiratory: No cough, No shortness of breath, No dyspnea at rest, No hemoptysis Cardiac: No chest pain, No edema, No palpitations Abdomen: + nausea, + problem reported (distention), No pain, No vomiting, No diarrhea, No constipation, No GI bleeding, No dysphagia, No odynophagia, No acolic stools, No jaundice, No dark urine Skin: No rash, No itch, No color change, No bleeding, No jaundice Physical Exam Date Time Temp Pulse Resp B/P (MAP) Pulse Ox O2 Delivery O2 Flow Rate FiO2 04/13/17 08:24 96 Room Air 04/13/17 06:51 36.5 73 18 117/72 (87) 96 Room Air 04/13/17 04:02 36.7 72 20 109/65 (80) 93 Room Air 04/13/17 04:00 Room Air 04/13/17 00:00 Room Air 04/13/17 00:00 96 Room Air 04/12/17 23:07 36.7 69 20 110/70 (83) 96 Room Air 04/12/17 20:48 73 111/70 (84) 04/12/17 20:00 Room Air 04/12/17 19:13 Room Air 04/12/17 19:00 36.4 73 18 116/72 04/12/17 17:58 67 20 110/77 96 Room Air 04/12/17 16:21 71 113/63 97 Room Air 73 105/65 73 104/59 04/12/17 16:00 65 04/12/17 15:30 69 20 126/65 97 Room Air 04/12/17 14:44 73 04/12/17 14:08 Room Air 04/12/17 13:40 36.7 74 16 111/61 96 Room Air General Appearance: no apparent distress Eyes: PERRL ENT: hearing grossly normal Neck: supple, trachea midline Respiratory/Chest: lungs clear, normal breath sounds Cardiovascular: no edema, no gallop, no JVD, + irregularly irregular Abdomen: normal bowel sounds, non tender, no organomegaly, no pulsatile mass, + distended (non-tense ascites) Neurologic/Psych: alert, normal mood/affect, oriented x 3 Skin: normal color, no jaundice, warm/dry, no rash Laboratory Results Last 24 Hours Test 04/12/17 13:45 04/12/17 14:15 04/12/17 14:30 04/12/17 18:09 Bedside Glucose 83 mg/dl Urine Color DK YELLOW Urine Appearance CLOUDY Urine pH 5.0 Urine Specific [place] 1.017 Urine Protein NEG Urine Glucose (UA) NEG Urine Ketones NEG Urine Occult Blood NEG Urine Nitrite NEG Urine Bilirubin NEG Urine Urobilinogen NEG Urine Leukocyte Esterase TRACE Urine WBC (Auto) 1-5 /hpf Urine RBC (Auto) 0-4 /hpf Urine Hyaline Casts (Auto) >30 /lpf Urine Epithelial Cells (Auto) 10-20 /lpf Urine Bacteria (Auto) 1+ Urine Pathogenic Casts /lpf White Blood Count 14.85 K/uL Red Blood Count 5.29 M/uL Hemoglobin 16.7 g/dL Hematocrit 49.0 % Mean Corpuscular Volume 92.6 fL Mean Corpuscular Hemoglobin 31.6 pg Mean Corpuscular Hemoglobin Concent 34.1 g/dl Platelet Count 336 K/uL Mean Platelet Volume 9.3 fL Neutrophils (%) (Auto) 86.1 % Lymphocytes (%) (Auto) 5.6 % Monocytes (%) (Auto) 6.3 % Eosinophils (%) (Auto) 1.1 % Basophils (%) (Auto) 0.2 % Neutrophils # (Auto) 12.77 K/uL Lymphocytes # (Auto) 0.83 K/uL Monocytes # (Auto) 0.94 K/uL Eosinophils # (Auto) 0.17 K/uL Basophils # (Auto) 0.03 K/uL RDW Standard Deviation 55.9 fL RDW Coefficient of Variation 16.7 % Immature Granulocyte % (Auto) 0.7 % Immature Granulocyte # (Auto) 0.11 K/uL Prothrombin Time 95.0 SECONDS Prothromb Time International Ratio 9.5 Activated Partial Thromboplast Time 67.9 SECONDS Partial Thromboplastin Ratio 2.6 Sodium Level 130 mmol/L 131 mmol/L Potassium Level 5.4 mmol/L 5.4 mmol/L Chloride Level 95 mmol/L 99 mmol/L Carbon Dioxide Level 26 mmol/L 22 mmol/L Anion Gap 9.0 mmol/L 10.0 mmol/L Blood Urea Nitrogen 49 mg/dl 49 mg/dl Creatinine 2.01 mg/dl 1.70 mg/dl Est Creatinine Clear Calc Drug Dose 35.0 ml/min 41.4 ml/min Estimated GFR () 38.9 47.6 Estimated GFR (Non- 33.6 41.1 BUN/Creatinine Ratio 24.2 29.0 Random Glucose 85 mg/dl 75 mg/dl Calcium Level 11.4 mg/dl 11.2 mg/dl Magnesium Level 2.7 mg/dl Total Bilirubin 1.5 mg/dl Direct Bilirubin 0.5 mg/dl Aspartate Amino Transf (AST/SGOT) 31 U/L Alanine Aminotransferase (ALT/SGPT) 12 U/L Alkaline Phosphatase 169 U/L Total Creatine Kinase 27 U/L Creatine Kinase MB 0.6 ng/ml Creatine Kinase MB Ratio 2.2 Troponin I < 0.015 ng/ml Total Protein 8.3 gm/dl Albumin 2.8 gm/dl Lipase 607 U/L Thyroid Stimulating Hormone (TSH) 0.014 uIu/ml Free Thyroxine 1.13 ng/dl Free Triiodothyronine 1.46 pg/ml Test 04/12/17 20:41 04/13/17 04:30 04/13/17 06:25 04/13/17 07:21 Bedside Glucose 84 mg/dl 74 mg/dl Urine Random Creatinine 131.0 mg/dl Urine Random Sodium 12 mEq/L White Blood Count 12.46 K/uL Red Blood Count 5.06 M/uL Hemoglobin 15.9 g/dL Hematocrit 47.1 % Mean Corpuscular Volume 93.1 fL Mean Corpuscular Hemoglobin 31.4 pg Mean Corpuscular Hemoglobin Concent 33.8 g/dl Platelet Count 262 K/uL Mean Platelet Volume 9.5 fL Neutrophils (%) (Auto) 84.2 % Lymphocytes (%) (Auto) 6.1 % Monocytes (%) (Auto) 7.0 % Eosinophils (%) (Auto) 1.9 % Basophils (%) (Auto) 0.2 % Neutrophils # (Auto) 10.48 K/uL Lymphocytes # (Auto) 0.76 K/uL Monocytes # (Auto) 0.87 K/uL Eosinophils # (Auto) 0.24 K/uL Basophils # (Auto) 0.03 K/uL RDW Standard Deviation 56.4 fL RDW Coefficient of Variation 16.8 % Immature Granulocyte % (Auto) 0.6 % Immature Granulocyte # (Auto) 0.08 K/uL Prothrombin Time 36.8 SECONDS Prothromb Time International Ratio 3.6 Sodium Level 132 mmol/L Potassium Level 5.1 mmol/L Chloride Level 98 mmol/L Carbon Dioxide Level 27 mmol/L Anion Gap 7.0 mmol/L Blood Urea Nitrogen 43 mg/dl Creatinine 1.55 mg/dl Est Creatinine Clear Calc Drug Dose 45.8 ml/min Estimated GFR () 53.3 Estimated GFR (Non- 46.0 BUN/Creatinine Ratio 27.7 Random Glucose 69 mg/dl Calcium Level 10.4 mg/dl Ionized Calcium 1.29 mmol/l Magnesium Level 2.3 mg/dl 25-Hydroxy Vitamin D Total 17.9 ng/ml Parathyroid Hormone (Intact) 12.9 pg/mL Impression Patient is a 66 year old male w/ extensive cardiac history admitted w/ essentially failure to thrive, CT imaging for new abdominal distention w/ evidence of cirrhotic appearing liver, splenomegaly, and an infiltrative pancreatic mass w/ splenic artery and vein encasement w/ associated adenopathy. VSS without evidence of leukocytosis. H&H stable. Plts 262. INR on admission 10 w/ repeat this AM 3.6. TB 1.5, AST 31, ALT 12, ALKP 169. Lipase 600. 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 Urine NA 12 Kidney failure, likely related to diuresis. New ascites pancreatic mass concerning for malignancy Plan - - VSS - If hypotensive please hold BB - Urine NA 12 - Hold diuretics - Daily CMP - Albumin 25% 25G BID x 48 hours - Ascites - etiology unknown - will need diagnostic and therapeutic paracentesis, this can be done Sunday - Will need PLTs above 50, INR less than 1.6 - Albumin 25% 25G before and after - Cell count, cytology, culture, albumin, protein, amylase - Low NA diet less than 2G daily - Hepatic duplex, venous duplex - Albumin 25% 25G TID - Pt is not uncomfortable on exam so will hold IV lasix for now in light of his kidney function - Prob Cirrhosis - Outpt serologies and w/u. - Pancreatic mass - CT with contrast when renal fxn recovered - GI will review with radiology - EUS, timing to be determined - GI to follow, please call with any questions or concerns. Thank you Attg add: I interviewed and examined pt, reviewed chart and labs. Pt admit with h/o CHF and a fib, recent dx hyperthyroid on MMI, now admit with weakness. W/u to date shows new ascites; hypercalcemia; renal failure with Urine Na 12 responding to vol challenge; panc mass and abdominal LAD; ? cirrhosis on non con CT. Regarding ? cirrhosis - His CT shows small, nodular liver - likely cirrhosis, although NRH is possible. Can pursue outpt w/u for etiology. Regarding ascites - possibly related to portal HTN; can request eventual dx tap once INR improved Regarding Panc mass - will need EUS with bx; doubt that he is a surg candidate. Please hold INR over weekend in anticipation of EUS next week.
--- NOTE | 2017-04-13 11:37 | Pharmacy Progress Note ---
Glycemic Control Intl Consult Date of Service Apr 13, 2017. Scope Glycemic Pharmacist consulted by Dr Kellogg on 04/12/17 for glycemic control and to write orders per [facility] inpatient glycemic control protocol Objective Weight (Kilograms): 80.600 Accuchecks BSG (last 24hrs): Test 04/12/17 13:45 04/12/17 14:30 04/12/17 18:09 04/12/17 20:41 Bedside Glucose 83 mg/dl (70-99) 84 mg/dl (70-99) Random Glucose 85 mg/dl (70-99) 75 mg/dl (70-99) Test 04/13/17 06:25 04/13/17 07:21 Random Glucose 69 mg/dl (70-99) Bedside Glucose 74 mg/dl (70-99) Laboratory Data (last 24hrs) Test 04/12/17 14:30 04/12/17 18:09 04/13/17 06:25 Anion Gap 9.0 mmol/L 10.0 mmol/L 7.0 mmol/L BUN/Creatinine Ratio 24.2 29.0 27.7 Blood Urea Nitrogen 49 mg/dl 49 mg/dl 43 mg/dl Creatinine 2.01 mg/dl 1.70 mg/dl 1.55 mg/dl Potassium Level 5.4 mmol/L 5.4 mmol/L 5.1 mmol/L Sodium Level 130 mmol/L 131 mmol/L 132 mmol/L White Blood Count 14.85 K/uL 12.46 K/uL Red Blood Count 5.29 M/uL 5.06 M/uL Hemoglobin 16.7 g/dL 15.9 g/dL Hematocrit 49.0 % 47.1 % Mean Corpuscular Volume 92.6 fL 93.1 fL Mean Corpuscular Hemoglobin 31.6 pg 31.4 pg Mean Corpuscular Hemoglobin Concent 34.1 g/dl 33.8 g/dl Platelet Count 336 K/uL 262 K/uL Mean Platelet Volume 9.3 fL 9.5 fL Neutrophils (%) (Auto) 86.1 % 84.2 % Lymphocytes (%) (Auto) 5.6 % 6.1 % Monocytes (%) (Auto) 6.3 % 7.0 % Eosinophils (%) (Auto) 1.1 % 1.9 % Basophils (%) (Auto) 0.2 % 0.2 % Neutrophils # (Auto) 12.77 K/uL 10.48 K/uL Lymphocytes # (Auto) 0.83 K/uL 0.76 K/uL Monocytes # (Auto) 0.94 K/uL 0.87 K/uL Eosinophils # (Auto) 0.17 K/uL 0.24 K/uL Basophils # (Auto) 0.03 K/uL 0.03 K/uL HbA1c 4.6% 03/31/17 Recent Pertinent Medications Outpatient Anti-diabetic Regimen: * Metformin 500mg PO BID * A1c = 4.6 % 03/31/17 Assessment & Plan ASSESSMENT: * 66 year old male type 2 diabetic managed on oral medications as outpatient, A1c at goal. * PMH CAD, CHF, AF on coumadin,HTN, hyperthyroidism, admitted with poor PO intake and weakness. * Pt's BSGs borderline low, may need to add dextrose to IV fluids. PLAN FOR INPATIENT GLYCEMIC CONTROL: * Holding outpatient oral diabetes medications * Consider adding dextrose to IV fluids * Correctional Insulin with NOVOLOG per scale ACHS or Q6hrs while NPO * Goal Range: Low 110 mg/dL - High 140 mg/dL * Correction Factor: 40 mg/dL/unit * Nutritional / Prandial none at this time * Please note that the plan above was derived based on current level of insulin resistance and hospital stress. These recommendations are appropriate for inpatient admission only. Plan of care upon discharge will need to be reassessed to avoid potential outpatient hypo/hyperglycemia. Thank you.
--- NOTE | 2017-04-13 13:46 | DIAGNOSTIC IMAGING REPORT ---
BILATERAL LOWER EXTREMITY VENOUS DOPPLER HISTORY: new ascites, rule out venous thrombus. COMPARISON STUDY: None. FINDINGS: There is normal compressibility, flow, and augmentation within the bilateral lower extremity deep venous systems. IMPRESSION: No DVT within the right or left lower extremity. Electronically signed by: Wyatt Thakkar M.D. 04/13/2017 1:44 PM Dictated Date/Time: 04/13/2017 1:44 PM
--- NOTE | 2017-04-13 13:48 | DIAGNOSTIC IMAGING REPORT ---
DUPLEX ULTRASOUND PORTAL HEPATIC VEINS CLINICAL HISTORY: ascites, edema. Assess for portal vein thrombosis. COMPARISON STUDY: Abdomen and pelvis CT 04/12/2017. FINDINGS: The visualized hepatic and portal veins are patent. Specifically, no evidence for portal vein thrombosis. The hepatic arteries are also patent and demonstrate normal velocities. The IVC is patent. Cirrhotic liver with a small amount of perihepatic ascites. IMPRESSION: The hepatic and portal veins are patent. Cirrhotic liver with a small amount of perihepatic ascites. Electronically signed by: Wyatt Thakkar M.D. 04/13/2017 1:47 PM Dictated Date/Time: 04/13/2017 1:44 PM
[2017-04-13] MEDS ORDERED: ALBUMIN HUMAN 25% 12.5 GM/50 ML VIAL IV SCH (14:00)
[2017-04-13] MEDS ORDERED: METHIMAZOLE 5 MG TAB PO ONE (16:35)
[2017-04-13] MEDS ORDERED: LIDODERM (LIDOCAINE) PATCH 5% TD ONE (16:39)
--- NOTE | 2017-04-13 17:23 | Nephrology Consultation ---
Nephrology Consultation Date of Consultation: Apr 13, 2017. Attending Physician: Dr Kellogg Requesting Physician: Dr Kellogg Reason for Consultation: acute renal failure, hypercalcemia History of Present Illness 66 year old male w/ hx of diastolic HF, hyperthyroid recently admitted here 03/30 -04/02 w/ acute decompensated HF secondary to atrial flutter: ablation was considered but deferred d/t persistent L atrial thrombus; pt also noted at that admission to have hyperthyroidism treated w/ methimazole. He was d/c home w/ close cardiology f/u. He had persistent malaise, loss of appetite after d/c and came to ED for eval yesterday. CT scan revealed 5 cm pancreatic mass and moderate ascites. INR was 9.5; creatinine 2.0, K 5.4, calcium 11.4 w/ albumin 2.8, sNa 130. Of note he had been taking lasix and aldactone prior to admission as well as metformin chronically/ all prior to first admission above. Prior creatinine runs 0.7-0.9. Calcium generally high 9's. K in 4's. This am sNa 132, K 5.1, creat 1.6; Ca 10.4 and ionized Ca wnl at 1.29. he was hydrated initially w/ LR, then NS; then evaluated by GI who changed vol resuscitation to albumin; he is for MRI abdomen and possibly for paracentesis on 04/16. Past Medical/Surgical History Medical Problems: (1) Acute renal failure Status: Acute (2) Atrial fibrillation with rapid ventricular response Status: Acute (3) Pancreatic mass Status: Acute (4) Splenic infarct Status: Acute (5) Supratherapeutic INR Status: Acute -CAD s/p CABG -SHERWIN -DM2 -chronic diastolic HF -s/p bioprosthetic AVR -HTN Family History Patient reports no known family medical history. Social History Smoking Status: Never Smoker Alcohol Use: none Drug Use: none Marital Status: Housing Status: lives with family Occupation Status: retired Allergies Coded Allergies: Statins (Unverified Adverse Reaction, Severe, LEG WEAKNESS, 03/30/17) Medications Current Inpatient Medications Medications (Trade) Dose Ordered Sig/Sal Route Start Time Stop Time Status Last Admin Dose Admin Sodium Chloride 1,000 ml @ 125 mls/hr Q8H IV 04/12/17 18:45 05/12/17 18:44 04/13/17 10:47 125 MLS/HR Diltiazem HCl (Cardizem Cd Cap) 180 mg QAM PO 04/13/17 09:00 05/13/17 08:59 04/13/17 07:25 180 MG Docusate Sodium (coLACE CAP) 100 mg BID PRN PO 04/12/17 18:45 05/12/17 18:44 Fluticasone Propionate (Flovent Hfa 44MCG Inhaler) 2 puffs BID INH 04/12/17 21:00 05/12/17 20:59 04/13/17 07:25 2 PUFFS Fluticasone Propionate (Flonase Nasal [facility]) 2 sprays DAILY SHALONDA 04/13/17 09:00 05/13/17 08:59 04/13/17 07:25 2 SPRAYS Metoprolol Succinate (Toprol Xl Tab) 100 mg BID PO 04/12/17 21:00 05/12/17 20:59 04/13/17 07:26 100 MG Montelukast Sodium (Singulair Tab) 10 mg QPM PO 04/12/17 21:00 05/12/17 20:59 04/12/17 20:51 10 MG Miscellaneous Information (Consult Glycemic Management Pharmacy) 1 ea UD PRN N/A 04/12/17 18:45 05/12/17 18:44 Acetaminophen (Tylenol Tab) 650 mg Q4H PRN PO 04/12/17 18:30 05/12/17 18:29 Insulin Aspart (novoLOG ASPART) SLIDING SCALE ACHS SC 04/12/17 21:00 05/12/17 20:59 Glucose (Glucose 40% Gel) 15-30 GRAMS 15 GRAMS... UD PRN PO 04/12/17 18:45 05/12/17 18:44 Glucose (Glucose Chew Tab) 4-8 Tablets 4 Tabl... UD PRN PO 04/12/17 18:45 05/12/17 18:44 Dextrose (Dextrose 50% 50ML Syringe) 25-50ML OF 50% DW IV FOR... UD PRN IV 04/12/17 18:45 05/12/17 18:44 Glucagon (Glucagon Inj) 1 mg UD PRN SQ 04/12/17 18:45 05/12/17 18:44 Albumin Human (Albumin 25%) 25 gm TID IV 04/13/17 14:00 04/16/17 13:59 Home Meds and Scripts Medications Dose Route/Sig Max Daily Dose Days Date Category Methimazole 5 Mg Tab 15 Mg PO DAILY 30 04/02/17 Rx Diltiazem HCl ER (Diltiazem HCl) 180 Mg Capcr 180 Mg PO QAM 30 04/02/17 Rx Aldactone (Spironolactone) 25 Mg Tab 12.5 Mg PO QAM 03/30/17 Reported Magnesium Oxide (Magnesium Oxide (mg Supplement) 400 Mg Cap 400 Mg PO BID 02/19/17 Rx Furosemide 40 Mg Tab 40 Mg PO DAILY 02/19/17 Rx Toprol-Xl (Metoprolol Succinate) 100 Mg Tabcr 100 Mg PO BID 02/19/17 Rx Ecotrin Low Strength (Aspirin) 81 Mg Tab 81 Mg PO DAILY 02/19/17 Rx Zyrtec (Cetirizine HCl) 10 Mg Tab 10 Mg PO DAILY 02/12/17 Reported Tricor (Fenofibrate) 54 Mg Tab 1 Tab PO DAILY 30 02/12/17 Reported Tylenol (Acetaminophen) 325 Mg Tab 650 Mg PO UD PRN 02/12/17 Reported Flonase Allergy Relief (Fluticasone Propionate (Nasal)) 50 Mcg/Act Spr 1 [facility] SHALONDA DAILY 02/12/17 Reported Flovent Hfa (Fluticasone Propionate) 120 Puffs/5280 Mcg Aero 2 Puffs INH BID 30 02/12/17 Reported Ventolin Hfa (Albuterol) 200 Puffs/08706 Mcg Aers 2 Puffs INH Q4H PRN 02/12/17 Reported Glucophage (Metformin Hcl) 1,000 Mg Tab 500 Mg PO BID 04/14/14 Reported Nitrostat (Nitroglycerin) 0.4 Mg Sub 0.4 Mg UT PRN 04/02/14 Reported Colace (Docusate Sodium) 100 Mg Cap 1 Tab PO BID PRN 04/02/14 Reported Montelukast Sodium (Montelukast Sod) 10 Mg Tab 10 Mg PO QPM 12/22/13 Reported Review of Systems Constitutional: + weakness, + fatigue, + problem reported (marked wt gain since AVR) Eyes: No worsening of vision ENT: + problem reported (chronically hoarse past few mos), No hearing loss Respiratory: + shortness of breath, + dyspnea on exertion, No cough Cardiac: No chest pain, No edema, No palpitations Abdomen: + nausea, + problem reported (increased abd girth), No pain, No vomiting, No diarrhea, No constipation Musculoskeletal: No joint pain, No muscle pain Male : No dysuria, No urinary frequency, No hematuria Neuro: No memory loss, No weakness, No balance problems Psych: No depression symptoms, No anxiety Heme: No abnormal bleeding/bruising Endo: + fatigue Skin: No rash, No itch, No new/changing skin lesions Physical Exam Date Time Temp Pulse Resp B/P (MAP) Pulse Ox O2 Delivery O2 Flow Rate FiO2 04/13/17 12:02 96 Room Air 04/13/17 10:52 36.7 74 18 110/69 (83) 96 Room Air 04/13/17 08:24 96 Room Air 04/13/17 06:51 36.5 73 18 117/72 (87) 96 Room Air 04/13/17 04:02 36.7 72 20 109/65 (80) 93 Room Air 04/13/17 04:00 Room Air 04/13/17 00:00 Room Air 04/13/17 00:00 96 Room Air 04/12/17 23:07 36.7 69 20 110/70 (83) 96 Room Air 04/12/17 20:48 73 111/70 (84) 04/12/17 20:00 Room Air 04/12/17 19:13 Room Air 04/12/17 19:00 36.4 73 18 116/72 04/12/17 17:58 67 20 110/77 96 Room Air 04/12/17 16:21 71 113/63 97 Room Air 73 105/65 73 104/59 04/12/17 16:00 65 04/12/17 15:30 69 20 126/65 97 Room Air 04/12/17 14:44 73 04/12/17 14:08 Room Air 04/12/17 13:40 36.7 74 16 111/61 96 Room Air General Appearance: WD/WN, no apparent distress, + obese Eyes: EOMI ENT: hearing grossly normal, + nasal congestion Neck: supple Respiratory/Chest: lungs clear, + decreased breath sounds (minimal air mvt; diminished bl bases, very slightly dyspneic w/ speech) Cardiovascular: no murmur, + pertinent finding (sounds regular w/ regular rate , occasional premature beat) Abdomen: normal bowel sounds, non tender, soft, + distended Extremities: + pedal edema Neurologic/Psych: alert, normal mood/affect, oriented x 3, + depressed affect Skin: no jaundice, warm/dry, no rash Diagnostics Last 24 Hours Test 04/12/17 13:45 04/12/17 14:15 04/12/17 14:30 04/12/17 18:09 Bedside Glucose 83 mg/dl Urine Color DK YELLOW Urine Appearance CLOUDY Urine pH 5.0 Urine Specific Hurricane 1.017 Urine Protein NEG Urine Glucose (UA) NEG Urine Ketones NEG Urine Occult Blood NEG Urine Nitrite NEG Urine Bilirubin NEG Urine Urobilinogen NEG Urine Leukocyte Esterase TRACE Urine WBC (Auto) 1-5 /hpf Urine RBC (Auto) 0-4 /hpf Urine Hyaline Casts (Auto) >30 /lpf Urine Epithelial Cells (Auto) 10-20 /lpf Urine Bacteria (Auto) 1+ Urine Pathogenic Casts /lpf White Blood Count 14.85 K/uL Red Blood Count 5.29 M/uL Hemoglobin 16.7 g/dL Hematocrit 49.0 % Mean Corpuscular Volume 92.6 fL Mean Corpuscular Hemoglobin 31.6 pg Mean Corpuscular Hemoglobin Concent 34.1 g/dl Platelet Count 336 K/uL Mean Platelet Volume 9.3 fL Neutrophils (%) (Auto) 86.1 % Lymphocytes (%) (Auto) 5.6 % Monocytes (%) (Auto) 6.3 % Eosinophils (%) (Auto) 1.1 % Basophils (%) (Auto) 0.2 % Neutrophils # (Auto) 12.77 K/uL Lymphocytes # (Auto) 0.83 K/uL Monocytes # (Auto) 0.94 K/uL Eosinophils # (Auto) 0.17 K/uL Basophils # (Auto) 0.03 K/uL RDW Standard Deviation 55.9 fL RDW Coefficient of Variation 16.7 % Immature Granulocyte % (Auto) 0.7 % Immature Granulocyte # (Auto) 0.11 K/uL Prothrombin Time 95.0 SECONDS Prothromb Time International Ratio 9.5 Activated Partial Thromboplast Time 67.9 SECONDS Partial Thromboplastin Ratio 2.6 Sodium Level 130 mmol/L 131 mmol/L Potassium Level 5.4 mmol/L 5.4 mmol/L Chloride Level 95 mmol/L 99 mmol/L Carbon Dioxide Level 26 mmol/L 22 mmol/L Anion Gap 9.0 mmol/L 10.0 mmol/L Blood Urea Nitrogen 49 mg/dl 49 mg/dl Creatinine 2.01 mg/dl 1.70 mg/dl Est Creatinine Clear Calc Drug Dose 35.0 ml/min 41.4 ml/min Estimated GFR () 38.9 47.6 Estimated GFR (Non- 33.6 41.1 BUN/Creatinine Ratio 24.2 29.0 Random Glucose 85 mg/dl 75 mg/dl Calcium Level 11.4 mg/dl 11.2 mg/dl Magnesium Level 2.7 mg/dl Total Bilirubin 1.5 mg/dl Direct Bilirubin 0.5 mg/dl Aspartate Amino Transf (AST/SGOT) 31 U/L Alanine Aminotransferase (ALT/SGPT) 12 U/L Alkaline Phosphatase 169 U/L Total Creatine Kinase 27 U/L Creatine Kinase MB 0.6 ng/ml Creatine Kinase MB Ratio 2.2 Troponin I < 0.015 ng/ml Total Protein 8.3 gm/dl Albumin 2.8 gm/dl Lipase 607 U/L Thyroid Stimulating Hormone (TSH) 0.014 uIu/ml Free Thyroxine 1.13 ng/dl Free Triiodothyronine 1.46 pg/ml Test 04/12/17 20:41 04/13/17 04:30 04/13/17 06:25 04/13/17 07:21 Bedside Glucose 84 mg/dl 74 mg/dl Urine Random Creatinine 131.0 mg/dl Urine Random Sodium 12 mEq/L White Blood Count 12.46 K/uL Red Blood Count 5.06 M/uL Hemoglobin 15.9 g/dL Hematocrit 47.1 % Mean Corpuscular Volume 93.1 fL Mean Corpuscular Hemoglobin 31.4 pg Mean Corpuscular Hemoglobin Concent 33.8 g/dl Platelet Count 262 K/uL Mean Platelet Volume 9.5 fL Neutrophils (%) (Auto) 84.2 % Lymphocytes (%) (Auto) 6.1 % Monocytes (%) (Auto) 7.0 % Eosinophils (%) (Auto) 1.9 % Basophils (%) (Auto) 0.2 % Neutrophils # (Auto) 10.48 K/uL Lymphocytes # (Auto) 0.76 K/uL Monocytes # (Auto) 0.87 K/uL Eosinophils # (Auto) 0.24 K/uL Basophils # (Auto) 0.03 K/uL RDW Standard Deviation 56.4 fL RDW Coefficient of Variation 16.8 % Immature Granulocyte % (Auto) 0.6 % Immature Granulocyte # (Auto) 0.08 K/uL Prothrombin Time 36.8 SECONDS Prothromb Time International Ratio 3.6 Sodium Level 132 mmol/L Potassium Level 5.1 mmol/L Chloride Level 98 mmol/L Carbon Dioxide Level 27 mmol/L Anion Gap 7.0 mmol/L Blood Urea Nitrogen 43 mg/dl Creatinine 1.55 mg/dl Est Creatinine Clear Calc Drug Dose 45.8 ml/min Estimated GFR () 53.3 Estimated GFR (Non- 46.0 BUN/Creatinine Ratio 27.7 Random Glucose 69 mg/dl Calcium Level 10.4 mg/dl Ionized Calcium 1.29 mmol/l Magnesium Level 2.3 mg/dl 25-Hydroxy Vitamin D Total 17.9 ng/ml Parathyroid Hormone (Intact) 12.9 pg/mL Test 04/13/17 11:32 Bedside Glucose 97 mg/dl Diagnostic Radiology: CXR >> BL pleural effusions, unchanged from prior CT abd/pelvis non con Bilateral pleural effusions and bilateral lower lobe atelectasis/consolidation Infiltrative mass contiguous with the pancreas, with suspected splenic artery and vein encasement. There is moderately extensive peripancreatic gastrohepatic ligament celiac and para-aortic adenopathy. Cirrhotic morphology of the liver Splenomegaly. 5.5 cm hypodense lower pole splenic lesion. The straight margins raise the possibility of an infarct although neoplasm could appear similar. Moderate ascites Assessment & Plan 66 y/o M w/ atrial flutter, hyperthyroid, CAD, chronic DHF, DM 2, s/p bioprosthetic AVR admitted for eval of generalized weakness/ malaise and found to have 5 cm pancreatic mass, hypercalcemia, PIPPA. Presenting creatinine 2.0; baseline 0.8. PIPPA, prerenal K and Na have improved w/ med modification Improving w/ hydration and holding diuretics >> current hydration strategy given ascites is albumin Urine sediment bland; w/ response to hydration doubt HRS -cont daily bmp -strict I/O -ordered low K, low Na, 1.8L fluid limit diet >> removed renal diet hyponatremia >> vollume overload; improving; cont fluid limit Hypercalcemia > normalized on iCa Improving w/ hydration. suppressed PTH noted; await pending labs, wero PTHrp; no indication to replete vitamin D (risk of worsening hypercalcemia) -recheck iCa in am Pancreatic mass/ascites -diuretics on hold; GI w/u underway; f/u MRI -daily standing wt pls <> order in Appreciate consult; will follow with you.
--- NOTE | 2017-04-13 17:28 | DIAGNOSTIC IMAGING REPORT ---
MRCP CLINICAL HISTORY: cholestatic LFTs, cirrhosis, pancreatic mass COMPARISON STUDY: CT scan dated 04/12/2017 FINDINGS: There are small bilateral pleural effusions There is moderate ascites. The liver has a cirrhotic morphology. There is a 6 mm T2 bright hepatic lesion within the right lobe, possibly representing a cyst No gallstones are visualized. There is mild gallbladder wall thickening which may be secondary to hepatocellular disease. There is adenopathy in the gastrohepatic ligament. There is retrocrural celiac and para-aortic lymphadenopathy. There is no evidence of intra or extrahepatic biliary ductal dilatation. There is a large mass contiguous with the pancreas and encasing the splenic vein measuring greater than 10 cm. The spleen is enlarged measuring 13.2 cm. There is a 5.5 cm lower pole splenic lesion. IMPRESSION: 1. No gallstones identified. No evidence of intrarectal intrahepatic biliary ductal dilatation 2. Moderate ascites and small bilateral pleural effusions 3. Cirrhotic appearing liver 4. Splenomegaly with a 5.5 cm lower pole splenic lesion 5. Large mass contiguous the pancreas and encasing the splenic vein measuring greater than 10 cm. There is bulky adenopathy within the gastrohepatic ligament, para-aortic region, and celiac region. Electronically signed by: Zeeshan Phelan M.D. 04/13/2017 5:27 PM Dictated Date/Time: 04/13/2017 5:21 PM
[2017-04-13] MEDS: MONTELUKAST SOD 10 MG TAB PO SCH (20:52)
[2017-04-13] MEDS: ALBUMIN HUMAN 25% 12.5 GM/50 ML VIAL IV SCH (21:00)
[2017-04-14] MEDS: SODIUM CHLORIDE 0.9% 1000ML 1,000 ML IV SCH ×2 (03:23→12:17)
[2017-04-14 04:18] VITALS: BP 109/67; PULSE 78; TEMP 36.7; O2SAT 93
[2017-04-14 07:15] VITALS: BP 106/69; PULSE 75; TEMP 36.5; O2SAT 97
[2017-04-14] MEDS: INSULIN ASPART 100 UNITS/ML 3 ML PEN SC SCH ×4 (08:10→20:47)
[2017-04-14] MEDS: METHIMAZOLE 5 MG TAB PO SCH ×2 (08:12→20:37)
[2017-04-14] MEDS: FLUTICASONE PROP HFA INH 44 MCG INHALER INH SCH ×2 (08:13→20:35)
[2017-04-14] MEDS: FLUTICASONE PROPIONATE NA SPR 16 GM BTL NAE SCH (08:13)
[2017-04-14] MEDS: METOPROLOL SUCC 50MG EXT REL TAB PO SCH ×2 (08:14→20:36)
[2017-04-14] MEDS: DILTIAZEM HCL 180 MG CAPCR PO SCH (08:15)
[2017-04-14] MEDS: ALBUMIN HUMAN 25% 12.5 GM/50 ML VIAL IV SCH ×2 (08:41→20:54)
[2017-04-14] MEDS ORDERED: LIDODERM (LIDOCAINE) PATCH 5% TD SCH (09:00)
[2017-04-14] MEDS ORDERED: METHIMAZOLE 5 MG TAB PO SCH (09:00)
[2017-04-14 09:54] LABS: BASO % 0.2 %; BASO ABS # 0.02 K/uL (0-0.2); EOS % 1.5 %; EOS ABS # 0.17 K/uL (0-0.5); HEMATOCRIT 41.1 % (42-52); HEMOGLOBIN 13.9 g/dL (14.0-18.0); IG# 0.05 K/uL (0.00-0.02); LYMPH % 5.5 %; LYMPH ABS # 0.63 K/uL (1.2-3.4); MEAN CELL VOLUME 92.8 fL (80-100); MEAN CORPUSCULAR HEMOGLOBIN 31.4 pg (25-34); MEAN CORPUSCULAR HGB CONC 33.8 g/dl (32-36); MEAN PLATELET VOLUME 9.1 fL (7.4-10.4); MONO % 7.2 %; MONO ABS # 0.83 K/uL (0.11-0.59); NEUT % 85.2 %; NEUT ABS # 9.81 K/uL (1.4-6.5); PLATELET COUNT 210 K/uL (130-400); RED CELL DISTRIBUTION WIDTH SD 57.3 fL (36.4-46.3); WHITE BLOOD COUNT 11.51 K/uL (4.8-10.8)
[2017-04-14 10:15] LABS: CALCIUM 10.2 mg/dl (8.5-10.1); CREATININE 1.06 mg/dl (0.60-1.40); INR 3.7 (0.9-1.1); POTASSIUM 4.6 mmol/L (3.5-5.1)
--- NOTE | 2017-04-14 10:49 | Progress Note ---
Medicine Progress Note Date & Time of Visit: Apr 14, 2017 at 10:49. Subjective patient seen resting in bed, comfortable states he continues to feel improved appetite improving no problems voiding no abdominal pain, nausea (+) constipation still has some low back pain, improving no other symptoms Objective Last 8 Hrs Date Time Temp Pulse Resp B/P (MAP) Pulse Ox O2 Delivery O2 Flow Rate FiO2 04/14/17 08:00 Room Air 04/14/17 07:15 36.5 75 16 106/69 (81) 97 04/14/17 04:18 36.7 78 18 109/67 (81) 93 Room Air 04/14/17 04:00 Room Air Physical Exam: General- oriented x 3, not in distress, speaks in sentences with no effort Eyes- anicteric Neck- no JVD Lungs- clear BS bilaterally Heart- regular rhythm; no murmur, normal rate Abdomen- moderately distended, soft, non tender Extremities- no pretibial edema, no calf tenderness; peripheral pulses intact Neuro- alert, oriented x 3;no gross focal deficits Skin- warm & dry Laboratory Results: Last 24 Hours Test 04/13/17 11:32 04/13/17 17:19 04/13/17 20:33 04/14/17 07:43 Bedside Glucose 97 mg/dl 86 mg/dl 164 mg/dl 85 mg/dl Test 04/14/17 09:42 White Blood Count 11.51 K/uL Red Blood Count 4.43 M/uL Hemoglobin 13.9 g/dL Hematocrit 41.1 % Mean Corpuscular Volume 92.8 fL Mean Corpuscular Hemoglobin 31.4 pg Mean Corpuscular Hemoglobin Concent 33.8 g/dl Platelet Count 210 K/uL Mean Platelet Volume 9.1 fL Neutrophils (%) (Auto) 85.2 % Lymphocytes (%) (Auto) 5.5 % Monocytes (%) (Auto) 7.2 % Eosinophils (%) (Auto) 1.5 % Basophils (%) (Auto) 0.2 % Neutrophils # (Auto) 9.81 K/uL Lymphocytes # (Auto) 0.63 K/uL Monocytes # (Auto) 0.83 K/uL Eosinophils # (Auto) 0.17 K/uL Basophils # (Auto) 0.02 K/uL RDW Standard Deviation 57.3 fL RDW Coefficient of Variation 17.0 % Immature Granulocyte % (Auto) 0.4 % Immature Granulocyte # (Auto) 0.05 K/uL Prothrombin Time 37.4 SECONDS Prothromb Time International Ratio 3.7 Sodium Level 134 mmol/L Potassium Level 4.6 mmol/L Chloride Level 103 mmol/L Carbon Dioxide Level 24 mmol/L Anion Gap 8.0 mmol/L Blood Urea Nitrogen 31 mg/dl Creatinine 1.06 mg/dl Est Creatinine Clear Calc Drug Dose 68.0 ml/min Estimated GFR () 84.3 Estimated GFR (Non- 72.8 BUN/Creatinine Ratio 28.8 Random Glucose 96 mg/dl Calcium Level 10.2 mg/dl Ionized Calcium 1.31 mmol/l Iron Level 37 mcg/dl Total Iron Binding Capacity 124 mcg/dl Ferritin 992.4 ng/ml Assessment & Plan Assessment & Plan 66 year old male with history of CAD, CHF, A fib on coumadin, DM, HTN, Hyperthyroidism presenting with poor oral intake and weakness. WEAKNESS, POOR ORAL INTAKE FROM: PANCREATIC MASS WITH ASCITES CIRRHOSIS GI consulted Albumin ordered plan for Paracentesis on Sunday ACUTE RENAL FAILURE LIKELY PRERENAL, with HYPER CA AND HYPER K, Resolved hold lasix, spironolactone, metformin IV NSS at 125cc/hr Renal Diet - crea back to baseline K and Ca better - appreciate Nephro input ELEVATED INR INR 9.5 Vit K 5mg po given INR 3.7 - monitor CAD no cardiac symptoms resume Aspirin when INR < 3 CHF euvolemic (+) ascites, 3rd spacing from pancreatic mass? hold diuretics for now, monitor AFIB ON COUMADIN continue Diltiazem and Metoprolol with holding parameters INR 9.5, Vit K given INR 3.7 LEFT ATRIAL APPENDAGE THROMBUS discussed with Dr. Hutchison may start patient on Heparin SC for DVT prophylaxis when INR subtherapeutic for the Paracentesis LOW BACK PAIN Lidoderm patch, PRN Tramadol and Flexeril DM hold Metformin Pharm Gly Cx HTN on Diltiazem and Metoprolol with parameters HYPERTHYROIDISM TFTs slightly improved from last month Endo consulted recommend to increase Methimazole to 10mg BID FULL CODE DVT PPX INR 3.7 Disposition pending anticipate d/c home when medically stable Current Inpatient Medications: Current Inpatient Medications Medications (Trade) Dose Ordered Sig/Sal Route Start Time Stop Time Status Last Admin Dose Admin Sodium Chloride 1,000 ml @ 125 mls/hr Q8H IV 04/12/17 18:45 05/12/17 18:44 04/14/17 03:23 125 MLS/HR Diltiazem HCl (Cardizem Cd Cap) 180 mg QAM PO 04/13/17 09:00 05/13/17 08:59 04/14/17 08:15 180 MG Docusate Sodium (coLACE CAP) 100 mg BID PRN PO 04/12/17 18:45 05/12/17 18:44 Fluticasone Propionate (Flovent Hfa 44MCG Inhaler) 2 puffs BID INH 04/12/17 21:00 05/12/17 20:59 04/14/17 08:13 2 PUFFS Fluticasone Propionate (Flonase Nasal [facility]) 2 sprays DAILY SHALONDA 04/13/17 09:00 05/13/17 08:59 04/14/17 08:13 2 SPRAYS Metoprolol Succinate (Toprol Xl Tab) 100 mg BID PO 04/12/17 21:00 05/12/17 20:59 04/14/17 08:14 100 MG Montelukast Sodium (Singulair Tab) 10 mg QPM PO 04/12/17 21:00 05/12/17 20:59 04/13/17 20:52 10 MG Miscellaneous Information (Consult Glycemic Management Pharmacy) 1 ea UD PRN N/A 04/12/17 18:45 05/12/17 18:44 Acetaminophen (Tylenol Tab) 650 mg Q4H PRN PO 04/12/17 18:30 05/12/17 18:29 Insulin Aspart (novoLOG ASPART) SLIDING SCALE ACHS SC 04/12/17 21:00 05/12/17 20:59 04/13/17 20:55 1 UNITS Glucose (Glucose 40% Gel) 15-30 GRAMS 15 GRAMS... UD PRN PO 04/12/17 18:45 05/12/17 18:44 Glucose (Glucose Chew Tab) 4-8 Tablets 4 Tabl... UD PRN PO 04/12/17 18:45 05/12/17 18:44 Dextrose (Dextrose 50% 50ML Syringe) 25-50ML OF 50% DW IV FOR... UD PRN IV 04/12/17 18:45 05/12/17 18:44 Glucagon (Glucagon Inj) 1 mg UD PRN SQ 04/12/17 18:45 05/12/17 18:44 Albumin Human (Albumin 25%) 25 gm BID IV 04/13/17 21:00 04/16/17 13:59 04/14/17 08:41 25 GM Tramadol HCl (Ultram Tab) 50 mg Q8H PRN PO 04/13/17 16:45 05/13/17 16:44 Lidocaine (Lidoderm Patch 5%) 1 patch QAM TD 04/14/17 09:00 05/14/17 08:59 04/14/17 08:14 1 PATCH Miscellaneous (Remove Lidoderm Patch) 1 ea DAILY@21 N/A 04/13/17 23:59 05/13/17 23:58 04/13/17 00:00 1 EA Methimazole (Methimazole Tab) 10 mg BID PO 04/14/17 09:00 05/14/17 08:59 04/14/17 08:12 10 MG
[2017-04-14 11:28] VITALS: BP_SYST 107; BP_SYST 112; BP_SYST 116; BP_DIAS 63; BP_DIAS 68; BP_DIAS 73; PULSE 75; PULSE 76; PULSE 78; TEMP 36.7; O2SAT 96
--- NOTE | 2017-04-14 13:48 | Pharmacy Progress Note ---
Pharmacy Glycemic Sign Off Nt Date of Service Apr 14, 2017. Assessment & Plan ASSESSMENT: * Pharmacy was consulted by Dr Kellogg on 04/12/17 for glycemic control and to write orders per [facility] inpatient glycemic control protocol. * Major changes made by pharmacy to antidiabetic regimen include: * discontinuing patient's carbohydrate ratio because he is not requiring any prandial coverage * Patient has received only 1 unit of insulin in the past 48 hours, for adequate glycemic control * BSGs ranging 69-164 mg/dl * Regimen has only required minor adjustments over the past 48hrs to achieve this level of control * Do not anticipate further changes in patient status that would quickly deteriorate glycemic control (i.e. patient to be NPO for upcoming procedure, steroids tapering, starting tube feedings, etc). * Please see recommendations for outpatient antidiabetic regimen below. PLAN FOR INPATIENT GLYCEMIC CONTROL: No changes needed to current regimen. * Continue NovoLog per scale ACHS/Q6hrs while NPO * Goal range = 110 140 mg/dl * CF = 40 mg/dl/unit * A1c added to discharge instructions to be communicated to PCP. * Pharmacy is signing off of glycemic consult and will no longer be making adjustments to inpatient regimen. Please feel free to re-consult if needed. Thank you. DISCHARGE RECOMMENDATIONS: * A1c 4.6 % on 03/31/17 * Continue Metformin 500mg PO BID
[2017-04-14 13:51] LABS: HEP C IGG 13 YRS+OLDER_RFLX NEG (NEG)
[2017-04-14] MEDS ORDERED: NURSING VERBAL MED ORDER ONE (15:00)
[2017-04-14] MEDS ORDERED: DOCUSATE SODIUM/SENNA 50/8.6MG TAB PO ONE (16:00)
[2017-04-14 16:05] VITALS: BP_SYST 115; BP_SYST 119; BP_SYST 120; BP_DIAS 72; BP_DIAS 73; PULSE 77; TEMP 36.8; O2SAT 94
--- NOTE | 2017-04-14 17:12 | Progress Note ---
Medicine Progress Note Date & Time of Visit: Apr 13, 2017 at 16:55. Subjective delayed entry date of service 04-13-17 seen resting in bed, family at bedside states he feels improved compared to day prior no problems voiding denies abdominal pain, nausea no dyspnea no other symptoms Objective Last 8 Hrs Date Time Temp Pulse Resp B/P (MAP) Pulse Ox O2 Delivery O2 Flow Rate FiO2 04/13/17 16:00 95 Room Air 04/13/17 14:49 36.8 62 18 111/68 (82) 95 Room Air 04/13/17 12:02 96 Room Air 04/13/17 10:52 36.7 74 18 110/69 (83) 96 Room Air Physical Exam: General- oriented x 3, not in distress, speaks in sentences with no effort Eyes- anicteric ENT- oropharynx clear Neck- supple, no JVD Lungs- clear breath sounds bilaterally Heart- regular rhythm; no murmur, normal rate Abdomen- moderately distended, soft, non tender Extremities- no pretibial edema, no calf tenderness; peripheral pulses intact Neuro- alert, oriented x 3;no gross focal deficits Skin- warm & dry Laboratory Results: Last 24 Hours Test 04/12/17 18:09 04/12/17 20:41 04/13/17 04:30 04/13/17 06:25 Sodium Level 131 mmol/L 132 mmol/L Potassium Level 5.4 mmol/L 5.1 mmol/L Chloride Level 99 mmol/L 98 mmol/L Carbon Dioxide Level 22 mmol/L 27 mmol/L Anion Gap 10.0 mmol/L 7.0 mmol/L Blood Urea Nitrogen 49 mg/dl 43 mg/dl Creatinine 1.70 mg/dl 1.55 mg/dl Est Creatinine Clear Calc Drug Dose 41.4 ml/min 45.8 ml/min Estimated GFR () 47.6 53.3 Estimated GFR (Non- 41.1 46.0 BUN/Creatinine Ratio 29.0 27.7 Random Glucose 75 mg/dl 69 mg/dl Calcium Level 11.2 mg/dl 10.4 mg/dl Bedside Glucose 84 mg/dl Urine Random Creatinine 131.0 mg/dl Urine Random Sodium 12 mEq/L White Blood Count 12.46 K/uL Red Blood Count 5.06 M/uL Hemoglobin 15.9 g/dL Hematocrit 47.1 % Mean Corpuscular Volume 93.1 fL Mean Corpuscular Hemoglobin 31.4 pg Mean Corpuscular Hemoglobin Concent 33.8 g/dl Platelet Count 262 K/uL Mean Platelet Volume 9.5 fL Neutrophils (%) (Auto) 84.2 % Lymphocytes (%) (Auto) 6.1 % Monocytes (%) (Auto) 7.0 % Eosinophils (%) (Auto) 1.9 % Basophils (%) (Auto) 0.2 % Neutrophils # (Auto) 10.48 K/uL Lymphocytes # (Auto) 0.76 K/uL Monocytes # (Auto) 0.87 K/uL Eosinophils # (Auto) 0.24 K/uL Basophils # (Auto) 0.03 K/uL RDW Standard Deviation 56.4 fL RDW Coefficient of Variation 16.8 % Immature Granulocyte % (Auto) 0.6 % Immature Granulocyte # (Auto) 0.08 K/uL Prothrombin Time 36.8 SECONDS Prothromb Time International Ratio 3.6 Ionized Calcium 1.29 mmol/l Magnesium Level 2.3 mg/dl 25-Hydroxy Vitamin D Total 17.9 ng/ml Parathyroid Hormone (Intact) 12.9 pg/mL Test 04/13/17 07:21 04/13/17 11:32 Bedside Glucose 74 mg/dl 97 mg/dl Assessment & Plan 66 year old male with history of CAD, CHF, A fib on coumadin, DM, HTN, Hyperthyroidism presenting with poor oral intake and weakness. WEAKNESS, POOR ORAL INTAKE FROM: PANCREATIC MASS WITH ASCITES CIRRHOSIS GI consulted Albumin ordered plan for Paracentesis on Sunday ACUTE RENAL FAILURE LIKELY PRERENAL, with HYPER CA AND HYPER K hold lasix, spironolactone, metformin IV NSS at 125cc/hr Renal Diet - crea improving K and Ca improving - appreciate Nephro input ELEVATED INR INR 9.5 Vit K 5mg po given INR 3.6 - monitor CAD no cardiac symptoms resume Aspirin when INR < 3 CHF euvolemic (+) ascites, 3rd spacing from pancreatic mass? hold diuretics for now, monitor AFIB ON COUMADIN continue Diltiazem and Metoprolol with holding parameters INR 9.5, Vit K given INR 3.6 LEFT ATRIAL APPENDAGE THROMBUS discussed with Dr. Hutchison may start patient on Heparin SC for DVT prophylaxis when INR subtherapeutic for the Paracentesis DM hold Metformin Pharm Gly Cx HTN on Diltiazem and Metoprolol with parameters HYPERTHYROIDISM TFTs slightly improved from last month Endo consulted recommend to increase Methimazole to 10mg BID FULL CODE DVT PPX INR 3.6 Disposition pending anticipate d/c home when medically stable Current Inpatient Medications: Current Inpatient Medications Medications (Trade) Dose Ordered Sig/Sal Route Start Time Stop Time Status Last Admin Dose Admin Sodium Chloride 1,000 ml @ 125 mls/hr Q8H IV 04/12/17 18:45 05/12/17 18:44 04/13/17 16:05 125 MLS/HR Diltiazem HCl (Cardizem Cd Cap) 180 mg QAM PO 04/13/17 09:00 05/13/17 08:59 04/13/17 07:25 180 MG Docusate Sodium (coLACE CAP) 100 mg BID PRN PO 04/12/17 18:45 05/12/17 18:44 Fluticasone Propionate (Flovent Hfa 44MCG Inhaler) 2 puffs BID INH 04/12/17 21:00 05/12/17 20:59 04/13/17 07:25 2 PUFFS Fluticasone Propionate (Flonase Nasal [place]) 2 sprays DAILY SHALONDA 04/13/17 09:00 05/13/17 08:59 04/13/17 07:25 2 SPRAYS Metoprolol Succinate (Toprol Xl Tab) 100 mg BID PO 04/12/17 21:00 05/12/17 20:59 04/13/17 07:26 100 MG Montelukast Sodium (Singulair Tab) 10 mg QPM PO 04/12/17 21:00 05/12/17 20:59 04/12/17 20:51 10 MG Miscellaneous Information (Consult Glycemic Management Pharmacy) 1 ea UD PRN N/A 04/12/17 18:45 05/12/17 18:44 Acetaminophen (Tylenol Tab) 650 mg Q4H PRN PO 04/12/17 18:30 05/12/17 18:29 Insulin Aspart (novoLOG ASPART) SLIDING SCALE ACHS SC 04/12/17 21:00 05/12/17 20:59 Glucose (Glucose 40% Gel) 15-30 GRAMS 15 GRAMS... UD PRN PO 04/12/17 18:45 05/12/17 18:44 Glucose (Glucose Chew Tab) 4-8 Tablets 4 Tabl... UD PRN PO 04/12/17 18:45 05/12/17 18:44 Dextrose (Dextrose 50% 50ML Syringe) 25-50ML OF 50% DW IV FOR... UD PRN IV 04/12/17 18:45 05/12/17 18:44 Glucagon (Glucagon Inj) 1 mg UD PRN SQ 04/12/17 18:45 05/12/17 18:44 Albumin Human (Albumin 25%) 25 gm BID IV 04/13/17 21:00 04/16/17 13:59 Methimazole (Methimazole Tab) 15 mg DAILY PO 04/14/17 09:00 05/14/17 08:59 Tramadol HCl (Ultram Tab) 50 mg Q8H PRN PO 04/13/17 16:45 05/13/17 16:44 Lidocaine (Lidoderm Patch 5%) 1 patch QAM TD 04/14/17 09:00 05/14/17 08:59 Miscellaneous (Remove Lidoderm Patch) 1 ea DAILY@21 N/A 04/13/17 23:59 05/13/17 23:58
[2017-04-14 19:28] VITALS: BP 107/69; PULSE 78; TEMP 36.7; O2SAT 95
[2017-04-14] MEDS: CYCLOBENZAPRINE HCL 5 MG TAB PO PRN (20:30)
[2017-04-14] MEDS: LIDODERM (LIDOCAINE) PATCH 5% TD SCH (20:31)
[2017-04-14] MEDS: MONTELUKAST SOD 10 MG TAB PO SCH (20:37)
[2017-04-14 23:21] VITALS: BP 109/72; PULSE 76; TEMP 36.9; O2SAT 94
[2017-04-15] VITALS (7 sets, daily range): BP systolic 99–110; BP diastolic 63–71; PULSE 52–80; TEMP 36.6–36.8; O2SAT 95–96
[2017-04-15 06:58] LABS: BASO % 0.2 %; BASO ABS # 0.03 K/uL (0-0.2); EOS % 2.5 %; EOS ABS # 0.32 K/uL (0-0.5); HEMATOCRIT 43.2 % (42-52); HEMOGLOBIN 14.1 g/dL (14.0-18.0); IG# 0.06 K/uL (0.00-0.02); LYMPH % 4.2 %; LYMPH ABS # 0.53 K/uL (1.2-3.4); MEAN CELL VOLUME 94.7 fL (80-100); MEAN CORPUSCULAR HEMOGLOBIN 30.9 pg (25-34); MEAN CORPUSCULAR HGB CONC 32.6 g/dl (32-36); MEAN PLATELET VOLUME 9.7 fL (7.4-10.4); MONO % 9.1 %; MONO ABS # 1.14 K/uL (0.11-0.59); NEUT % 83.5 %; NEUT ABS # 10.51 K/uL (1.4-6.5); PLATELET COUNT 198 K/uL (130-400); RED CELL DISTRIBUTION WIDTH CV 17.3 % (11.5-14.5); RED CELL DISTRIBUTION WIDTH SD 58.3 fL (36.4-46.3); WHITE BLOOD COUNT 12.59 K/uL (4.8-10.8)
[2017-04-15 07:13] LABS: INR 3.7 (0.9-1.1)
[2017-04-15 07:41] LABS: CALCIUM 10.4 mg/dl (8.5-10.1); CREATININE 0.97 mg/dl (0.60-1.40); POTASSIUM 4.2 mmol/L (3.5-5.1)
[2017-04-15] MEDS: METHIMAZOLE 5 MG TAB PO SCH ×2 (08:11→20:33)
[2017-04-15] MEDS: DILTIAZEM HCL 180 MG CAPCR PO SCH (08:12)
[2017-04-15] MEDS: FLUTICASONE PROPIONATE NA SPR 16 GM BTL NAE SCH (08:13)
[2017-04-15] MEDS: FLUTICASONE PROP HFA INH 44 MCG INHALER INH SCH ×2 (08:13→20:32)
[2017-04-15] MEDS: INSULIN ASPART 100 UNITS/ML 3 ML PEN SC SCH ×4 (08:13→20:34)
[2017-04-15] MEDS: ALBUMIN HUMAN 25% 12.5 GM/50 ML VIAL IV SCH (08:23)
[2017-04-15] MEDS: DOCUSATE SODIUM/SENNA 50/8.6MG TAB PO SCH (09:25)
[2017-04-15] MEDS: DOCUSATE SODIUM 100 MG CAP PO PRN (09:25)
[2017-04-15] MEDS: METOPROLOL SUCC 50MG EXT REL TAB PO SCH ×2 (09:27→20:33)
--- NOTE | 2017-04-15 14:49 | Progress Note ---
Progress Note Date of Service Apr 15, 2017. Progress Note Chart reviewed. Pt without events. [facility] records indicate increasing weight since admission. His diuretics continue to be held; he was receiving IVF's (2liters positive daily since admission), but these have been recently d/c'd. His creat is at baseline. His INR remains increased. A/P: Ascites, panc mass - Needs EUS and dx/therapeutic tap. INR remains increased. I spoke to Dr. Kellogg about repeat vit K dosing today if ok from cardiac standpoint. - His weight is rising - he likely was intravascularly dry on admission, and has received vol repletion. Would hold albumin, further IVF's. His creat has normalized, but reluctant to resume diuretics -- I suspect that his ascites will be low SAAG, and likely diuretic non responsive.
[2017-04-15] MEDS ORDERED: PHYTONADIONE 5 MG TAB PO ONE (16:00)
--- NOTE | 2017-04-15 19:24 | Progress Note ---
Medicine Progress Note Date & Time of Visit: Apr 15, 2017 at 19:20. Subjective patient seen resting in bed, comfortable states he feels fine slept better low back pain better no abdominal pain ,nausea no fever Objective Last 8 Hrs Date Time Temp Pulse Resp B/P (MAP) Pulse Ox O2 Delivery O2 Flow Rate FiO2 04/15/17 16:00 Room Air 04/15/17 14:21 36.8 52 16 105/66 (79) 96 04/15/17 12:00 Room Air 04/15/17 11:49 36.8 77 16 109/68 (82) 96 Physical Exam: General- oriented x 3, not in distress, speaks in sentences with no effort Eyes- anicteric Neck- no JVD Lungs- clear breath sounds bilaterally, no rales/wheezes Heart- regular rhythm; no murmur, normal rate Abdomen- moderately distended, soft, non tender Extremities- no pretibial edema, no calf tenderness Neuro- alert, oriented x 3;no gross focal deficits Skin- warm & dry Laboratory Results: Last 24 Hours Test 04/14/17 20:45 04/15/17 05:57 04/15/17 07:30 04/15/17 11:37 Bedside Glucose 79 mg/dl 74 mg/dl 84 mg/dl White Blood Count 12.59 K/uL Red Blood Count 4.56 M/uL Hemoglobin 14.1 g/dL Hematocrit 43.2 % Mean Corpuscular Volume 94.7 fL Mean Corpuscular Hemoglobin 30.9 pg Mean Corpuscular Hemoglobin Concent 32.6 g/dl Platelet Count 198 K/uL Mean Platelet Volume 9.7 fL Neutrophils (%) (Auto) 83.5 % Lymphocytes (%) (Auto) 4.2 % Monocytes (%) (Auto) 9.1 % Eosinophils (%) (Auto) 2.5 % Basophils (%) (Auto) 0.2 % Neutrophils # (Auto) 10.51 K/uL Lymphocytes # (Auto) 0.53 K/uL Monocytes # (Auto) 1.14 K/uL Eosinophils # (Auto) 0.32 K/uL Basophils # (Auto) 0.03 K/uL RDW Standard Deviation 58.3 fL RDW Coefficient of Variation 17.3 % Immature Granulocyte % (Auto) 0.5 % Immature Granulocyte # (Auto) 0.06 K/uL Prothrombin Time 37.4 SECONDS Prothromb Time International Ratio 3.7 Sodium Level 136 mmol/L Potassium Level 4.2 mmol/L Chloride Level 104 mmol/L Carbon Dioxide Level 22 mmol/L Anion Gap 10.0 mmol/L Blood Urea Nitrogen 23 mg/dl Creatinine 0.97 mg/dl Est Creatinine Clear Calc Drug Dose 74.5 ml/min Estimated GFR () 93.9 Estimated GFR (Non- 81.0 BUN/Creatinine Ratio 23.7 Random Glucose 77 mg/dl Calcium Level 10.4 mg/dl Test 04/15/17 16:19 Bedside Glucose 85 mg/dl Assessment & Plan Assessment & Plan 66 year old male with history of CAD, CHF, A fib on coumadin, DM, HTN, Hyperthyroidism presenting with poor oral intake and weakness. WEAKNESS, POOR ORAL INTAKE FROM: PANCREATIC MASS WITH ASCITES CIRRHOSIS GI consulted Albumin ordered plan for Paracentesis on Sunday inr 3.7 additional Vit K given repeat INR in AM ACUTE RENAL FAILURE LIKELY PRERENAL, with HYPER CA AND HYPER K, Resolved hold lasix, spironolactone, metformin IV NSS at 125cc/hr Renal Diet - crea back to baseline K and Ca better - appreciate Nephro input ELEVATED INR INR 9.5 Vit K 5mg po given INR 3.7 additional Vit K given monitor CAD no cardiac symptoms resume Aspirin when INR < 3 CHF euvolemic (+) ascites, 3rd spacing from pancreatic mass? hold diuretics for now, monitor AFIB ON COUMADIN continue Diltiazem and Metoprolol with holding parameters INR 9.5, Vit K given INR 3.7 additional Vit K given monitor LEFT ATRIAL APPENDAGE THROMBUS discussed with Dr. Hutchison may start patient on Heparin SC for DVT prophylaxis when INR subtherapeutic for the Paracentesis LOW BACK PAIN Lidoderm patch, PRN Tramadol and Flexeril DM hold Metformin Pharm Gly Cx HTN on Diltiazem and Metoprolol with parameters HYPERTHYROIDISM TFTs slightly improved from last month Endo consulted recommend to increase Methimazole to 10mg BID FULL CODE DVT PPX INR 3.7 Disposition pending anticipate d/c home when medically stable Current Inpatient Medications: Current Inpatient Medications Medications (Trade) Dose Ordered Sig/Sal Route Start Time Stop Time Status Last Admin Dose Admin Diltiazem HCl (Cardizem Cd Cap) 180 mg QAM PO 04/13/17 09:00 05/13/17 08:59 04/15/17 08:12 180 MG Docusate Sodium (coLACE CAP) 100 mg BID PRN PO 04/12/17 18:45 05/12/17 18:44 04/15/17 09:25 100 MG Fluticasone Propionate (Flovent Hfa 44MCG Inhaler) 2 puffs BID INH 04/12/17 21:00 05/12/17 20:59 04/15/17 08:13 2 PUFFS Fluticasone Propionate (Flonase Nasal [place]) 2 sprays DAILY SHALONDA 04/13/17 09:00 05/13/17 08:59 04/15/17 08:13 2 SPRAYS Metoprolol Succinate (Toprol Xl Tab) 100 mg BID PO 04/12/17 21:00 05/12/17 20:59 04/15/17 09:27 100 MG Montelukast Sodium (Singulair Tab) 10 mg QPM PO 04/12/17 21:00 05/12/17 20:59 04/14/17 20:37 10 MG Acetaminophen (Tylenol Tab) 650 mg Q4H PRN PO 04/12/17 18:30 05/12/17 18:29 Insulin Aspart (novoLOG ASPART) SLIDING SCALE ACHS SC 04/12/17 21:00 05/12/17 20:59 04/13/17 20:55 1 UNITS Glucose (Glucose 40% Gel) 15-30 GRAMS 15 GRAMS... UD PRN PO 04/12/17 18:45 05/12/17 18:44 Glucose (Glucose Chew Tab) 4-8 Tablets 4 Tabl... UD PRN PO 04/12/17 18:45 05/12/17 18:44 Dextrose (Dextrose 50% 50ML Syringe) 25-50ML OF 50% DW IV FOR... UD PRN IV 04/12/17 18:45 05/12/17 18:44 Glucagon (Glucagon Inj) 1 mg UD PRN SQ 04/12/17 18:45 05/12/17 18:44 Tramadol HCl (Ultram Tab) 50 mg Q8H PRN PO 04/13/17 16:45 05/13/17 16:44 Methimazole (Methimazole Tab) 10 mg BID PO 04/14/17 09:00 4/9/18 08:59 04/15/17 08:11 10 MG Lidocaine (Lidoderm Patch 5%) 1 patch QPM TD 04/14/17 21:00 05/14/17 20:59 04/14/17 20:31 1 PATCH Miscellaneous (Remove Lidoderm Patch) 1 ea QAM N/A 04/14/17 15:00 05/14/17 14:59 04/15/17 08:24 1 EA Cyclobenzaprine HCl (Flexeril Tab) 5 mg BID PRN PO 04/14/17 15:30 05/14/17 15:29 04/14/17 20:30 5 MG Senna/Docusate Sodium (Senokot S Tab) 1 tab QAM PO 04/15/17 09:00 05/15/17 08:59 04/15/17 09:25 1 TAB Magnesium Hydroxide (Milk Of Magnesia Susp) 30 ml Q6H PRN PO 04/14/17 15:30 05/14/17 15:29
[2017-04-15] MEDS: MONTELUKAST SOD 10 MG TAB PO SCH (20:33)
[2017-04-15] MEDS: CYCLOBENZAPRINE HCL 5 MG TAB PO PRN (20:34)
[2017-04-15] MEDS: LIDODERM (LIDOCAINE) PATCH 5% TD SCH (20:34)
[2017-04-16] MEDS: TRAMADOL HCL 50 MG TAB PO PRN (00:09)
[2017-04-16 04:37] VITALS: BP 105/71; PULSE 78; TEMP 36.6; O2SAT 95
[2017-04-16 06:25] LABS: BASO % 0.2 %; BASO ABS # 0.03 K/uL (0-0.2); EOS % 1.8 %; EOS ABS # 0.24 K/uL (0-0.5); HEMATOCRIT 42.3 % (42-52); HEMOGLOBIN 14.6 g/dL (14.0-18.0); IG# 0.05 K/uL (0.00-0.02); LYMPH % 4.9 %; LYMPH ABS # 0.66 K/uL (1.2-3.4); MEAN CELL VOLUME 94.2 fL (80-100); MEAN CORPUSCULAR HEMOGLOBIN 32.5 pg (25-34); MEAN CORPUSCULAR HGB CONC 34.5 g/dl (32-36); MEAN PLATELET VOLUME 9.4 fL (7.4-10.4); MONO % 8.8 %; MONO ABS # 1.18 K/uL (0.11-0.59); NEUT % 83.9 %; NEUT ABS # 11.27 K/uL (1.4-6.5); PLATELET COUNT 162 K/uL (130-400); RED CELL DISTRIBUTION WIDTH CV 17.3 % (11.5-14.5); RED CELL DISTRIBUTION WIDTH SD 58.6 fL (36.4-46.3); WHITE BLOOD COUNT 13.43 K/uL (4.8-10.8)
[2017-04-16] MEDS: INSULIN ASPART 100 UNITS/ML 3 ML PEN SC SCH ×4 (06:30→20:42)
[2017-04-16 06:46] LABS: CALCIUM 10.1 mg/dl (8.5-10.1); CREATININE 0.82 mg/dl (0.60-1.40); INR 1.9 (0.9-1.1); POTASSIUM 4.3 mmol/L (3.5-5.1)
[2017-04-16 07:18] VITALS: BP 91/58; PULSE 81; TEMP 36.4; O2SAT 95
[2017-04-16] MEDS: CYCLOBENZAPRINE HCL 5 MG TAB PO PRN (07:42)
[2017-04-16] MEDS: FLUTICASONE PROPIONATE NA SPR 16 GM BTL NAE SCH (07:42)
[2017-04-16] MEDS: METHIMAZOLE 5 MG TAB PO SCH ×2 (07:42→20:43)
[2017-04-16] MEDS: DILTIAZEM HCL 180 MG CAPCR PO SCH (07:44)
[2017-04-16] MEDS: METOPROLOL SUCC 50MG EXT REL TAB PO SCH ×2 (07:44→20:43)
[2017-04-16] MEDS: DOCUSATE SODIUM/SENNA 50/8.6MG TAB PO SCH (07:45)
[2017-04-16] MEDS: FLUTICASONE PROP HFA INH 44 MCG INHALER INH SCH ×2 (07:45→20:41)
--- NOTE | 2017-04-16 10:17 | Gastroenterology Progress Note ---
Progress Note Date of Service: Apr 16, 2017 Subjective Pt evaluation today including: conversation w/ patient, physical exam, chart review, lab review, review of studies, review of inpatient medication list Mr. Chad Keith is a 66 yr old male who presented to the ED on 04/[address] is consistent with a 5cm pancreatic body mass and surrounding lymphadenopathy. He tells us that his abdomen became large about 5 days ago. He also carries a hx of CAD, CHF, A fib on Coumadin, DM, HTN, Hyperthyroidism. He has mild leukocytosis (WBC today is 13, no antibiotics). On arrival LFTs were checked with a total bilirubin of 1.5, no other LFT elevation. INR was elevated at 9.5 and has been reversed with VIt and INR today is 1.9. Review of Systems Constitutional: No fever ENT: No hearing loss Respiratory: No cough Cardiac: No chest pain Abdomen: + pain (mild, mostly uncomfortable from ascites), + constipation, No nausea, No vomiting, No diarrhea, No GI bleeding, No dysphagia, No odynophagia Male : No dysuria Neuro: No memory loss Psych: No depression symptoms Heme: No abnormal bleeding/bruising Endo: + fatigue Skin: No rash Medications Current Inpatient Medications Medications (Trade) Dose Ordered Sig/Sal Route Start Time Stop Time Status Last Admin Dose Admin Diltiazem HCl (Cardizem Cd Cap) 180 mg QAM PO 04/13/17 09:00 05/13/17 08:59 04/16/17 07:44 180 MG Docusate Sodium (coLACE CAP) 100 mg BID PRN PO 04/12/17 18:45 05/12/17 18:44 04/15/17 09:25 100 MG Fluticasone Propionate (Flovent Hfa 44MCG Inhaler) 2 puffs BID INH 04/12/17 21:00 05/12/17 20:59 04/16/17 07:45 2 PUFFS Fluticasone Propionate (Flonase Nasal [place]) 2 sprays DAILY SHALONDA 04/13/17 09:00 05/13/17 08:59 04/16/17 07:42 2 SPRAYS Metoprolol Succinate (Toprol Xl Tab) 100 mg BID PO 04/12/17 21:00 05/12/17 20:59 04/16/17 07:44 100 MG Montelukast Sodium (Singulair Tab) 10 mg QPM PO 04/12/17 21:00 05/12/17 20:59 04/15/17 20:33 10 MG Acetaminophen (Tylenol Tab) 650 mg Q4H PRN PO 04/12/17 18:30 05/12/17 18:29 Insulin Aspart (novoLOG ASPART) SLIDING SCALE ACHS SC 04/12/17 21:00 05/12/17 20:59 04/13/17 20:55 1 UNITS Glucose (Glucose 40% Gel) 15-30 GRAMS 15 GRAMS... UD PRN PO 04/12/17 18:45 05/12/17 18:44 Glucose (Glucose Chew Tab) 4-8 Tablets 4 Tabl... UD PRN PO 04/12/17 18:45 05/12/17 18:44 Dextrose (Dextrose 50% 50ML Syringe) 25-50ML OF 50% DW IV FOR... UD PRN IV 04/12/17 18:45 05/12/17 18:44 Glucagon (Glucagon Inj) 1 mg UD PRN SQ 04/12/17 18:45 05/12/17 18:44 Tramadol HCl (Ultram Tab) 50 mg Q8H PRN PO 04/13/17 16:45 05/13/17 16:44 04/16/17 00:09 50 MG Methimazole (Methimazole Tab) 10 mg BID PO 04/14/17 09:00 05/14/17 08:59 04/16/17 07:42 10 MG Lidocaine (Lidoderm Patch 5%) 1 patch QPM TD 04/14/17 21:00 05/14/17 20:59 04/15/17 20:34 1 PATCH Miscellaneous (Remove Lidoderm Patch) 1 ea QAM N/A 04/14/17 15:00 05/14/17 14:59 04/16/17 07:46 1 EA Cyclobenzaprine HCl (Flexeril Tab) 5 mg BID PRN PO 04/14/17 15:30 05/14/17 15:29 04/16/17 07:42 5 MG Senna/Docusate Sodium (Senokot S Tab) 1 tab QAM PO 04/15/17 09:00 05/15/17 08:59 04/16/17 07:45 1 TAB Magnesium Hydroxide (Milk Of Magnesia Susp) 30 ml Q6H PRN PO 04/14/17 15:30 05/14/17 15:29 Objective Vital Signs Date Time Temp Pulse Resp B/P (MAP) Pulse Ox O2 Delivery O2 Flow Rate FiO2 04/16/17 07:18 36.4 81 20 91/58 (69) 95 04/16/17 04:37 36.6 78 18 105/71 (82) 95 Room Air 04/16/17 04:00 Room Air 04/16/17 00:00 Room Air 04/15/17 23:37 36.8 80 18 99/63 (75) 95 Room Air 04/15/17 20:30 36.6 80 19 105/69 (81) 96 Room Air 04/15/17 20:00 Room Air 04/15/17 16:00 Room Air 04/15/17 14:21 36.8 52 16 105/66 (79) 96 04/15/17 12:00 Room Air 04/15/17 11:49 36.8 77 16 109/68 (82) 96 04/15/17 09:24 78 106/69 (81) Physical Exam General Appearance: no apparent distress ENT: pharynx normal Neck: no adenopathy, thyroid normal, no JVD Respiratory/Chest: lungs clear Cardiovascular: regular rate, rhythm, no JVD, no murmur Abdomen: non tender, soft, + distended (ascites) Extremities: normal inspection, no pedal edema Neurologic/Psych: alert, normal mood/affect, oriented x 3 Skin: no jaundice Laboratory Results Last 24 Hours Test 04/15/17 11:37 04/15/17 16:19 04/15/17 20:26 04/16/17 06:09 Bedside Glucose 84 mg/dl 85 mg/dl 83 mg/dl White Blood Count 13.43 K/uL Red Blood Count 4.49 M/uL Hemoglobin 14.6 g/dL Hematocrit 42.3 % Mean Corpuscular Volume 94.2 fL Mean Corpuscular Hemoglobin 32.5 pg Mean Corpuscular Hemoglobin Concent 34.5 g/dl Platelet Count 162 K/uL Mean Platelet Volume 9.4 fL Neutrophils (%) (Auto) 83.9 % Lymphocytes (%) (Auto) 4.9 % Monocytes (%) (Auto) 8.8 % Eosinophils (%) (Auto) 1.8 % Basophils (%) (Auto) 0.2 % Neutrophils # (Auto) 11.27 K/uL Lymphocytes # (Auto) 0.66 K/uL Monocytes # (Auto) 1.18 K/uL Eosinophils # (Auto) 0.24 K/uL Basophils # (Auto) 0.03 K/uL RDW Standard Deviation 58.6 fL RDW Coefficient of Variation 17.3 % Immature Granulocyte % (Auto) 0.4 % Immature Granulocyte # (Auto) 0.05 K/uL Prothrombin Time 20.2 SECONDS Prothromb Time International Ratio 1.9 Sodium Level 135 mmol/L Potassium Level 4.3 mmol/L Chloride Level 103 mmol/L Carbon Dioxide Level 25 mmol/L Anion Gap 7.0 mmol/L Blood Urea Nitrogen 20 mg/dl Creatinine 0.82 mg/dl Est Creatinine Clear Calc Drug Dose 88.2 ml/min Estimated GFR () 106.8 Estimated GFR (Non- 92.1 BUN/Creatinine Ratio 24.3 Random Glucose 94 mg/dl Calcium Level 10.1 mg/dl Assessment and Plan Mr. Chad Keith is a 66 yr old male with a pancreas mass, likely malignancy. Plan: 1. Recommend repeat Vit K today. 2. Plan for EUS in the OR tomorrow. I saw and evaluated the patient with Ms. Keith. We are asked to evaluate the patient due to the finding of a pancreatic mass on recent imaging. We are planning to do endoscopic ultrasound with fine-needle aspiration in the OR tomorrow once his INR is corrected. Given his history of congestive heart failure and mild shortness of breath it may be prudent to obtain a cardiology consultation this afternoon. The patient and I have discussed the risks of endoscopic ultrasound to include bleeding, infection, perforation and insufficient cellularity.
[2017-04-16 11:38] VITALS: BP 108/73; PULSE 77; TEMP 36.4; O2SAT 95
[2017-04-16] MEDS ORDERED: PHYTONADIONE 5 MG TAB PO ONE (12:00)
--- NOTE | 2017-04-16 14:05 | Anesthesiology Progress Note ---
Anesthesia Progress Note Date of Service Apr 16, 2017. Progress Notes The patient is scheduled for an EUS tomorrow. He has a pancreatic mass that may be cancerous. PMH includes sleep apnea (does not tolerate CPAP), pleural effusion, afib/aflutter with RVR, large atrial thrombus, severely dilated atrium , mild MR, CAD, HTN, ascites, lumbago, NIDDM, hyperthyroidism, obesity, and splenic infarct. His CXR showed cardiomegaly and pleural effusion. EKG showed aflutter, bifascicular block, atrial thrombus, severely dilated mild MR, moderate LVH, and RV pressure overload. His INR was 9 on admission but is now 1.9. on exam the patient has a MP 1 airway with good neck extension. Dentition is poor. His lungs were clear but diminished bilaterally. Heart was regular with systolic murmur. Carotid was negative for bruits. The patient's abdomen was distended and he appeared jaundiced. The patient is an ASA 4. He was consented for general anesthesia. He was counseled to remain NPO after midnight except for sips of water with pills.
[2017-04-16 15:25] VITALS: BP 108/71; PULSE 78; TEMP 36.6; O2SAT 95
[2017-04-16] MEDS: MAGNESIUM HYDROXIDE SUSP 30 ML UDC PO PRN (16:35)
[2017-04-16 19:26] LABS: INR 1.5 (0.9-1.1)
[2017-04-16 19:41] VITALS: BP 106/71; PULSE 82; TEMP 36.6; O2SAT 94
--- NOTE | 2017-04-16 20:23 | Progress Note ---
Medicine Progress Note Date & Time of Visit: Apr 16, 2017 at 20:17. Subjective resting in bed, comfortable no abdominal pain, nausea no chest pain, dyspnea states he feels ok overall no other symptoms Objective Last 8 Hrs Date Time Temp Pulse Resp B/P (MAP) Pulse Ox O2 Delivery O2 Flow Rate FiO2 04/16/17 20:00 Room Air 04/16/17 19:41 36.6 82 16 106/71 (83) 94 Room Air 04/16/17 16:00 Room Air 04/16/17 15:25 36.6 78 16 108/71 (83) 95 Physical Exam: General- oriented x 3, not in distress, speaks in sentences with no effort Eyes- anicteric Neck- no JVD Lungs- clear BS bilaterally Heart- regular rhythm; no murmur, normal rate Abdomen- moderately distended, soft, non tender Extremities- no pretibial edema, no calf tenderness Neuro- alert, oriented x 3;no gross focal deficits Skin- warm & dry Laboratory Results: Last 24 Hours Test 04/15/17 20:26 04/16/17 06:09 04/16/17 12:32 04/16/17 16:22 Bedside Glucose 83 mg/dl 119 mg/dl 120 mg/dl White Blood Count 13.43 K/uL Red Blood Count 4.49 M/uL Hemoglobin 14.6 g/dL Hematocrit 42.3 % Mean Corpuscular Volume 94.2 fL Mean Corpuscular Hemoglobin 32.5 pg Mean Corpuscular Hemoglobin Concent 34.5 g/dl Platelet Count 162 K/uL Mean Platelet Volume 9.4 fL Neutrophils (%) (Auto) 83.9 % Lymphocytes (%) (Auto) 4.9 % Monocytes (%) (Auto) 8.8 % Eosinophils (%) (Auto) 1.8 % Basophils (%) (Auto) 0.2 % Neutrophils # (Auto) 11.27 K/uL Lymphocytes # (Auto) 0.66 K/uL Monocytes # (Auto) 1.18 K/uL Eosinophils # (Auto) 0.24 K/uL Basophils # (Auto) 0.03 K/uL RDW Standard Deviation 58.6 fL RDW Coefficient of Variation 17.3 % Immature Granulocyte % (Auto) 0.4 % Immature Granulocyte # (Auto) 0.05 K/uL Prothrombin Time 20.2 SECONDS Prothromb Time International Ratio 1.9 Sodium Level 135 mmol/L Potassium Level 4.3 mmol/L Chloride Level 103 mmol/L Carbon Dioxide Level 25 mmol/L Anion Gap 7.0 mmol/L Blood Urea Nitrogen 20 mg/dl Creatinine 0.82 mg/dl Est Creatinine Clear Calc Drug Dose 88.2 ml/min Estimated GFR () 106.8 Estimated GFR (Non- 92.1 BUN/Creatinine Ratio 24.3 Random Glucose 94 mg/dl Calcium Level 10.1 mg/dl Test 04/16/17 18:48 Prothrombin Time 15.5 SECONDS Prothromb Time International Ratio 1.5 Assessment & Plan Assessment & Plan 66 year old male with history of CAD, CHF, A fib on coumadin, DM, HTN, Hyperthyroidism presenting with poor oral intake and weakness. WEAKNESS, POOR ORAL INTAKE FROM: PANCREATIC MASS WITH ASCITES CIRRHOSIS GI consulted was given Albumin IV for EUS tomorrow possible paracentesis VIt K given to reverse INR ACUTE RENAL FAILURE LIKELY PRERENAL, with HYPER CA AND HYPER K, Resolved hold lasix, spironolactone, metformin IV NSS at 125cc/hr given Renal Diet - crea back to baseline K and Ca better - IV fluids stopped - appreciate Nephro input ELEVATED INR INR 9.5 Vit K 5mg po given INR 3.7 additional Vit K given INR 1.9 CAD no cardiac symptoms resume Aspirin when INR < 3 CHF euvolemic (+) ascites, 3rd spacing from pancreatic mass? hold diuretics for now, monitor AFIB ON COUMADIN continue Diltiazem and Metoprolol with holding parameters INR 9.5, Vit K given INR 3.7 additional Vit K given INR 1.9 LEFT ATRIAL APPENDAGE THROMBUS Cardiology consulted LOW BACK PAIN Lidoderm patch, PRN Tramadol and Flexeril DM hold Metformin Pharm Gly Cx HTN on Diltiazem and Metoprolol with parameters HYPERTHYROIDISM TFTs slightly improved from last month Endo consulted recommend to increase Methimazole to 10mg BID FULL CODE DVT PPX INR 1.9 Disposition pending anticipate d/c home when medically stable Current Inpatient Medications: Current Inpatient Medications Medications (Trade) Dose Ordered Sig/Sal Route Start Time Stop Time Status Last Admin Dose Admin Diltiazem HCl (Cardizem Cd Cap) 180 mg QAM PO 04/13/17 09:00 05/13/17 08:59 04/16/17 07:44 180 MG Docusate Sodium (coLACE CAP) 100 mg BID PRN PO 04/12/17 18:45 05/12/17 18:44 04/15/17 09:25 100 MG Fluticasone Propionate (Flovent Hfa 44MCG Inhaler) 2 puffs BID INH 04/12/17 21:00 05/12/17 20:59 04/16/17 07:45 2 PUFFS Fluticasone Propionate (Flonase Nasal [place]) 2 sprays DAILY SHALONDA 04/13/17 09:00 05/13/17 08:59 04/16/17 07:42 2 SPRAYS Metoprolol Succinate (Toprol Xl Tab) 100 mg BID PO 04/12/17 21:00 05/12/17 20:59 04/16/17 07:44 100 MG Montelukast Sodium (Singulair Tab) 10 mg QPM PO 04/12/17 21:00 05/12/17 20:59 04/15/17 20:33 10 MG Acetaminophen (Tylenol Tab) 650 mg Q4H PRN PO 04/12/17 18:30 05/12/17 18:29 Insulin Aspart (novoLOG ASPART) SLIDING SCALE ACHS SC 04/12/17 21:00 05/12/17 20:59 04/13/17 20:55 1 UNITS Glucose (Glucose 40% Gel) 15-30 GRAMS 15 GRAMS... UD PRN PO 04/12/17 18:45 05/12/17 18:44 Glucose (Glucose Chew Tab) 4-8 Tablets 4 Tabl... UD PRN PO 04/12/17 18:45 05/12/17 18:44 Dextrose (Dextrose 50% 50ML Syringe) 25-50ML OF 50% DW IV FOR... UD PRN IV 04/12/17 18:45 05/12/17 18:44 Glucagon (Glucagon Inj) 1 mg UD PRN SQ 04/12/17 18:45 05/12/17 18:44 Tramadol HCl (Ultram Tab) 50 mg Q8H PRN PO 04/13/17 16:45 05/13/17 16:44 04/16/17 00:09 50 MG Methimazole (Methimazole Tab) 10 mg BID PO 04/14/17 09:00 05/14/17 08:59 04/16/17 07:42 10 MG Lidocaine (Lidoderm Patch 5%) 1 patch QPM TD 04/14/17 21:00 05/14/17 20:59 04/15/17 20:34 1 PATCH Miscellaneous (Remove Lidoderm Patch) 1 ea QAM N/A 04/14/17 15:00 05/14/17 14:59 04/16/17 07:46 1 EA Cyclobenzaprine HCl (Flexeril Tab) 5 mg BID PRN PO 04/14/17 15:30 05/14/17 15:29 04/16/17 07:42 5 MG Senna/Docusate Sodium (Senokot S Tab) 1 tab QAM PO 04/15/17 09:00 05/15/17 08:59 04/16/17 07:45 1 TAB Magnesium Hydroxide (Milk Of Magnesia Susp) 30 ml Q6H PRN PO 04/14/17 15:30 05/14/17 15:29 04/16/17 16:35 30 ML
[2017-04-16] MEDS ORDERED: HEPARIN IV LOW DOSE NO BOLUS SCH (20:26)
--- NOTE | 2017-04-16 20:40 | Cardiology Consultation ---
Cardiology Consultation Date of Consultation: Apr 16, 2017 History of Present Illness Chad Keith is a 66 year old male seen in cardiology consultation per the request of Dr Kellogg per cardiology recommendations regarding management of anticoagulation given the patient's history of atrial flutter and left atrial mass/thrombus. The patient has complex cardiac history as delineated in further detail below. He has had recent admissions in February 2017 and again March and March 2017 for symptomatic atrial flutter with rapid ventricular rate. Direct- current cardioversion was considered on both of those admissions, but he had transesophageal echocardiogram in February with findings of an echodensity on the left atrial wall consistent with thrombus or mass. After several weeks of anticoagulation, the transesophageal echocardiogram was therefore repeated in March, and it was unchanged. Anticoagulation was continued without cardioversion, and a cardiac MRI had been tentatively planned as an outpatient for assessment of a cardiac mass. This is yet to be performed however. The patient had also been diagnosed with hyperthyroidism that admission. The patient's ventricular rates have been much improved with medication treatment for hyperthyroidism as well as additional rate control medication. The patient was readmitted on 04/12/17 for complaints of generalized weakness and left-sided abdominal pain. CT scan revealed an infiltrative mass of the pancreas with suspected splenic artery and vein encasement. The spleen was also enlarged. Moderate ascites was noted. Hepatic ultrasound is revealed concerning findings for liver cirrhosis. The patient is tenably scheduled for an EUS with biopsy tomorrow in the operating room. Patient's respiratory status is stable at present. History Past Medical History: 1. Atrial flutter, controlled ventricular rate 2. Coronary heart disease, status post coronary artery bypass grafting 3 in February 2014 receiving GONZALES to LAD, SVG to diagonal, SVG to obtuse marginal, bioprosthetic aortic valve replacement performed at the same time receiving a [address] [employer] tr[employer]a bioprosthesis 3. Obstructive sleep apnea 4. Dyslipidemia with statin intolerance 5. Hypertension Past Surgical History: 1. As described above with CABG and aortic valve replacement, he is also had remote tonsillectomy Social History: Non-smoker, nondrinker Review Of Systems See above for pertinent positives & negatives. A total of 10 systems reviewed and were otherwise negative. Allergies Coded Allergies: Statins (Unverified Adverse Reaction, Severe, LEG WEAKNESS, 03/30/17) Medications Reported Home Medications Medications Dose Route/Sig Max Daily Dose Days Date Category Dose Instructions Methimazole 5 Mg Tab 15 Mg PO DAILY 30 04/02/17 Rx Diltiazem HCl ER (Diltiazem HCl) 180 Mg Capcr 180 Mg PO QAM 30 04/02/17 Rx Coumadin (Warfarin Sod) 1 Mg Tab 1 Mg PO DAILY@16 30 04/02/17 Rx please call [facility] clinic tomorrow for repeat bloodwork (INR) and further advice on Coumadin dose Aldactone (Spironolactone) 25 Mg Tab 12.5 Mg PO QAM 03/30/17 Reported Magnesium Oxide (Magnesium Oxide (mg Supplement) 400 Mg Cap 400 Mg PO BID 02/19/17 Rx Furosemide 40 Mg Tab 40 Mg PO DAILY 02/19/17 Rx Toprol-Xl (Metoprolol Succinate) 100 Mg Tabcr 100 Mg PO BID 02/19/17 Rx Ecotrin Low Strength (Aspirin) 81 Mg Tab 81 Mg PO DAILY 02/19/17 Rx Zyrtec (Cetirizine HCl) 10 Mg Tab 10 Mg PO DAILY 02/12/17 Reported Tricor (Fenofibrate) 54 Mg Tab 1 Tab PO DAILY 30 02/12/17 Reported Tylenol (Acetaminophen) 325 Mg Tab 650 Mg PO UD PRN 02/12/17 Reported Flonase Allergy Relief (Fluticasone Propionate (Nasal)) 50 Mcg/Act Spr 1 [place] SHALONDA DAILY 02/12/17 Reported Flovent Hfa (Fluticasone Propionate) 120 Puffs/5280 Mcg Aero 2 Puffs INH BID 30 02/12/17 Reported Ventolin Hfa (Albuterol) 200 Puffs/48594 Mcg Aers 2 Puffs INH Q4H PRN 02/12/17 Reported Glucophage (Metformin Hcl) 1,000 Mg Tab 500 Mg PO BID 04/14/14 Reported Nitrostat (Nitroglycerin) 0.4 Mg Sub 0.4 Mg UT PRN 04/02/14 Reported Colace (Docusate Sodium) 100 Mg Cap 1 Tab PO BID PRN 04/02/14 Reported Montelukast Sodium (Montelukast Sod) 10 Mg Tab 10 Mg PO QPM 12/22/13 Reported Physical Exam Vital Signs (Last 8hrs): Last 8 Hrs Date Time Temp Pulse Resp B/P (MAP) Pulse Ox O2 Delivery O2 Flow Rate FiO2 04/16/17 20:00 Room Air 04/16/17 19:41 36.6 82 16 106/71 (83) 94 Room Air 04/16/17 16:00 Room Air 04/16/17 15:25 36.6 78 16 108/71 (83) 95 General Appearance: Alert and Oriented x3. NAD. Head: Normocephalic Atraumatic. Eyes: PERRLA, EOMI, conjunctiva and sclera clear Neck: Supple. No carotid bruits noted. No JVD. No HJD. Respiratory: Breath sounds clear to auscultation bilaterally. No w/r/r. Cardiovascular: Reg rate and rhythm. S1 and S2 noted. No murmurs, rubs, gallops. PMI non displace. Abdomen: Normal bowel sounds, soft nontender. no abdominal bruits. Extremities: No edema, no clubbing or cyanosis. distal pulses 2/4 bilaterally. Neuro: No focal deficits. Psychiatric: Normal affect. Data Last Resulted 04/16/17 06:09 Red Blood Count 4.49, Mean Corpuscular Volume 94.2, Mean Corpuscular Hemoglobin 32.5, Mean Corpuscular Hemoglobin Concent 34.5, Mean Platelet Volume 9.4, Neutrophils (%) (Auto) 83.9, Lymphocytes (%) (Auto) 4.9, Monocytes (%) (Auto) 8.8, Eosinophils (%) (Auto) 1.8, Basophils (%) (Auto) 0.2, Neutrophils # (Auto) 11.27, Lymphocytes # (Auto) 0.66, Monocytes # (Auto) 1.18, Eosinophils # (Auto) 0.24, Basophils # (Auto) 0.03 Last Resulted 04/16/17 06:09 Past 24 Hours Test 04/16/17 06:09 04/16/17 18:48 Range/Units Prothromb Time International Ratio 1.9 H 1.5 H 0.9-1.1 Prothrombin Time 20.2 H 15.5 H 9.0-12.0 SECONDS EKG performed on 04/12/16 revealed rate controlled atrial flutter Telemetry currently reveals a rate of 81 bpm, this appears to be ongoing rate control flutter Assessment & Plan Impression: 66-year-old male 1. Atrial flutter, rate controlled 2. History of left atrial thrombus, or perhaps massive other etiology 3. Progressive weakness, abdominal distention, newly noted pancreatic mass, spleen enlargement 4. History of coronary heart disease, CABG, bioprosthetic AVR, preserved LVEF, most recent echocardiogram March 2017 with LVEF 60-65% Plan: Terms of the patient's respiratory status, I think what is making most uncomfortable is his progressive abdominal distention. He seems to be compensated overall in terms of listening to his lung lopez. I think he is stable to undergo endoscopic ultrasound-guided pancreatic biopsy. He is however at significant risk in terms of bleeding and thrombosis. He was admitted with a coagulopathy, INR of 9.5 on 04/12/17 therefore Coumadin has been held. He received a dose of vitamin K on 04/12/17 his INR has been trending down with measurements of 1.9 earlier today and 1.5 on repeat at 1848 today. He is of course at risk of bleeding and therefore his anticoagulation needs to be held for his pancreatic biopsy, but I think that bridge therapy is necessary given his underlying hypercoagulable state, ongoing left atrial flutter, and suspected left atrial thrombus versus mass. We will therefore start low-dose heparin infusion without bolus, with plans to hold it tomorrow, 04/17/17 at 5 AM for proposed procedure. An EKG will be repeated tomorrow for better delineation of his current cardiac rhythm. I discussed this plan with Dr. Kellogg of the hospitalist service, as well as the patient's nurse to update her regarding the heparin in the stop time oh 5 AM tomorrow.
[2017-04-16] MEDS: LIDODERM (LIDOCAINE) PATCH 5% TD SCH (20:42)
[2017-04-16] MEDS: MONTELUKAST SOD 10 MG TAB PO SCH (20:43)
[2017-04-16] MEDS ORDERED: HEPARIN 25,000 UNIT/500ML D5W 500 ML IV PRN (21:45)
[2017-04-17] VITALS (11 sets, daily range): BP systolic 84–107; BP diastolic 55–71; PULSE 62–86; TEMP 36.2–36.9; O2SAT 91–98
[2017-04-17 05:54] LABS: BASO % 0.2 %; BASO ABS # 0.03 K/uL (0-0.2); EOS % 1.8 %; EOS ABS # 0.32 K/uL (0-0.5); HEMATOCRIT 43.4 % (42-52); HEMOGLOBIN 14.5 g/dL (14.0-18.0); LYMPH ABS # 0.87 K/uL (1.2-3.4); MEAN CELL VOLUME 94.6 fL (80-100); MEAN CORPUSCULAR HEMOGLOBIN 31.6 pg (25-34); MEAN CORPUSCULAR HGB CONC 33.4 g/dl (32-36); MEAN PLATELET VOLUME 9.7 fL (7.4-10.4); MONO % 8.2 %; MONO ABS # 1.43 K/uL (0.11-0.59); NEUT % 84.2 %; NEUT ABS # 14.76 K/uL (1.4-6.5); PLATELET COUNT 176 K/uL (130-400); RED CELL DISTRIBUTION WIDTH CV 17.7 % (11.5-14.5); RED CELL DISTRIBUTION WIDTH SD 60.2 fL (36.4-46.3); WHITE BLOOD COUNT 17.51 K/uL (4.8-10.8)
[2017-04-17 06:04] LABS: INR 1.4 (0.9-1.1)
[2017-04-17] MEDS: INSULIN ASPART 100 UNITS/ML 3 ML PEN SC SCH ×4 (06:30→21:00)
[2017-04-17 06:33] LABS: CALCIUM 10.3 mg/dl (8.5-10.1); CREATININE 1.38 mg/dl (0.60-1.40); POTASSIUM 4.5 mmol/L (3.5-5.1)
[2017-04-17] MEDS: FLUTICASONE PROPIONATE NA SPR 16 GM BTL NAE SCH (07:58)
[2017-04-17] MEDS: CYCLOBENZAPRINE HCL 5 MG TAB PO PRN (07:58)
[2017-04-17] MEDS: FLUTICASONE PROP HFA INH 44 MCG INHALER INH SCH ×2 (07:58→21:06)
[2017-04-17] MEDS: DOCUSATE SODIUM/SENNA 50/8.6MG TAB PO SCH (07:59)
[2017-04-17] MEDS: METHIMAZOLE 5 MG TAB PO SCH ×2 (07:59→21:05)
[2017-04-17] MEDS: METOPROLOL SUCC 50MG EXT REL TAB PO SCH ×2 (08:01→21:00)
[2017-04-17] MEDS: DILTIAZEM HCL 180 MG CAPCR PO SCH (08:01)
[2017-04-17 08:35] LABS: HEPATITIS A IGM TC 51813E NON-REACTIVE (NON-REACTIVE); HEPATITIS B CORE IGM TC51854R NON-REACTIVE (NON-REACTIVE)
[2017-04-17] MEDS ORDERED: MIDAZOLAM HCL 1 MG/ML 2ML VIAL ONE (13:11)
[2017-04-17] MEDS ORDERED: FENTANYL CITRATE INJ 50 MCG/1 ML 2 ML VIAL ONE (13:11)
[2017-04-17] MEDS ORDERED: EpHEDrine SULFATE 50MG/5ML SYR ONE (13:56)
[2017-04-17] MEDS ORDERED: LIDOCAINE HCL 2% 2 ML VIAL (20MG/ML) ONE (13:56)
[2017-04-17] MEDS ORDERED: ONDANSETRON INJ 2 MG/ML 2 ML VIAL ONE (13:56)
[2017-04-17] MEDS ORDERED: PHENYLEPHRINE 100MCG/ML 5ML SYR ONE (13:56)
[2017-04-17] MEDS ORDERED: PROPOFOL IV EMULSION 10 MG/ML 20 ML VIAL IV ONE (13:56)
--- NOTE | 2017-04-17 14:01 | GI REPORT ---
Procedure Date: 04/17/2017 1:52 PM Procedure: Upper GI endoscopy Indications: Abnormal CT of the GI tract Medicines: General Anesthesia Complications: No immediate complications. Estimated blood loss: Minimal. Estimated Blood Loss: Estimated blood loss was minimal. Procedure: Pre-Anesthesia Assessment: - Prior to the procedure, a History and Physical was performed, and patient medications, allergies and sensitivities were reviewed. The patient's tolerance of previous anesthesia was reviewed. - The risks and benefits of the procedure and the sedation options and risks were discussed with the patient. All questions were answered and informed consent was obtained. - Patient identification and proposed procedure were verified prior to the procedure by the physician, the nurse and the blast furnace helper. The procedure was verified in the procedure room. - Pre-procedure physical examination revealed no contraindications to sedation. - ASA Grade Assessment: IV - A patient with severe systemic disease that is a constant threat to life. - After reviewing the risks and benefits, the patient was deemed in satisfactory condition to undergo the procedure. - The anesthesia plan was to use general anesthesia. - Immediately prior to administration of medications, the patient was re-assessed for adequacy to receive sedatives. - The heart rate, respiratory rate, oxygen saturations, blood pressure, adequacy of pulmonary ventilation, and response to care were monitored throughout the procedure. - The physical status of the patient was re-assessed after the procedure. After obtaining informed consent, the endoscope was passed under direct vision. Throughout the procedure, the patient's blood pressure, pulse, and oxygen saturations were monitored continuously. The scope was introduced through the mouth, and advanced to the third part of duodenum. The upper GI endoscopy was accomplished without difficulty. The patient tolerated the procedure well. Findings: The examined esophagus was normal. The Z-line was regular and was found 40 cm from the incisors. Diffuse moderate inflammation characterized by congestion (edema), erythema and granularity was found in the entire examined stomach. Biopsies were taken with a cold forceps for histology. Estimated blood loss was minimal. The examined duodenum was normal. Impression: - Normal esophagus. - Z-line regular, 40 cm from the incisors. - Chronic gastritis. Biopsied. - Normal examined duodenum. Recommendation: - Perform an upper endoscopic ultrasound (UEUS) today. - Await pathology results. Wanda Mitchell D.O. Wanda Mitchell, 04/17/2017 2:00:40 PM This report has been signed electronically. Note Initiated On: 04/17/2017 1:52 PM I attest to the content of the Intraoperative Record and orders documented therein, exceptions below
[2017-04-17] MEDS ORDERED: VASOPRESSIN 20 UNIT/ML VIAL ONE (14:04)
[2017-04-17] MEDS ORDERED: LABETALOL HCL IV 5 MG/ML 20ML IV PRN (14:30)
[2017-04-17] MEDS ORDERED: HYDROmorphone INJ 2 MG/ML SYR/VIAL IV PRN (14:30)
[2017-04-17] MEDS ORDERED: FENTANYL CITRATE INJ 50 MCG/1 ML 2 ML VIAL IV PRN (14:30)
[2017-04-17] MEDS ORDERED: FLUMAZENIL 0.1 MG/1 ML 10 ML VIAL IV PRN (14:30)
[2017-04-17] MEDS ORDERED: PHENYLEPHRINE 100MCG/ML 5ML SYR IV PRN (14:30)
[2017-04-17] MEDS ORDERED: ATROPINE SULFATE 0.1 MG/ML 5ML SYR IV PRN (14:30)
[2017-04-17] MEDS ORDERED: EpHEDrine SULFATE INJ 50 MG/ML AMP IV PRN (14:30)
[2017-04-17] MEDS ORDERED: NALOXONE HCL 0.4 MG/1 ML VIAL/CARP IV PRN (14:30)
[2017-04-17] MEDS ORDERED: ONDANSETRON INJ 2 MG/ML 2 ML VIAL IV PRN (14:30)
[2017-04-17] MEDS ORDERED: MEPERIDINE HCL 25 MG/ML CARP IV PRN (14:30)
--- NOTE | 2017-04-17 14:37 | [facility] Post Operative Brief Note ---
Immediate Operative Summary Operative Date Apr 17, 2017. Pre-Operative Diagnosis Pancreatic Mass Post-Operative Diagnosis Pancreatic Mass/ Diffuse lymphadenopathy / ascites Procedure(s) Performed Upper Gastrointestinal Endoscopy, Upper Endoscopic Ultrasound Surgeon Dr. Wanda Mitchell [employer] Head Surgeon(s) None Estimated Blood Loss 0 mL Findings Consistent with Post-Op Diagnosis Specimens 1) Gastric biopsies 2) Lymph node bx (Celiac) 3) Pancreatic mass bx 4) ascitis aspiriated Drains None Anesthesia Type General Complication(s) none Disposition Accompanied Pt To Recover: no Disposition: Recovery Room / PACU
--- NOTE | 2017-04-17 15:20 | GI REPORT ---
Procedure Date: 04/17/2017 2:00 PM Procedure: Upper EUS Indications: Lymphadenopathy on MRI, Suspected mass in pancreas on MRI Medicines: General Anesthesia, Cipro 400 mg IV (post procedure) Complications: No immediate complications. Estimated blood loss: Minimal. Estimated Blood Loss: Estimated blood loss was minimal. Procedure: Pre-Anesthesia Assessment: - Prior to the procedure, a History and Physical was performed, and patient medications, allergies and sensitivities were reviewed. The patient's tolerance of previous anesthesia was reviewed. - The risks and benefits of the procedure and the sedation options and risks were discussed with the patient. All questions were answered and informed consent was obtained. - Patient identification and proposed procedure were verified prior to the procedure by the physician, the nurse and the video engineer. The procedure was verified in the procedure room. - Pre-procedure physical examination revealed no contraindications to sedation. - ASA Grade Assessment: IV - A patient with severe systemic disease that is a constant threat to life. - After reviewing the risks and benefits, the patient was deemed in satisfactory condition to undergo the procedure. - The anesthesia plan was to use general anesthesia. - Immediately prior to administration of medications, the patient was re-assessed for adequacy to receive sedatives. - The heart rate, respiratory rate, oxygen saturations, blood pressure, adequacy of pulmonary ventilation, and response to care were monitored throughout the procedure. - The physical status of the patient was re-assessed after the procedure. After obtaining informed consent, the endoscope was passed under direct vision. Throughout the procedure, the patient's blood pressure, pulse, and oxygen saturations were monitored continuously. The scope was introduced through the mouth, and advanced to the second part of duodenum. The upper EUS was accomplished without difficulty. The patient tolerated the procedure well. Findings: Endosonographic Finding : There was no sign of significant endosonographic abnormality in the ampulla. No masses were identified. There was no sign of significant endosonographic abnormality in the common bile duct. The maximum diameter of the duct was 3 mm. No stones and no biliary sludge were identified. There was no sign of significant endosonographic abnormality in the pancreatic head, pancreatic neck and main pancreatic duct. The pancreatic duct measured up to 2 mm in diameter. Many enlarged lymph nodes were visualized in the celiac region (level 20). The largest measured 19 mm by 15 mm in maximal cross-sectional diameter. The nodes were oval and round, hypoechoic and had well defined margins. Fine needle aspiration for cytology was performed. Color Doppler imaging was utilized prior to needle puncture to confirm a lack of significant vascular structures within the needle path. Four passes were made with the 22 gauge needle using a transgastric approach. A stylet was used. A manager discovery was present to evaluate the adequacy of the specimen. Final cytology results are pending. Estimated blood loss was minimal. An irregular mass was identified in the pancreatic body. The mass was hypoechoic. The mass measured 50 mm by 39 mm in maximal cross-sectional diameter. The endosonographic borders were poorly-defined. There was sonographic evidence suggesting invasion into the splenic artery (manifested by encasement). An intact interface was seen between the mass and the celiac trunk suggesting a lack of invasion. The remainder of the pancreas was examined. The endosonographic appearance of parenchyma and the upstream pancreatic duct indicated a lack of visualization (the pancreatic duct could not be visualized). Fine needle aspiration for cytology was performed. Color Doppler imaging was utilized prior to needle puncture to confirm a lack of significant vascular structures within the needle path. Three passes were made with the 22 gauge needle using a transgastric approach. A stylet was used. A manager discovery was present to evaluate the adequacy of the specimen. Final cytology results are pending. Estimated blood loss was minimal. There was no sign of significant endosonographic abnormality in the left lobe of the liver. Homogeneous parenchyma and no focal pathology were identified. A large amount of fluid, visualized as a hypoechoic feature, was found in the peritoneal cavity. Diagnostic needle aspiration for fluid was performed. Color Doppler imaging was utilized prior to needle puncture to confirm a lack of significant vascular structures within the needle path. One pass was made with the 22 gauge needle using a transgastric approach. A stylet was used. The amount of fluid collected was 20 mL. The fluid was clear, serous and watery. Sample(s) were sent for cell count and differential, albumin concentration and cytology. Estimated blood loss was minimal. Impression: - Normal ampulla. - 3 mm common bile duct. - Many enlarged lymph nodes were visualized in the celiac region (level 20). Fine needle aspiration performed. - A large ill-defined mass was identified in the pancreatic body. This was staged T3 N2 Mx by endosonographic criteria. The staging applies if malignancy is confirmed. Fine needle aspiration performed. - There was no evidence of significant pathology in the left lobe of the liver. - Ascites was found on endosonographic examination of the peritoneal cavity. Recommendation: - Return [facility] to [facility] for [facility] care. - Use broad spectrum antibiotics for 5 days. - Await cytology results. Wanda Mitchell D.O. Wanda iMtchell, 04/17/2017 3:20:08 PM This report has been signed electronically. Note Initiated On: 04/17/2017 2:00 PM I attest to the content of the Intraoperative Record and orders documented therein, exceptions below
[2017-04-17] MEDS: CIPROFLOXACIN / D5W 400 MG in PREMIXED IN D5W 200 ML IV SCH (15:23)
[2017-04-17] MEDS ORDERED: ALBUMIN HUMAN 5% 12.5 GM/250 ML VIAL IV ONE (15:48)
[2017-04-17] MEDS ORDERED: ALBUMIN HUMAN 5% 12.5 GM/250 ML VIAL IV SCH (16:00)
[2017-04-17] MEDS ORDERED: NURSING VERBAL MED ORDER ONE (16:00)
[2017-04-17] MEDS: ALBUMIN HUMAN 25% 12.5 GM/50 ML VIAL IV SCH (16:00)
--- NOTE | 2017-04-17 16:26 | Anesthesiology Progress Note ---
Anesthesia Post Op Note Date & Time Apr 17, 2017 at 16:25 Vital Signs Pain Intensity: 0 Vital Signs Past 12 Hours Date Time Temp Pulse Resp B/P (MAP) Pulse Ox O2 Delivery O2 Flow Rate FiO2 04/17/17 16:10 36.6 72 16 96/61 98 Nasal Cannula 2 04/17/17 16:00 71 16 90/58 98 Nasal Cannula 2 04/17/17 15:50 71 16 88/58 98 Nasal Cannula 2 04/17/17 15:40 72 16 90/69 98 Nasal Cannula 2 04/17/17 15:30 72 16 90/62 97 Nasal Cannula 2 04/17/17 15:20 72 16 93/58 97 Oxymask 10 04/17/17 15:10 71 16 96/60 98 Oxymask 10 04/17/17 15:00 36.6 70 16 108/66 99 Oxymask 10 04/17/17 12:00 Room Air 04/17/17 11:30 36.3 77 20 94/63 (73) 96 04/17/17 08:00 Room Air 04/17/17 07:52 36.6 77 20 107/71 (83) 96 Notes Mental Status: alert / awake / arousable, participated in evaluation Pt Amnestic to Procedure: Yes Nausea / Vomiting: adequately controlled Pain: adequately controlled Airway Patency, RR, SpO2: stable & adequate BP & HR: stable & adequate Hydration State: stable & adequate Anesthetic Complications: no major complications apparent Patient's postop BP slightly lower than his preop BP so I decided to administer 250ml of 5% albumin. BP responded from high 80-'s to mid 90's. Patient conversant and answering questions appropriately. OK for transfer back to his room.
--- NOTE | 2017-04-17 18:48 | Progress Note ---
Medicine Progress Note Date & Time of Visit: Apr 17, 2017 at 18:45. Subjective seen resting in bed, awaiting EUS procedure states he feels fine no abdominal pain, nausea no dyspnea, chest pain back pain improving no other symptoms Objective Last 8 Hrs Date Time Temp Pulse Resp B/P (MAP) Pulse Ox O2 Delivery O2 Flow Rate FiO2 04/17/17 18:10 36.2 73 18 103/60 (74) 97 Nasal Cannula 2.0 04/17/17 17:10 36.3 75 18 99/62 (74) 97 Nasal Cannula 2.0 04/17/17 16:40 36.3 72 18 92/62 (72) 98 Nasal Cannula 2.0 04/17/17 16:40 Room Air 04/17/17 16:20 36.6 72 16 96/56 98 Nasal Cannula 2 04/17/17 16:10 36.6 72 16 96/61 98 Nasal Cannula 2 04/17/17 16:00 71 16 90/58 98 Nasal Cannula 2 04/17/17 15:50 71 16 88/58 98 Nasal Cannula 2 04/17/17 15:40 72 16 90/69 98 Nasal Cannula 2 04/17/17 15:30 72 16 90/62 97 Nasal Cannula 2 04/17/17 15:20 72 16 93/58 97 Oxymask 10 04/17/17 15:10 71 16 96/60 98 Oxymask 10 04/17/17 15:00 36.6 70 16 108/66 99 Oxymask 10 04/17/17 12:00 Room Air 04/17/17 11:30 36.3 77 20 94/63 (73) 96 Physical Exam: General- oriented x 3, not in distress, speaks in sentences with no effort Eyes- anicteric Neck- no JVD Lungs- clear breath sounds BL Heart- regular rhythm; no murmur, normal rate Abdomen- moderately distended, soft, non tender Extremities- no pretibial edema, no calf tenderness Neuro- alert, oriented x 3;no gross focal deficits Skin- warm & dry Laboratory Results: Last 24 Hours Test 04/16/17 18:48 04/16/17 20:04 04/17/17 00:00 04/17/17 05:23 Prothrombin Time 15.5 SECONDS 14.2 SECONDS Prothromb Time International Ratio 1.5 1.4 Bedside Glucose 119 mg/dl White Blood Count 17.51 K/uL Red Blood Count 4.59 M/uL Hemoglobin 14.5 g/dL Hematocrit 43.4 % Mean Corpuscular Volume 94.6 fL Mean Corpuscular Hemoglobin 31.6 pg Mean Corpuscular Hemoglobin Concent 33.4 g/dl Platelet Count 176 K/uL Mean Platelet Volume 9.7 fL Neutrophils (%) (Auto) 84.2 % Lymphocytes (%) (Auto) 5.0 % Monocytes (%) (Auto) 8.2 % Eosinophils (%) (Auto) 1.8 % Basophils (%) (Auto) 0.2 % Neutrophils # (Auto) 14.76 K/uL Lymphocytes # (Auto) 0.87 K/uL Monocytes # (Auto) 1.43 K/uL Eosinophils # (Auto) 0.32 K/uL Basophils # (Auto) 0.03 K/uL RDW Standard Deviation 60.2 fL RDW Coefficient of Variation 17.7 % Immature Granulocyte % (Auto) 0.6 % Immature Granulocyte # (Auto) 0.10 K/uL Sodium Level 135 mmol/L Potassium Level 4.5 mmol/L Chloride Level 102 mmol/L Carbon Dioxide Level 23 mmol/L Anion Gap 10.0 mmol/L Blood Urea Nitrogen 25 mg/dl Creatinine 1.38 mg/dl Est Creatinine Clear Calc Drug Dose 52.5 ml/min Estimated GFR () 61.3 Estimated GFR (Non- 52.9 BUN/Creatinine Ratio 18.3 Random Glucose 92 mg/dl Calcium Level 10.3 mg/dl Test 04/17/17 07:39 04/17/17 11:50 04/17/17 13:08 04/17/17 14:59 Bedside Glucose 78 mg/dl 74 mg/dl 74 mg/dl Peritoneal Fluid Color YELLOW Peritoneal Fluid Appearance CLOUDY Peritoneal Fluid WBC 605 /uL Peritoneal Fluid RBC 4000 /uL Peritoneal Fld Mononuclear WBCs (%) 56.8 % Peritoneal Fld Polynuclear WBCs (%) 43.2 % Peritoneal Fluid Albumin 1.1 g/dl Test 04/17/17 15:04 04/17/17 16:47 Bedside Glucose 71 mg/dl 85 mg/dl Date/Time Source Procedure Growth Status 04/17/17 14:59 Ascities Fluid Acid Fast Stain Pending Received 04/17/17 14:59 Ascities Fluid Mycobacterial Culture Pending Received 04/17/17 14:59 Peritoneal Fluid Gram Stain Pending Received 04/17/17 14:59 Peritoneal Fluid Bacterial Culture Pending Received Assessment & Plan 66 year old male with history of CAD, CHF, A fib on coumadin, DM, HTN, Hyperthyroidism presenting with poor oral intake and weakness. WEAKNESS, POOR ORAL INTAKE FROM: PANCREATIC MASS WITH ASCITES CIRRHOSIS GI consulted was given Albumin IV for EUS possible paracentesis VIt K given to reverse INR INR 1.4 needs to be bridged with heparin when ok with GI ACUTE RENAL FAILURE LIKELY PRERENAL, with HYPER CA AND HYPER K, Resolved hold lasix, spironolactone, metformin IV NSS at 125cc/hr given Renal Diet - crea back to baseline K and Ca better - IV fluids stopped - appreciate Nephro input ELEVATED INR INR 9.5 Vit K 5mg po given INR 3.7 additional Vit K given INR 1.4 CAD no cardiac symptoms resume Aspirin when ok with GI CHF euvolemic (+) ascites, 3rd spacing from pancreatic mass? hold diuretics for now, monitor AFIB ON COUMADIN continue Diltiazem and Metoprolol with holding parameters INR 9.5, Vit K given INR 3.7 VIt K given to reverse INR INR 1.4 needs to be bridged with heparin when ok with GI LEFT ATRIAL APPENDAGE THROMBUS Cardiology consulted, needs heparin bridging when INR subtherapeutic and ok with GI post procedures LOW BACK PAIN Lidoderm patch, PRN Tramadol and Flexeril DM hold Metformin Pharm Gly Cx HTN on Diltiazem and Metoprolol with parameters HYPERTHYROIDISM TFTs slightly improved from last month Endo consulted recommend to increase Methimazole to 10mg BID FULL CODE DVT PPX INR 1.4 heparin when ok with GI Disposition pending anticipate d/c home when medically stable Current Inpatient Medications: Current Inpatient Medications Medications (Trade) Dose Ordered Sig/Sal Route Start Time Stop Time Status Last Admin Dose Admin Diltiazem HCl (Cardizem Cd Cap) 180 mg QAM PO 04/13/17 09:00 05/13/17 08:59 04/17/17 08:01 180 MG Docusate Sodium (coLACE CAP) 100 mg BID PRN PO 04/12/17 18:45 05/12/17 18:44 04/15/17 09:25 100 MG Fluticasone Propionate (Flovent Hfa 44MCG Inhaler) 2 puffs BID INH 04/12/17 21:00 05/12/17 20:59 04/17/17 07:58 2 PUFFS Fluticasone Propionate (Flonase Nasal [place]) 2 sprays DAILY SHALONDA 04/13/17 09:00 05/13/17 08:59 04/17/17 07:58 2 SPRAYS Metoprolol Succinate (Toprol Xl Tab) 100 mg BID PO 04/12/17 21:00 05/12/17 20:59 04/17/17 08:01 100 MG Montelukast Sodium (Singulair Tab) 10 mg QPM PO 04/12/17 21:00 05/12/17 20:59 04/16/17 20:43 10 MG Acetaminophen (Tylenol Tab) 650 mg Q4H PRN PO 04/12/17 18:30 05/12/17 18:29 Insulin Aspart (novoLOG ASPART) SLIDING SCALE ACHS SC 04/12/17 21:00 05/12/17 20:59 04/13/17 20:55 1 UNITS Glucose (Glucose 40% Gel) 15-30 GRAMS 15 GRAMS... UD PRN PO 04/12/17 18:45 05/12/17 18:44 Glucose (Glucose Chew Tab) 4-8 Tablets 4 Tabl... UD PRN PO 04/12/17 18:45 05/12/17 18:44 Dextrose (Dextrose 50% 50ML Syringe) 25-50ML OF 50% DW IV FOR... UD PRN IV 04/12/17 18:45 05/12/17 18:44 Glucagon (Glucagon Inj) 1 mg UD PRN SQ 04/12/17 18:45 05/12/17 18:44 Tramadol HCl (Ultram Tab) 50 mg Q8H PRN PO 04/13/17 16:45 05/13/17 16:44 04/16/17 00:09 50 MG Methimazole (Methimazole Tab) 10 mg BID PO 04/14/17 09:00 05/14/17 08:59 04/17/17 07:59 10 MG Lidocaine (Lidoderm Patch 5%) 1 patch QPM TD 04/14/17 21:00 05/14/17 20:59 04/16/17 20:42 1 PATCH Miscellaneous (Remove Lidoderm Patch) 1 ea QAM N/A 3/10/18 15:00 05/14/17 14:59 04/17/17 08:15 1 EA Cyclobenzaprine HCl (Flexeril Tab) 5 mg BID PRN PO 04/14/17 15:30 05/14/17 15:29 04/17/17 07:58 5 MG Senna/Docusate Sodium (Senokot S Tab) 1 tab QAM PO 04/15/17 09:00 05/15/17 08:59 04/17/17 07:59 1 TAB Magnesium Hydroxide (Milk Of Magnesia Susp) 30 ml Q6H PRN PO 04/14/17 15:30 05/14/17 15:29 04/16/17 16:35 30 ML Heparin Sodium/ Dextrose 500 ml @ 17 mls/hr Q24H PRN IV 04/16/17 21:45 05/16/17 21:44 Future Hold 04/16/17 22:00 17 MLS/HR Albumin Human (Albumin 25%) 12.5 gm 0800,0801 IV 04/18/17 08:00 04/18/17 12:00 04/17/17 16:00 12.5 GM Albumin Human (Albumin 25%) 12.5 gm 1100,1101 IV 04/18/17 11:00 04/18/17 14:00 Ciprofloxacin/ Dextrose 400 mg/ Prmx 200 ml @ 100 mls/hr Q12H IV 04/17/17 14:30 04/27/17 14:29 04/17/17 15:23 100 MLS/HR Hydromorphone HCl (Dilaudid Inj) 0.5 mg Q5M PRN IV 04/17/17 14:30 04/17/17 19:30 Fentanyl Citrate (Fentanyl Inj) 25 mcg Q5M PRN IV 04/17/17 14:30 04/17/17 19:30 Naloxone HCl (Narcan Inj) 0.2 mg Q2M PRN IV 04/17/17 14:30 04/17/17 19:30 Meperidine HCl (Demerol Inj) 12.5 mg Q5M PRN IV 04/17/17 14:30 04/17/17 19:30 Ondansetron HCl (Zofran Inj) 4 mg ONE PRN IV 04/17/17 14:30 04/17/17 19:30 Flumazenil (Romazicon Inj) 0.2 mg Q2M PRN IV 04/17/17 14:30 04/17/17 19:30 Labetalol HCl (Normodyne IV) 5 mg Q5M PRN IV 04/17/17 14:30 04/17/17 19:30 Ephedrine Sulfate (EpHEDrine SULFATE INJ) 5 mg Q5M PRN IV 04/17/17 14:30 04/17/17 19:30 Atropine Sulfate (Atropine Sulfate 0.1mg/ml Inj) 0.5 mg Q1M PRN IV 04/17/17 14:30 04/17/17 19:30 Phenylephrine HCl (Shorty-Synephrine 500MCG/5ML Syr) 100 mcg Q5M PRN IV 04/17/17 14:30 04/17/17 19:30
--- NOTE | 2017-04-17 20:26 | Cardiology Progress Note ---
Cardiology Progress Note Date of Service Apr 17, 2017. Cardiology Progress Note Operative report from EUS, biopsy reviewed. Given potential bleeding risk , will continue to hold heparin bridge at present , and will reassess and discuss timing of reinitiating heparin with GI tomorrow.
[2017-04-17] MEDS: LIDODERM (LIDOCAINE) PATCH 5% TD SCH (21:02)
[2017-04-17] MEDS: MONTELUKAST SOD 10 MG TAB PO SCH (21:05)
[2017-04-18] VITALS (9 sets, daily range): BP systolic 96–110; BP diastolic 57–75; PULSE 73–79; TEMP 36.3–37.1; O2SAT 93–97
[2017-04-18] MEDS: CIPROFLOXACIN / D5W 400 MG in PREMIXED IN D5W 200 ML IV SCH ×2 (03:17→14:12)
[2017-04-18 05:40] LABS: HEMATOCRIT 42.1 % (42-52); HEMOGLOBIN 13.8 g/dL (14.0-18.0); MEAN CELL VOLUME 95.5 fL (80-100); MEAN CORPUSCULAR HEMOGLOBIN 31.3 pg (25-34); MEAN CORPUSCULAR HGB CONC 32.8 g/dl (32-36); MEAN PLATELET VOLUME 10.2 fL (7.4-10.4); PLATELET COUNT 139 K/uL (130-400); RED CELL DISTRIBUTION WIDTH CV 17.7 % (11.5-14.5); RED CELL DISTRIBUTION WIDTH SD 61.5 fL (36.4-46.3); WHITE BLOOD COUNT 14.42 K/uL (4.8-10.8)
[2017-04-18] MEDS: ALBUMIN HUMAN 25% 12.5 GM/50 ML VIAL IV SCH ×3 (07:50→11:55)
[2017-04-18] MEDS: DOCUSATE SODIUM/SENNA 50/8.6MG TAB PO SCH (07:51)
[2017-04-18] MEDS: METHIMAZOLE 5 MG TAB PO SCH ×2 (07:51→20:51)
[2017-04-18] MEDS: FLUTICASONE PROP HFA INH 44 MCG INHALER INH SCH ×2 (07:51→20:51)
[2017-04-18] MEDS: METOPROLOL SUCC 50MG EXT REL TAB PO SCH ×2 (07:51→20:51)
[2017-04-18] MEDS: FLUTICASONE PROPIONATE NA SPR 16 GM BTL NAE SCH (07:51)
[2017-04-18] MEDS: INSULIN ASPART 100 UNITS/ML 3 ML PEN SC SCH ×4 (07:52→20:49)
[2017-04-18] MEDS: DILTIAZEM HCL 180 MG CAPCR PO SCH (08:02)
--- NOTE | 2017-04-18 10:26 | DIAGNOSTIC IMAGING REPORT ---
PARACENTESIS ABDOMEN W/IMAGING CLINICAL HISTORY: 66 years-old Male with ascites. COMPARISON: CT abdomen and pelvis 04/12/2017 PROCEDURE: The procedure was explained to the patient in the care including the benefits and possible risks/complications. The patient gave verbal understanding and written consent was obtained. A time-out was performed prior to the start of the procedure. The patient was placed on the ultrasound table in the supine position. Using ultrasound guidance, an appropriate procedure site in the left lower abdomen was marked. This area was then prepped and draped in the usual sterile fashion. Local anesthesia was achieved within 1% lidocaine. An 8-[place] centesis catheter was then inserted. Approximately 3.8 liters of clear, yellowish fluid was removed and one liter was sent to the lab for analysis. The catheter was removed and external pressure was held to achieve hemostasis. A sterile dressing was applied to the procedure site. The patient tolerated the procedure well without immediate complications. IMPRESSION: Successful ultrasound-guided paracentesis with removal of 3.8 L ascitic fluid The above report was generated using voice recognition software. It may contain grammatical, syntax or spelling errors. Electronically signed by: Scar Perrin M.D. 04/18/2017 10:24 AM Dictated Date/Time: 04/18/2017 10:24 AM
[2017-04-18] MEDS: MAGNESIUM HYDROXIDE SUSP 30 ML UDC PO PRN (10:43)
[2017-04-18] MEDS: TRAMADOL HCL 50 MG TAB PO PRN (10:43)
--- NOTE | 2017-04-18 12:47 | Gastroenterology Progress Note ---
Progress Note Date of Service: Apr 18, 2017 Subjective Pt evaluation today including: conversation w/ patient, physical exam, chart review, lab review, review of studies, review of inpatient medication list Mr. Chad Keith is a 66 yr old male who was admitted on 04/12 for weakness. He developed significant abdominal ascites in the past few weeks. On arrival, CT with question of a pancreas mass. EUS yesterday more suggestive of lymphoma vs pancreas malignancy. Paracentesis today with removal of 3.8L of fluid.25grams albumin before and after. Review of Systems Constitutional: No fever Eyes: No worsening of vision ENT: No hearing loss Respiratory: No cough Cardiac: No chest pain Abdomen: No pain, No nausea, No vomiting, No diarrhea, No constipation, No GI bleeding Musculoskeletal: No joint pain Male : No dysuria Neuro: No memory loss Psych: No depression symptoms Heme: No abnormal bleeding/bruising Endo: No fatigue Skin: No rash Medications Current Inpatient Medications Medications (Trade) Dose Ordered Sig/Sal Route Start Time Stop Time Status Last Admin Dose Admin Diltiazem HCl (Cardizem Cd Cap) 180 mg QAM PO 04/13/17 09:00 05/13/17 08:59 04/18/17 08:02 180 MG Docusate Sodium (coLACE CAP) 100 mg BID PRN PO 04/12/17 18:45 05/12/17 18:44 04/15/17 09:25 100 MG Fluticasone Propionate (Flovent Hfa 44MCG Inhaler) 2 puffs BID INH 04/12/17 21:00 05/12/17 20:59 04/18/17 07:51 2 PUFFS Fluticasone Propionate (Flonase Nasal [place]) 2 sprays DAILY SHALONDA 04/13/17 09:00 05/13/17 08:59 04/18/17 07:51 2 SPRAYS Metoprolol Succinate (Toprol Xl Tab) 100 mg BID PO 04/12/17 21:00 05/12/17 20:59 04/18/17 07:51 100 MG Montelukast Sodium (Singulair Tab) 10 mg QPM PO 04/12/17 21:00 05/12/17 20:59 04/17/17 21:05 10 MG Acetaminophen (Tylenol Tab) 650 mg Q4H PRN PO 3/8/18 18:30 05/12/17 18:29 Insulin Aspart (novoLOG ASPART) SLIDING SCALE ACHS SC 04/12/17 21:00 05/12/17 20:59 04/13/17 20:55 1 UNITS Glucose (Glucose 40% Gel) 15-30 GRAMS 15 GRAMS... UD PRN PO 04/12/17 18:45 05/12/17 18:44 Glucose (Glucose Chew Tab) 4-8 Tablets 4 Tabl... UD PRN PO 04/12/17 18:45 05/12/17 18:44 Dextrose (Dextrose 50% 50ML Syringe) 25-50ML OF 50% DW IV FOR... UD PRN IV 04/12/17 18:45 05/12/17 18:44 Glucagon (Glucagon Inj) 1 mg UD PRN SQ 04/12/17 18:45 05/12/17 18:44 Tramadol HCl (Ultram Tab) 50 mg Q8H PRN PO 04/13/17 16:45 05/13/17 16:44 04/18/17 10:43 50 MG Methimazole (Methimazole Tab) 10 mg BID PO 04/14/17 09:00 05/14/17 08:59 04/18/17 07:51 10 MG Lidocaine (Lidoderm Patch 5%) 1 patch QPM TD 04/14/17 21:00 05/14/17 20:59 04/17/17 21:02 1 PATCH Miscellaneous (Remove Lidoderm Patch) 1 ea QAM N/A 04/14/17 15:00 05/14/17 14:59 04/18/17 07:51 1 EA Cyclobenzaprine HCl (Flexeril Tab) 5 mg BID PRN PO 04/14/17 15:30 05/14/17 15:29 04/17/17 07:58 5 MG Senna/Docusate Sodium (Senokot S Tab) 1 tab QAM PO 04/15/17 09:00 05/15/17 08:59 04/18/17 07:51 1 TAB Magnesium Hydroxide (Milk Of Magnesia Susp) 30 ml Q6H PRN PO 04/14/17 15:30 05/14/17 15:29 04/18/17 10:43 30 ML Heparin Sodium/ Dextrose 500 ml @ 17 mls/hr Q24H PRN IV 04/16/17 21:45 05/16/17 21:44 Future Hold 04/16/17 22:00 17 MLS/HR Albumin Human (Albumin 25%) 12.5 gm 1100,1101 IV 04/18/17 11:00 04/18/17 14:00 04/18/17 11:55 12.5 GM Ciprofloxacin/ Dextrose 400 mg/ Prmx 200 ml @ 100 mls/hr Q12H IV 04/17/17 14:30 04/27/17 14:29 04/18/17 03:17 100 MLS/HR Objective Vital Signs Date Time Temp Pulse Resp B/P (MAP) Pulse Ox O2 Delivery O2 Flow Rate FiO2 04/18/17 12:00 Room Air 04/18/17 11:53 36.4 78 16 101/64 (76) 97 Room Air 04/18/17 11:52 36.4 79 18 104/66 (79) 97 Room Air 04/18/17 10:46 37.1 74 16 96/57 (70) 96 Room Air 04/18/17 08:50 36.4 74 16 104/69 (81) 96 Room Air 04/18/17 07:47 36.3 74 18 101/67 (78) 96 Room Air 04/18/17 07:45 Room Air 04/18/17 04:00 36.5 74 16 100/66 (77) 97 Nasal Cannula 2.0 04/18/17 04:00 Room Air 04/18/17 00:00 Room Air 04/17/17 23:51 36.3 72 18 99/64 (76) 96 Room Air 99/62 (74) 94/58 (70) 04/17/17 21:10 36.3 71 18 97/62 (74) 97 Nasal Cannula 2.0 04/17/17 20:13 36.2 64 18 97/63 (74) 97 Room Air 04/17/17 20:00 Room Air 04/17/17 19:10 36.3 62 18 84/55 (65) 97 Nasal Cannula 2.0 04/17/17 18:10 36.2 73 18 103/60 (74) 97 Nasal Cannula 2.0 04/17/17 17:10 36.3 75 18 99/62 (74) 97 Nasal Cannula 2.0 04/17/17 16:40 36.3 72 18 92/62 (72) 98 Nasal Cannula 2.0 04/17/17 16:40 Room Air 04/17/17 16:20 36.6 72 16 96/56 98 Nasal Cannula 2 04/17/17 16:10 36.6 72 16 96/61 98 Nasal Cannula 2 04/17/17 16:00 71 16 90/58 98 Nasal Cannula 2 04/17/17 15:50 71 16 88/58 98 Nasal Cannula 2 04/17/17 15:40 72 16 90/69 98 Nasal Cannula 2 04/17/17 15:30 72 16 90/62 97 Nasal Cannula 2 04/17/17 15:20 72 16 93/58 97 Oxymask 10 04/17/17 15:10 71 16 96/60 98 Oxymask 10 04/17/17 15:00 36.6 70 16 108/66 99 Oxymask 10 Physical Exam General Appearance: no apparent distress ENT: pharynx normal Neck: thyroid normal, no JVD Respiratory/Chest: lungs clear Cardiovascular: regular rate, rhythm, no JVD, no murmur Abdomen: soft, + pertinent finding (moderate to large, non tense ascites) Extremities: non-tender Neurologic/Psych: alert, normal mood/affect, oriented x 3 Skin: no jaundice Laboratory Results Last 24 Hours Test 04/17/17 13:08 04/17/17 14:59 04/17/17 15:04 04/17/17 16:47 Bedside Glucose 74 mg/dl 71 mg/dl 85 mg/dl Peritoneal Fluid Color YELLOW Peritoneal Fluid Appearance CLOUDY Peritoneal Fluid WBC 605 /uL Peritoneal Fluid RBC 4000 /uL Peritoneal Fld Mononuclear WBCs (%) 56.8 % Peritoneal Fld Polynuclear WBCs (%) 43.2 % Peritoneal Fluid Albumin 1.1 g/dl Test 04/17/17 20:42 04/18/17 05:16 04/18/17 07:51 04/18/17 11:30 Bedside Glucose 70 mg/dl 79 mg/dl 113 mg/dl White Blood Count 14.42 K/uL Red Blood Count 4.41 M/uL Hemoglobin 13.8 g/dL Hematocrit 42.1 % Mean Corpuscular Volume 95.5 fL Mean Corpuscular Hemoglobin 31.3 pg Mean Corpuscular Hemoglobin Concent 32.8 g/dl RDW Standard Deviation 61.5 fL RDW Coefficient of Variation 17.7 % Platelet Count 139 K/uL Mean Platelet Volume 10.2 fL Activated Partial Thromboplast Time 34.0 SECONDS Partial Thromboplastin Ratio 1.[address] Mitchell 04/17/17: - 3 mm common bile duct. - Many enlarged lymph nodes were visualized in the celiac region (level 20). Fine needle aspiration performed. - A large ill-defined mass was identified in the pancreatic body. This was staged T3 N2 Mx by endosonographic criteria. The staging applies if malignancy is confirmed. Fine needle aspiration performed. - There was no evidence of significant pathology in the left obe of the liver. - Ascites was found on endosonographic examination of the peritoneal cavity. Assessment and Plan Mr. Chad Keith is a 66 yr old male with a enlarge celiac lymph nodes and a pancreas mass. Plan: 1. OK to restart Heparin/Coumadin. 2. Regular consistency diet. 3. Will discuss results of path with pt when available. I saw and evaluated the patient with Ms. Keith. Await pathology Please call with questions
[2017-04-18 15:27] LABS: INR 1.3 (0.9-1.1)
[2017-04-18] MEDS ORDERED: WARFARIN SOD 1 MG TAB PO ONE (16:30)
--- NOTE | 2017-04-18 16:34 | Progress Note ---
Medicine Progress Note Date & Time of Visit: Apr 18, 2017 at 16:33. Subjective s/p parecentesis today, ~4 liters seen resting in bed, comfortable, states he feels tired denies shortness of breath, chest pain no abdominal pain back pain better no other symptoms Objective Last 8 Hrs Date Time Temp Pulse Resp B/P (MAP) Pulse Ox O2 Delivery O2 Flow Rate FiO2 04/18/17 16:00 Room Air 04/18/17 14:57 36.8 74 18 99/64 (76) 96 Room Air 04/18/17 12:00 Room Air 04/18/17 11:53 36.4 78 16 101/64 (76) 97 Room Air 04/18/17 11:52 36.4 79 18 104/66 (79) 97 Room Air 04/18/17 10:46 37.1 74 16 96/57 (70) 96 Room Air 04/18/17 08:50 36.4 74 16 104/69 (81) 96 Room Air Physical Exam: General- oriented x 3, not in distress, speaks in sentences with no effort Eyes- anicteric Neck- no JVD Lungs- clear breath sounds BL, no rales/wheezes Heart- regular rhythm; no murmur, normal rate Abdomen- moderately distended, soft, non tender Extremities- no pretibial edema, no calf tenderness Neuro- alert, oriented x 3;no gross focal deficits Skin- warm & dry Laboratory Results: Last 24 Hours Test 04/17/17 16:47 04/17/17 20:42 04/18/17 05:16 04/18/17 07:51 Bedside Glucose 85 mg/dl 70 mg/dl 79 mg/dl White Blood Count 14.42 K/uL Red Blood Count 4.41 M/uL Hemoglobin 13.8 g/dL Hematocrit 42.1 % Mean Corpuscular Volume 95.5 fL Mean Corpuscular Hemoglobin 31.3 pg Mean Corpuscular Hemoglobin Concent 32.8 g/dl RDW Standard Deviation 61.5 fL RDW Coefficient of Variation 17.7 % Platelet Count 139 K/uL Mean Platelet Volume 10.2 fL Prothrombin Time 13.2 SECONDS Prothromb Time International Ratio 1.3 Activated Partial Thromboplast Time 34.0 SECONDS Partial Thromboplastin Ratio 1.3 Test 04/18/17 11:30 Bedside Glucose 113 mg/dl Assessment & Plan 66 year old male with history of CAD, CHF, A fib on coumadin, DM, HTN, Hyperthyroidism presenting with poor oral intake and weakness. WEAKNESS, POOR ORAL INTAKE FROM: PANCREATIC MASS WITH ASCITES CIRRHOSIS GI consulted was given Albumin IV initially 04/17: s/p EUS with Biopsy of Pancreatic mass, Pathology pending 04/18: s/p Paracentesis, 4 liters, Pathology pending VIt K given to reverse INR INR 1.3 to be bridged with heparin due to L atrial appendage thrombus will start Heparin drip and resume coumadin monitor INR ACUTE RENAL FAILURE LIKELY PRERENAL, with HYPER CA AND HYPER K, Resolved holding lasix, spironolactone, metformin IV NSS at 125cc/hr given Renal Diet - crea back to baseline K and Ca better - IV fluids stopped - appreciate Nephro input ELEVATED INR initially presented with INR 9.5 Vit K given, coumadin held INR 1.3--> management as noted below CAD no cardiac symptoms resume Aspirin when ok with GI CHF euvolemic (+) ascites, 3rd spacing from pancreatic mass? hold diuretics for now, monitor AFIB ON COUMADIN continue Diltiazem and Metoprolol with holding parameters INR 9.5, Vit K given INR 3.7 VIt K given to reverse INR INR 1.4 needs to be bridged with heparin when ok with GI LEFT ATRIAL APPENDAGE THROMBUS Cardiology consulted, needs heparin bridging when INR subtherapeutic and ok with GI post procedures LOW BACK PAIN Lidoderm patch, PRN Tramadol and Flexeril DM hold Metformin Pharm Gly Cx HTN on Diltiazem and Metoprolol with parameters HYPERTHYROIDISM TFTs slightly improved from last month Endo consulted recommend to increase Methimazole to 10mg BID FULL CODE DVT PPX INR 1.3 heparin + coumadin Disposition pending lives at home with family PT/OT evaluation d/c home when cleared by Gastro and Cardiology will need coumadin bridging with Lovenox Current Inpatient Medications: Current Inpatient Medications Medications (Trade) Dose Ordered Sig/Sal Route Start Time Stop Time Status Last Admin Dose Admin Diltiazem HCl (Cardizem Cd Cap) 180 mg QAM PO 04/13/17 09:00 05/13/17 08:59 04/18/17 08:02 180 MG Docusate Sodium (coLACE CAP) 100 mg BID PRN PO 04/12/17 18:45 05/12/17 18:44 04/15/17 09:25 100 MG Fluticasone Propionate (Flovent Hfa 44MCG Inhaler) 2 puffs BID INH 04/12/17 21:00 05/12/17 20:59 04/18/17 07:51 2 PUFFS Fluticasone Propionate (Flonase Nasal [place]) 2 sprays DAILY SHALONDA 04/13/17 09:00 05/13/17 08:59 04/18/17 07:51 2 SPRAYS Metoprolol Succinate (Toprol Xl Tab) 100 mg BID PO 04/12/17 21:00 05/12/17 20:59 04/18/17 07:51 100 MG Montelukast Sodium (Singulair Tab) 10 mg QPM PO 04/12/17 21:00 05/12/17 20:59 04/17/17 21:05 10 MG Acetaminophen (Tylenol Tab) 650 mg Q4H PRN PO 04/12/17 18:30 05/12/17 18:29 Insulin Aspart (novoLOG ASPART) SLIDING SCALE ACHS SC 04/12/17 21:00 05/12/17 20:59 04/13/17 20:55 1 UNITS Glucose (Glucose 40% Gel) 15-30 GRAMS 15 GRAMS... UD PRN PO 04/12/17 18:45 05/12/17 18:44 Glucose (Glucose Chew Tab) 4-8 Tablets 4 Tabl... UD PRN PO 04/12/17 18:45 05/12/17 18:44 Dextrose (Dextrose 50% 50ML Syringe) 25-50ML OF 50% DW IV FOR... UD PRN IV 04/12/17 18:45 05/12/17 18:44 Glucagon (Glucagon Inj) 1 mg UD PRN SQ 04/12/17 18:45 05/12/17 18:44 Tramadol HCl (Ultram Tab) 50 mg Q8H PRN PO 04/13/17 16:45 05/13/17 16:44 04/18/17 10:43 50 MG Methimazole (Methimazole Tab) 10 mg BID PO 04/14/17 09:00 05/14/17 08:59 04/18/17 07:51 10 MG Lidocaine (Lidoderm Patch 5%) 1 patch QPM TD 04/14/17 21:00 05/14/17 20:59 04/17/17 21:02 1 PATCH Miscellaneous (Remove Lidoderm Patch) 1 ea QAM N/A 04/14/17 15:00 05/14/17 14:59 04/18/17 07:51 1 EA Cyclobenzaprine HCl (Flexeril Tab) 5 mg BID PRN PO 04/14/17 15:30 05/14/17 15:29 04/17/17 07:58 5 MG Senna/Docusate Sodium (Senokot S Tab) 1 tab QAM PO 04/15/17 09:00 05/15/17 08:59 04/18/17 07:51 1 TAB Magnesium Hydroxide (Milk Of Magnesia Susp) 30 ml Q6H PRN PO 04/14/17 15:30 05/14/17 15:29 04/18/17 10:43 30 ML Heparin Sodium/ Dextrose 500 ml @ 17 mls/hr Q24H PRN IV 04/16/17 21:45 05/16/17 21:44 Future Hold 04/16/17 22:00 17 MLS/HR Ciprofloxacin/ Dextrose 400 mg/ Prmx 200 ml @ 100 mls/hr Q12H IV 04/17/17 14:30 04/27/17 14:29 04/18/17 14:12 100 MLS/HR
[2017-04-18] MEDS ORDERED: HEPARIN IV LOW DOSE NO BOLUS SCH (17:00)
[2017-04-18] MEDS: HEPARIN 25,000 UNIT/500ML D5W 500 ML IV SCH (18:56)
[2017-04-18] MEDS: MONTELUKAST SOD 10 MG TAB PO SCH (20:51)
[2017-04-18] MEDS: LIDODERM (LIDOCAINE) PATCH 5% TD SCH (20:51)
[2017-04-19 01:34] LABS: PTT PATIENT 74.6 SECONDS (21.0-31.0)
[2017-04-19] MEDS: HEPARIN 25,000 UNIT/500ML D5W 500 ML IV SCH ×2 (01:42→21:17)
[2017-04-19] MEDS: CIPROFLOXACIN / D5W 400 MG in PREMIXED IN D5W 200 ML IV SCH ×2 (02:31→13:44)
[2017-04-19 04:20] VITALS: BP 98/61; PULSE 72; TEMP 36.6; O2SAT 94
[2017-04-19] MEDS: MAGNESIUM HYDROXIDE SUSP 30 ML UDC PO PRN (06:13)
[2017-04-19] MEDS: DOCUSATE SODIUM 100 MG CAP PO PRN (06:13)
[2017-04-19 07:47] VITALS: BP 97/62; PULSE 72; TEMP 36.6; O2SAT 95
[2017-04-19] MEDS: DILTIAZEM HCL 180 MG CAPCR PO SCH (07:52)
[2017-04-19] MEDS: METOPROLOL SUCC 50MG EXT REL TAB PO SCH ×2 (07:52→21:12)
[2017-04-19] MEDS: INSULIN ASPART 100 UNITS/ML 3 ML PEN SC SCH ×4 (07:52→21:14)
[2017-04-19] MEDS: FLUTICASONE PROP HFA INH 44 MCG INHALER INH SCH ×2 (07:55→21:12)
[2017-04-19] MEDS: FLUTICASONE PROPIONATE NA SPR 16 GM BTL NAE SCH (07:55)
[2017-04-19] MEDS: METHIMAZOLE 5 MG TAB PO SCH ×2 (07:55→21:17)
[2017-04-19] MEDS: DOCUSATE SODIUM/SENNA 50/8.6MG TAB PO SCH (07:55)
[2017-04-19 08:05] LABS: HEMATOCRIT 45.7 % (42-52); MEAN CELL VOLUME 95.6 fL (80-100); MEAN CORPUSCULAR HEMOGLOBIN 31.4 pg (25-34); MEAN PLATELET VOLUME 9.8 fL (7.4-10.4); PLATELET COUNT 122 K/uL (130-400); RED CELL DISTRIBUTION WIDTH CV 18.1 % (11.5-14.5); RED CELL DISTRIBUTION WIDTH SD 62.8 fL (36.4-46.3); WHITE BLOOD COUNT 13.62 K/uL (4.8-10.8)
[2017-04-19 08:11] LABS: MEAN CORPUSCULAR HGB CONC 32.8 g/dl (32-36)
[2017-04-19 08:21] LABS: PTT PATIENT 56.1 SECONDS (21.0-31.0)
--- NOTE | 2017-04-19 10:29 | Gastroenterology Progress Note ---
Progress Note Date of Service: Apr 19, 2017 Subjective Pt evaluation today including: conversation w/ patient, physical exam, chart review, lab review Pt seen and evaluated, chart reviewed. Path and cytology from paracentesis pending. Likely malignancy pancreatic mass. Peritoneal pathology pending. Feels well. Wants to go home. No abd pain. No nausea, vomiting. No fever, chills. No CP, SOB. He is weak. He notes he is pretty steady of his feet and is able to ambulate to bathroom w/ assistance. Does not have assistance at home. Discussed this with him. ETOH: none Family history of cirrhosis: none Family history of GI malignancy: none Paracentesis 04/18/17: No SBP, PMN 242 - pathology pending EUS 04/17/17: Normal ampulla. 3 mm common bile duct. Many enlarged lymph nodes were visualized in the celiac region (level 20). Fine needle aspiration performed.A large ill-defined mass was identified in the pancreatic body. This was staged T3 N2 Mx by endosonographic criteria. The staging applies if malignancy is confirmed. Fine needle aspiration performed. There was no evidence of significant pathology in the left lobe of the liver. Ascites was found on endosonographic examination of the peritoneal cavity. MRCP 04/13/17: No gallstones identified. No evidence of intrarectal intrahepatic biliaryductal dilatation. Moderate ascites and small bilateral pleural effusions Cirrhotic appearing liver Splenomegaly with a 5.5 cm lower pole splenic lesion Large mass contiguous the pancreas and encasing the splenic vein measuring greater than 10 cm. There is bulky adenopathy within the gastrohepatic ligament, para-aortic region, and celiac region. CT ABD/Pelvis 04/12/17: Examination limited given the lack of intravenous and oral contrast Bilateral pleural effusions and bilateral lower lobe atelectasis/ consolidation Infiltrative mass contiguous with the pancreas, with suspected splenic artery and vein encasement. There is moderately extensive peripancreatic gastrohepatic ligament celiac and para-aortic adenopathy. Cirrhotic morphology of the liver Splenomegaly. 5.5 cm hypodense lower pole splenic lesion. The straight margins raise the possibility of an infarct although neoplasm could appear similar. Moderate ascites Review of Systems Constitutional: + weakness, + fatigue, No fever Respiratory: No cough, No shortness of breath Cardiac: No chest pain, No edema Abdomen: No pain, No nausea, No vomiting, No diarrhea, No constipation, No GI bleeding Skin: No rash, No itch, No color change Medications Current Inpatient Medications Medications (Trade) Dose Ordered Sig/Sal Route Start Time Stop Time Status Last Admin Dose Admin Diltiazem HCl (Cardizem Cd Cap) 180 mg QAM PO 04/13/17 09:00 05/13/17 08:59 04/18/17 08:02 180 MG Docusate Sodium (coLACE CAP) 100 mg BID PRN PO 04/12/17 18:45 05/12/17 18:44 04/19/17 06:13 100 MG Fluticasone Propionate (Flovent Hfa 44MCG Inhaler) 2 puffs BID INH 04/12/17 21:00 05/12/17 20:59 04/19/17 07:55 2 PUFFS Fluticasone Propionate (Flonase Nasal [place]) 2 sprays DAILY SHALONDA 04/13/17 09:00 05/13/17 08:59 04/19/17 07:55 2 SPRAYS Metoprolol Succinate (Toprol Xl Tab) 100 mg BID PO 04/12/17 21:00 05/12/17 20:59 04/18/17 20:51 100 MG Montelukast Sodium (Singulair Tab) 10 mg QPM PO 04/12/17 21:00 05/12/17 20:59 04/18/17 20:51 10 MG Acetaminophen (Tylenol Tab) 650 mg Q4H PRN PO 04/12/17 18:30 05/12/17 18:29 Insulin Aspart (novoLOG ASPART) SLIDING SCALE ACHS SC 04/12/17 21:00 05/12/17 20:59 04/13/17 20:55 1 UNITS Glucose (Glucose 40% Gel) 15-30 GRAMS 15 GRAMS... UD PRN PO 04/12/17 18:45 05/12/17 18:44 Glucose (Glucose Chew Tab) 4-8 Tablets 4 Tabl... UD PRN PO 04/12/17 18:45 05/12/17 18:44 Dextrose (Dextrose 50% 50ML Syringe) 25-50ML OF 50% DW IV FOR... UD PRN IV 04/12/17 18:45 05/12/17 18:44 Glucagon (Glucagon Inj) 1 mg UD PRN SQ 3/8/18 18:45 05/12/17 18:44 Tramadol HCl (Ultram Tab) 50 mg Q8H PRN PO 04/13/17 16:45 05/13/17 16:44 04/18/17 10:43 50 MG Methimazole (Methimazole Tab) 10 mg BID PO 04/14/17 09:00 05/14/17 08:59 04/19/17 07:55 10 MG Lidocaine (Lidoderm Patch 5%) 1 patch QPM TD 04/14/17 21:00 05/14/17 20:59 04/18/17 20:51 1 PATCH Miscellaneous (Remove Lidoderm Patch) 1 ea QAM N/A 04/14/17 15:00 05/14/17 14:59 04/19/17 07:55 1 EA Cyclobenzaprine HCl (Flexeril Tab) 5 mg BID PRN PO 04/14/17 15:30 05/14/17 15:29 04/17/17 07:58 5 MG Senna/Docusate Sodium (Senokot S Tab) 1 tab QAM PO 04/15/17 09:00 05/15/17 08:59 04/19/17 07:55 1 TAB Magnesium Hydroxide (Milk Of Magnesia Susp) 30 ml Q6H PRN PO 04/14/17 15:30 05/14/17 15:29 04/19/17 06:13 30 ML Ciprofloxacin/ Dextrose 400 mg/ Prmx 200 ml @ 100 mls/hr Q12H IV 04/17/17 14:30 04/27/17 14:29 04/19/17 02:31 100 MLS/HR Warfarin Sodium (Coumadin Tab) 1 mg DAILY@16 PO 04/19/17 16:00 05/19/17 15:59 Heparin Sodium/ Dextrose 500 ml @ 16 mls/hr Q24H IV 04/18/17 19:00 05/18/17 18:59 04/19/17 01:42 17 MLS/HR Objective Vital Signs Date Time Temp Pulse Resp B/P (MAP) Pulse Ox O2 Delivery O2 Flow Rate FiO2 04/19/17 07:47 36.6 72 20 97/62 (74) 95 Room Air 04/19/17 07:45 Room Air 04/19/17 04:20 36.6 72 16 98/61 (73) 94 Room Air 04/19/17 04:00 Room Air 04/19/17 00:00 Room Air 04/18/17 20:53 73 102/68 (79) 04/18/17 19:53 36.8 74 18 110/75 (87) 93 Room Air 04/18/17 19:35 Room Air 04/18/17 16:00 Room Air 04/18/17 14:57 36.8 74 18 99/64 (76) 96 Room Air 04/18/17 12:00 Room Air 04/18/17 11:53 36.4 78 16 101/64 (76) 97 Room Air 04/18/17 11:52 36.4 79 18 104/66 (79) 97 Room Air 04/18/17 10:46 37.1 74 16 96/57 (70) 96 Room Air Physical Exam General Appearance: no apparent distress (appears weak in bed) Eyes: PERRL ENT: hearing grossly normal Neck: supple, trachea midline Respiratory/Chest: lungs clear, normal breath sounds Cardiovascular: regular rate, rhythm, no gallop, no JVD Abdomen: normal bowel sounds, non tender, soft, no organomegaly Neurologic/Psych: alert, normal mood/affect, oriented x 3 Skin: normal color Laboratory Results Last 24 Hours Test 04/18/17 11:30 04/18/17 16:25 04/18/17 20:35 04/18/17 21:00 Bedside Glucose 113 mg/dl 80 mg/dl 66 mg/dl 75 mg/dl Test 04/19/17 00:47 04/19/17 07:36 04/19/17 07:45 Activated Partial Thromboplast Time 74.6 SECONDS 56.1 SECONDS Partial Thromboplastin Ratio 2.9 2.2 Bedside Glucose 93 mg/dl White Blood Count 13.62 K/uL Red Blood Count 4.78 M/uL Hemoglobin 15.0 g/dL Hematocrit 45.7 % Mean Corpuscular Volume 95.6 fL Mean Corpuscular Hemoglobin 31.4 pg Mean Corpuscular Hemoglobin Concent 32.8 g/dl RDW Standard Deviation 62.8 fL RDW Coefficient of Variation 18.1 % Platelet Count 122 K/uL Mean Platelet Volume 9.8 fL Assessment and Plan Mr. Chad Keith is a 66 yr old male with a enlarge celiac lymph nodes and a pancreatic mass s/p EUS and paracentesis, pathology pending. He understands he likely has a malignancy. Wants to go home. Is still weak. - OK for AC - Diet as tolerated - Ascites - etiology unknown - follow up diagnostic tap - Low NA diet less than 2G daily - Probable Cirrhosis - Outpt serologies and w/u. - Pancreatic mass - Follow up pathology - Outpatient oncology appointment next week, primary team please help arrange - GI to sign off. No GI contraindication to discharge. He will need OP oncology appointment next week. Please help arrange for him. I saw and evaluated the patient. We are still awaiting the fine-needle aspiration from earlier in the week. At this time I would suggest hepatic last tomography to be done as an outpatient to determine if he does have significant liver disease. I would also suggest that he be seen by an oncology provider after his pathology results have returned.
[2017-04-19 11:54] VITALS: BP 91/61; PULSE 72; TEMP 36.3; O2SAT 98
--- NOTE | 2017-04-19 13:53 | Progress Note ---
Internal Med Progress Note Date of Service: Apr 19, 2017. Provider Documentation: SUBJECTIVE: Seen and examined at bedside Reports constipation, generalized weakness and poor appetite Had dizziness this morning which resolved Denies chest pain, SOB, abd pain Family at bedside OBJECTIVE: Vital Signs-as noted below Physical Exam: General Appearance:Moderately built and nourished, no apparent distress Head: normocephalic, Atraumatic Eyes: normal inspection, EOMI, PERRL Neck: supple, Trachea midline Respiratory/Chest: Normal breath sounds, CTA Cardiovascular: S1, S2, No murmur Abdomen/GI:Soft, Non tender, distended, Bowel sounds diminished Extremities/Musculoskelatal:normal inspection, trace edema Neurologic/Psych:AAOX3, grossly no focal neurological deficits Skin: normal color, warm Lab data as noted below. ASSESSMENT & PLAN: Patient is a 66 year male with history of CAD, CHF, A fib on coumadin, DM II, HTN, Hyperthyroidism presenting with poor oral intake and weakness. Pancreatic Mass with Ascites Cirrhosis Appreciate GI Input was given Albumin IV initially s/p EUS with Biopsy of Pancreatic mass, Pathology pending s/p Paracentesis, 4 liters, Pathology pending Needs Oncology follow up as outpatient Low sodium diet Resume diuretics as able Acute renal failure: Likely prerenal hold lasix, spironolactone, metformin for now S/P IV fluids Renal Diet Appreciate Nephro input Monitor renal function Constipation: continue bowel regimen Elevated INR initially presented with INR 9.5 Vit K given, Coumadin held INR 1.3 yesterday continue coumadin monitor INR CAD no cardiac symptoms continue Aspirin, BB CHF euvolemic (+) ascites, 3rd spacing from pancreatic mass/cirrhosis hold diuretics for now, monitor Afib on Coumadin continue Diltiazem, Metoprolol INR 1.3 yesterday Continue Heparin, Coumadin Left Atrial Appendage Thrombus: Cardiology consulted, needs heparin bridging when INR subtherapeutic and ok with GI post procedures Lumbago Lidoderm patch, PRN Tramadol and Flexeril DM II hold Metformin Pharm Gly Cx HTN continue Diltiazem and Metoprolol with parameters Hyperthyroidism: TFTs slightly improved from last month Endo consulted recommend to increase Methimazole to 10mg BID Code Status: Full Code DVT Px: INR 1.3 heparin and coumadin Disposition lives at home with family PT/OT evaluation: Needs Home Health will need coumadin bridging with Lovenox if INR subtherapeutic Vital Signs: Date Time Temp Pulse Resp B/P (MAP) Pulse Ox O2 Delivery O2 Flow Rate FiO2 04/19/17 12:00 Room Air 04/19/17 11:54 36.3 72 20 91/61 (71) 98 Room Air 04/19/17 07:47 36.6 72 20 97/62 (74) 95 Room Air 04/19/17 07:45 Room Air 04/19/17 04:20 36.6 72 16 98/61 (73) 94 Room Air 04/19/17 04:00 Room Air 04/19/17 00:00 Room Air 04/18/17 20:53 73 102/68 (79) 04/18/17 19:53 36.8 74 18 110/75 (87) 93 Room Air 04/18/17 19:35 Room Air 04/18/17 16:00 Room Air 04/18/17 14:57 36.8 74 18 99/64 (76) 96 Room Air Lab Results: Results Past 24 Hours Test 04/18/17 16:25 04/18/17 20:35 04/18/17 21:00 04/19/17 00:47 Range/Units Bedside Glucose 80 66 75 70-99 mg/dl Activated Partial Thromboplast Time 74.6 21.0-31.0 SECONDS Partial Thromboplastin Ratio 2.9 Test 04/19/17 07:36 04/19/17 07:45 04/19/17 11:32 04/19/17 14:23 Range/Units Bedside Glucose 93 92 70-99 mg/dl White Blood Count 13.62 4.8-10.8 K/uL Red Blood Count 4.78 4.7-6.1 M/uL Hemoglobin 15.0 14.0-18.0 g/dL Hematocrit 45.7 42-52 % Mean Corpuscular Volume 95.6 80-100 fL Mean Corpuscular Hemoglobin 31.4 25-34 pg Mean Corpuscular Hemoglobin Concent 32.8 32-36 g/dl RDW Standard Deviation 62.8 36.4-46.3 fL RDW Coefficient of Variation 18.1 11.5-14.5 % Platelet Count 122 130-400 K/uL Mean Platelet Volume 9.8 7.4-10.4 fL Activated Partial Thromboplast Time 56.1 21.0-31.0 SECONDS Partial Thromboplastin Ratio 2.2
[2017-04-19] MEDS ORDERED: POLYETHYLENE (MIRALAX) 17 GM PACK PO STA (14:20)
[2017-04-19 15:53] VITALS: BP 96/66; PULSE 73; TEMP 36.3; O2SAT 98
[2017-04-19 16:18] LABS: INR 1.5 (0.9-1.1)
[2017-04-19] MEDS: WARFARIN SOD 1 MG TAB PO SCH (16:40)
[2017-04-19 18:29] LABS: ANA SCREEN TC 249X NEGATIVE (NEGATIVE)
[2017-04-19 20:55] VITALS: BP 116/73; PULSE 100; TEMP 36.4; O2SAT 97
[2017-04-19] MEDS: MONTELUKAST SOD 10 MG TAB PO SCH (21:12)
[2017-04-19] MEDS: LIDODERM (LIDOCAINE) PATCH 5% TD SCH (21:12)
[2017-04-19] MEDS ORDERED: CALCIUM CARBONATE 500 MG CHEWABLE PO PRN (22:30)
[2017-04-19] MEDS ORDERED: CALCIUM CARBONATE 500 MG CHEWABLE PO ONE (22:45)
[2017-04-19] MEDS: TRAMADOL HCL 50 MG TAB PO PRN (23:33)
[2017-04-20] VITALS (10 sets, daily range): BP systolic 91–142; BP diastolic 60–76; PULSE 71–89; TEMP 36.3–36.7; O2SAT 93–97
[2017-04-20] MEDS: CIPROFLOXACIN / D5W 400 MG in PREMIXED IN D5W 200 ML IV SCH (02:29)
[2017-04-20 04:44] LABS: HEMATOCRIT 43.2 % (42-52); HEMOGLOBIN 14.6 g/dL (14.0-18.0); MEAN CELL VOLUME 93.9 fL (80-100); MEAN CORPUSCULAR HEMOGLOBIN 31.7 pg (25-34); MEAN CORPUSCULAR HGB CONC 33.8 g/dl (32-36); RED CELL DISTRIBUTION WIDTH CV 18.1 % (11.5-14.5); RED CELL DISTRIBUTION WIDTH SD 61.3 fL (36.4-46.3); WHITE BLOOD COUNT 16.84 K/uL (4.8-10.8)
[2017-04-20 05:03] LABS: CALCIUM 9.9 mg/dl (8.5-10.1); CREATININE 2.34 mg/dl (0.60-1.40); POTASSIUM 5.5 mmol/L (3.5-5.1)
[2017-04-20 05:06] LABS: INR 1.6 (0.9-1.1)
[2017-04-20 05:07] LABS: MEAN PLATELET VOLUME 9.8 fL (7.4-10.4); PLATELET COUNT 99 K/uL (130-400)
[2017-04-20 05:14] LABS: PTT PATIENT 73.8 SECONDS (21.0-31.0)
[2017-04-20] MEDS: HEPARIN 25,000 UNIT/500ML D5W 500 ML IV SCH (05:21)
[2017-04-20] MEDS ORDERED: NALOXONE HCL 0.4 MG/1 ML VIAL/CARP IV STA (05:28)
--- NOTE | 2017-04-20 05:29 | Progress Note ---
Internal Med Progress Note Date of Service: Apr 20, 2017. Provider Documentation: Made aware by RN of episodic confusion. Patient denies headache, chest pain, shortness of breath, cough, abdominal pain , dysuria. SBP 90s as per RN, CR 130s Loose stools noted. sodium 130 potassium 5.2 serum crea 2.19 platelets 99 lactic acid 4 AP Encephalopathy Multifactorial : ARF, hyponatremia, hypovolemia, hypotension diarrhea ro cdif, possible sepsis meds (Cipro, Ultram, Flexeril) ro structural intracranial pathology ? Adrenal insufficiency (hyponatremia, hyperkalemia, hypotension) IVF bolus IV Albumin Follow lactic acid Narcan trial Hold parameters for sedation and confusion for Ultram and Flexeril. Hold Cipro for now. Cultures, stool cdif UA Vanco p.o. 1 dose for possible C. difficile in light of sepsis criteria Nephrology follow-up RE ARF CT head HIT screen Hold IV heparin for now until CT head and HIT screen results available. Decrease beta-kari maintenance dose for now given low BP. May need Decadron trial for possible adrenal insufficiency if BP still low despite IVF administration. Vital Signs: Date Time Temp Pulse Resp B/P (MAP) Pulse Ox O2 Delivery O2 Flow Rate FiO2 04/20/17 15:43 36.7 72 18 93/62 (72) 97 Room Air 04/20/17 11:49 36.3 71 17 95/60 (72) 97 Room Air 04/20/17 11:45 Room Air 04/20/17 11:04 36.4 72 16 96/62 (73) 96 Room Air 04/20/17 10:03 36.4 73 18 91/66 (74) 93 Room Air 04/20/17 07:45 Room Air 04/20/17 07:38 79 18 142/76 (98) 97 Room Air 04/20/17 05:46 36.5 75 18 91/74 (80) 97 Room Air 04/20/17 04:00 Room Air 04/20/17 00:05 36.4 80 18 92/63 (73) 96 Room Air 04/20/17 00:00 Room Air 04/19/17 20:55 36.4 100 18 116/73 (87) 97 Room Air 04/19/17 20:10 Room Air 04/19/17 16:15 Room Air Lab Results: Results Past 24 Hours Test 04/19/17 16:46 04/19/17 20:56 04/20/17 00:00 04/20/17 04:36 Range/Units Bedside Glucose 78 180 70-99 mg/dl Urine Color DK YELLOW Urine Appearance CLEAR CLEAR Urine pH 5.0 4.5-7.5 Urine Specific [place] 1.023 1.000-1.030 Urine Protein TRACE NEG Urine Glucose (UA) NEG NEG Urine Ketones NEG NEG Urine Occult Blood NEG NEG Urine Nitrite NEG NEG Urine Bilirubin NEG NEG Urine Urobilinogen NEG NEG Urine Leukocyte Esterase TRACE NEG Urine WBC (Auto) 1-5 0-5 /hpf Urine RBC (Auto) 0-4 0-4 /hpf Urine Hyaline Casts (Auto) >30 0-5 /lpf Urine Epithelial Cells (Auto) 20-30 0-5 /lpf Urine Bacteria (Auto) NEG NEG Urine Pathogenic Casts 1-5 GRANULAR CASTS 0 /lpf White Blood Count 16.84 4.8-10.8 K/uL Red Blood Count 4.60 4.7-6.1 M/uL Hemoglobin 14.6 14.0-18.0 g/dL Hematocrit 43.2 42-52 % Mean Corpuscular Volume 93.9 80-100 fL Mean Corpuscular Hemoglobin 31.7 25-34 pg Mean Corpuscular Hemoglobin Concent 33.8 32-36 g/dl RDW Standard Deviation 61.3 36.4-46.3 fL RDW Coefficient of Variation 18.1 11.5-14.5 % Platelet Count 99 130-400 K/uL Mean Platelet Volume 9.8 7.4-10.4 fL Platelet Estimate DECREASED Prothrombin Time 16.9 9.0-12.0 SECONDS Prothromb Time International Ratio 1.6 0.9-1.1 Activated Partial Thromboplast Time 73.8 21.0-31.0 SECONDS Partial Thromboplastin Ratio 2.8 Sodium Level 130 136-145 mmol/L Potassium Level 5.5 3.5-5.1 mmol/L Chloride Level 97 98-107 mmol/L Carbon Dioxide Level 27 21-32 mmol/L Anion Gap 6.0 3-11 mmol/L Blood Urea Nitrogen 42 7-18 mg/dl Creatinine 2.34 0.60-1.40 mg/dl Est Creatinine Clear Calc Drug Dose 30.8 ml/min Estimated GFR () 32.4 Estimated GFR (Non- 27.9 BUN/Creatinine Ratio 17.8 10-20 Random Glucose 96 70-99 mg/dl Calcium Level 9.9 8.5-10.1 mg/dl Test 04/20/17 05:39 04/20/17 05:54 04/20/17 05:58 04/20/17 07:51 Range/Units Osmolality 285 280-300 mOsm/kg Magnesium Level 2.5 1.8-2.4 mg/dl Total Bilirubin 2.1 0.2-1 mg/dl Direct Bilirubin 0.8 0-0.2 mg/dl Aspartate Amino Transf (AST/SGOT) 20 15-37 U/L Alanine Aminotransferase (ALT/SGPT) 8 12-78 U/L Alkaline Phosphatase 86 45-117 U/L Total Protein 5.6 6.4-8.2 gm/dl Albumin 2.5 3.4-5.0 gm/dl Procalcitonin 0.36 0-0.5 ng/ml Lactic Acid Level 4.2 0.4-2.0 mmol/L Ammonia 40.0 11-32 umol/L Heparin-PF4 Antibody Screen NEG NEG Bedside Glucose 64 70-99 mg/dl Test 04/20/17 08:13 04/20/17 11:49 04/20/17 11:51 04/20/17 14:24 Range/Units Bedside Glucose 77 73 70-99 mg/dl Sodium Level 130 136-145 mmol/L Potassium Level 5.2 3.5-5.1 mmol/L Chloride Level 98 98-107 mmol/L Carbon Dioxide Level 23 21-32 mmol/L Anion Gap 9.0 3-11 mmol/L Blood Urea Nitrogen 43 7-18 mg/dl Creatinine 2.19 0.60-1.40 mg/dl Est Creatinine Clear Calc Drug Dose 33.0 ml/min Estimated GFR () 35.1 Estimated GFR (Non- 30.3 BUN/Creatinine Ratio 19.7 10-20 Random Glucose 89 70-99 mg/dl Lactic Acid Level 5.0 0.4-2.0 mmol/L Calcium Level 10.0 8.5-10.1 mg/dl Activated Partial Thromboplast Time 54.6 21.0-31.0 SECONDS Partial Thromboplastin Ratio 2.1 Microbiology Results 04/20/17 Blood Culture, Received Pending 04/20/17 Blood Culture, Received Pending
[2017-04-20] MEDS ORDERED: SODIUM CHLORIDE 0.9% 500ML 500 ML IV ONE ×2 (05:30→06:45)
[2017-04-20 06:38] LABS: ALBUMIN 2.5 gm/dl (3.4-5.0); TOTAL PROTEIN 5.6 gm/dl (6.4-8.2)
--- NOTE | 2017-04-20 07:16 | DIAGNOSTIC IMAGING REPORT ---
CT OF THE HEAD WITHOUT CONTRAST CLINICAL HISTORY: Altered mental status. COMPARISON STUDY: No previous studies for comparison. CT DOSE: 537.48 mGy.cm TECHNIQUE: Helical axial images of the head were obtained without IV contrast. Automated exposure control was utilized for the study. A dose lowering technique was utilized adhering to the principles of ALARA. FINDINGS: No acute intracranial hemorrhage, midline shift or mass effect is present. Ventricular system is unremarkable. Basilar cisterns are patent. There are no extra axial collections. There are no findings to suggest acute dural sinus thrombosis or acute territorial infarct. There are no significant calvarial abnormalities. Visualized portions of the sinuses and mastoid air cells are clear. IMPRESSION: No acute intracranial findings. Electronically signed by: Ricardo Harris M.D. 04/20/2017 7:15 AM Dictated Date/Time: 04/20/2017 7:10 AM
[2017-04-20] MEDS ORDERED: VANCOMYCIN HCL 125 MG/2.5ML SOLN PO STA (07:26)
[2017-04-20] MEDS ORDERED: RASPBERRY SYRUP 5 ML UDP PO STA (07:27)
--- NOTE | 2017-04-20 07:49 | Nephrology Progress Note ---
Nephrology Progress Note Date of Service: Apr 20, 2017. Subjective 66 yo male with likely pancreatic malignancy with ascites who has low blood pressures, abdominal distention, worsening renal failure. pt comfortable. appetite is ok. pt says his abdomen is actually softer than it has been. currently getting fluid bolus. Objective Date Time Temp Pulse Resp B/P (MAP) Pulse Ox O2 Delivery O2 Flow Rate FiO2 04/20/17 05:46 36.5 75 18 91/74 (80) 97 Room Air 04/20/17 04:00 Room Air 04/20/17 00:05 36.4 80 18 92/63 (73) 96 Room Air 04/20/17 00:00 Room Air 04/19/17 20:55 36.4 100 18 116/73 (87) 97 Room Air 04/19/17 20:10 Room Air 04/19/17 16:15 Room Air 04/19/17 15:53 36.3 73 16 96/66 (76) 98 Room Air 04/19/17 12:00 Room Air 04/19/17 11:54 36.3 72 20 91/61 (71) 98 Room Air 04/19/17 07:47 36.6 72 20 97/62 (74) 95 Room Air 04/19/17 07:45 Room Air Physical Exam: General-aaox3 Eyes-no scleral icterus ENT-mmm Neck-supple Lungs-decreased at bases Heart-irregular Abdomen-bs+ +distention Extremities-+1 edema Neuro-nonfocal Current Inpatient Medications Medications (Trade) Dose Ordered Sig/Sal Route Start Time Stop Time Status Last Admin Dose Admin Diltiazem HCl (Cardizem Cd Cap) 180 mg QAM PO 04/13/17 09:00 05/13/17 08:59 04/18/17 08:02 180 MG Docusate Sodium (coLACE CAP) 100 mg BID PRN PO 04/12/17 18:45 05/12/17 18:44 04/19/17 06:13 100 MG Fluticasone Propionate (Flovent Hfa 44MCG Inhaler) 2 puffs BID INH 04/12/17 21:00 05/12/17 20:59 04/19/17 21:12 2 PUFFS Fluticasone Propionate (Flonase Nasal [place]) 2 sprays DAILY SHALONDA 04/13/17 09:00 05/13/17 08:59 3/15/18 07:55 2 SPRAYS Montelukast Sodium (Singulair Tab) 10 mg QPM PO 04/12/17 21:00 05/12/17 20:59 04/19/17 21:12 10 MG Acetaminophen (Tylenol Tab) 650 mg Q4H PRN PO 04/12/17 18:30 05/12/17 18:29 Insulin Aspart (novoLOG ASPART) SLIDING SCALE ACHS SC 04/12/17 21:00 05/12/17 20:59 04/19/17 21:14 4 UNITS Glucose (Glucose 40% Gel) 15-30 GRAMS 15 GRAMS... UD PRN PO 04/12/17 18:45 05/12/17 18:44 Glucose (Glucose Chew Tab) 4-8 Tablets 4 Tabl... UD PRN PO 04/12/17 18:45 05/12/17 18:44 Dextrose (Dextrose 50% 50ML Syringe) 25-50ML OF 50% DW IV FOR... UD PRN IV 04/12/17 18:45 05/12/17 18:44 Glucagon (Glucagon Inj) 1 mg UD PRN SQ 04/12/17 18:45 05/12/17 18:44 Methimazole (Methimazole Tab) 10 mg BID PO 04/14/17 09:00 05/14/17 08:59 04/19/17 21:17 10 MG Lidocaine (Lidoderm Patch 5%) 1 patch QPM TD 04/14/17 21:00 05/14/17 20:59 04/19/17 21:12 1 PATCH Miscellaneous (Remove Lidoderm Patch) 1 ea QAM N/A 04/14/17 15:00 05/14/17 14:59 04/19/17 07:55 1 EA Cyclobenzaprine HCl (Flexeril Tab) 5 mg BID PRN PO 04/14/17 15:30 05/14/17 15:29 04/17/17 07:58 5 MG Senna/Docusate Sodium (Senokot S Tab) 1 tab QAM PO 04/15/17 09:00 05/15/17 08:59 04/19/17 07:55 1 TAB Magnesium Hydroxide (Milk Of Magnesia Susp) 30 ml Q6H PRN PO 04/14/17 15:30 05/14/17 15:29 04/19/17 06:13 30 ML Ciprofloxacin/ Dextrose 400 mg/ Prmx 200 ml @ 100 mls/hr Q12H IV 04/17/17 14:30 04/27/17 14:29 Future Hold 04/20/17 02:29 100 MLS/HR Warfarin Sodium (Coumadin Tab) 1 mg DAILY@16 PO 04/19/17 16:00 05/19/17 15:59 Future Hold 04/19/17 16:40 1 MG Heparin Sodium/ Dextrose 500 ml @ 15 mls/hr Q24H IV 04/18/17 19:00 05/18/17 18:59 Future Hold 04/20/17 05:21 16 MLS/HR Aspirin (Ecotrin Tab) 81 mg DAILY PO 04/20/17 09:00 05/20/17 08:59 Tramadol HCl (Ultram Tab) 25 mg Q6H PRN PO 04/20/17 05:30 05/20/17 05:29 Sodium Chloride 500 ml @ 500 mls/hr Q1H ONCE IV 04/20/17 06:45 04/20/17 07:44 04/20/17 07:16 500 MLS/HR Albumin Human (Albumin 25%) 12.5 gm Q6H IV 04/20/17 18:00 04/23/17 17:59 Albumin Human (Albumin 25%) 25 gm 1000 ONCE IV 04/20/17 10:00 04/20/17 10:01 Metoprolol Succinate (Toprol Xl Tab) 25 mg BID PO 04/20/17 09:00 05/12/17 20:59 Last 24 Hours Test 04/19/17 07:45 04/19/17 11:32 04/19/17 15:50 04/19/17 16:46 White Blood Count 13.62 K/uL Red Blood Count 4.78 M/uL Hemoglobin 15.0 g/dL Hematocrit 45.7 % Mean Corpuscular Volume 95.6 fL Mean Corpuscular Hemoglobin 31.4 pg Mean Corpuscular Hemoglobin Concent 32.8 g/dl RDW Standard Deviation 62.8 fL RDW Coefficient of Variation 18.1 % Platelet Count 122 K/uL Mean Platelet Volume 9.8 fL Activated Partial Thromboplast Time 56.1 SECONDS Partial Thromboplastin Ratio 2.2 Bedside Glucose 92 mg/dl 78 mg/dl Prothrombin Time 15.9 SECONDS Prothromb Time International Ratio 1.5 Test 04/19/17 20:56 04/20/17 04:36 04/20/17 05:39 04/20/17 05:54 Bedside Glucose 180 mg/dl White Blood Count 16.84 K/uL Red Blood Count 4.60 M/uL Hemoglobin 14.6 g/dL Hematocrit 43.2 % Mean Corpuscular Volume 93.9 fL Mean Corpuscular Hemoglobin 31.7 pg Mean Corpuscular Hemoglobin Concent 33.8 g/dl RDW Standard Deviation 61.3 fL RDW Coefficient of Variation 18.1 % Platelet Count 99 K/uL Mean Platelet Volume 9.8 fL Platelet Estimate DECREASED Prothrombin Time 16.9 SECONDS Prothromb Time International Ratio 1.6 Activated Partial Thromboplast Time 73.8 SECONDS Partial Thromboplastin Ratio 2.8 Sodium Level 130 mmol/L Potassium Level 5.5 mmol/L Chloride Level 97 mmol/L Carbon Dioxide Level 27 mmol/L Anion Gap 6.0 mmol/L Blood Urea Nitrogen 42 mg/dl Creatinine 2.34 mg/dl Est Creatinine Clear Calc Drug Dose 30.8 ml/min Estimated GFR () 32.4 Estimated GFR (Non- 27.9 BUN/Creatinine Ratio 17.8 Random Glucose 96 mg/dl Calcium Level 9.9 mg/dl Osmolality 285 mOsm/kg Magnesium Level 2.5 mg/dl Total Bilirubin 2.1 mg/dl Direct Bilirubin 0.8 mg/dl Aspartate Amino Transf (AST/SGOT) 20 U/L Alanine Aminotransferase (ALT/SGPT) 8 U/L Alkaline Phosphatase 86 U/L Total Protein 5.6 gm/dl Albumin 2.5 gm/dl Procalcitonin 0.36 ng/ml Lactic Acid Level 4.2 mmol/L Ammonia 40.0 umol/L Test 04/20/17 05:58 Date/Time Source Procedure Growth Status 04/20/17 05:58 Blood Blood Culture Pending Received 04/20/17 05:39 Blood Blood Culture Pending Received Assessment & Plan PIPPA-in setting of abdominal distention-to check a urine sodium. currently on albumin and getting iv fluid bolus. feel pt is likely intravascularly dry. will give albumin 25 grams iv q6 to try to help improve renal perfusion.
[2017-04-20] MEDS: INSULIN ASPART 100 UNITS/ML 3 ML PEN SC SCH ×4 (08:15→20:07)
[2017-04-20] MEDS: FLUTICASONE PROP HFA INH 44 MCG INHALER INH SCH ×2 (08:18→21:01)
[2017-04-20] MEDS: DOCUSATE SODIUM/SENNA 50/8.6MG TAB PO SCH (08:19)
[2017-04-20] MEDS: ASPIRIN 81 MG ECTAB PO SCH (08:19)
[2017-04-20] MEDS: DILTIAZEM HCL 180 MG CAPCR PO SCH (08:19)
[2017-04-20] MEDS: METHIMAZOLE 5 MG TAB PO SCH ×2 (08:19→21:01)
[2017-04-20] MEDS: FLUTICASONE PROPIONATE NA SPR 16 GM BTL NAE SCH (08:19)
[2017-04-20] MEDS ORDERED: METOPROLOL SUCC 25MG EXT REL TAB PO SCH (09:00)
[2017-04-20] MEDS ORDERED: ALBUMIN HUMAN 25% 12.5 GM/50 ML VIAL IV ONE (10:00)
[2017-04-20] MEDS: ALBUMIN HUMAN 25% 12.5 GM/50 ML VIAL IV SCH ×5 (10:11→23:34)
--- NOTE | 2017-04-20 11:21 | Progress Note ---
Internal Med Progress Note Date of Service: Apr 20, 2017. Provider Documentation: SUBJECTIVE: Seen and examined at bedside Patient reports feeling better today and his appetite is slowly improving "I feel my strength is getting better" Was confused overnight per nocturnal hospitalist Leukocytosis, ARF, hyperkalemia and lactic acidosis noted on labs IV albumin per Nephrology No new symptoms per patient Denies chest pain, SOB, abd pain Discussed with at bedside OBJECTIVE: Vital Signs-as noted below Physical Exam: General Appearance:Moderately built and nourished, no apparent distress Head: normocephalic, Atraumatic Eyes: normal inspection, EOMI, PERRL Neck: supple, Trachea midline Respiratory/Chest: Normal breath sounds, CTA Cardiovascular: S1, S2, No murmur Abdomen/GI:Soft, Non tender, distended, Bowel sounds diminished Extremities/Musculoskelatal:normal inspection, 1+ b/l edema Neurologic/Psych:AAOX3, grossly no focal neurological deficits Skin: normal color, warm Lab data as noted below. ASSESSMENT & PLAN: Patient is a 66 year male with history of CAD, CHF, A fib on Coumadin, DM II, HTN, Hyperthyroidism presenting with poor oral intake and weakness. Pancreatic Mass with Ascites Cirrhosis Appreciate GI Input getting IV Albumin s/p EUS with Biopsy of Pancreatic mass, Pathology pending s/p Paracentesis, 4 liters, Pathology pending Needs Oncology follow up as outpatient Low sodium diet Resume diuretics when appropriate Acute renal failure: Likely prerenal hold lasix, spironolactone, metformin for now S/P IV fluids On IV albumin as intravascularly volume depleted Renal Diet Appreciate Nephrology input Monitor renal function Lactic acidosis: Likely secondary to dehydration Normal procalcitonin recheck lactate levels IV albumin as above Hyperkalemia: Likely secondary to ARF Monitor potassium levels closely Constipation: continue bowel regimen Thrombocytopenia: HIT screen negative Monitor Elevated INR initially presented with INR 9.5 Vit K given, Coumadin held INR 1.6 yesterday continue coumadin monitor INR CAD no cardiac symptoms continue Aspirin, BB CHF euvolemic (+) ascites, 3rd spacing from pancreatic mass/cirrhosis hold diuretics for now, monitor Afib on Coumadin continue Diltiazem, Metoprolol INR 1.6 yesterday Continue Heparin, Coumadin Left Atrial Appendage Thrombus: Cardiology consulted, needs heparin bridging when INR subtherapeutic and ok with GI post procedures Lumbago Lidoderm patch, PRN Tramadol and Flexeril DM II hold Metformin Pharm Gly Cx HTN continue Diltiazem and Metoprolol with parameters Hyperthyroidism: TFTs slightly improved from last month Endo consulted recommend to increase Methimazole to 10mg BID Code Status: Full Code DVT Px: INR 1.6 heparin and coumadin Disposition lives at home with family PT/OT evaluation: Needs Home Health will need coumadin bridging with Lovenox if INR subtherapeutic Vital Signs: Date Time Temp Pulse Resp B/P (MAP) Pulse Ox O2 Delivery O2 Flow Rate FiO2 04/20/17 11:04 36.4 72 16 96/62 (73) 96 Room Air 04/20/17 10:03 36.4 73 18 91/66 (74) 93 Room Air 04/20/17 07:45 Room Air 04/20/17 07:38 79 18 142/76 (98) 97 Room Air 04/20/17 05:46 36.5 75 18 91/74 (80) 97 Room Air 04/20/17 04:00 Room Air 04/20/17 00:05 36.4 80 18 92/63 (73) 96 Room Air 04/20/17 00:00 Room Air 04/19/17 20:55 36.4 100 18 116/73 (87) 97 Room Air 04/19/17 20:10 Room Air 04/19/17 16:15 Room Air 04/19/17 15:53 36.3 73 16 96/66 (76) 98 Room Air 04/19/17 12:00 Room Air 04/19/17 11:54 36.3 72 20 91/61 (71) 98 Room Air Lab Results: Results Past 24 Hours Test 04/19/17 11:32 04/19/17 15:50 04/19/17 16:46 04/19/17 20:56 Range/Units Bedside Glucose 92 78 180 70-99 mg/dl Prothrombin Time 15.9 9.0-12.0 SECONDS Prothromb Time International Ratio 1.5 0.9-1.1 Test 04/20/17 04:36 04/20/17 05:39 04/20/17 05:54 04/20/17 05:58 Range/Units White Blood Count 16.84 4.8-10.8 K/uL Red Blood Count 4.60 4.7-6.1 M/uL Hemoglobin 14.6 14.0-18.0 g/dL Hematocrit 43.2 42-52 % Mean Corpuscular Volume 93.9 80-100 fL Mean Corpuscular Hemoglobin 31.7 25-34 pg Mean Corpuscular Hemoglobin Concent 33.8 32-36 g/dl RDW Standard Deviation 61.3 36.4-46.3 fL RDW Coefficient of Variation 18.1 11.5-14.5 % Platelet Count 99 130-400 K/uL Mean Platelet Volume 9.8 7.4-10.4 fL Platelet Estimate DECREASED Prothrombin Time 16.9 9.0-12.0 SECONDS Prothromb Time International Ratio 1.6 0.9-1.1 Activated Partial Thromboplast Time 73.8 21.0-31.0 SECONDS Partial Thromboplastin Ratio 2.8 Sodium Level 130 136-145 mmol/L Potassium Level 5.5 3.5-5.1 mmol/L Chloride Level 97 98-107 mmol/L Carbon Dioxide Level 27 21-32 mmol/L Anion Gap 6.0 3-11 mmol/L Blood Urea Nitrogen 42 7-18 mg/dl Creatinine 2.34 0.60-1.40 mg/dl Est Creatinine Clear Calc Drug Dose 30.8 ml/min Estimated GFR () 32.4 Estimated GFR (Non- 27.9 BUN/Creatinine Ratio 17.8 10-20 Random Glucose 96 70-99 mg/dl Calcium Level 9.9 8.5-10.1 mg/dl Osmolality 285 280-300 mOsm/kg Magnesium Level 2.5 1.8-2.4 mg/dl Total Bilirubin 2.1 0.2-1 mg/dl Direct Bilirubin 0.8 0-0.2 mg/dl Aspartate Amino Transf (AST/SGOT) 20 15-37 U/L Alanine Aminotransferase (ALT/SGPT) 8 12-78 U/L Alkaline Phosphatase 86 45-117 U/L Total Protein 5.6 6.4-8.2 gm/dl Albumin 2.5 3.4-5.0 gm/dl Procalcitonin 0.36 0-0.5 ng/ml Lactic Acid Level 4.2 0.4-2.0 mmol/L Ammonia 40.0 11-32 umol/L Heparin-PF4 Antibody Screen NEG NEG Test 04/20/17 07:51 04/20/17 08:13 Range/Units Bedside Glucose 64 77 70-99 mg/dl Microbiology Results 04/20/17 Blood Culture, Received Pending 04/20/17 Blood Culture, Received Pending
[2017-04-20 12:31] LABS: CREATININE 2.19 mg/dl (0.60-1.40); POTASSIUM 5.2 mmol/L (3.5-5.1)
[2017-04-20 15:10] LABS: PTT PATIENT 54.6 SECONDS (21.0-31.0)
[2017-04-20] MEDS: WARFARIN SOD 1 MG TAB PO SCH (15:32)
[2017-04-20] MEDS ORDERED: ALBUMIN HUMAN 25% 12.5 GM/50 ML VIAL IV SCH ×3 (18:00→19:00)
[2017-04-20] MEDS: MONTELUKAST SOD 10 MG TAB PO SCH (21:01)
[2017-04-20] MEDS: LIDODERM (LIDOCAINE) PATCH 5% TD SCH (21:02)
--- NOTE | 2017-04-20 21:02 | DIAGNOSTIC IMAGING REPORT ---
CHEST 2 VIEWS ROUTINE CLINICAL HISTORY: r/o pneumonia dyspnea COMPARISON STUDY: 04/12/2017 FINDINGS: Unchanging bibasilar pleural effusions and atelectasis. Mild stable cardiomegaly. Upper lungs are clear. There is no acute infiltrate is compared to the prior study. IMPRESSION: Chronic bibasilar pleural effusions and pleural reactive/atelectatic change. No acute or interval process compared to the prior exam. The above report was generated using voice recognition software. It may contain grammatical, syntax or spelling errors. Electronically signed by: Pablo Patrick M.D. 04/20/2017 9:01 PM Dictated Date/Time: 04/20/2017 8:59 PM
[2017-04-21] VITALS (13 sets, daily range): BP systolic 101–122; BP diastolic 66–76; PULSE 72–110; TEMP 36.3–36.7; O2SAT 95–99
[2017-04-21] MEDS: ALBUMIN HUMAN 25% 12.5 GM/50 ML VIAL IV SCH ×7 (00:49→18:05)
[2017-04-21 05:20] LABS: BASO % 0.2 %; BASO ABS # 0.04 K/uL (0-0.2); EOS % 3.8 %; EOS ABS # 0.68 K/uL (0-0.5); HEMOGLOBIN 14.5 g/dL (14.0-18.0); IG# 0.13 K/uL (0.00-0.02); LYMPH % 4.4 %; LYMPH ABS # 0.78 K/uL (1.2-3.4); MEAN CELL VOLUME 94.4 fL (80-100); MEAN CORPUSCULAR HEMOGLOBIN 32.6 pg (25-34); MEAN CORPUSCULAR HGB CONC 34.5 g/dl (32-36); MEAN PLATELET VOLUME 10.1 fL (7.4-10.4); MONO % 7.8 %; MONO ABS # 1.39 K/uL (0.11-0.59); NEUT % 83.1 %; NEUT ABS # 14.73 K/uL (1.4-6.5); PLATELET COUNT 106 K/uL (130-400); RED CELL DISTRIBUTION WIDTH CV 18.3 % (11.5-14.5); RED CELL DISTRIBUTION WIDTH SD 62.9 fL (36.4-46.3); WHITE BLOOD COUNT 17.75 K/uL (4.8-10.8)
[2017-04-21 05:36] LABS: INR 1.7 (0.9-1.1)
[2017-04-21 05:39] LABS: PTT PATIENT 50.2 SECONDS (21.0-31.0)
[2017-04-21 06:22] LABS: CREATININE 1.91 mg/dl (0.60-1.40); POTASSIUM 4.9 mmol/L (3.5-5.1)
[2017-04-21] MEDS: HEPARIN 25,000 UNIT/500ML D5W 500 ML IV SCH ×2 (06:55→10:14)
[2017-04-21] MEDS: FLUTICASONE PROPIONATE NA SPR 16 GM BTL NAE SCH (08:02)
[2017-04-21] MEDS: METOPROLOL SUCC 25MG EXT REL TAB PO SCH (08:03)
[2017-04-21] MEDS: FLUTICASONE PROP HFA INH 44 MCG INHALER INH SCH ×2 (08:03→20:49)
[2017-04-21] MEDS: ASPIRIN 81 MG ECTAB PO SCH (08:04)
[2017-04-21] MEDS: METHIMAZOLE 5 MG TAB PO SCH ×2 (08:05→20:49)
[2017-04-21] MEDS: DILTIAZEM HCL 180 MG CAPCR PO SCH (08:06)
[2017-04-21] MEDS: INSULIN ASPART 100 UNITS/ML 3 ML PEN SC SCH ×4 (08:09→20:31)
--- NOTE | 2017-04-21 12:08 | Progress Note ---
Internal Med Progress Note Date of Service: Apr 21, 2017. Provider Documentation: SUBJECTIVE: Seen and examined at bedside States feeling about the same as yesterday seemed to be alert, awake, no confusion No new complaints Diarrhea resolved on IV albumin Denies chest pain, SOB, abd pain Family at bedside OBJECTIVE: Vital Signs-as noted below Physical Exam: General Appearance:Moderately built and nourished, no apparent distress Head: normocephalic, Atraumatic Eyes: normal inspection, EOMI, PERRL Neck: supple, Trachea midline Respiratory/Chest: Normal breath sounds, CTA Cardiovascular: S1, S2, No murmur Abdomen/GI:Soft, Non tender, distended, Bowel sounds heard Extremities/Musculoskelatal:normal inspection, 1+ b/l edema Neurologic/Psych:AAOX3, grossly no focal neurological deficits Skin: normal color, warm Lab data as noted below. ASSESSMENT & PLAN: Patient is a 66 year male with history of CAD, CHF, A fib on Coumadin, DM II, HTN, Hyperthyroidism presenting with poor oral intake and weakness. Pancreatic Mass with Ascites Cirrhosis Appreciate GI Input getting IV Albumin s/p EUS with Biopsy of Pancreatic mass, Pathology pending s/p Paracentesis, 4 liters, Pathology pending Needs Oncology follow up as outpatient Low sodium diet Resume diuretics when appropriate Acute renal failure: Likely prerenal hold lasix, spironolactone, metformin for now S/P IV fluids On IV albumin as intravascularly volume depleted Renal Diet Appreciate Nephrology input Monitor renal function Cr:1.9 today Lactic acidosis: Likely Type B secondary to malignancy Normal procalcitonin Blood/urine culture pending Resume Ciprofloxacin empirically Persistent leukocytosis Hyperkalemia: Likely secondary to ARF resolved Monitor potassium levels closely Constipation: Had BM yesterday Thrombocytopenia: HIT screen negative Monitor Elevated INR initially presented with INR 9.5 Vit K given, Coumadin held initially INR 1.7 today continue coumadin monitor INR CAD no cardiac symptoms continue Aspirin, BB CHF euvolemic (+) ascites, 3rd spacing from pancreatic mass/cirrhosis hold diuretics for now, monitor Afib on Coumadin continue Diltiazem, Metoprolol INR 1.7 yesterday Continue Heparin, Coumadin Left Atrial Appendage Thrombus: Cardiology consulted, needs heparin bridging when INR subtherapeutic and ok with GI post procedures Lumbago Lidoderm patch, PRN Tramadol and Flexeril DM II hold Metformin Pharm Gly Cx HTN continue Diltiazem and Metoprolol with parameters Hyperthyroidism: TFTs slightly improved from last month Endo consulted recommend to increase Methimazole to 10mg BID Code Status: Full Code DVT Px: heparin and coumadin Disposition lives at home with family PT/OT evaluation: Needs Home Health Vital Signs: Date Time Temp Pulse Resp B/P (MAP) Pulse Ox O2 Delivery O2 Flow Rate FiO2 04/21/17 08:00 99 Room Air 2.0 04/21/17 07:49 36.4 73 101/68 (79) 99 Room Air 04/21/17 07:45 36.5 78 18 101/68 (79) 99 Room Air 04/21/17 05:04 36.4 72 16 105/69 (81) 97 Room Air 04/21/17 04:00 Room Air 04/21/17 02:10 36.4 72 18 113/70 (84) 96 Room Air 04/21/17 00:00 Room Air 04/20/17 23:32 36.6 71 16 111/69 (83) 97 Room Air 04/20/17 23:08 36.6 89 18 130/69 (89) 95 Room Air 04/20/17 20:11 Room Air 04/20/17 19:56 36.6 71 16 99/64 (76) 97 Room Air 04/20/17 15:43 36.7 72 18 93/62 (72) 97 Room Air 04/20/17 15:40 Room Air Lab Results: Results Past 24 Hours Test 04/20/17 14:24 04/20/17 16:32 04/20/17 16:37 04/20/17 17:08 Range/Units Activated Partial Thromboplast Time 54.6 21.0-31.0 SECONDS Partial Thromboplastin Ratio 2.1 Bedside Glucose 117 70-99 mg/dl Procalcitonin 0.33 0-0.5 ng/ml Lactic Acid Level 5.1 0.4-2.0 mmol/L Test 04/20/17 20:03 04/21/17 05:08 04/21/17 07:27 Range/Units Bedside Glucose 75 76 70-99 mg/dl White Blood Count 17.75 4.8-10.8 K/uL Red Blood Count 4.45 4.7-6.1 M/uL Hemoglobin 14.5 14.0-18.0 g/dL Hematocrit 42.0 42-52 % Mean Corpuscular Volume 94.4 80-100 fL Mean Corpuscular Hemoglobin 32.6 25-34 pg Mean Corpuscular Hemoglobin Concent 34.5 32-36 g/dl Platelet Count 106 130-400 K/uL Mean Platelet Volume 10.1 7.4-10.4 fL Neutrophils (%) (Auto) 83.1 % Lymphocytes (%) (Auto) 4.4 % Monocytes (%) (Auto) 7.8 % Eosinophils (%) (Auto) 3.8 % Basophils (%) (Auto) 0.2 % Neutrophils # (Auto) 14.73 1.4-6.5 K/uL Lymphocytes # (Auto) 0.78 1.2-3.4 K/uL Monocytes # (Auto) 1.39 0.11-0.59 K/uL Eosinophils # (Auto) 0.68 0-0.5 K/uL Basophils # (Auto) 0.04 0-0.2 K/uL RDW Standard Deviation 62.9 36.4-46.3 fL RDW Coefficient of Variation 18.3 11.5-14.5 % Immature Granulocyte % (Auto) 0.7 % Immature Granulocyte # (Auto) 0.13 0.00-0.02 K/uL Prothrombin Time 18.0 9.0-12.0 SECONDS Prothromb Time International Ratio 1.7 0.9-1.1 Activated Partial Thromboplast Time 50.2 21.0-31.0 SECONDS Partial Thromboplastin Ratio 1.9 Sodium Level 130 136-145 mmol/L Potassium Level 4.9 3.5-5.1 mmol/L Chloride Level 98 98-107 mmol/L Carbon Dioxide Level 22 21-32 mmol/L Anion Gap 10.0 3-11 mmol/L Blood Urea Nitrogen 39 7-18 mg/dl Creatinine 1.91 0.60-1.40 mg/dl Est Creatinine Clear Calc Drug Dose 37.8 ml/min Estimated GFR () 41.4 Estimated GFR (Non- 35.7 BUN/Creatinine Ratio 20.3 10-20 Random Glucose 87 70-99 mg/dl Lactic Acid Level 5.4 0.4-2.0 mmol/L Calcium Level 10.0 8.5-10.1 mg/dl
[2017-04-21] MEDS: CIPROFLOXACIN / D5W 400 MG in PREMIXED IN D5W 200 ML IV SCH (15:35)
[2017-04-21] MEDS: WARFARIN SOD 1 MG TAB PO SCH (15:36)
[2017-04-21] MEDS ORDERED: VANCOMYCIN CONSULT ACTIVE PRN (20:15)
[2017-04-21] MEDS ORDERED: VANCOMYCIN IV 2,000 MG in SODIUM CHLORIDE 0.9% 500ML 500 ML IV ONE (20:30)
[2017-04-21] MEDS ORDERED: PANTOprazole SOD 40 MG TAB PO STA (20:46)
[2017-04-21] MEDS: MONTELUKAST SOD 10 MG TAB PO SCH (20:49)
[2017-04-21] MEDS: LIDODERM (LIDOCAINE) PATCH 5% TD SCH (20:50)
--- NOTE | 2017-04-21 21:45 | Pharmacy Progress Note ---
Pharmacy Antibiotic Consult Date of Service: Apr 21, 2017. Pharmacy Dosing Scope Pharmacy is consulted to initiate Vancomycin IV dosing therapy, order appropriate labs and adjust drug dose/frequency. Subjective The patient is a 66 year old male admitted on Apr 12, 2017 at 17:11. Objective Height (Feet): 5 Height (Inches): 5.00 Weight (Kilograms): 83.300 Lab Results (24hrs): Test 04/21/17 05:08 04/21/17 16:44 04/21/17 19:33 White Blood Count 17.75 K/uL (4.8-10.8) Red Blood Count 4.45 M/uL (4.7-6.1) Hemoglobin 14.5 g/dL (14.0-18.0) Hematocrit 42.0 % (42-52) Mean Corpuscular Volume 94.4 fL (80-100) Mean Corpuscular Hemoglobin 32.6 pg (25-34) Mean Corpuscular Hemoglobin Concent 34.5 g/dl (32-36) Platelet Count 106 K/uL (130-400) Mean Platelet Volume 10.1 fL (7.4-10.4) Neutrophils (%) (Auto) 83.1 % Lymphocytes (%) (Auto) 4.4 % Monocytes (%) (Auto) 7.8 % Eosinophils (%) (Auto) 3.8 % Basophils (%) (Auto) 0.2 % Neutrophils # (Auto) 14.73 K/uL (1.4-6.5) Lymphocytes # (Auto) 0.78 K/uL (1.2-3.4) Monocytes # (Auto) 1.39 K/uL (0.11-0.59) Eosinophils # (Auto) 0.68 K/uL (0-0.5) Basophils # (Auto) 0.04 K/uL (0-0.2) RDW Standard Deviation 62.9 fL (36.4-46.3) RDW Coefficient of Variation 18.3 % (11.5-14.5) Immature Granulocyte % (Auto) 0.7 % Immature Granulocyte # (Auto) 0.13 K/uL (0.00-0.02) Prothrombin Time 18.0 SECONDS (9.0-12.0) Prothromb Time International Ratio 1.7 (0.9-1.1) Activated Partial Thromboplast Time 50.2 SECONDS (21.0-31.0) Partial Thromboplastin Ratio 1.9 Sodium Level 130 mmol/L (136-145) Potassium Level 4.9 mmol/L (3.5-5.1) Chloride Level 98 mmol/L (98-107) Carbon Dioxide Level 22 mmol/L (21-32) Anion Gap 10.0 mmol/L (3-11) Blood Urea Nitrogen 39 mg/dl (7-18) Creatinine 1.91 mg/dl (0.60-1.40) Est Creatinine Clear Calc Drug Dose 37.8 ml/min Estimated GFR () 41.4 Estimated GFR (Non- 35.7 BUN/Creatinine Ratio 20.3 (10-20) Random Glucose 87 mg/dl (70-99) Lactic Acid Level 5.4 mmol/L (0.4-2.0) Calcium Level 10.0 mg/dl (8.5-10.1) Bedside Glucose 98 mg/dl (70-99) 74 mg/dl (70-99) Assessment & Plan Assessment 66 year old male with pancreatic mass, ascites, DM, and CHF. * S/p paracentesis on 04/18. * Pt in PIPPA * Peritoneal fluid culture growing Gram positive cocci * Urine and blood cultures pending Plan Vancomycin * Loading dose: 2000 mg (25mg/kg) IV X 1 dose then * Maintenance dose: 1250mg (15mg/kg) IV q 24 hours * Goal trough for GI infection: 15-20 mcg/kg * Trough level ordered for 04/24 @1430 Pharmacy will continue to follow and will adjust dose/frequency as necessary. Thank you
[2017-04-21] MEDS: CYCLOBENZAPRINE HCL 5 MG TAB PO PRN ×2 (21:48→21:50)
[2017-04-22] VITALS (14 sets, daily range): BP systolic 97–130; BP diastolic 63–80; PULSE 81–124; TEMP 35.8–36.5; O2SAT 95–98
[2017-04-22] MEDS: ALBUMIN HUMAN 25% 12.5 GM/50 ML VIAL IV SCH ×9 (01:08→23:34)
[2017-04-22] MEDS: CIPROFLOXACIN / D5W 400 MG in PREMIXED IN D5W 200 ML IV SCH ×2 (03:20→15:52)
[2017-04-22 05:23] LABS: HEMOGLOBIN 13.6 g/dL (14.0-18.0); MEAN CELL VOLUME 93.4 fL (80-100); MEAN CORPUSCULAR HGB CONC 33.2 g/dl (32-36); MEAN PLATELET VOLUME 9.9 fL (7.4-10.4); PLATELET COUNT 108 K/uL (130-400); RED CELL DISTRIBUTION WIDTH CV 18.5 % (11.5-14.5); RED CELL DISTRIBUTION WIDTH SD 63.4 fL (36.4-46.3); WHITE BLOOD COUNT 15.49 K/uL (4.8-10.8)
--- NOTE | 2017-04-22 05:27 | Pharmacy Progress Note ---
Pharmacy Abx Dose Short Note Date of Service Apr 22, 2017. Assessment & Plan Assessment 66 year old male receiving vancomycin for treatment of GI infection Plan Vancomycin * received phone call from finance intern nurse that patient's IV had infiltrated significantly - uncertain how much vancomycin was received. * Pulled level around 3 hours after vancomycin finished infusing (allowed for equilibrium of vancomycin) * Random level was 21.3 mcg/mL .... estimate that peak should have been around 34 mcg/mL (Vd = 0.7 L/kg or 58 L) indicating significant loss of vancomycin. Utilized modified load for next dose then resumption of q24 hour dosing. Check prior to second q24 hour dose to ensure adequate not toxic levels seen. Pharmacy will continue to follow and will adjust dose/frequency as necessary. Thank you.
[2017-04-22] MEDS ORDERED: VANCOMYCIN IV 1,500 MG in SODIUM CHLORIDE 0.9% 500ML 500 ML IV ONE (05:30)
[2017-04-22 05:43] LABS: INR 2.1 (0.9-1.1)
[2017-04-22 05:47] LABS: CALCIUM 9.7 mg/dl (8.5-10.1); CREATININE 1.61 mg/dl (0.60-1.40); POTASSIUM 4.5 mmol/L (3.5-5.1)
[2017-04-22 05:54] LABS: PTT PATIENT 75.6 SECONDS (21.0-31.0)
[2017-04-22] MEDS: HEPARIN 25,000 UNIT/500ML D5W 500 ML IV SCH ×2 (06:20→06:57)
[2017-04-22] MEDS: INSULIN ASPART 100 UNITS/ML 3 ML PEN SC SCH ×4 (07:54→20:17)
[2017-04-22] MEDS: FLUTICASONE PROPIONATE NA SPR 16 GM BTL NAE SCH (08:14)
[2017-04-22] MEDS: ASPIRIN 81 MG ECTAB PO SCH (08:14)
[2017-04-22] MEDS: FLUTICASONE PROP HFA INH 44 MCG INHALER INH SCH ×2 (08:14→19:46)
[2017-04-22] MEDS: METHIMAZOLE 5 MG TAB PO SCH ×2 (08:15→19:46)
[2017-04-22] MEDS: METOPROLOL SUCC 25MG EXT REL TAB PO SCH (11:38)
[2017-04-22] MEDS: DILTIAZEM HCL 180 MG CAPCR PO SCH (11:39)
--- NOTE | 2017-04-22 12:06 | Progress Note ---
Internal Med Progress Note Date of Service: Apr 22, 2017. Provider Documentation: SUBJECTIVE: Seen and examined at bedside Very poor appetite, feels anxious this morning HR uncontrolled, BP meds held secondary to relative low BP Patient usually has Low BP in 90s as patient Denies chest pain, SOB, palpitations, dizziness LUE IV site infiltrated overnight Drowsy earlier this morning per staff, currently oriented on IV albumin Reports mild abdominal discomfort Family at bedside OBJECTIVE: Vital Signs-as noted below Physical Exam: General Appearance:Moderately built and nourished, no apparent distress Head: normocephalic, Atraumatic Eyes: normal inspection, EOMI, PERRL Neck: supple, Trachea midline Respiratory/Chest: Normal breath sounds, CTA Cardiovascular: Irregularly, Irregular, +Tachycardia, No murmur Abdomen/GI:Soft, Non tender, distended, Bowel sounds heard Extremities/Musculoskelatal:normal inspection, 1+ b/l edema Neurologic/Psych:AAOX3, grossly no focal neurological deficits Skin: normal color, warm Lab data as noted below. ASSESSMENT & PLAN: Patient is a 66 year male with history of CAD, CHF, A fib on Coumadin, DM II, HTN, Hyperthyroidism presenting with poor oral intake and weakness. Pancreatic Mass with Ascites Cirrhosis Appreciate GI Input getting IV Albumin s/p EUS with Biopsy of Pancreatic mass, Pathology pending s/p Paracentesis, 4 liters, Lymph node Pathology pending Peritoneal Fluid Culture:Gram positive Cocci Started on IV Vanco Day # 2 Needs Oncology follow up as outpatient Low sodium diet Resume diuretics when appropriate poor appetite Car Salesperson consulted Acute renal failure: Likely prerenal hold lasix, spironolactone, metformin for now S/P IV fluids On IV albumin as intravascularly volume depleted Appreciate Nephrology input Monitor renal function Cr:1.61 today Lactic acidosis: Likely Type B secondary to malignancy Normal procalcitonin Blood/urine culture: No growth to date Continue Vancomycin and Ciprofloxacin leukocytosis improving Peritoneal Culture: Gram positive cocci Hyperkalemia: Likely secondary to ARF resolved Monitor potassium levels closely Thrombocytopenia: HIT screen negative Monitor Elevated INR initially presented with INR 9.5 Vit K given, Coumadin held initially INR 2.1 today continue coumadin monitor INR CAD no cardiac symptoms continue Aspirin, BB CHF euvolemic (+) ascites, 3rd spacing from pancreatic mass/cirrhosis hold diuretics for now, monitor Afib on Coumadin continue Diltiazem, Metoprolol INR 2.1 yesterday DC IV heparin Continue Coumadin Left Atrial Appendage Thrombus: Cardiology consulted INR therapeutic Lumbago Lidoderm patch, PRN Tramadol and Flexeril DM II hold Metformin Pharm Gly Cx HTN continue Diltiazem and Metoprolol with parameters Hyperthyroidism: TFTs slightly improved from last month Endocrinology consulted recommend to increase Methimazole to 10mg BID Code Status: Full Code DVT Px: On coumadin Disposition lives at home with family PT/OT evaluation: Needs Home Health Vital Signs: Date Time Temp Pulse Resp B/P (MAP) Pulse Ox O2 Delivery O2 Flow Rate FiO2 04/22/17 11:43 36.5 124 20 105/72 (83) 97 Room Air 04/22/17 08:00 98 Room Air 04/22/17 08:00 36.3 118 18 103/65 (78) 98 Room Air 04/22/17 07:20 36.5 87 18 103/70 (81) 98 Room Air 104 97/65 (76) 108 99/63 (75) 04/22/17 06:10 36.4 98 14 130/80 (97) 98 Room Air 04/22/17 04:41 97 Room Air 04/22/17 03:35 35.8 112 16 107/75 (86) 97 Room Air 04/22/17 03:20 36.5 89 14 120/77 (91) 95 Room Air 04/22/17 02:06 36.4 81 14 112/63 (79) 98 Room Air 04/22/17 01:00 36.4 81 14 105/67 (80) 97 Room Air 04/21/17 23:40 97 Room Air 04/21/17 23:05 36.5 110 18 109/76 (87) 97 Room Air 04/21/17 20:00 95 Room Air 04/21/17 19:09 36.7 100 18 105/67 (80) 95 Room Air 04/21/17 16:00 98 Room Air 04/21/17 15:19 36.3 75 20 107/68 (81) 98 04/21/17 12:08 36.5 73 20 101/66 (78) 97 87 122/69 (86) 86 106/70 (82) 04/21/17 12:00 99 Room Air 2.0 Lab Results: Results Past 24 Hours Test 04/21/17 16:44 3/17/18 19:33 04/22/17 02:55 04/22/17 04:51 Range/Units Bedside Glucose 98 74 70-99 mg/dl Random Vancomycin Level 21.3 mcg/ml White Blood Count 15.49 4.8-10.8 K/uL Red Blood Count 4.39 4.7-6.1 M/uL Hemoglobin 13.6 14.0-18.0 g/dL Hematocrit 41.0 42-52 % Mean Corpuscular Volume 93.4 80-100 fL Mean Corpuscular Hemoglobin 31.0 25-34 pg Mean Corpuscular Hemoglobin Concent 33.2 32-36 g/dl RDW Standard Deviation 63.4 36.4-46.3 fL RDW Coefficient of Variation 18.5 11.5-14.5 % Platelet Count 108 130-400 K/uL Mean Platelet Volume 9.9 7.4-10.4 fL Prothrombin Time 22.0 9.0-12.0 SECONDS Prothromb Time International Ratio 2.1 0.9-1.1 Activated Partial Thromboplast Time 75.6 21.0-31.0 SECONDS Partial Thromboplastin Ratio 2.9 Sodium Level 130 136-145 mmol/L Potassium Level 4.5 3.5-5.1 mmol/L Chloride Level 99 98-107 mmol/L Carbon Dioxide Level 19 21-32 mmol/L Anion Gap 12.0 3-11 mmol/L Blood Urea Nitrogen 39 7-18 mg/dl Creatinine 1.61 0.60-1.40 mg/dl Est Creatinine Clear Calc Drug Dose 44.8 ml/min Estimated GFR () 50.9 Estimated GFR (Non- 43.9 BUN/Creatinine Ratio 24.0 10-20 Random Glucose 89 70-99 mg/dl Calcium Level 9.7 8.5-10.1 mg/dl Test 04/22/17 07:46 Range/Units Bedside Glucose 94 70-99 mg/dl
[2017-04-22] MEDS: BOOST BREEZE NUTRITION DRINK 1 BOX PO SCH ×2 (14:32→21:39)
[2017-04-22 14:37] LABS: PTT PATIENT 47.2 SECONDS (21.0-31.0)
[2017-04-22] MEDS ORDERED: VANCOMYCIN IV 1,250 MG in SODIUM CHLORIDE 0.9% 250ML 250 ML IV SCH (15:00)
[2017-04-22] MEDS: WARFARIN SOD 1 MG TAB PO SCH (15:53)
[2017-04-22] MEDS ORDERED: LORAZEPAM 0.5 MG TAB PO ONE (18:15)
[2017-04-22] MEDS: MONTELUKAST SOD 10 MG TAB PO SCH (19:48)
[2017-04-22] MEDS: LIDODERM (LIDOCAINE) PATCH 5% TD SCH (19:49)
[2017-04-22] MEDS ORDERED: BOOST BREEZE NUTRITION DRINK 1 BOX PO SCH (21:00)
[2017-04-23] VITALS (16 sets, daily range): BP systolic 98–116; BP diastolic 58–72; PULSE 62–102; TEMP 36.3–36.8; O2SAT 96–99
[2017-04-23] MEDS: ALBUMIN HUMAN 25% 12.5 GM/50 ML VIAL IV SCH ×5 (00:22→13:42)
[2017-04-23] MEDS: CIPROFLOXACIN / D5W 400 MG in PREMIXED IN D5W 200 ML IV SCH ×2 (01:49→13:42)
[2017-04-23] MEDS ORDERED: VANCOMYCIN TROUGH ONE (02:30)
[2017-04-23] MEDS ORDERED: VANCOMYCIN IV 1,250 MG in SODIUM CHLORIDE 0.9% 250ML 250 ML IV SCH (03:00)
[2017-04-23] MEDS: VANCOMYCIN IV 1,250 MG in SODIUM CHLORIDE 0.9% 250ML 250 ML IV SCH ×2 (04:28→22:05)
[2017-04-23 05:29] LABS: HEMATOCRIT 38.3 % (42-52); MEAN CELL VOLUME 92.7 fL (80-100); MEAN CORPUSCULAR HEMOGLOBIN 31.5 pg (25-34); RED CELL DISTRIBUTION WIDTH CV 18.8 % (11.5-14.5); RED CELL DISTRIBUTION WIDTH SD 63.5 fL (36.4-46.3); WHITE BLOOD COUNT 12.85 K/uL (4.8-10.8)
[2017-04-23 05:44] LABS: INR 2.6 (0.9-1.1)
[2017-04-23 05:46] LABS: PTT PATIENT 47.6 SECONDS (21.0-31.0)
[2017-04-23 05:47] LABS: CALCIUM 9.8 mg/dl (8.5-10.1); CREATININE 1.45 mg/dl (0.60-1.40); POTASSIUM 4.3 mmol/L (3.5-5.1)
[2017-04-23 05:50] LABS: MEAN CORPUSCULAR HGB CONC 33.9 g/dl (32-36); MEAN PLATELET VOLUME 9.6 fL (7.4-10.4); PLATELET COUNT 90 K/uL (130-400)
[2017-04-23] MEDS: INSULIN ASPART 100 UNITS/ML 3 ML PEN SC SCH ×4 (08:05→20:45)
[2017-04-23] MEDS: ASPIRIN 81 MG ECTAB PO SCH (09:26)
[2017-04-23] MEDS: METHIMAZOLE 5 MG TAB PO SCH ×2 (09:26→20:46)
[2017-04-23] MEDS: DILTIAZEM HCL 180 MG CAPCR PO SCH (09:26)
[2017-04-23] MEDS: CYCLOBENZAPRINE HCL 5 MG TAB PO PRN ×2 (09:26→23:39)
[2017-04-23] MEDS: FLUTICASONE PROPIONATE NA SPR 16 GM BTL NAE SCH (09:27)
[2017-04-23] MEDS: METOPROLOL SUCC 25MG EXT REL TAB PO SCH (09:27)
[2017-04-23] MEDS: FLUTICASONE PROP HFA INH 44 MCG INHALER INH SCH ×2 (09:28→20:45)
[2017-04-23] MEDS: BOOST BREEZE NUTRITION DRINK 1 BOX PO SCH ×2 (10:41→20:45)
[2017-04-23] MEDS ORDERED: METOPROLOL TARTRATE 25 MG TAB PO ONE (12:00)
--- NOTE | 2017-04-23 12:08 | Progress Note ---
Internal Med Progress Note Date of Service: Apr 23, 2017. Provider Documentation: SUBJECTIVE: Seen and examined at bedside No significant change since yesterday Appetite slowly improving Reports mild back pain Denies chest pain, SOB, palpitations, dizziness LUE swelling improving More alert, awake and sitting in chair today Family at bedside OBJECTIVE: Vital Signs-as noted below Physical Exam: General Appearance:Moderately built and nourished, no apparent distress Head: normocephalic, Atraumatic Eyes: normal inspection, EOMI, PERRL Neck: supple, Trachea midline Respiratory/Chest: Normal breath sounds, CTA Cardiovascular: Irregularly, Irregular, +Tachycardia, No murmur Abdomen/GI:Soft, Non tender, distended, Bowel sounds heard Extremities/Musculoskelatal:normal inspection, 1+ b/l edema, LUE swelling Neurologic/Psych:AAOX3, grossly no focal neurological deficits Skin: normal color, warm Lab data as noted below. ASSESSMENT & PLAN: Patient is a 66 year male with history of CAD, CHF, A fib on Coumadin, DM II, HTN, Hyperthyroidism presenting with poor oral intake and weakness. 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 renal function improving Acute renal failure: Likely prerenal hold lasix, spironolactone, metformin for now S/P IV fluids On IV albumin as intravascularly volume depleted Appreciate Nephrology input Monitor renal function Cr:1.61>>1.45 today Lactic acidosis: Likely Type B secondary to malignancy Normal procalcitonin Blood/urine culture: No growth to date Peritoneal Culture: pending: Staph species Continue Vancomycin and Ciprofloxacin for now leukocytosis improving Deescalate Abx as able Hyperkalemia: Likely secondary to ARF resolved Monitor potassium levels closely Thrombocytopenia: HIT screen negative Monitor Elevated INR initially presented with INR 9.5 Vit K given, Coumadin held initially INR 2.6 today continue coumadin monitor INR CAD no cardiac symptoms continue Aspirin, BB CHF euvolemic (+) ascites, 3rd spacing from pancreatic mass/cirrhosis hold diuretics for now, monitor Afib on Coumadin continue Diltiazem, Metoprolol INR 2.6 today DC IV heparin Continue Coumadin Metoprolol dose adjusted secondary to low BP Left Atrial Appendage Thrombus: Cardiology consulted INR therapeutic Lumbago Lidoderm patch, PRN Tramadol and Flexeril DM II hold Metformin Pharm Gly Cx HTN Stable continue Diltiazem and Metoprolol with parameters Hyperthyroidism: TFTs slightly improved from last month Endocrinology consulted recommend to increase Methimazole to 10mg BID Code Status: Full Code DVT Px: On coumadin Disposition lives at home with family PT/OT evaluation: Needs Home Health Vital Signs: Date Time Temp Pulse Resp B/P (MAP) Pulse Ox O2 Delivery O2 Flow Rate FiO2 04/23/17 11:22 36.8 86 18 111/67 (82) 99 Room Air 04/23/17 08:01 36.3 93 20 116/69 (85) 98 Room Air 04/23/17 08:00 98 Room Air 04/23/17 07:48 36.3 74 20 111/58 (75) 98 Room Air 04/23/17 07:41 36.4 94 16 98/66 (77) 97 04/23/17 05:07 36.4 102 114/72 (86) 97 Room Air 04/23/17 04:00 Room Air 04/23/17 00:26 36.3 98 19 105/63 (77) 98 Room Air 04/23/17 00:00 Room Air 04/22/17 20:00 98 Room Air 2.0 04/22/17 19:25 36.4 93 19 113/68 (83) 98 Room Air 04/22/17 16:00 98 Room Air 04/22/17 15:02 36.5 112 18 99/63 (75) 98 Room Air 04/22/17 12:00 98 Room Air Lab Results: Results Past 24 Hours Test 04/22/17 14:06 04/22/17 16:52 04/22/17 20:17 04/23/17 05:17 Range/Units Activated Partial Thromboplast Time 47.2 47.6 21.0-31.0 SECONDS Partial Thromboplastin Ratio 1.8 1.8 Bedside Glucose 87 104 70-99 mg/dl White Blood Count 12.85 4.8-10.8 K/uL Red Blood Count 4.13 4.7-6.1 M/uL Hemoglobin 13.0 14.0-18.0 g/dL Hematocrit 38.3 42-52 % Mean Corpuscular Volume 92.7 80-100 fL Mean Corpuscular Hemoglobin 31.5 25-34 pg Mean Corpuscular Hemoglobin Concent 33.9 32-36 g/dl RDW Standard Deviation 63.5 36.4-46.3 fL RDW Coefficient of Variation 18.8 11.5-14.5 % Platelet Count 90 130-400 K/uL Mean Platelet Volume 9.6 7.4-10.4 fL Platelet Estimate DECREASED Prothrombin Time 26.4 9.0-12.0 SECONDS Prothromb Time International Ratio 2.6 0.9-1.1 Sodium Level 131 136-145 mmol/L Potassium Level 4.3 3.5-5.1 mmol/L Chloride Level 99 98-107 mmol/L Carbon Dioxide Level 20 21-32 mmol/L Anion Gap 12.0 3-11 mmol/L Blood Urea Nitrogen 33 7-18 mg/dl Creatinine 1.45 0.60-1.40 mg/dl Est Creatinine Clear Calc Drug Dose 50.3 ml/min Estimated GFR () 57.7 Estimated GFR (Non- 49.8 BUN/Creatinine Ratio 23.0 10-20 Random Glucose 84 70-99 mg/dl Calcium Level 9.8 8.5-10.1 mg/dl Test 04/23/17 07:32 04/23/17 11:31 Range/Units Bedside Glucose 79 92 70-99 mg/dl
[2017-04-23] MEDS: WARFARIN SOD 1 MG TAB PO SCH (15:26)
[2017-04-23] MEDS: MONTELUKAST SOD 10 MG TAB PO SCH (20:46)
[2017-04-23] MEDS: LIDODERM (LIDOCAINE) PATCH 5% TD SCH (20:47)
[2017-04-24] VITALS (10 sets, daily range): BP systolic 99–143; BP diastolic 59–81; PULSE 79–116; TEMP 36.5–36.9; O2SAT 94–98
[2017-04-24] MEDS: CIPROFLOXACIN / D5W 400 MG in PREMIXED IN D5W 200 ML IV SCH (01:55)
[2017-04-24] MEDS ORDERED: VANCOMYCIN TROUGH ONE ×3 (02:30→15:30)
[2017-04-24 05:28] LABS: INR 2.8 (0.9-1.1)
[2017-04-24 05:39] LABS: PTT PATIENT 49.4 SECONDS (21.0-31.0)
[2017-04-24 05:54] LABS: HEMATOCRIT 40.7 % (42-52); HEMOGLOBIN 13.8 g/dL (14.0-18.0); MEAN CELL VOLUME 93.3 fL (80-100); MEAN CORPUSCULAR HEMOGLOBIN 31.7 pg (25-34); MEAN CORPUSCULAR HGB CONC 33.9 g/dl (32-36); MEAN PLATELET VOLUME 10.6 fL (7.4-10.4); PLATELET COUNT 112 K/uL (130-400); RED CELL DISTRIBUTION WIDTH CV 18.9 % (11.5-14.5); RED CELL DISTRIBUTION WIDTH SD 64.3 fL (36.4-46.3); WHITE BLOOD COUNT 16.11 K/uL (4.8-10.8)
[2017-04-24 06:02] LABS: CALCIUM 9.9 mg/dl (8.5-10.1); CREATININE 1.57 mg/dl (0.60-1.40)
[2017-04-24] MEDS: INSULIN ASPART 100 UNITS/ML 3 ML PEN SC SCH ×4 (08:57→21:00)
[2017-04-24] MEDS: FLUTICASONE PROP HFA INH 44 MCG INHALER INH SCH ×2 (08:58→21:17)
[2017-04-24] MEDS: ASPIRIN 81 MG ECTAB PO SCH (08:58)
[2017-04-24] MEDS: FLUTICASONE PROPIONATE NA SPR 16 GM BTL NAE SCH (08:58)
[2017-04-24] MEDS: DILTIAZEM HCL 180 MG CAPCR PO SCH (08:58)
[2017-04-24] MEDS: METOPROLOL SUCC 25MG EXT REL TAB PO SCH (08:59)
[2017-04-24] MEDS: METHIMAZOLE 5 MG TAB PO SCH ×2 (08:59→21:17)
[2017-04-24] MEDS: BOOST BREEZE NUTRITION DRINK 1 BOX PO SCH ×2 (09:00→21:16)
[2017-04-24] MEDS ORDERED: LACTULOSE SYRUP 10 GM/15 ML BTL 473 ML PO PRN (12:30)
--- NOTE | 2017-04-24 12:34 | Progress Note ---
Medicine Progress Note Date & Time of Visit: Apr 24, 2017 at 12:24. Subjective seen resting in bedside chair states he feels about the same main symptom today is "not able to keep the food down" denies abdominal pain, has intermittent nausea no dyspnea, cough no fever/chills appetite is poor no other symptoms Objective Last 8 Hrs Date Time Temp Pulse Resp B/P (MAP) Pulse Ox O2 Delivery O2 Flow Rate FiO2 04/24/17 11:39 36.5 116 18 111/74 (86) 96 04/24/17 09:05 116 20 100/59 (73) 95 Room Air 04/24/17 08:20 Room Air 04/24/17 07:22 36.5 97 18 99/61 (74) 94 Room Air Physical Exam: General- oriented x 3, not in distress, speaks in sentences with no effort Eyes- anicteric Neck- no JVD Lungs- clear breath sounds bilaterally, no rales/wheezes Heart- regular rhythm; no murmur, normal rate Abdomen- moderately distended, soft, non tender Extremities- left upper extremity: (+) edema on the forearm and hand with some seepage, also has hematoma no warmth/tenderness/erythema no pretibial edema, no calf tenderness Neuro- alert, oriented x 3;no gross focal deficits Skin- warm & dry Laboratory Results: Last 24 Hours Test 04/23/17 16:27 04/23/17 20:37 04/24/17 04:47 04/24/17 05:50 Bedside Glucose 114 mg/dl 87 mg/dl White Blood Count 16.11 K/uL Red Blood Count 4.36 M/uL Hemoglobin 13.8 g/dL Hematocrit 40.7 % Mean Corpuscular Volume 93.3 fL Mean Corpuscular Hemoglobin 31.7 pg Mean Corpuscular Hemoglobin Concent 33.9 g/dl RDW Standard Deviation 64.3 fL RDW Coefficient of Variation 18.9 % Platelet Count 112 K/uL Mean Platelet Volume 10.6 fL Prothrombin Time 29.3 SECONDS Prothromb Time International Ratio 2.8 Activated Partial Thromboplast Time 49.4 SECONDS Partial Thromboplastin Ratio 1.9 Sodium Level 131 mmol/L Potassium Level mmol/L 4.1 mmol/L Chloride Level 99 mmol/L Carbon Dioxide Level 25 mmol/L Anion Gap 7.0 mmol/L Blood Urea Nitrogen 33 mg/dl Creatinine 1.57 mg/dl Est Creatinine Clear Calc Drug Dose 46.1 ml/min Estimated GFR () 52.5 Estimated GFR (Non- 45.3 BUN/Creatinine Ratio 21.0 Random Glucose 94 mg/dl Calcium Level 9.9 mg/dl Test 04/24/17 07:39 04/24/17 11:31 Bedside Glucose 77 mg/dl 95 mg/dl Assessment & Plan 66 year old male with history of CAD, CHF, A fib on coumadin, DM, HTN, Hyperthyroidism presenting with poor oral intake and weakness. WEAKNESS, POOR ORAL INTAKE FROM: INTRAABDOMINAL LYMPHADENOPATHY, B CELL LYMPHOMA, NEWLY DIAGNOSIS PANCREATIC MASS, LIKELY SPREAD OF B CELL LYMPHOMA GI consulted was given Albumin IV initially 04/17: s/p EUS with Biopsy of Pancreatic mass, and Lymph nodes: official report pending, but spoke with Dr. 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 Coleen Doan consulted ASCITES, FROM LIVER CIRRHOSIS VS. MALIGNANT EFFUSION 04/18: s/p Paracentesis, 4 liters, Pathology: no malignant cells seen Peritoneal fluid culture: (+) Coag neg staph -- abdomen still distended diuretics on hold due to elevated crea -- will discuss with GI and Nephro -- on Vanco IV will consult ID ACUTE RENAL FAILURE LIKELY PRERENAL, with HYPER CA AND HYPER K, Resolved holding lasix, spironolactone, metformin -- crea still at 1.57 -- IV fluids and Albumin discontinued Nephrology consulted CAD no cardiac symptoms Aspirin resumed CHF hold diuretics for now, monitor AFIB ON COUMADIN continue Diltiazem and Metoprolol with holding parameters INR 2.8 on coumadin LEFT ATRIAL APPENDAGE THROMBUS Cardiology consulted needs heparin bridge when INR subtherapeutic LOW BACK PAIN Lidoderm patch, PRN Tramadol and Flexeril patient reports increased pain add Marion PRN DM hold Metformin Pharm Gly Cx HTN on Diltiazem and Metoprolol with parameters HYPERTHYROIDISM TFTs slightly improved from last month Endo consulted recommend to increase Methimazole to 10mg BID FULL CODE DVT PPX INR 2.8 Disposition pending lives at home with family PT/OT evaluation d/c home when cleared by Oncology, Nephro and GI Current Inpatient Medications: Current Inpatient Medications Medications (Trade) Dose Ordered Sig/Sal Route Start Time Stop Time Status Last Admin Dose Admin Diltiazem HCl (Cardizem Cd Cap) 180 mg QAM PO 04/13/17 09:00 05/13/17 08:59 04/24/17 08:58 180 MG Docusate Sodium (coLACE CAP) 100 mg BID PRN PO 04/12/17 18:45 05/12/17 18:44 04/19/17 06:13 100 MG Fluticasone Propionate (Flovent Hfa 44MCG Inhaler) 2 puffs BID INH 04/12/17 21:00 05/12/17 20:59 04/24/17 08:58 2 PUFFS Fluticasone Propionate (Flonase Nasal Winn) 2 sprays DAILY SHALONDA 04/13/17 09:00 05/13/17 08:59 04/24/17 08:58 2 SPRAYS Montelukast Sodium (Singulair Tab) 10 mg QPM PO 04/12/17 21:00 05/12/17 20:59 04/23/17 20:46 10 MG Acetaminophen (Tylenol Tab) 650 mg Q4H PRN PO 04/12/17 18:30 05/12/17 18:29 Insulin Aspart (novoLOG ASPART) SLIDING SCALE ACHS SC 04/12/17 21:00 05/12/17 20:59 04/19/17 21:14 4 UNITS Glucose (Glucose 40% Gel) 15-30 GRAMS 15 GRAMS... UD PRN PO 04/12/17 18:45 05/12/17 18:44 Glucose (Glucose Chew Tab) 4-8 Tablets 4 Tabl... UD PRN PO 04/12/17 18:45 05/12/17 18:44 Dextrose (Dextrose 50% 50ML Syringe) 25-50ML OF 50% DW IV FOR... UD PRN IV 04/12/17 18:45 05/12/17 18:44 Glucagon (Glucagon Inj) 1 mg UD PRN SQ 04/12/17 18:45 05/12/17 18:44 Methimazole (Methimazole Tab) 10 mg BID PO 04/14/17 09:00 05/14/17 08:59 04/24/17 08:59 10 MG Lidocaine (Lidoderm Patch 5%) 1 patch QPM TD 04/14/17 21:00 05/14/17 20:59 04/23/17 20:47 1 PATCH Miscellaneous (Remove Lidoderm Patch) 1 ea QAM N/A 04/14/17 15:00 05/14/17 14:59 04/24/17 09:00 1 EA Cyclobenzaprine HCl (Flexeril Tab) 5 mg BID PRN PO 04/14/17 15:30 05/14/17 15:29 04/23/17 23:39 5 MG Senna/Docusate Sodium (Senokot S Tab) 1 tab QAM PO 04/15/17 09:00 05/15/17 08:59 Future Hold 04/20/17 08:19 1 TAB Magnesium Hydroxide (Milk Of Magnsaravanan Susp) 30 ml Q6H PRN PO 04/14/17 15:30 05/14/17 15:29 04/19/17 06:13 30 ML Warfarin Sodium (Coumadin Tab) 1 mg DAILY@16 PO 04/19/17 16:00 05/19/17 15:59 Future hold 04/23/17 15:26 1 MG Aspirin (Ecotrin Tab) 81 mg DAILY PO 04/20/17 09:00 05/20/17 08:59 04/24/17 08:58 81 MG Tramadol HCl (Ultram Tab) 25 mg Q6H PRN PO 04/20/17 05:30 05/20/17 05:29 Miscellaneous Information (Consult) 1 ea UD PRN N/A 04/21/17 20:15 05/21/17 20:14 Vancomycin HCl 1250 mg/Sodium Chloride 275 ml @ 125 mls/hr Q18H IV 04/23/17 04:00 05/01/17 03:59 04/23/17 22:05 125 MLS/HR Enteral Nutritional Formula (Boost Breeze Nutritional Drink) 1 box BID PO 04/22/17 12:00 05/22/17 20:59 04/24/17 09:00 1 BOX Metoprolol Succinate (Toprol Xl Tab) 25 mg DAILY PO 04/24/17 09:00 05/12/17 20:59 04/24/17 08:59 25 MG
--- NOTE | 2017-04-24 14:38 | Progress Note ---
Progress Note Date of Service Apr 24, 2017. Progress Note ID Consult Dictated #[id number] A/P: 1. Peritonitis -Continue vanco x 14 days total -Thank you
--- NOTE | 2017-04-24 14:52 | DIAGNOSTIC IMAGING REPORT ---
CHEST ONE VIEW PORTABLE CLINICAL HISTORY: 66 years-old Male presenting with picc placement night arm. TECHNIQUE: AP view of the chest was obtained. COMPARISON: 04/20/2017. FINDINGS: Interval placement of a right upper extremity PICC which terminates at the superior cavoatrial junction. Median sternotomy wires, bypass graft rings, and mediastinal surgical clips unchanged. Cardiac silhouette remains mildly enlarged. Persistent bibasilar opacities greater on the left. Small right and moderate left pleural effusions. No pneumothorax. Degenerative changes of the thoracic spine. Numerous external leads overlie the right upper quadrant degrading evaluation. IMPRESSION: 1. Interval placement of a right upper extremity PICC, which is appropriately positioned. No pneumothorax. 2. Bibasilar pleural effusions and suspected extensive atelectasis. 3. Cardiomegaly. Electronically signed by: Max Sharpe M.D. 04/24/2017 2:50 PM Dictated Date/Time: 04/24/2017 2:49 PM
--- NOTE | 2017-04-24 14:53 | INFECT. DISEASE CONSULTATION ---
DATE OF CONSULTATION: 04/24/2017 HISTORY OF PRESENT ILLNESS: This is a 66-year-old gentleman who was admitted to the hospital with worsening abdominal distention and poor appetite. He was also having generalized fatigue. He did undergo imaging of the abdomen and MRCP showed a 10 cm peripancreatic mass. He did undergo aspirate of this and also examination of ascitic fluid and preliminary studies are showing a B cell lymphoma. His is present on my examination and states that they will be meeting with hematology/oncology later today. As part of his paracentesis fluid was sent for culture and is growing coagulase negative staph, sensitive to vancomycin. There were 600 white blood cells on fluid analysis. He did have blood cultures on the as part of his workup, and those are no growth to date. He has been on vancomycin since the and he is tolerating this well. He has had a persistently elevated white blood cell count since admission and this is now decreased significantly with antibiotic therapy. Infectious diseases was asked to see patient in consultation for questionable SBP. Currently, patient is lethargic on my examination but appropriate. He denies any fevers or chills, but states he is cold. He denies any chest pain, cough, shortness of breath. He does admit to nausea and poor p.o. intake. He is tolerating some liquids. He continues with abdominal distention. His remaining review of systems is unremarkable. He is tolerating antibiotics well. He is due to get a PICC line later this afternoon secondary to poor access. PAST MEDICAL HISTORY: Coronary artery disease; CHF; AFib, on chronic Coumadin; type 2 diabetes; hypertension; hypothyroidism. FAMILY HISTORY: Noncontributory. SOCIAL HISTORY: Negative for tobacco use, alcohol use or drug use. ALLERGIES: He DOES HAVE ALLERGIES STATIN DRUGS. CURRENT MEDICATIONS: Include Percocet, lactulose, metoprolol, vancomycin, Boost, aspirin, Ultram, Coumadin, Lidoderm patch, Flexeril, milk of magnesia, diltiazem, Flonase, Flovent, Singulair, insulin, Colace, Tylenol. PHYSICAL EXAMINATION: VITAL SIGNS: He is afebrile, pulse 116, respiratory rate 18, blood pressure 111/74, oxygen saturation is 96% on room air. GENERAL: He is awake, alert and oriented x3. He is in no acute distress. HEENT: Mucous membranes are dry. Extraocular muscles are intact. HEART: Without murmur. LUNGS: Clear but decreased at the bases bilaterally. ABDOMEN: Significantly distended but nontender. There is trace edema. LABORATORY STUDIES: CBC today reveals a white blood cell count of 16.1, hemoglobin 13.8, platelets 112. Chemistry panel reveals a sodium of 131, potassium 4.1, chloride 99, bicarbonate 25, BUN 33, creatinine 1.5, glucose is 95. UA on the 16 is unremarkable. Random vancomycin level on the was 21. Paracentesis fluid showed 605 white blood cells with 56% neutrophils. Blood cultures from the are no growth to date. Urine culture from the is negative and final ascitic fluid is growing coagulase negative staph sensitive to daptomycin and vancomycin. AFB smear is negative. IMAGING: As above. His most recent chest x-ray was on the and showed effusion and atelectasis. ASSESSMENT AND PLAN: Peritonitis. Certainly with elevated white blood cell count and positive cultures, he would be a candidate for treatment. He will need 14 days total. Vancomycin is appropriate therapy and he is tolerating this well. His trough is appropriate. I would give a total of 14 days of antibiotics. He is receiving a PICC line and can continue his antibiotics via his PICC line. Thank you for this consultation.
[2017-04-24] MEDS: VANCOMYCIN IV 1,250 MG in SODIUM CHLORIDE 0.9% 250ML 250 ML IV SCH (16:11)
[2017-04-24] MEDS: WARFARIN SOD 1 MG TAB PO SCH (16:12)
--- NOTE | 2017-04-24 18:26 | Medical Consult ---
Consultation Date of Consultation: Apr 24, 2017. 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 Date of consultation: 04/24/2017 HPI: 66-year-old male, who has quite a few comorbid conditions, mainly underlying coronary artery disease, atrial fibrillation, on anticoagulant treatment, present aide at [facility] on 04/12/2017 for poor oral intake, increasing shortness of breath, distention of the abdomen, earlier he was admitted at [facility] on 2 occasions since beginning of this year for generalized edema, heart failure, atrial fibrillation with uncontrolled heart rate. He also had increasing distant abdomen, some mild abdominal discomfort present, had CT scan of the abdomen which revealed large pancreatic body soft tissue mass and several abdominal lymphadenopathy in the abdomen and pelvis region. Biopsy from the pancreatic the body mass and celiac lymph yoselyn region, preliminary reports suggest B-cell lymphoma, final report pending. Hospital course complicated by increasing ascites, abdominal paracentesis with 3.8 L fluid removal, culture from the ascitic fluid grew coagulase-negative Staph, he is receiving vancomycin chemotherapy, blood culture negative. Worsening kidney function test noted, progressive thrombocytopenia noted, HIT antibody negative. Cirrhosis of liver noted, no alcohol abuse in the past. I saw him at bedside, his family members were also at bedside, feeling quite weak and tired, has some distance of the abdomen, no leg edema, poor oral intake noted, no increasing nausea or vomiting, no fever. REVIEW OF SYSTEMS: GENERAL: Some weight loss noted, feeling weak and tired, now he is in the hospital for about 10 days or so, no fever or chills. SKIN: No skin rash, no bruising. HEAD: No new headache, some dizziness present. EYES: No recent change in the vision, no diplopia, EARS: No earache no tinnitus, NOSE: No epistaxis, No nasal discharge or stuffiness, MOUTH: No sores, no dysphagia, some change in his voice noted, NECK: No lumps, No swelling in thyroid area. No stiffness. PULMONARY: No cough, mild shortness of breath, no hemoptysis, no chest pain, No wheezing. CARDIOVASCULAR: No anginal chest pain, no PND, no orthopnea. No palpitation, no leg edema. No syncope. GASTROINTESTINAL: No abdominal pain, no nausea or vomiting. No diarrhea, No constipation. No blood in stool or black tarry stools. No abdominal distention. UROLOGIC: No burning urination. No hematuria. He is not able to past the urine , requiring straight catheterization every day. MUSCULOSKELETAL: Chronic back pain present but no upper extremity or lower extremity joint pain.. HEMATOLOGIC: No anemia, no bleeding disorder, No bruising but his INR was on the higher side when he came to the hospital. NEUROLOGIC: No seizures, no focal weakness, no speech difficulty, some memory disturbances. No tingling or numbness of the extremities. PSYCHIATRIC: No depression. No anxiety. No psychosis. SLEEP: No sleep disorder. Past medical and surgical history: - coronary artery disease, S/P CABG -S/P bioprosthetic aortic wall replacement. -sleep apnea -atrial fibrillation, on Coumadin therapy -diabetes mellitus -hypertension, -hyperthyroidism. -spine surgery in the past. -BPH Social history: Nonsmoker, denies any ETOH abuse. Family history: Not significant Medications: Please review his chart for detailed list of medications. Allergies: Statin. On exam: - Alert and oriented x3, thin built man, not in any distress. - HEENT: no icterus, no pallor, Throat: Normal. - Neck: No palpable cervical lymphadenopathy. - Chest: clear to auscultation. - Abdomen: soft, nontender, no hepatomegaly, no splenomegaly. - No focal neuro deficit. - Extremities: no finger clubbing, no leg edema. Left upper extremity edema following recent the extra worsened IV fluid. He has right upper extremity PICC line. -no palpable lymphadenopathy in the axilla. Lab: -WBC 22715, H&H of 16.7/49, Platelet count of 336,000 (04/12/2017) -WBC 02412, H&H of 13.8/42, Platelet count of of 139,000 (04/18/2017). - WBC 83040, H&H of 13/38, Platelet count of 90,000 (04/23/2017) -WBC 77190, H&H of 13.8/40.7, Platelet count of of 112,000 (04/25/2007). -BUN/Creat: 49/2.0, calcium 11.4, Total bilirubin: 1.5, AST 31, ALT 12, alkaline phosphate is 169, -intact PTH--> 12.9, PTH RP--> 11 -ammonia level--> 40 (04/20/2017) -Ferritin level--> 992 (04/14/2002) -BUN/Creat: 33/1.5, calcium 9.9 (04/24/2017). - PTT 95, INR 9.5, PTT 67 seconds on admission (04/12/2017). - HIT antibody screen--> negative. (04/20/2017) -hepatitis B surface antigen and core antibody--> negative. Hepatitis C antibody and negative Imaging: -CT scan of the abdomen pelvis done on 04/12/2017--> liver cirrhosis noted, 5 mm subcapsular hypodensity within the right lobe of the liver, 5.5 cm hypodense splenic lesion which could be splenic infarct, spleen slightly enlarged measuring up to 14 cm, pancreatic body infiltrative mass measuring over 5 cm, this is Contin GS with gastrohepatic ligament lymph node, celiac axis lymph node , aortocaval lymphadenopathy. Splenic artery appears to be encased. Left para- aortic lymphadenopathy, -Bilateral lower extremity Doppler evaluation--> no evidence of DVT (04/13/2017) Liver ultrasound done on 04/13/2017--> cirrhotic liver, hepatic and portal vein patent. IVC patent. MRCP (04/13/2017)--> once again cirrhotic liver noted, 6 mm right lobe liver lesion appears to be cyst come gastrohepatic and retrocrural and celiac and para -aortic lymphadenopathy. Pancreatic mass encasing the splenic vein measuring over 10 cm. Spleen measuring 13.2 cm with 5.5 cm lower pole splenic lesion. Upper EUS (04/17/2017, done by Dr. Mitchell)--> large ill-defined mass in the pancreatic body, many enlarged lymph nodes noted in the celiac region, FNA from the pancreatic body mass and the celiac access lymph node--> pending. Preliminary report suggested B-cell lymphoma. -CT scan of the head done without intravenous contrast (04/20/2017--> no acute changes noted. Pathology: - Ultrasound-guided abdomen paracentesis done on 04/18/2017--> 3.8 L ascitic fluid removed. Ascites with cytology--> negative for malignant cells. -Biopsy from the stomach--> negative for malignancy. Mild focal moderate chronic gastritis noted. -Peritoneal fluid culture--> coagulase-negative Staph. ASSESSMENT AND PLAN: 66-year-old male, who is admitted at [facility] on 04/12/2017 for progressive distention of the abdomen and poor oral intake, weight loss, found to have large pancreatic body soft tissue mass measuring over 10 cm, multiple intra-abdominal lymphadenopathy noted, S/P abdominal paracentesis x1 done recently, 3.8 L of the fluid removed, ascitic fluid cytology negative for malignancy, FNA from the pancreatic mass as well as celiac axis lymph node pending but preliminary report suggests B-cell lymphoma, he does not any palpable lymphadenopathy on physical examination in the head and neck or axillary region. Also has quite a few comorbid conditions mainly cardiac history with underlying coronary artery disease, S/P CABG, S/P aortic valve replacement therapy, atrial fibrillation with rapid ventricular rate, on anticoagulant treatment with Coumadin, when he came to the hospital, had elevated INR, he received IV heparin , now he is back on oral Coumadin treatment. Also had a worsening kidney function test, imaging study showed evidence of cirrhosis of liver, splenomegaly, splenic infarction noted. Ascitic fluid culture grew coagulase-negative Staph, he is on antibiotic treatment, follows up with ID, PICC line placed today on the right side, left upper extremity edema noted because of extravasation of the IV fluid. I would like to wait for the final path report, he will also need further staging workup in the form of PET-CT scan that can be done as an outpatient. Will check LDH. Briefly I reviewed with the patient and his family members regarding the treatment options for the lymphoma diagnosis, chemotherapy treatment option that would be quite challenging in his case with his comorbid conditions and blood workup findings mainly thrombocytopenia and worsening kidney function test and abnormal cardiac function test. Regarding anticoagulant treatment, I would consider for Lovenox with the presence of underlying lymphoma diagnosis and other comorbid conditions. Will see how he does in the next few days. Will follow up. Dr. Mukesh Doan Hem/Onc (This note was completed using the dictation program Fluency Direct. As such, there may be misspellings, word substitutions, or other variations that should not change the essence of the clinical content of this encounter note. If there is need for further clarification, please direct questions to the provider listed above.) Past Medical/Surgical History Medical Problems: (1) Acute renal failure Status: Acute (2) Atrial fibrillation with rapid ventricular response Status: Acute (3) Pancreatic mass Status: Acute (4) Splenic infarct Status: Acute (5) Supratherapeutic INR Status: Acute Family History Patient reports no known family medical history. Social History Smoking Status: Never Smoker Drug Use: none Marital Status: Housing Status: lives with family Occupation Status: retired Allergies Coded Allergies: Statins (Verified Adverse Reaction, Intermediate, LEG WEAKNESS, 04/24/17) Current Inpatient Medications Current Inpatient Medications Medications (Trade) Dose Ordered Sig/Sal Route Start Time Stop Time Status Last Admin Dose Admin Diltiazem HCl (Cardizem Cd Cap) 180 mg QAM PO 04/13/17 09:00 05/13/17 08:59 04/24/17 08:58 180 MG Docusate Sodium (coLACE CAP) 100 mg BID PRN PO 04/12/17 18:45 05/12/17 18:44 04/19/17 06:13 100 MG Fluticasone Propionate (Flovent Hfa 44MCG Inhaler) 2 puffs BID INH 04/12/17 21:00 05/12/17 20:59 04/24/17 08:58 2 PUFFS Fluticasone Propionate (Flonase Nasal [place]) 2 sprays DAILY SHALONDA 04/13/17 09:00 05/13/17 08:59 04/24/17 08:58 2 SPRAYS Montelukast Sodium (Singulair Tab) 10 mg QPM PO 04/12/17 21:00 05/12/17 20:59 04/23/17 20:46 10 MG Acetaminophen (Tylenol Tab) 650 mg Q4H PRN PO 04/12/17 18:30 05/12/17 18:29 Insulin Aspart (novoLOG ASPART) SLIDING SCALE ACHS SC 04/12/17 21:00 05/12/17 20:59 04/19/17 21:14 4 UNITS Glucose (Glucose 40% Gel) 15-30 GRAMS 15 GRAMS... UD PRN PO 04/12/17 18:45 05/12/17 18:44 Glucose (Glucose Chew Tab) 4-8 Tablets 4 Tabl... UD PRN PO 04/12/17 18:45 05/12/17 18:44 Dextrose (Dextrose 50% 50ML Syringe) 25-50ML OF 50% DW IV FOR... UD PRN IV 04/12/17 18:45 05/12/17 18:44 Glucagon (Glucagon Inj) 1 mg UD PRN SQ 04/12/17 18:45 05/12/17 18:44 Methimazole (Methimazole Tab) 10 mg BID PO 04/14/17 09:00 05/14/17 08:59 04/24/17 08:59 10 MG Lidocaine (Lidoderm Patch 5%) 1 patch QPM TD 04/14/17 21:00 05/14/17 20:59 04/23/17 20:47 1 PATCH Miscellaneous (Remove Lidoderm Patch) 1 ea QAM N/A 04/14/17 15:00 05/14/17 14:59 04/24/17 09:00 1 EA Cyclobenzaprine HCl (Flexeril Tab) 5 mg BID PRN PO 04/14/17 15:30 05/14/17 15:29 04/23/17 23:39 5 MG Senna/Docusate Sodium (Senokot S Tab) 1 tab QAM PO 04/15/17 09:00 05/15/17 08:59 Future Hold 04/20/17 08:19 1 TAB Magnesium Hydroxide (Milk Of Magnesia Susp) 30 ml Q6H PRN PO 04/14/17 15:30 05/14/17 15:29 04/19/17 06:13 30 ML Warfarin Sodium (Coumadin Tab) 1 mg DAILY@16 PO 04/19/17 16:00 05/19/17 15:59 Future hold 04/24/17 16:12 1 MG Aspirin (Ecotrin Tab) 81 mg DAILY PO 04/20/17 09:00 05/20/17 08:59 04/24/17 08:58 81 MG Tramadol HCl (Ultram Tab) 25 mg Q6H PRN PO 04/20/17 05:30 05/20/17 05:29 Miscellaneous Information (Consult) 1 ea UD PRN N/A 04/21/17 20:15 05/21/17 20:14 Vancomycin HCl 1250 mg/Sodium Chloride 275 ml @ 125 mls/hr Q18H IV 04/23/17 04:00 05/01/17 03:59 04/24/17 16:11 125 MLS/HR Enteral Nutritional Formula (Boost Breeze Nutritional Drink) 1 box BID PO 04/22/17 12:00 05/22/17 20:59 04/24/17 09:00 1 BOX Metoprolol Succinate (Toprol Xl Tab) 25 mg DAILY PO 04/24/17 09:00 05/12/17 20:59 04/24/17 08:59 25 MG Lactulose (Chronulac Syrup) 15 gm BID PRN PO 04/24/17 12:30 05/24/17 12:29 Acetaminophen/ Hydrocodone Bitart ([place] 5/325 Tab) 1 tab Q12H PRN PO 04/24/17 12:45 05/08/17 12:44 Heparin Sodium (Porcine) (Heparin 10 Unit/ ml 5 ml Flush) 5 ml PRN PRN FLUSH 04/24/17 15:30 05/24/17 15:29 04/24/17 15:49 5 ML Physical Exam Date Time Temp Pulse Resp B/P (MAP) Pulse Ox O2 Delivery O2 Flow Rate FiO2 04/24/17 15:19 36.7 93 18 143/81 (101) 98 Room Air 04/24/17 13:20 Room Air 04/24/17 11:39 36.5 116 18 111/74 (86) 96 04/24/17 09:05 116 20 100/59 (73) 95 Room Air 04/24/17 08:20 Room Air 04/24/17 07:22 36.5 97 18 99/61 (74) 94 Room Air 04/24/17 04:00 36.7 106 18 111/68 (82) 97 Room Air 04/24/17 04:00 Room Air 04/24/17 00:17 36.9 84 18 110/68 (82) 97 Room Air 04/23/17 23:45 Room Air 04/23/17 20:00 96 Room Air 04/23/17 19:32 36.8 80 20 99/58 (72) 96 Room Air Laboratory Results Last 24 Hours Test 04/23/17 20:37 04/24/17 04:47 04/24/17 05:50 04/24/17 07:39 Bedside Glucose 87 mg/dl 77 mg/dl White Blood Count 16.11 K/uL Red Blood Count 4.36 M/uL Hemoglobin 13.8 g/dL Hematocrit 40.7 % Mean Corpuscular Volume 93.3 fL Mean Corpuscular Hemoglobin 31.7 pg Mean Corpuscular Hemoglobin Concent 33.9 g/dl RDW Standard Deviation 64.3 fL RDW Coefficient of Variation 18.9 % Platelet Count 112 K/uL Mean Platelet Volume 10.6 fL Prothrombin Time 29.3 SECONDS Prothromb Time International Ratio 2.8 Activated Partial Thromboplast Time 49.4 SECONDS Partial Thromboplastin Ratio 1.9 Sodium Level 131 mmol/L Potassium Level mmol/L 4.1 mmol/L Chloride Level 99 mmol/L Carbon Dioxide Level 25 mmol/L Anion Gap 7.0 mmol/L Blood Urea Nitrogen 33 mg/dl Creatinine 1.57 mg/dl Est Creatinine Clear Calc Drug Dose 46.1 ml/min Estimated GFR () 52.5 Estimated GFR (Non- 45.3 BUN/Creatinine Ratio 21.0 Random Glucose 94 mg/dl Calcium Level 9.9 mg/dl Test 04/24/17 11:31 04/24/17 15:45 04/24/17 16:14 Bedside Glucose 95 mg/dl 74 mg/dl Vancomycin Level Trough 24.0 mcg/ml
[2017-04-24] MEDS ORDERED: LORAZEPAM 0.5 MG TAB PO PRN (18:45)
[2017-04-24] MEDS: LIDODERM (LIDOCAINE) PATCH 5% TD SCH (21:00)
[2017-04-24] MEDS: MONTELUKAST SOD 10 MG TAB PO SCH (21:17)
[2017-04-24] MEDS: TRAMADOL HCL 50 MG TAB PO PRN (21:41)
[2017-04-25] VITALS (9 sets, daily range): BP systolic 85–110; BP diastolic 53–73; PULSE 74–123; TEMP 36.4–37; O2SAT 95–99
[2017-04-25] MEDS: HYDROCODONE/ACETAMIN 5/325MG TAB PO PRN (05:13)
[2017-04-25 06:00] LABS: HEMATOCRIT 39.2 % (42-52); HEMOGLOBIN 13.4 g/dL (14.0-18.0); MEAN CELL VOLUME 93.6 fL (80-100); MEAN PLATELET VOLUME 9.7 fL (7.4-10.4); PLATELET COUNT 136 K/uL (130-400); RED CELL DISTRIBUTION WIDTH CV 19.3 % (11.5-14.5); RED CELL DISTRIBUTION WIDTH SD 65.6 fL (36.4-46.3); WHITE BLOOD COUNT 21.85 K/uL (4.8-10.8)
[2017-04-25 06:11] LABS: MEAN CORPUSCULAR HGB CONC 34.2 g/dl (32-36)
[2017-04-25 06:26] LABS: PTT PATIENT 64.1 SECONDS (21.0-31.0)
[2017-04-25] MEDS: INSULIN ASPART 100 UNITS/ML 3 ML PEN SC SCH ×4 (06:30→21:00)
[2017-04-25] MEDS: FLUTICASONE PROP HFA INH 44 MCG INHALER INH SCH ×2 (07:43→21:52)
[2017-04-25] MEDS: BOOST BREEZE NUTRITION DRINK 1 BOX PO SCH ×2 (07:43→21:52)
[2017-04-25] MEDS: METHIMAZOLE 5 MG TAB PO SCH ×2 (07:43→21:53)
[2017-04-25] MEDS: FLUTICASONE PROPIONATE NA SPR 16 GM BTL NAE SCH (07:43)
[2017-04-25] MEDS: ASPIRIN 81 MG ECTAB PO SCH (07:44)
[2017-04-25] MEDS: DILTIAZEM HCL 180 MG CAPCR PO SCH (07:44)
[2017-04-25] MEDS: METOPROLOL SUCC 25MG EXT REL TAB PO SCH (07:44)
[2017-04-25 10:25] LABS: CREATININE 1.83 mg/dl (0.60-1.40); POTASSIUM 4.7 mmol/L (3.5-5.1)
--- NOTE | 2017-04-25 10:48 | Pharmacy Progress Note ---
Pharmacy Abx Dose Short Note Date of Service Apr 25, 2017. Assessment & Plan Assessment 66 year old male receiving Vancomycin for treatment of peritonitis. Day # 5 of antimicrobial therapy. * Scr trending up * WBC trending up, pt not ordered systemic steroids * Pt remains afebrile Plan Vancomycin * Trough level of 24 mcg/mL is supratherapeutic. * Change to 1500 mg (16.7mg/kg) IV every 24 hours * Goal trough level for peritonitis (vanc SIMRAN=2) : 15 to 20 mcg/mL * Trough level ordered for: 04/27 @4341 Pharmacy will continue to follow and will adjust dose/frequency as necessary. Thank you.
[2017-04-25 11:50] LABS: CALCIUM 9.9 mg/dl (8.5-10.1)
--- NOTE | 2017-04-25 12:25 | DIAGNOSTIC IMAGING REPORT ---
(BARIUM SWALLOW) ESOPHAGUS CLINICAL HISTORY: solid food dysphagia; please schedule per orderdysphagia COMPARISON STUDY: None FLUOROSCOPY TIME: 1.2 minutes. FINDINGS: Patient initiated swallow function well. There is trace amount of penetration but no evidence for aspiration. There is no significant vallecular pooling. There is moderate esophageal spasm and dysmotility. There is considerable gastroesophageal reflux to the proximal esophagus. Patient was unable to swallow the barium tablet. IMPRESSION: 1. Swallowing function is remarkable for trace amount of penetration but no evidence for aspiration. 2. Mild/moderate esophageal irritability and/or spasm. 3. Considerable gastroesophageal reflux. The above report was generated using voice recognition software. It may contain grammatical, syntax or spelling errors. Electronically signed by: Pablo Patrick M.D. 04/25/2017 12:24 PM Dictated Date/Time: 04/25/2017 12:20 PM
--- NOTE | 2017-04-25 14:25 | Progress Note ---
Medicine Progress Note Date & Time of Visit: Apr 25, 2017 at 14:24. Subjective seen with sisters at the bedside patient resting in bed, comfortable, pleasant states he actually feels better today, feels stronger denies dyspnea no abdominal pain, nausea no other symptoms Objective Last 8 Hrs Date Time Temp Pulse Resp B/P (MAP) Pulse Ox O2 Delivery O2 Flow Rate FiO2 04/25/17 12:00 Room Air 04/25/17 11:20 36.5 121 20 110/73 (85) 97 04/25/17 08:00 Room Air Physical Exam: General- oriented x 3, not in distress, speaks in sentences with no effort Eyes- anicteric Neck- no JVD Lungs- clear BS BL, no crackles, no wheezing Heart- regular rhythm; no murmur, normal rate Abdomen- moderately distended, soft, non tender Extremities- left upper extremity: (+) edema on the forearm and hand with some seepage, also has hematoma--> improving no warmth/tenderness/erythema no pretibial edema, no calf tenderness Neuro- alert, oriented x 3;no gross focal deficits Skin- warm & dry Laboratory Results: Last 24 Hours Test 04/24/17 15:45 04/24/17 16:14 04/24/17 18:55 04/24/17 20:47 Vancomycin Level Trough 24.0 mcg/ml Bedside Glucose 74 mg/dl 102 mg/dl Lactate Dehydrogenase 225 U/L Test 04/24/17 22:45 04/25/17 05:47 04/25/17 07:15 04/25/17 09:47 Urine Color ORANGE Urine Appearance TURBID Urine pH 5.0 Urine Specific [place] 1.024 Urine Protein 1+ Urine Glucose (UA) NEG Urine Ketones TRACE Urine Occult Blood 2+ Urine Nitrite POS Urine Bilirubin NEG Urine Urobilinogen NEG Urine Leukocyte Esterase SMALL Urine WBC (Auto) 1-5 /hpf Urine RBC (Auto) 5-10 /hpf Urine Hyaline Casts (Auto) 5-10 /lpf Urine Epithelial Cells (Auto) >30 /lpf Urine Bacteria (Auto) 1+ Urine Crystals AMORPHOUS SEDIMENT Urine Pathogenic Casts /lpf Urine Yeast (Auto) White Blood Count 21.85 K/uL Red Blood Count 4.19 M/uL Hemoglobin 13.4 g/dL Hematocrit 39.2 % Mean Corpuscular Volume 93.6 fL Mean Corpuscular Hemoglobin 32.0 pg Mean Corpuscular Hemoglobin Concent 34.2 g/dl RDW Standard Deviation 65.6 fL RDW Coefficient of Variation 19.3 % Platelet Count 136 K/uL Mean Platelet Volume 9.7 fL Prothrombin Time 40.8 SECONDS Prothromb Time International Ratio 4.0 Activated Partial Thromboplast Time 64.1 SECONDS Partial Thromboplastin Ratio 2.5 Bedside Glucose 76 mg/dl Sodium Level 132 mmol/L Potassium Level 4.7 mmol/L Chloride Level 100 mmol/L Carbon Dioxide Level 21 mmol/L Anion Gap 11.0 mmol/L Blood Urea Nitrogen 46 mg/dl Creatinine 1.83 mg/dl Est Creatinine Clear Calc Drug Dose 41.1 ml/min Estimated GFR () 43.6 Estimated GFR (Non- 37.6 BUN/Creatinine Ratio 25.2 Random Glucose 79 mg/dl Calcium Level 9.9 mg/dl Test 04/25/17 11:37 Bedside Glucose 70 mg/dl Assessment & Plan 66 year old male with history of CAD, CHF, A fib on coumadin, DM, HTN, Hyperthyroidism presenting with poor oral intake and weakness. WEAKNESS, POOR ORAL INTAKE FROM: INTRAABDOMINAL LYMPHADENOPATHY, B CELL LYMPHOMA, NEW DIAGNOSIS PANCREATIC MASS, LIKELY SPREAD OF B CELL LYMPHOMA GI consulted was given Albumin IV initially 04/17: s/p EUS with Biopsy of Pancreatic mass, and Lymph nodes: official report pending, but spoke with Dr. 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 Coleen Doan consulted recommend work up for staging and chemo when medically stable ASCITES, FROM LIVER CIRRHOSIS VS. MALIGNANT EFFUSION 04/18: s/p Paracentesis, 4 liters, Pathology: no malignant cells seen Peritoneal fluid culture: (+) Coag neg staph -- abdomen still distended diuretics on hold due to elevated crea -- GI re-consulted may need another Therapeutic Paracentesis when renal function improves/ok with Nephro -- Nephro re-consulted albumin IV BID re-ordered -- ID consulted continue Vanco IV to complete 14 days ACUTE RENAL FAILURE LIKELY PRERENAL, with HYPER CA AND HYPER K, Resolved holding lasix, spironolactone, metformin -- crea increasing, now at 1.8 -- IV albumin BID re-started CAD no cardiac symptoms Aspirin resumed CHF hold diuretics for now, monitor AFIB ON COUMADIN continue Diltiazem and Metoprolol with holding parameters INR 4 HOLD coumadin repeat INR tomorrow LEFT ATRIAL APPENDAGE THROMBUS Cardiology consulted needs heparin bridge when INR subtherapeutic as per Oncology, patient would need Lovenox LOW BACK PAIN Lidoderm patch, PRN Tramadol and Flexeril patient reports increased pain added [place] PRN DM hold Metformin Pharm Gly Cx HTN on Diltiazem and Metoprolol with parameters HYPERTHYROIDISM TFTs slightly improved from last month Endo consulted recommend to increase Methimazole to 10mg BID FULL CODE DVT PPX INR 4 Disposition pending lives at home with family PT/OT evaluation d/c home when cleared by Oncology, Nephro and GI Current Inpatient Medications: Current Inpatient Medications Medications (Trade) Dose Ordered Sig/Sal Route Start Time Stop Time Status Last Admin Dose Admin Diltiazem HCl (Cardizem Cd Cap) 180 mg QAM PO 04/13/17 09:00 05/13/17 08:59 04/25/17 07:44 180 MG Docusate Sodium (coLACE CAP) 100 mg BID PRN PO 04/12/17 18:45 05/12/17 18:44 04/19/17 06:13 100 MG Fluticasone Propionate (Flovent Hfa 44MCG Inhaler) 2 puffs BID INH 04/12/17 21:00 05/12/17 20:59 04/25/17 07:43 2 PUFFS Fluticasone Propionate (Flonase Nasal [place]) 2 sprays DAILY SHALONDA 04/13/17 09:00 05/13/17 08:59 04/25/17 07:43 2 SPRAYS Montelukast Sodium (Singulair Tab) 10 mg QPM PO 04/12/17 21:00 05/12/17 20:59 04/24/17 21:17 10 MG Acetaminophen (Tylenol Tab) 650 mg Q4H PRN PO 04/12/17 18:30 05/12/17 18:29 Insulin Aspart (novoLOG ASPART) SLIDING SCALE ACHS SC 04/12/17 21:00 05/12/17 20:59 04/19/17 21:14 4 UNITS Glucose (Glucose 40% Gel) 15-30 GRAMS 15 GRAMS... UD PRN PO 04/12/17 18:45 05/12/17 18:44 Glucose (Glucose Chew Tab) 4-8 Tablets 4 Tabl... UD PRN PO 04/12/17 18:45 05/12/17 18:44 Dextrose (Dextrose 50% 50ML Syringe) 25-50ML OF 50% DW IV FOR... UD PRN IV 04/12/17 18:45 05/12/17 18:44 Glucagon (Glucagon Inj) 1 mg UD PRN SQ 04/12/17 18:45 05/12/17 18:44 Methimazole (Methimazole Tab) 10 mg BID PO 04/14/17 09:00 05/14/17 08:59 04/25/17 07:43 10 MG Lidocaine (Lidoderm Patch 5%) 1 patch QPM TD 04/14/17 21:00 05/14/17 20:59 04/23/17 20:47 1 PATCH Miscellaneous (Remove Lidoderm Patch) 1 ea QAM N/A 04/14/17 15:00 05/14/17 14:59 04/25/17 07:44 1 EA Cyclobenzaprine HCl (Flexeril Tab) 5 mg BID PRN PO 04/14/17 15:30 05/14/17 15:29 04/23/17 23:39 5 MG Senna/Docusate Sodium (Senokot S Tab) 1 tab QAM PO 04/15/17 09:00 05/15/17 08:59 Future Hold 04/20/17 08:19 1 TAB Magnesium Hydroxide (Milk Of Magnesia Susp) 30 ml Q6H PRN PO 04/14/17 15:30 05/14/17 15:29 04/19/17 06:13 30 ML Aspirin (Ecotrin Tab) 81 mg DAILY PO 04/20/17 09:00 05/20/17 08:59 04/25/17 07:44 81 MG Tramadol HCl (Ultram Tab) 25 mg Q6H PRN PO 04/20/17 05:30 05/20/17 05:29 04/24/17 21:41 25 MG Miscellaneous Information (Consult) 1 ea UD PRN N/A 04/21/17 20:15 05/21/17 20:14 Enteral Nutritional Formula (Boost Breeze Nutritional Drink) 1 box BID PO 04/22/17 12:00 05/22/17 20:59 04/24/17 21:16 1 BOX Metoprolol Succinate (Toprol Xl Tab) 25 mg DAILY PO 04/24/17 09:00 05/12/17 20:59 04/25/17 07:44 25 MG Lactulose (Chronulac Syrup) 15 gm BID PRN PO 04/24/17 12:30 05/24/17 12:29 Acetaminophen/ Hydrocodone Bitart ([place] 5/325 Tab) 1 tab Q12H PRN PO 04/24/17 12:45 05/08/17 12:44 04/25/17 05:13 1 TAB Heparin Sodium (Porcine) (Heparin 10 Unit/ ml 5 ml Flush) 5 ml PRN PRN FLUSH 04/24/17 15:30 05/24/17 15:29 04/25/17 09:48 5 ML Lorazepam (Ativan Tab) 0.5 mg BID PRN PO 04/24/17 18:45 05/24/17 18:44 Vancomycin HCl 1500 mg/Sodium Chloride 530 ml @ 200 mls/hr Q24H IV 04/25/17 18:00 05/01/17 03:59
[2017-04-25] MEDS: ALBUMIN HUMAN 25% 12.5 GM/50 ML VIAL IV SCH (14:44)
[2017-04-25] MEDS ORDERED: VANCOMYCIN IV 1,500 MG in SODIUM CHLORIDE 0.9% 500ML 500 ML IV SCH (18:00)
[2017-04-25] MEDS: LIDODERM (LIDOCAINE) PATCH 5% TD SCH (21:00)
[2017-04-25] MEDS: MONTELUKAST SOD 10 MG TAB PO SCH (21:53)
[2017-04-25] MEDS: TRAMADOL HCL 50 MG TAB PO PRN (22:00)
[2017-04-26] VITALS (8 sets, daily range): BP systolic 96–111; BP diastolic 59–72; PULSE 64–106; TEMP 36.3–36.7; O2SAT 94–98
[2017-04-26] MEDS: ALBUMIN HUMAN 25% 12.5 GM/50 ML VIAL IV SCH ×3 (02:38→15:07)
[2017-04-26 05:30] LABS: HEMATOCRIT 37.4 % (42-52); HEMOGLOBIN 12.2 g/dL (14.0-18.0); MEAN CELL VOLUME 95.2 fL (80-100); MEAN CORPUSCULAR HGB CONC 32.6 g/dl (32-36); PLATELET COUNT 141 K/uL (130-400); RED CELL DISTRIBUTION WIDTH CV 19.2 % (11.5-14.5); RED CELL DISTRIBUTION WIDTH SD 66.3 fL (36.4-46.3); WHITE BLOOD COUNT 19.85 K/uL (4.8-10.8)
[2017-04-26 05:50] LABS: CREATININE 2.2 mg/dl (0.60-1.40)
[2017-04-26 06:10] LABS: PTT PATIENT 65.4 SECONDS (21.0-31.0)
[2017-04-26] MEDS: INSULIN ASPART 100 UNITS/ML 3 ML PEN SC SCH ×4 (07:42→21:00)
[2017-04-26] MEDS: FLUTICASONE PROPIONATE NA SPR 16 GM BTL NAE SCH (07:43)
[2017-04-26] MEDS: FLUTICASONE PROP HFA INH 44 MCG INHALER INH SCH ×2 (07:43→20:46)
[2017-04-26] MEDS: METOPROLOL SUCC 25MG EXT REL TAB PO SCH (07:44)
[2017-04-26] MEDS: BOOST BREEZE NUTRITION DRINK 1 BOX PO SCH ×2 (07:44→20:56)
[2017-04-26] MEDS: METHIMAZOLE 5 MG TAB PO SCH ×2 (07:45→20:47)
[2017-04-26] MEDS: ASPIRIN 81 MG ECTAB PO SCH (07:45)
[2017-04-26] MEDS: DILTIAZEM HCL 180 MG CAPCR PO SCH (07:46)
[2017-04-26] MEDS ORDERED: ONDANSETRON INJ 2 MG/ML 2 ML VIAL IV PRN (08:30)
[2017-04-26] MEDS ORDERED: DAPTOMYCIN CONSULT ACTIVE PRN (09:15)
[2017-04-26 09:26] LABS: INR 4.6 (0.9-1.1)
[2017-04-26 09:32] LABS: CALCIUM 9.5 mg/dl (8.5-10.1); CREATININE 2.34 mg/dl (0.60-1.40); POTASSIUM 4.5 mmol/L (3.5-5.1)
--- NOTE | 2017-04-26 10:14 | Progress Note ---
Medicine Progress Note Date & Time of Visit: Apr 26, 2017 at 10:09. Subjective seen resting in bedside chair appears comfortable, alert, in good spirits states he had nausea after breakfast this morning, vomited some- mostly food no abdominal pain no dyspnea on intermittent straight caths no other symptoms Objective Last 8 Hrs Date Time Temp Pulse Resp B/P (MAP) Pulse Ox O2 Delivery O2 Flow Rate FiO2 04/26/17 08:00 Room Air 04/26/17 07:05 36.7 106 20 100/65 (77) 96 04/26/17 04:48 36.5 77 16 104/65 (78) 97 Room Air 04/26/17 04:20 Room Air 04/26/17 02:47 36.5 91 18 109/72 (84) 98 Room Air Physical Exam: General- oriented x 3, not in distress, speaks in sentences with no effort Eyes- anicteric Neck- no JVD Lungs- decreased breath sounds on the left base, clear on the right, no wheezing Heart- regular rhythm; no murmur, normal rate Abdomen- moderately distended, soft, non tender Extremities- left upper extremity: (+) edema on the forearm and hand with some seepage, also has hematoma--> improving daily no warmth/tenderness/erythema no pretibial edema, no calf tenderness Neuro- alert, oriented x 3;no gross focal deficits Skin- warm & dry Laboratory Results: Last 24 Hours Test 04/25/17 11:37 04/25/17 16:11 04/25/17 20:53 04/26/17 05:06 Bedside Glucose 70 mg/dl 71 mg/dl 80 mg/dl White Blood Count 19.85 K/uL Red Blood Count 3.93 M/uL Hemoglobin 12.2 g/dL Hematocrit 37.4 % Mean Corpuscular Volume 95.2 fL Mean Corpuscular Hemoglobin 31.0 pg Mean Corpuscular Hemoglobin Concent 32.6 g/dl RDW Standard Deviation 66.3 fL RDW Coefficient of Variation 19.2 % Platelet Count 141 K/uL Mean Platelet Volume 10.0 fL Activated Partial Thromboplast Time 65.4 SECONDS Partial Thromboplastin Ratio 2.5 Creatinine 2.20 mg/dl Est Creatinine Clear Calc Drug Dose 34.2 ml/min Estimated GFR () 34.9 Estimated GFR (Non- 30.1 Test 04/26/17 07:15 04/26/17 08:55 Bedside Glucose 71 mg/dl Prothrombin Time 47.0 SECONDS Prothromb Time International Ratio 4.6 Sodium Level 132 mmol/L Potassium Level 4.5 mmol/L Chloride Level 100 mmol/L Carbon Dioxide Level 21 mmol/L Anion Gap 11.0 mmol/L Blood Urea Nitrogen 65 mg/dl Creatinine 2.34 mg/dl Est Creatinine Clear Calc Drug Dose 32.0 ml/min Estimated GFR () 32.4 Estimated GFR (Non- 27.9 BUN/Creatinine Ratio 27.6 Random Glucose 96 mg/dl Calcium Level 9.5 mg/dl Assessment & Plan 66 year old male with history of CAD, CHF, A fib on coumadin, DM, HTN, Hyperthyroidism presenting with poor oral intake and weakness. WEAKNESS, POOR ORAL INTAKE FROM: INTRAABDOMINAL LYMPHADENOPATHY, B CELL LYMPHOMA, NEW DIAGNOSIS PANCREATIC MASS, LIKELY SPREAD OF B CELL LYMPHOMA GI consulted was given Albumin IV initially 04/17: s/p EUS with Biopsy of Pancreatic mass, and Lymph nodes: official report pending, but spoke with Dr. 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 Coleen Doan consulted recommend work up for staging and chemo when medically stable ASCITES, FROM LIVER CIRRHOSIS VS. MALIGNANT EFFUSION 04/18: s/p Paracentesis, 4 liters, Pathology: no malignant cells seen Peritoneal fluid culture: (+) Coag neg staph -- abdomen still distended diuretics on hold due to elevated crea -- GI re-consulted may need another Therapeutic Paracentesis when renal function improves/ok with Nephro -- Nephro re-consulted albumin IV BID re-ordered -- ID consulted continue Vanco IV to complete 14 days--> crea increasing, will change to Dapto ACUTE RENAL FAILURE LIKELY PRERENAL, with HYPER CA AND HYPER K, Resolved holding lasix, spironolactone, metformin -- crea increasing, now at 1.8--> further increasing to 2.[address] Olivia Cath for better i/o monitoring -- IV albumin BID re-started 04/25/17, will increase to 25mg BID Nephrology re-consulted CAD no cardiac symptoms Aspirin resumed CHF hold diuretics for now, monitor AFIB ON COUMADIN continue Diltiazem and Metoprolol with holding parameters INR 4.6 HOLD coumadin monitor INR LEFT ATRIAL APPENDAGE THROMBUS Cardiology consulted needs heparin bridge when INR subtherapeutic as per Oncology, patient would need Lovenox LOW BACK PAIN Lidoderm patch, PRN Tramadol and Flexeril patient reports increased pain added [place] PRN DM hold Metformin Pharm Gly Cx HTN on Diltiazem and Metoprolol with parameters HYPERTHYROIDISM TFTs slightly improved from last month Endo consulted recommend to increase Methimazole to 10mg BID FULL CODE DVT PPX INR supratherapeutic Disposition pending evaluation of acute renal failure in progress lives at home with family PT/OT ordered Current Inpatient Medications: Current Inpatient Medications Medications (Trade) Dose Ordered Sig/Sal Route Start Time Stop Time Status Last Admin Dose Admin Diltiazem HCl (Cardizem Cd Cap) 180 mg QAM PO 04/13/17 09:00 05/13/17 08:59 04/26/17 07:46 180 MG Docusate Sodium (coLACE CAP) 100 mg BID PRN PO 04/12/17 18:45 05/12/17 18:44 04/19/17 06:13 100 MG Fluticasone Propionate (Flovent Hfa 44MCG Inhaler) 2 puffs BID INH 04/12/17 21:00 05/12/17 20:59 04/26/17 07:43 2 PUFFS Fluticasone Propionate (Flonase Nasal [place]) 2 sprays DAILY SHALONDA 04/13/17 09:00 05/13/17 08:59 04/26/17 07:43 2 SPRAYS Montelukast Sodium (Singulair Tab) 10 mg QPM PO 04/12/17 21:00 05/12/17 20:59 04/25/17 21:53 10 MG Acetaminophen (Tylenol Tab) 650 mg Q4H PRN PO 04/12/17 18:30 05/12/17 18:29 Insulin Aspart (novoLOG ASPART) SLIDING SCALE ACHS SC 04/12/17 21:00 05/12/17 20:59 04/19/17 21:14 4 UNITS Glucose (Glucose 40% Gel) 15-30 GRAMS 15 GRAMS... UD PRN PO 04/12/17 18:45 05/12/17 18:44 Glucose (Glucose Chew Tab) 4-8 Tablets 4 Tabl... UD PRN PO 04/12/17 18:45 4/7/18 18:44 Dextrose (Dextrose 50% 50ML Syringe) 25-50ML OF 50% DW IV FOR... UD PRN IV 04/12/17 18:45 05/12/17 18:44 Glucagon (Glucagon Inj) 1 mg UD PRN SQ 04/12/17 18:45 05/12/17 18:44 Methimazole (Methimazole Tab) 10 mg BID PO 04/14/17 09:00 05/14/17 08:59 04/26/17 07:45 10 MG Lidocaine (Lidoderm Patch 5%) 1 patch QPM TD 04/14/17 21:00 05/14/17 20:59 04/23/17 20:47 1 PATCH Miscellaneous (Remove Lidoderm Patch) 1 ea QAM N/A 04/14/17 15:00 05/14/17 14:59 04/26/17 07:43 1 EA Cyclobenzaprine HCl (Flexeril Tab) 5 mg BID PRN PO 04/14/17 15:30 05/14/17 15:29 04/23/17 23:39 5 MG Senna/Docusate Sodium (Senokot S Tab) 1 tab QAM PO 04/15/17 09:00 05/15/17 08:59 Future Hold 04/20/17 08:19 1 TAB Magnesium Hydroxide (Milk Of Magnesia Susp) 30 ml Q6H PRN PO 04/14/17 15:30 05/14/17 15:29 04/19/17 06:13 30 ML Aspirin (Ecotrin Tab) 81 mg DAILY PO 04/20/17 09:00 05/20/17 08:59 04/26/17 07:45 81 MG Tramadol HCl (Ultram Tab) 25 mg Q6H PRN PO 04/20/17 05:30 05/20/17 05:29 04/25/17 22:00 25 MG Enteral Nutritional Formula (Boost Breeze Nutritional Drink) 1 box BID PO 04/22/17 12:00 05/22/17 20:59 04/26/17 07:44 1 BOX Metoprolol Succinate (Toprol Xl Tab) 25 mg DAILY PO 04/24/17 09:00 05/12/17 20:59 04/26/17 07:44 25 MG Lactulose (Chronulac Syrup) 15 gm BID PRN PO 04/24/17 12:30 05/24/17 12:29 Acetaminophen/ Hydrocodone Bitart ([place] 5/325 Tab) 1 tab Q12H PRN PO 04/24/17 12:45 05/08/17 12:44 04/25/17 05:13 1 TAB Heparin Sodium (Porcine) (Heparin 10 Unit/ ml 5 ml Flush) 5 ml PRN PRN FLUSH 04/24/17 15:30 05/24/17 15:29 04/26/17 08:39 5 ML Lorazepam (Ativan Tab) 0.5 mg BID PRN PO 04/24/17 18:45 05/24/17 18:44 Albumin Human (Albumin 25%) 12.5 gm Q12H IV 04/25/17 14:30 04/28/17 14:29 04/26/17 02:38 12.5 GM Ondansetron HCl (Zofran Inj) 4 mg Q6H PRN IV 04/26/17 08:30 05/26/17 08:29 04/26/17 08:39 4 MG Daptomycin (Consult) 1 ea UD PRN N/A 04/26/17 09:15 05/26/17 09:14
[2017-04-26] MEDS ORDERED: SENNA 8.6 MG TAB PO ONE (10:40)
--- NOTE | 2017-04-26 12:14 | DIAGNOSTIC IMAGING REPORT ---
CHEST 2 VIEWS ROUTINE CLINICAL HISTORY: diminished lung sounds COMPARISON STUDY: 04/24/2017 FINDINGS: There are postsurgical changes of midline sternotomy. The heart remains mildly enlarged. The right-sided PICC catheter remains unchanged in position. There are persistent bilateral pleural effusions with associated bibasilar opacities likely atelectatic. Contrast is visualized within the stomach.[ IMPRESSION: Persistent cardiomegaly, bilateral pleural effusions, and bibasilar opacities likely atelectatic Electronically signed by: Zeeshan Phelan M.D. 04/26/2017 12:12 PM Dictated Date/Time: 04/26/2017 12:11 PM
--- NOTE | 2017-04-26 12:14 | DIAGNOSTIC IMAGING REPORT ---
KUB HISTORY: Abdominal distension, eval stool burden COMPARISON: Abdomen and pelvis CT 04/12/2017. FINDINGS: Oral contrast is seen within the large and small bowel. Mildly distended gas and stool-filled colon. There is a moderate amount of well-formed stool seen throughout the colon. There are few mildly distended gas and contrast-filled loops of small bowel seen within the abdomen. Findings favor an ileus. No evidence for bowel obstruction. No renal calculi. No ureteral calculi. No pneumoperitoneum or pneumatosis. IMPRESSION: 1. Moderate amount of well-formed stool seen within the colon and rectum. 2. Mildly distended gas-filled loops of large and small bowel. This favors an ileus. Electronically signed by: Wyatt Thakkar M.D. 04/26/2017 12:12 PM Dictated Date/Time: 04/26/2017 12:11 PM
--- NOTE | 2017-04-26 12:38 | Progress Note ---
Progress Note Date of Service Apr 26, 2017. Progress Note GI Note: Mr. Chad Keith is a 66 yr old male with a enlarge celiac lymph nodes and a pancreatic mass s/p EUS w FNA, prelim path concerning for B cell lymphoma. He had also ascites, s/paracentesis on 04/17, fluid cx grew staph negative staph. I.D. service following for SBP and he's been on Vancomycin IV. ? cirrhosis, workup pending. I was asked by Dr. Kellogg (primary hospitalist) to re- evaluate pt again as he's suspected to develop ascites again. Chart reviewed. Labs notable for INR 4.6, UOP decreasing now 0.09ml/kg/hr, Cr increasing to 2.3. Persistent hyponatremia 130s. PE: - Pt sitting up in bed, AAOx3, in NAD - Pulmonary: Diminished overall sounds, could barely hear lung sounds on LLL area - Cardiopulmonary: + gallops , no murmurs - Abdomen: mildly distended, no tenderness, BS hypoactive. Pt reports may not have any BM over a week now. - Lymph: LUE edematous with weeping post IV DC site. RUE also edematous but smaller than LUE. Bilateral LE not edematous. Discussed the following with Dr. Kellogg: - Need to correct supratherapeutic INR - Defer paracentesis given INR too high; also no signs of tense ascites - Obtain CXR, KUB - Start Colace and Senna for bowel regimen; may consider use of Relistor if KUB showed severe constipation and pt had been on narcotics - Nephrology to re-eval pt given decreasing UOP and increasing Cr. ? Diuretic use - F/U with Heme/Onc - Call again if any new questions/concerns arise.
--- NOTE | 2017-04-26 13:29 | Clinical Documentation Query ---
CLINICAL DOCUMENTATION QUERY Dr. RAINES, In your clinical opinion is this patient being managed for: ( ) Spontaneous bacterial peritonitis, POA ( ) Not Agree ( X) Other explanation of clinical findings (Please Explain) Spontaneous bacterial peritonitis, likely POA ( ) Unable to determine (Please Define) ( ) Need to Discuss The medical record reflects the following clinical findings, treatment, and risk factors. Clinical Indicators: 66 yo male presenting with fatigue, nausea, ascites. WBC 14.85. Paracentesis performed and peritoneal fluid cx with COAG NEG STAPH NOT LUGDUNENSIS. Treatment: IV fluids, IV vancomycin, GI consult, paracentesis, ID consult, IV albumin Risk Factors: newly dx lymphoma, cirrhosis of liver, ascites, DM Please clarify and document your clinical opinion in the progress notes and discharge summary. Terms such as "probable", "suspected", "likely", "questionable", "possible", or "still to be ruled out" are acceptable. IF IN AGREEMENT, YOU MUST DOCUMENT ABOVE DIAGNOSTIC STATEMENT IN DAILY PROGRESS NOTES AND DISCHARGE SUMMARY. This document is not part of the patient's record. Thank You, Jeanette Merritt RN [phone]
--- NOTE | 2017-04-26 16:44 | Nephrology Progress Note ---
Nephrology Progress Note Date of Service: Apr 26, 2017. Subjective 66 yo male with prelim b cell lymphoma with elevated inr and ascites with decreased urine output and worsening creatinine. on albumin. concern for risk of diastolic heart failure as well and on a fluid restriction. at bedside. Objective Date Time Temp Pulse Resp B/P (MAP) Pulse Ox O2 Delivery O2 Flow Rate FiO2 04/26/17 16:00 Room Air 04/26/17 15:29 36.5 82 18 97/59 (72) 96 Room Air 04/26/17 12:00 Room Air 04/26/17 11:01 36.5 92 20 96/61 (73) 97 Room Air 04/26/17 08:00 Room Air 04/26/17 07:05 36.7 106 20 100/65 (77) 96 04/26/17 04:48 36.5 77 16 104/65 (78) 97 Room Air 04/26/17 04:20 Room Air 04/26/17 02:47 36.5 91 18 109/72 (84) 98 Room Air 04/26/17 00:30 Room Air 04/26/17 00:17 36.3 80 17 98/64 (75) 98 Room Air 04/25/17 20:00 99 Room Air 04/25/17 19:22 36.4 101 16 104/70 (81) 98 Room Air Physical Exam: General-aaox3 Eyes-no scleral icterus ENT-mmm Neck-supple Lungs-decreased at bases Heart-regular Abdomen-bs+ +distention Extremities-+1 edema in left arm Neuro-nonfocal Current Inpatient Medications Medications (Trade) Dose Ordered Sig/Sal Route Start Time Stop Time Status Last Admin Dose Admin Diltiazem HCl (Cardizem Cd Cap) 180 mg QAM PO 04/13/17 09:00 05/13/17 08:59 04/26/17 07:46 180 MG Docusate Sodium (coLACE CAP) 100 mg BID PRN PO 04/12/17 18:45 05/12/17 18:44 04/19/17 06:13 100 MG Fluticasone Propionate (Flovent Hfa 44MCG Inhaler) 2 puffs BID INH 04/12/17 21:00 05/12/17 20:59 04/26/17 07:43 2 PUFFS Fluticasone Propionate (Flonase Nasal [place]) 2 sprays DAILY SHALONDA 04/13/17 09:00 05/13/17 08:59 04/26/17 07:43 2 SPRAYS Montelukast Sodium (Singulair Tab) 10 mg QPM PO 04/12/17 21:00 05/12/17 20:59 04/25/17 21:53 10 MG Acetaminophen (Tylenol Tab) 650 mg Q4H PRN PO 04/12/17 18:30 05/12/17 18:29 Insulin Aspart (novoLOG ASPART) SLIDING SCALE ACHS SC 04/12/17 21:00 05/12/17 20:59 04/19/17 21:14 4 UNITS Glucose (Glucose 40% Gel) 15-30 GRAMS 15 GRAMS... UD PRN PO 04/12/17 18:45 05/12/17 18:44 Glucose (Glucose Chew Tab) 4-8 Tablets 4 Tabl... UD PRN PO 04/12/17 18:45 05/12/17 18:44 Dextrose (Dextrose 50% 50ML Syringe) 25-50ML OF 50% DW IV FOR... UD PRN IV 04/12/17 18:45 05/12/17 18:44 Glucagon (Glucagon Inj) 1 mg UD PRN SQ 04/12/17 18:45 05/12/17 18:44 Methimazole (Methimazole Tab) 10 mg BID PO 04/14/17 09:00 05/14/17 08:59 04/26/17 07:45 10 MG Lidocaine (Lidoderm Patch 5%) 1 patch QPM TD 04/14/17 21:00 05/14/17 20:59 04/23/17 20:47 1 PATCH Miscellaneous (Remove Lidoderm Patch) 1 ea QAM N/A 04/14/17 15:00 05/14/17 14:59 04/26/17 07:43 1 EA Cyclobenzaprine HCl (Flexeril Tab) 5 mg BID PRN PO 04/14/17 15:30 05/14/17 15:29 04/23/17 23:39 5 MG Senna/Docusate Sodium (Senokot S Tab) 1 tab QAM PO 04/15/17 09:00 05/15/17 08:59 Future Hold 04/20/17 08:19 1 TAB Magnesium Hydroxide (Milk Of Magnesia Susp) 30 ml Q6H PRN PO 04/14/17 15:30 05/14/17 15:29 04/19/17 06:13 30 ML Aspirin (Ecotrin Tab) 81 mg DAILY PO 04/20/17 09:00 05/20/17 08:59 04/26/17 07:45 81 MG Tramadol HCl (Ultram Tab) 25 mg Q6H PRN PO 04/20/17 05:30 05/20/17 05:29 04/25/17 22:00 25 MG Enteral Nutritional Formula (Boost Breeze Nutritional Drink) 1 box BID PO 04/22/17 12:00 05/22/17 20:59 04/26/17 07:44 1 BOX Metoprolol Succinate (Toprol Xl Tab) 25 mg DAILY PO 04/24/17 09:00 05/12/17 20:59 04/26/17 07:44 25 MG Lactulose (Chronulac Syrup) 15 gm BID PRN PO 04/24/17 12:30 05/24/17 12:29 Acetaminophen/ Hydrocodone Bitart ([place] 5/325 Tab) 1 tab Q12H PRN PO 04/24/17 12:45 05/08/17 12:44 04/25/17 05:13 1 TAB Heparin Sodium (Porcine) (Heparin 10 Unit/ ml 5 ml Flush) 5 ml PRN PRN FLUSH 04/24/17 15:30 05/24/17 15:29 04/26/17 08:39 5 ML Lorazepam (Ativan Tab) 0.5 mg BID PRN PO 04/24/17 18:45 05/24/17 18:44 Ondansetron HCl (Zofran Inj) 4 mg Q6H PRN IV 04/26/17 08:30 05/26/17 08:29 04/26/17 08:39 4 MG Daptomycin (Consult) 1 ea UD PRN N/A 04/26/17 09:15 05/26/17 09:14 Daptomycin 350 mg/ Syringe 7 ml @ 3.5 mls/min Q24H IV 04/26/17 18:00 05/01/17 03:59 Albumin Human (Albumin 25%) 12.5 gm Q12H IV 04/26/17 14:30 3/24/18 14:29 04/26/17 14:17 12.5 GM Pantoprazole Sodium (Protonix Tab) 40 mg BID PO 04/26/17 21:00 05/26/17 20:59 Albumin Human (Albumin 25%) 12.5 gm Q12H IV 04/26/17 15:00 04/28/17 14:59 04/26/17 15:07 12.5 GM Docusate Sodium (coLACE CAP) 100 mg BID PO 04/26/17 21:00 05/26/17 20:59 Senna (Senokot Tab) 17.2 mg QAM PO 04/27/17 09:00 05/27/17 08:59 Last 24 Hours Test 04/25/17 20:53 04/26/17 05:06 04/26/17 07:15 04/26/17 08:55 Bedside Glucose 80 mg/dl 71 mg/dl White Blood Count 19.85 K/uL Red Blood Count 3.93 M/uL Hemoglobin 12.2 g/dL Hematocrit 37.4 % Mean Corpuscular Volume 95.2 fL Mean Corpuscular Hemoglobin 31.0 pg Mean Corpuscular Hemoglobin Concent 32.6 g/dl RDW Standard Deviation 66.3 fL RDW Coefficient of Variation 19.2 % Platelet Count 141 K/uL Mean Platelet Volume 10.0 fL Activated Partial Thromboplast Time 65.4 SECONDS Partial Thromboplastin Ratio 2.5 Creatinine 2.20 mg/dl 2.34 mg/dl Est Creatinine Clear Calc Drug Dose 34.2 ml/min 32.0 ml/min Estimated GFR () 34.9 32.4 Estimated GFR (Non- 30.1 27.9 Prothrombin Time 47.0 SECONDS Prothromb Time International Ratio 4.6 Sodium Level 132 mmol/L Potassium Level 4.5 mmol/L Chloride Level 100 mmol/L Carbon Dioxide Level 21 mmol/L Anion Gap 11.0 mmol/L Blood Urea Nitrogen 65 mg/dl BUN/Creatinine Ratio 27.6 Random Glucose 96 mg/dl Calcium Level 9.5 mg/dl Test 04/26/17 11:08 04/26/17 16:30 Bedside Glucose 88 mg/dl 102 mg/dl Assessment & Plan PIPPA-appears to be pre-renal and on albumin. increased dose of albumin to 25grams iv bid. has rao catheter and has dark urine output. hesitant to give iv fluids with propensity for chf. rechecking albumin and random urine sodium. kub is suggestive of an ileus.
[2017-04-26] MEDS ORDERED: METHYLNALTREXONE BROMIDE INJ 12 MG/0.6 ML SYR SQ SCH (18:00)
[2017-04-26] MEDS: DAPTOmycin IV 350 MG in SYRINGE 0 ML IV SCH (18:11)
--- NOTE | 2017-04-26 19:38 | Hematology/Oncology Prog Note ---
Hematology/Onc Progress Note Date of Service Apr 26, 2017. Subjective I saw him at bedside, he was sitting comfortably in the bed, his and other family members were also at bedside, reviewed his chart. -Celiac lymph node FNA--> high-grade B-cell lymphoma, Ki-67 > 95. Negative for CD 5, negative for CD10. CD 20 positive. Sample is inadequate for further testing to look for double or triple hit lymphoma. -WBC 85341, H&H of 12.2/37.4, Platelet count of 141,000 (04/26/2017) -BUN/Creat: 65/2.34, calcium 9.5 (04/26/2017) Last liver function test was done on 04/11/2007, I would like to get another liver function test dot -LDH--> 225 (04/24/2017) Will check uric acid. He has Olivia 's catheter, urine output has dropped, it was about 200 ml in the 1st shift, seen by train brake operator Dr. Persaud. He has increasing distention of the abdomen, somewhat tired, no increasing leg edema, no new bleeding complications, improvement of the left upper extremity edema noted. I reviewed with the patient and mainly his regarding diagnosis of high- grade B-cell lymphoma involving the pancreatic region/S celiac lymph yoselyn region, he also has few other comorbid conditions, now has worsening kidney function test, significantly declining performed status, also has underlying coronary artery disease, left atrial thrombus/mass, increasing ascites. Presently he is receiving antibiotic treatment for SBP. I reviewed with them regarding the treatment that can be considered for high- grade lymphoma with chemotherapy but with his change in the clinical condition, he is not a great candidate to start any kind of systemic chemotherapy treatment for the lymphoma diagnosis at this time. He and his family members understood that quite well. Dr. Mukesh Doan Hem/Onc Vital Signs Vital Signs Past 12 Hours Date Time Temp Pulse Resp B/P (MAP) Pulse Ox O2 Delivery O2 Flow Rate FiO2 04/26/17 19:04 36.6 79 18 111/70 (84) 95 Room Air 04/26/17 16:00 Room Air 04/26/17 15:29 36.5 82 18 97/59 (72) 96 Room Air 04/26/17 12:00 Room Air 04/26/17 11:01 36.5 92 20 96/61 (73) 97 Room Air 04/26/17 08:00 Room Air
[2017-04-26] MEDS: METHYLNALTREXONE BROMIDE INJ 12 MG/0.6 ML SYR SQ SCH (20:45)
[2017-04-26] MEDS: PANTOprazole SOD 40 MG TAB PO SCH (20:47)
[2017-04-26] MEDS: MONTELUKAST SOD 10 MG TAB PO SCH (20:47)
[2017-04-26] MEDS: DOCUSATE SODIUM 100 MG CAP PO SCH (20:47)
[2017-04-26] MEDS: LIDODERM (LIDOCAINE) PATCH 5% TD SCH (20:48)
[2017-04-26] MEDS: HYDROCODONE/ACETAMIN 5/325MG TAB PO PRN (22:26)
[2017-04-27] VITALS (17 sets, daily range): BP systolic 90–121; BP diastolic 49–75; PULSE 85–114; TEMP 36.2–36.6; O2SAT 95–97
[2017-04-27] MEDS: ALBUMIN HUMAN 25% 12.5 GM/50 ML VIAL IV SCH ×4 (02:17→15:03)
[2017-04-27 05:56] LABS: BASO % 0.2 %; BASO ABS # 0.04 K/uL (0-0.2); EOS % 4.1 %; EOS ABS # 0.68 K/uL (0-0.5); HEMATOCRIT 30.3 % (42-52); IG# 0.12 K/uL (0.00-0.02); LYMPH % 5.4 %; MEAN CELL VOLUME 95.3 fL (80-100); MEAN CORPUSCULAR HEMOGLOBIN 31.4 pg (25-34); MEAN PLATELET VOLUME 9.9 fL (7.4-10.4); MONO % 7.3 %; MONO ABS # 1.22 K/uL (0.11-0.59); NEUT % 82.3 %; NEUT ABS # 13.72 K/uL (1.4-6.5); PLATELET COUNT 118 K/uL (130-400); RED CELL DISTRIBUTION WIDTH CV 19.3 % (11.5-14.5); RED CELL DISTRIBUTION WIDTH SD 66.7 fL (36.4-46.3); WHITE BLOOD COUNT 16.68 K/uL (4.8-10.8)
[2017-04-27 06:36] LABS: CREATININE 2.67 mg/dl (0.60-1.40)
[2017-04-27 06:37] LABS: ALBUMIN 3.5 gm/dl (3.4-5.0); CALCIUM 9.5 mg/dl (8.5-10.1); PHOSPHORUS 3.7 mg/dl (2.5-4.9); POTASSIUM 4.5 mmol/L (3.5-5.1)
[2017-04-27 06:50] LABS: INR 5.3 (0.9-1.1)
--- NOTE | 2017-04-27 06:53 | Nephrology Progress Note ---
Nephrology Progress Note Date of Service: Apr 27, 2017. Subjective 66 yo male with prelim b cell lymphoma with elevated inr and ascites with decreased urine output and worsening creatinine. on albumin. despite increasing dose of albumin, creatinine continues to trend up. Objective Date Time Temp Pulse Resp B/P (MAP) Pulse Ox O2 Delivery O2 Flow Rate FiO2 04/27/17 04:38 36.6 86 18 90/49 (63) 97 Room Air 04/27/17 04:15 36.3 87 18 100/63 (75) 97 Room Air 04/27/17 04:10 Room Air 04/27/17 03:42 36.5 88 18 91/57 (68) 97 Room Air 04/27/17 03:15 36.4 90 18 96/57 (70) 97 Room Air 04/27/17 02:55 36.5 85 18 93/58 (70) 97 Room Air 04/27/17 02:19 36.3 86 18 92/55 (67) 96 Room Air 04/27/17 00:10 Room Air 04/26/17 23:17 36.3 64 18 102/66 (78) 94 Room Air 04/26/17 19:50 Room Air 04/26/17 19:04 36.6 79 18 111/70 (84) 95 Room Air 04/26/17 16:00 Room Air 04/26/17 15:29 36.5 82 18 97/59 (72) 96 Room Air 04/26/17 12:00 Room Air 04/26/17 11:01 36.5 92 20 96/61 (73) 97 Room Air 04/26/17 08:00 Room Air 04/26/17 07:05 36.7 106 20 100/65 (77) 96 Physical Exam: General-aaox3 Eyes-no scleral icterus ENT-mmm Neck-supple Lungs-decreased at bases Heart-rrr Abdomen-bs+ +distention Extremities-+1 edema in left arm Neuro-nonfocal Current Inpatient Medications Medications (Trade) Dose Ordered Sig/Sal Route Start Time Stop Time Status Last Admin Dose Admin Diltiazem HCl (Cardizem Cd Cap) 180 mg QAM PO 04/13/17 09:00 05/13/17 08:59 04/26/17 07:46 180 MG Docusate Sodium (coLACE CAP) 100 mg BID PRN PO 04/12/17 18:45 05/12/17 18:44 04/19/17 06:13 100 MG Fluticasone Propionate (Flovent Hfa 44MCG Inhaler) 2 puffs BID INH 04/12/17 21:00 05/12/17 20:59 04/26/17 20:46 2 PUFFS Fluticasone Propionate (Flonase Nasal [place]) 2 sprays DAILY SHALONDA 04/13/17 09:00 05/13/17 08:59 04/26/17 07:43 2 SPRAYS Montelukast Sodium (Singulair Tab) 10 mg QPM PO 04/12/17 21:00 05/12/17 20:59 04/26/17 20:47 10 MG Acetaminophen (Tylenol Tab) 650 mg Q4H PRN PO 04/12/17 18:30 05/12/17 18:29 Insulin Aspart (novoLOG ASPART) SLIDING SCALE ACHS SC 04/12/17 21:00 05/12/17 20:59 04/19/17 21:14 4 UNITS Glucose (Glucose 40% Gel) 15-30 GRAMS 15 GRAMS... UD PRN PO 04/12/17 18:45 05/12/17 18:44 Glucose (Glucose Chew Tab) 4-8 Tablets 4 Tabl... UD PRN PO 04/12/17 18:45 05/12/17 18:44 Dextrose (Dextrose 50% 50ML Syringe) 25-50ML OF 50% DW IV FOR... UD PRN IV 04/12/17 18:45 05/12/17 18:44 Glucagon (Glucagon Inj) 1 mg UD PRN SQ 04/12/17 18:45 05/12/17 18:44 Methimazole (Methimazole Tab) 10 mg BID PO 04/14/17 09:00 05/14/17 08:59 04/26/17 20:47 10 MG Lidocaine (Lidoderm Patch 5%) 1 patch QPM TD 04/14/17 21:00 05/14/17 20:59 04/26/17 20:48 1 PATCH Miscellaneous (Remove Lidoderm Patch) 1 ea QAM N/A 04/14/17 15:00 05/14/17 14:59 04/26/17 07:43 1 EA Cyclobenzaprine HCl (Flexeril Tab) 5 mg BID PRN PO 04/14/17 15:30 05/14/17 15:29 04/23/17 23:39 5 MG Senna/Docusate Sodium (Senokot S Tab) 1 tab QAM PO 04/15/17 09:00 05/15/17 08:59 Future Hold 04/20/17 08:19 1 TAB Magnesium Hydroxide (Milk Of Magnesia Susp) 30 ml Q6H PRN PO 04/14/17 15:30 05/14/17 15:29 04/19/17 06:13 30 ML Aspirin (Ecotrin Tab) 81 mg DAILY PO 04/20/17 09:00 05/20/17 08:59 04/26/17 07:45 81 MG Tramadol HCl (Ultram Tab) 25 mg Q6H PRN PO 04/20/17 05:30 05/20/17 05:29 04/25/17 22:00 25 MG Enteral Nutritional Formula (Boost Breeze Nutritional Drink) 1 box BID PO 04/22/17 12:00 05/22/17 20:59 04/26/17 07:44 1 BOX Metoprolol Succinate (Toprol Xl Tab) 25 mg DAILY PO 04/24/17 09:00 05/12/17 20:59 04/26/17 07:44 25 MG Lactulose (Chronulac Syrup) 15 gm BID PRN PO 04/24/17 12:30 05/24/17 12:29 Acetaminophen/ Hydrocodone Bitart ([place] 5/325 Tab) 1 tab Q12H PRN PO 04/24/17 12:45 05/08/17 12:44 04/26/17 22:26 1 TAB Heparin Sodium (Porcine) (Heparin 10 Unit/ ml 5 ml Flush) 5 ml PRN PRN FLUSH 04/24/17 15:30 05/24/17 15:29 04/26/17 08:39 5 ML Lorazepam (Ativan Tab) 0.5 mg BID PRN PO 04/24/17 18:45 05/24/17 18:44 Ondansetron HCl (Zofran Inj) 4 mg Q6H PRN IV 04/26/17 08:30 05/26/17 08:29 04/26/17 08:39 4 MG Daptomycin (Consult) 1 ea UD PRN N/A 04/26/17 09:15 05/26/17 09:14 Daptomycin 350 mg/ Syringe 7 ml @ 3.5 mls/min Q24H IV 04/26/17 18:00 05/01/17 03:59 04/26/17 18:11 3.5 MLS/MIN Albumin Human (Albumin 25%) 12.5 gm Q12H IV 04/26/17 14:30 04/28/17 14:29 04/27/17 02:17 12.5 GM Pantoprazole Sodium (Protonix Tab) 40 mg BID PO 04/26/17 21:00 05/26/17 20:59 04/26/17 20:47 40 MG Albumin Human (Albumin 25%) 12.5 gm Q12H IV 04/26/17 15:00 04/28/17 14:59 04/27/17 03:17 12.5 GM Docusate Sodium (coLACE CAP) 100 mg BID PO 04/26/17 21:00 05/26/17 20:59 04/26/17 20:47 100 MG Senna (Senokot Tab) 17.2 mg QAM PO 04/27/17 09:00 05/27/17 08:59 Methylnaltrexone [place] (Relistor Inj) 6 mg Q2D SQ 04/26/17 20:00 05/26/17 19:59 04/26/17 20:45 6 MG Sodium Chloride 1,000 ml @ 50 mls/hr Q20H IV 04/27/17 06:45 05/27/17 06:44 UNV Last 24 Hours Test 04/26/17 07:15 04/26/17 08:55 04/26/17 11:08 04/26/17 16:30 Bedside Glucose 71 mg/dl 88 mg/dl 102 mg/dl Prothrombin Time 47.0 SECONDS Prothromb Time International Ratio 4.6 Sodium Level 132 mmol/L Potassium Level 4.5 mmol/L Chloride Level 100 mmol/L Carbon Dioxide Level 21 mmol/L Anion Gap 11.0 mmol/L Blood Urea Nitrogen 65 mg/dl Creatinine 2.34 mg/dl Est Creatinine Clear Calc Drug Dose 32.0 ml/min Estimated GFR () 32.4 Estimated GFR (Non- 27.9 BUN/Creatinine Ratio 27.6 Random Glucose 96 mg/dl Calcium Level 9.5 mg/dl Test 04/26/17 20:05 04/27/17 05:26 Bedside Glucose 97 mg/dl White Blood Count 16.68 K/uL Red Blood Count 3.18 M/uL Hemoglobin 10.0 g/dL Hematocrit 30.3 % Mean Corpuscular Volume 95.3 fL Mean Corpuscular Hemoglobin 31.4 pg Mean Corpuscular Hemoglobin Concent 33.0 g/dl Platelet Count 118 K/uL Mean Platelet Volume 9.9 fL Neutrophils (%) (Auto) 82.3 % Lymphocytes (%) (Auto) 5.4 % Monocytes (%) (Auto) 7.3 % Eosinophils (%) (Auto) 4.1 % Basophils (%) (Auto) 0.2 % Neutrophils # (Auto) 13.72 K/uL Lymphocytes # (Auto) 0.90 K/uL Monocytes # (Auto) 1.22 K/uL Eosinophils # (Auto) 0.68 K/uL Basophils # (Auto) 0.04 K/uL RDW Standard Deviation 66.7 fL RDW Coefficient of Variation 19.3 % Immature Granulocyte % (Auto) 0.7 % Immature Granulocyte # (Auto) 0.12 K/uL Sodium Level 132 mmol/L Potassium Level 4.5 mmol/L Chloride Level 101 mmol/L Carbon Dioxide Level 20 mmol/L Anion Gap 11.0 mmol/L Blood Urea Nitrogen 79 mg/dl Creatinine 2.67 mg/dl Est Creatinine Clear Calc Drug Dose 27.8 ml/min Estimated GFR () 27.6 Estimated GFR (Non- 23.8 BUN/Creatinine Ratio 29.7 Random Glucose 77 mg/dl Calcium Level 9.5 mg/dl Phosphorus Level 3.7 mg/dl Magnesium Level 2.6 mg/dl Albumin 3.5 gm/dl Assessment & Plan PIPPA-appears to be pre-renal with a urine sodium of <10 on albumin 25 grams iv bid and going to start iv fluids at low rate of 50cc/hr. difficulty with his underlying diastolic heart failure. would like to obtain a renal us to be thorough. if creatinine continues to worsen, may need dialysis at some point in this admission. question if any element of hepatorenal syndrome with possible liver involvement of the presumed cancer with worsening inr. will recheck lfts as well today. may have a role for midodrine and octreotide as well. for now, continue albumin and adding normal saline.
[2017-04-27] MEDS: SODIUM CHLORIDE 0.9% 1000ML 1,000 ML IV SCH (07:09)
[2017-04-27 07:40] LABS: ALBUMIN 3.4 gm/dl (3.4-5.0); TOTAL PROTEIN 5.5 gm/dl (6.4-8.2)
--- NOTE | 2017-04-27 08:20 | DIAGNOSTIC IMAGING REPORT ---
(RENAL)RETROPERITON COMP HISTORY: 66 years-old Male nisha acute kidney injury COMPARISON: KUB 04/26/2017 TECHNIQUE: Multiple real-time sonographic images of the kidneys and urinary bladder were obtained assessing grayscale appearance FINDINGS: Right kidney measures 10.7 cm in length and is unremarkable without renal calculi, hydronephrosis or focal mass. The left kidney measures 10.6 cm in length and is also within normal limits without renal calculi, hydronephrosis or suspicious mass lesion. Olivia catheter is noted within a collapsed bladder. Mild volume abdominal ascites is noted. IMPRESSION: 1. Unremarkable sonographic appearance of the bilateral kidneys without renal calculi or hydronephrosis. 2. Olivia catheter within a collapsed urinary bladder lumen. 3. Small volume of abdominal ascites. The above report was generated using voice recognition software. It may contain grammatical, syntax or spelling errors. Electronically signed by: Scar Perrin M.D. 04/27/2017 8:18 AM Dictated Date/Time: 04/27/2017 8:17 AM
[2017-04-27] MEDS: INSULIN ASPART 100 UNITS/ML 3 ML PEN SC SCH ×4 (08:34→22:00)
[2017-04-27] MEDS: METOPROLOL SUCC 25MG EXT REL TAB PO SCH (08:36)
[2017-04-27] MEDS: DILTIAZEM HCL 180 MG CAPCR PO SCH (08:37)
[2017-04-27] MEDS: ASPIRIN 81 MG ECTAB PO SCH (08:37)
[2017-04-27] MEDS: FLUTICASONE PROPIONATE NA SPR 16 GM BTL NAE SCH (08:37)
[2017-04-27] MEDS: METHIMAZOLE 5 MG TAB PO SCH ×2 (08:37→21:05)
[2017-04-27] MEDS: SENNA 8.6 MG TAB PO SCH (08:37)
[2017-04-27] MEDS: FLUTICASONE PROP HFA INH 44 MCG INHALER INH SCH ×2 (08:37→21:04)
[2017-04-27] MEDS: DOCUSATE SODIUM 100 MG CAP PO SCH ×2 (08:37→21:04)
[2017-04-27] MEDS: PANTOprazole SOD 40 MG TAB PO SCH ×2 (08:37→21:05)
[2017-04-27] MEDS: BOOST BREEZE NUTRITION DRINK 1 BOX PO SCH ×2 (09:49→21:04)
[2017-04-27] MEDS ORDERED: BISACODYL 10 MG SUPP PR ONE (15:43)
[2017-04-27 15:44] LABS: URIC ACID 8.6 mg/dl (2.6-7.2)
[2017-04-27] MEDS ORDERED: BISACODYL 10 MG SUPP PR PRN (15:45)
[2017-04-27] MEDS ORDERED: TAP WATER ENEMA PR PRN (15:45)
[2017-04-27] MEDS ORDERED: VANCOMYCIN TROUGH ONE (17:30)
[2017-04-27] MEDS: DAPTOmycin IV 350 MG in SYRINGE 0 ML IV SCH (18:07)
[2017-04-27] MEDS: HYDROCODONE/ACETAMIN 5/325MG TAB PO PRN (18:08)
--- NOTE | 2017-04-27 18:40 | Progress Note ---
Medicine Progress Note Date & Time of Visit: Apr 27, 2017 at 15:32. Subjective seen resting in bed, at bedside comfortable, alert poor urine output still with no BM no bleeding appetite fair no nausea, abdominal pain no confusion denies other symptoms Objective Last 8 Hrs Date Time Temp Pulse Resp B/P (MAP) Pulse Ox O2 Delivery O2 Flow Rate FiO2 04/27/17 14:51 36.5 103 20 97/61 (73) 97 04/27/17 14:16 36.5 104 18 110/69 (83) 97 Room Air 04/27/17 12:20 Room Air 04/27/17 11:19 36.4 85 20 105/66 (79) 95 04/27/17 08:20 Room Air 04/27/17 07:49 36.5 97 20 92/60 (71) 97 Physical Exam: General- oriented x 3, not in distress, speaks in sentences with no effort Eyes- anicteric Neck- no JVD Lungs- decreased breath sounds on the left base, clear on the right, no wheezes Heart- regular rhythm; no murmur, normal rate Abdomen- moderately distended, soft, non tender Extremities- left upper extremity: (+) edema on the forearm and hand with some seepage, also has hematoma--> improving daily no warmth/tenderness/erythema no pretibial edema, no calf tenderness Neuro- alert, oriented x 3; no gross focal deficits Skin- warm & dry Laboratory Results: Last 24 Hours Test 04/26/17 16:30 04/26/17 20:05 04/27/17 05:26 04/27/17 07:25 Bedside Glucose 102 mg/dl 97 mg/dl 72 mg/dl White Blood Count 16.68 K/uL Red Blood Count 3.18 M/uL Hemoglobin 10.0 g/dL Hematocrit 30.3 % Mean Corpuscular Volume 95.3 fL Mean Corpuscular Hemoglobin 31.4 pg Mean Corpuscular Hemoglobin Concent 33.0 g/dl Platelet Count 118 K/uL Mean Platelet Volume 9.9 fL Neutrophils (%) (Auto) 82.3 % Lymphocytes (%) (Auto) 5.4 % Monocytes (%) (Auto) 7.3 % Eosinophils (%) (Auto) 4.1 % Basophils (%) (Auto) 0.2 % Neutrophils # (Auto) 13.72 K/uL Lymphocytes # (Auto) 0.90 K/uL Monocytes # (Auto) 1.22 K/uL Eosinophils # (Auto) 0.68 K/uL Basophils # (Auto) 0.04 K/uL RDW Standard Deviation 66.7 fL RDW Coefficient of Variation 19.3 % Immature Granulocyte % (Auto) 0.7 % Immature Granulocyte # (Auto) 0.12 K/uL Prothrombin Time 53.4 SECONDS Prothromb Time International Ratio 5.3 Sodium Level 132 mmol/L Potassium Level 4.5 mmol/L Chloride Level 101 mmol/L Carbon Dioxide Level 20 mmol/L Anion Gap 11.0 mmol/L Blood Urea Nitrogen 79 mg/dl Creatinine 2.67 mg/dl Est Creatinine Clear Calc Drug Dose 27.8 ml/min Estimated GFR () 27.6 Estimated GFR (Non- 23.8 BUN/Creatinine Ratio 29.7 Random Glucose 77 mg/dl Calcium Level 9.5 mg/dl Phosphorus Level 3.7 mg/dl Magnesium Level 2.6 mg/dl Total Bilirubin 2.5 mg/dl Direct Bilirubin 1.1 mg/dl Aspartate Amino Transf (AST/SGOT) 19 U/L Alanine Aminotransferase (ALT/SGPT) 7 U/L Alkaline Phosphatase 54 U/L Total Protein 5.5 gm/dl Albumin 3.4 gm/dl Test 04/27/17 11:42 Bedside Glucose 70 mg/dl Assessment & Plan 66 year old male with history of CAD, CHF, A fib on coumadin, DM, HTN, Hyperthyroidism presenting with poor oral intake and weakness. WEAKNESS, POOR ORAL INTAKE FROM: INTRAABDOMINAL LYMPHADENOPATHY, B CELL LYMPHOMA, NEW DIAGNOSIS PANCREATIC MASS, LIKELY SPREAD OF B CELL LYMPHOMA GI consulted was given Albumin IV initially 04/17: s/p EUS with Biopsy of Pancreatic mass, and Lymph nodes: official report pending, but spoke with Dr. 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 Coleen Doan consulted recommend work up for staging and chemo when medically stable ASCITES, FROM LIVER CIRRHOSIS VS. MALIGNANT EFFUSION SBP LIKELY PRESENT ON ADMISSION 04/18: s/p Paracentesis, 4 liters, Pathology: no malignant cells seen Peritoneal fluid culture: (+) Coag neg staph -- abdomen still distended diuretics on hold due to elevated crea -- GI re-consulted may need another Therapeutic Paracentesis when renal function improves/ok with Nephro -- Nephro re-consulted albumin IV BID re-ordered, NSS started -- ID consulted continue Vanco IV to complete 14 days--> crea increasing, changed to Dapto ACUTE RENAL FAILURE LIKELY PRERENAL, with HYPER CA AND HYPER K, Resolved holding lasix, spironolactone, metformin -- crea increasing, now at 1.8--> further increasing to 2.6 Olivia Cath for better i/o monitoring -- IV albumin BID re-started 04/25/17, increased to 25mg BID NSS started Nephrology re-consulted CAD no cardiac symptoms Aspirin CHF hold diuretics for now, monitor AFIB ON COUMADIN continue Diltiazem and Metoprolol with holding parameters INR 5.3 HOLD coumadin monitor INR LEFT ATRIAL APPENDAGE THROMBUS Cardiology consulted needs heparin bridge when INR subtherapeutic as per Oncology, patient would need Lovenox LOW BACK PAIN Lidoderm patch, PRN Tramadol and Flexeril patient reports increased pain added Strang PRN DM hold Metformin Pharm Gly Cx HTN on Diltiazem and Metoprolol with parameters HYPERTHYROIDISM TFTs slightly improved from last month Endo consulted increased Methimazole to 10mg BID repeat TFTs FULL CODE DVT PPX INR supratherapeutic Disposition pending evaluation of acute renal failure in progress lives at home with family PT/OT ordered Current Inpatient Medications: Current Inpatient Medications Medications (Trade) Dose Ordered Sig/Sal Route Start Time Stop Time Status Last Admin Dose Admin Diltiazem HCl (Cardizem Cd Cap) 180 mg QAM PO 04/13/17 09:00 05/13/17 08:59 04/26/17 07:46 180 MG Docusate Sodium (coLACE CAP) 100 mg BID PRN PO 04/12/17 18:45 05/12/17 18:44 04/19/17 06:13 100 MG Fluticasone Propionate (Flovent Hfa 44MCG Inhaler) 2 puffs BID INH 04/12/17 21:00 05/12/17 20:59 04/27/17 08:37 2 PUFFS Fluticasone Propionate (Flonase Nasal [place]) 2 sprays DAILY SHALONDA 04/13/17 09:00 05/13/17 08:59 04/27/17 08:37 2 SPRAYS Montelukast Sodium (Singulair Tab) 10 mg QPM PO 04/12/17 21:00 05/12/17 20:59 04/26/17 20:47 10 MG Acetaminophen (Tylenol Tab) 650 mg Q4H PRN PO 04/12/17 18:30 05/12/17 18:29 Insulin Aspart (novoLOG ASPART) SLIDING SCALE ACHS SC 04/12/17 21:00 05/12/17 20:59 04/19/17 21:14 4 UNITS Glucose (Glucose 40% Gel) 15-30 GRAMS 15 GRAMS... UD PRN PO 04/12/17 18:45 05/12/17 18:44 Glucose (Glucose Chew Tab) 4-8 Tablets 4 Tabl... UD PRN PO 04/12/17 18:45 05/12/17 18:44 Dextrose (Dextrose 50% 50ML Syringe) 25-50ML OF 50% DW IV FOR... UD PRN IV 04/12/17 18:45 05/12/17 18:44 Glucagon (Glucagon Inj) 1 mg UD PRN SQ 04/12/17 18:45 05/12/17 18:44 Methimazole (Methimazole Tab) 10 mg BID PO 04/14/17 09:00 05/14/17 08:59 04/27/17 08:37 10 MG Lidocaine (Lidoderm Patch 5%) 1 patch QPM TD 04/14/17 21:00 05/14/17 20:59 04/26/17 20:48 1 PATCH Miscellaneous (Remove Lidoderm Patch) 1 ea QAM N/A 04/14/17 15:00 05/14/17 14:59 04/27/17 08:35 1 EA Cyclobenzaprine HCl (Flexeril Tab) 5 mg BID PRN PO 04/14/17 15:30 05/14/17 15:29 04/23/17 23:39 5 MG Senna/Docusate Sodium (Senokot S Tab) 1 tab QAM PO 04/15/17 09:00 05/15/17 08:59 Future Hold 04/20/17 08:19 1 TAB Magnesium Hydroxide (Milk Of Magnesia Susp) 30 ml Q6H PRN PO 04/14/17 15:30 05/14/17 15:29 04/19/17 06:13 30 ML Aspirin (Ecotrin Tab) 81 mg DAILY PO 04/20/17 09:00 05/20/17 08:59 04/27/17 08:37 81 MG Tramadol HCl (Ultram Tab) 25 mg Q6H PRN PO 04/20/17 05:30 05/20/17 05:29 04/25/17 22:00 25 MG Enteral Nutritional Formula (Boost Breeze Nutritional Drink) 1 box BID PO 04/22/17 12:00 05/22/17 20:59 04/27/17 09:49 1 BOX Metoprolol Succinate (Toprol Xl Tab) 25 mg DAILY PO 04/24/17 09:00 05/12/17 20:59 04/26/17 07:44 25 MG Lactulose (Chronulac Syrup) 15 gm BID PRN PO 04/24/17 12:30 05/24/17 12:29 Acetaminophen/ Hydrocodone Bitart ([place] 5/325 Tab) 1 tab Q12H PRN PO 04/24/17 12:45 05/08/17 12:44 04/26/17 22:26 1 TAB Heparin Sodium (Porcine) (Heparin 10 Unit/ ml 5 ml Flush) 5 ml PRN PRN FLUSH 04/24/17 15:30 05/24/17 15:29 04/26/17 08:39 5 ML Lorazepam (Ativan Tab) 0.5 mg BID PRN PO 04/24/17 18:45 05/24/17 18:44 Ondansetron HCl (Zofran Inj) 4 mg Q6H PRN IV 04/26/17 08:30 05/26/17 08:29 04/26/17 08:39 4 MG Daptomycin (Consult) 1 ea UD PRN N/A 04/26/17 09:15 05/26/17 09:14 Daptomycin 350 mg/ Syringe 7 ml @ 3.5 mls/min Q24H IV 04/26/17 18:00 05/05/17 17:59 04/26/17 18:11 3.5 MLS/MIN Albumin Human (Albumin 25%) 12.5 gm Q12H IV 04/26/17 14:30 04/28/17 14:29 04/27/17 14:13 12.5 GM Pantoprazole Sodium (Protonix Tab) 40 mg BID PO 04/26/17 21:00 05/26/17 20:59 04/27/17 08:37 40 MG Albumin Human (Albumin 25%) 12.5 gm Q12H IV 04/26/17 15:00 04/28/17 14:59 04/27/17 15:03 12.5 GM Docusate Sodium (coLACE CAP) 100 mg BID PO 04/26/17 21:00 05/26/17 20:59 04/27/17 08:37 100 MG Senna (Senokot Tab) 17.2 mg QAM PO 04/27/17 09:00 05/27/17 08:59 04/27/17 08:37 17.2 MG Methylnaltrexone [place] (Relistor Inj) 6 mg Q2D SQ 04/26/17 20:00 05/26/17 19:59 04/26/17 20:45 6 MG Sodium Chloride 1,000 ml @ 50 mls/hr Q20H IV 04/27/17 07:00 05/27/17 06:59 04/27/17 07:09 50 MLS/HR
[2017-04-27] MEDS: TRAMADOL HCL 50 MG TAB PO PRN (19:19)
[2017-04-27] MEDS: MONTELUKAST SOD 10 MG TAB PO SCH (21:05)
[2017-04-27] MEDS: LIDODERM (LIDOCAINE) PATCH 5% TD SCH (21:06)
[2017-04-27] MEDS: CYCLOBENZAPRINE HCL 5 MG TAB PO PRN (21:06)
[2017-04-28] VITALS (17 sets, daily range): BP systolic 62–109; BP diastolic 42–69; PULSE 69–158; TEMP 36–36.7; O2SAT 95–98
[2017-04-28] MEDS ORDERED: METOPROLOL TARTRATE 1 MG/ML VIAL IV STA (00:29)
[2017-04-28] MEDS ORDERED: NURSING VERBAL MED ORDER ONE ×4 (00:30→15:15)
[2017-04-28] MEDS ORDERED: HYDROmorphone INJ 1 MG/ML SYR IV STA (00:35)
[2017-04-28] MEDS ORDERED: SODIUM CHLORIDE 0.9% 1000ML 1,000 ML IV SCH (01:30)
[2017-04-28] MEDS: SODIUM CHLORIDE 0.9% 1000ML 1,000 ML IV SCH (01:46)
[2017-04-28] MEDS: ALBUMIN HUMAN 25% 12.5 GM/50 ML VIAL IV SCH ×5 (02:24→23:44)
[2017-04-28] MEDS ORDERED: HYDROmorphone INJ 1 MG/ML SYR ONE (04:54)
[2017-04-28 05:53] LABS: BASO % 0.2 %; BASO ABS # 0.04 K/uL (0-0.2); EOS % 2.6 %; EOS ABS # 0.49 K/uL (0-0.5); HEMATOCRIT 27.5 % (42-52); HEMOGLOBIN 9.1 g/dL (14.0-18.0); IG# 0.16 K/uL (0.00-0.02); LYMPH % 4.8 %; MEAN CELL VOLUME 96.2 fL (80-100); MEAN CORPUSCULAR HEMOGLOBIN 31.8 pg (25-34); MEAN CORPUSCULAR HGB CONC 33.1 g/dl (32-36); MEAN PLATELET VOLUME 9.5 fL (7.4-10.4); MONO % 6.5 %; MONO ABS # 1.21 K/uL (0.11-0.59); NEUT ABS # 15.78 K/uL (1.4-6.5); PLATELET COUNT 129 K/uL (130-400); RED CELL DISTRIBUTION WIDTH CV 19.6 % (11.5-14.5); RED CELL DISTRIBUTION WIDTH SD 68.7 fL (36.4-46.3); WHITE BLOOD COUNT 18.58 K/uL (4.8-10.8)
[2017-04-28 06:19] LABS: CALCIUM 9.2 mg/dl (8.5-10.1); CREATININE 2.86 mg/dl (0.60-1.40); PHOSPHORUS 3.8 mg/dl (2.5-4.9); POTASSIUM 4.4 mmol/L (3.5-5.1)
[2017-04-28 06:37] LABS: INR 5.1 (0.9-1.1)
[2017-04-28] MEDS: METOPROLOL SUCC 25MG EXT REL TAB PO SCH (07:42)
[2017-04-28] MEDS: HYDROCODONE/ACETAMIN 5/325MG TAB PO PRN (07:42)
[2017-04-28] MEDS: PANTOprazole SOD 40 MG TAB PO SCH ×2 (07:42→20:29)
[2017-04-28] MEDS: DOCUSATE SODIUM 100 MG CAP PO SCH ×2 (07:42→20:29)
[2017-04-28] MEDS: METHIMAZOLE 5 MG TAB PO SCH ×2 (07:43→20:29)
[2017-04-28] MEDS: SENNA 8.6 MG TAB PO SCH (07:43)
[2017-04-28] MEDS: DILTIAZEM HCL 180 MG CAPCR PO SCH (07:43)
[2017-04-28] MEDS: FLUTICASONE PROP HFA INH 44 MCG INHALER INH SCH ×2 (07:44→20:28)
[2017-04-28] MEDS: ASPIRIN 81 MG ECTAB PO SCH (07:44)
[2017-04-28] MEDS: FLUTICASONE PROPIONATE NA SPR 16 GM BTL NAE SCH (07:44)
[2017-04-28] MEDS: INSULIN ASPART 100 UNITS/ML 3 ML PEN SC SCH ×4 (07:44→20:30)
[2017-04-28] MEDS: BOOST BREEZE NUTRITION DRINK 1 BOX PO SCH ×2 (08:25→20:28)
--- NOTE | 2017-04-28 08:45 | Progress Note ---
Medicine Progress Note Date & Time of Visit: Apr 28, 2017 at 08:36. Subjective overnight, patient noted to have a fib with RVR was also having back pain given Metoprolol, Dilaudid, now improving sleeping but easily rousable states he feels "ok" alert, oriented back pain has improved no BM yet denies chest pain, palpitations, dizziness no abdominal pain, occasional nausea no other symptoms Objective Last 8 Hrs Date Time Temp Pulse Resp B/P (MAP) Pulse Ox O2 Delivery O2 Flow Rate FiO2 04/28/17 07:14 36.4 121 16 105/65 (78) 97 Room Air 04/28/17 04:11 36.7 125 18 109/68 (82) 98 Room Air 04/28/17 04:10 Room Air 04/28/17 03:36 36.7 115 18 104/69 (81) 98 Room Air 04/28/17 02:58 36.7 108 18 92/61 (71) 98 Room Air 04/28/17 02:25 36.6 115 18 93/65 (74) 97 Room Air 04/28/17 01:07 112 104/66 (79) 04/28/17 00:47 120 87/58 (68) 04/28/17 00:41 144 106/70 Physical Exam: General- oriented x 3, not in distress, speaks in sentences with no effort Eyes- anicteric Neck- no JVD Lungs- decreased breath sounds on the left base, no rales/wheezing Heart- irregular rhythm; no murmur, mild tachycardia Abdomen- distended but nontender Extremities- left upper extremity: (+) edema on the forearm and hand with some seepage, also has hematoma--> improving daily no warmth/tenderness/erythema (+) lower leg edema, no calf tenderness Neuro- alert, oriented x 3; no gross focal deficits Skin- warm & dry Laboratory Results: Last 24 Hours Test 04/27/17 11:42 04/27/17 16:15 04/27/17 20:27 04/28/17 05:25 Bedside Glucose 70 mg/dl 85 mg/dl 92 mg/dl White Blood Count 18.58 K/uL Red Blood Count 2.86 M/uL Hemoglobin 9.1 g/dL Hematocrit 27.5 % Mean Corpuscular Volume 96.2 fL Mean Corpuscular Hemoglobin 31.8 pg Mean Corpuscular Hemoglobin Concent 33.1 g/dl Platelet Count 129 K/uL Mean Platelet Volume 9.5 fL Neutrophils (%) (Auto) 85.0 % Lymphocytes (%) (Auto) 4.8 % Monocytes (%) (Auto) 6.5 % Eosinophils (%) (Auto) 2.6 % Basophils (%) (Auto) 0.2 % Neutrophils # (Auto) 15.78 K/uL Lymphocytes # (Auto) 0.90 K/uL Monocytes # (Auto) 1.21 K/uL Eosinophils # (Auto) 0.49 K/uL Basophils # (Auto) 0.04 K/uL RDW Standard Deviation 68.7 fL RDW Coefficient of Variation 19.6 % Immature Granulocyte % (Auto) 0.9 % Immature Granulocyte # (Auto) 0.16 K/uL Prothrombin Time 51.6 SECONDS Prothromb Time International Ratio 5.1 Sodium Level 134 mmol/L Potassium Level 4.4 mmol/L Chloride Level 103 mmol/L Carbon Dioxide Level 18 mmol/L Anion Gap 13.0 mmol/L Blood Urea Nitrogen 90 mg/dl Creatinine 2.86 mg/dl Est Creatinine Clear Calc Drug Dose 26.0 ml/min Estimated GFR () 25.4 Estimated GFR (Non- 21.9 BUN/Creatinine Ratio 31.5 Random Glucose 79 mg/dl Calcium Level 9.2 mg/dl Phosphorus Level 3.8 mg/dl Magnesium Level 2.5 mg/dl Total Creatine Kinase 12 U/L Test 04/28/17 06:08 04/28/17 08:24 Bedside Glucose 139 mg/dl Assessment & Plan 66 year old male with history of CAD, CHF, A fib on coumadin, DM, HTN, Hyperthyroidism presenting with poor oral intake and weakness. INTRAABDOMINAL LYMPHADENOPATHY, B CELL LYMPHOMA, NEW DIAGNOSIS PANCREATIC MASS, LIKELY SPREAD OF B CELL LYMPHOMA 04/17: s/p EUS with Biopsy of Pancreatic mass, and Lymph nodes: (+) aggressive B cell lymphoma -- Dr. Coleen Doan consulted recommend work up for staging and chemo when medically stable- at this time, patient has acute renal failure, ascites, a fib in rvr ASCITES, FROM LIVER CIRRHOSIS VS. MALIGNANT EFFUSION SBP LIKELY PRESENT ON ADMISSION 04/18: s/p Paracentesis, 4 liters, Pathology: no malignant cells seen Peritoneal fluid culture: (+) Coag neg staph -- abdomen still distended diuretics on hold due to elevated crea -- GI re-consulted may need another Therapeutic Paracentesis when renal function improves/ok with Nephro -- Nephro re-consulted albumin IV BID re-ordered, NSS started crea still increasing, poor urine output -- ID consulted continue Vanco IV to complete 14 days--> crea increasing, changed to Daptomycin IV Day 09/18 ACUTE RENAL FAILURE LIKELY PRERENAL, with HYPER CA AND HYPER K, Resolved holding lasix, spironolactone, metformin since admission -- crea increased after paracentesis -- crea increasing, now at 1.8--> further increasing to 2.8 poor urine output -- IV albumin BID re-started 04/25/17, increased to 25mg BID NSS started may need HD AFIB ON COUMADIN went into RVR overnight Metoprolol held yesterday due to systolic bp 90s continue Diltiazem and Metoprolol with holding parameters INR 5.1 HOLD coumadin monitor INR CAD no cardiac symptoms Aspirin CHF hold diuretics for now, monitor LEFT ATRIAL APPENDAGE THROMBUS Cardiology consulted needs heparin bridge when INR subtherapeutic as per Oncology, patient would need Lovenox LOW BACK PAIN, CONSTIPATION CONTRIBUTING? Lactulose and Dulcolax suppository, if still unsuccessful, Enema Lidoderm patch, PRN Tramadol and Flexeril [place] PRN DM hold Metformin Pharm Gly Cx HTN on Diltiazem and Metoprolol with parameters HYPERTHYROIDISM TFTs slightly improved from last month Endo consulted increased Methimazole to 10mg BID repeat TFTs: TSH now normal, T4 low will discuss with Dr. Rodriges FULL CODE DVT PPX INR supratherapeutic Disposition pending lives at home with family Current Inpatient Medications: Current Inpatient Medications Medications (Trade) Dose Ordered Sig/Sal Route Start Time Stop Time Status Last Admin Dose Admin Diltiazem HCl (Cardizem Cd Cap) 180 mg QAM PO 04/13/17 09:00 05/13/17 08:59 04/28/17 07:43 180 MG Docusate Sodium (coLACE CAP) 100 mg BID PRN PO 04/12/17 18:45 05/12/17 18:44 04/19/17 06:13 100 MG Fluticasone Propionate (Flovent Hfa 44MCG Inhaler) 2 puffs BID INH 04/12/17 21:00 05/12/17 20:59 04/28/17 07:44 2 PUFFS Fluticasone Propionate (Flonase Nasal [place]) 2 sprays DAILY SHALONDA 04/13/17 09:00 05/13/17 08:59 04/28/17 07:44 2 SPRAYS Montelukast Sodium (Singulair Tab) 10 mg QPM PO 04/12/17 21:00 05/12/17 20:59 04/27/17 21:05 10 MG Acetaminophen (Tylenol Tab) 650 mg Q4H PRN PO 04/12/17 18:30 05/12/17 18:29 Insulin Aspart (novoLOG ASPART) SLIDING SCALE ACHS SC 04/12/17 21:00 05/12/17 20:59 04/19/17 21:14 4 UNITS Glucose (Glucose 40% Gel) 15-30 GRAMS 15 GRAMS... UD PRN PO 04/12/17 18:45 05/12/17 18:44 Glucose (Glucose Chew Tab) 4-8 Tablets 4 Tabl... UD PRN PO 04/12/17 18:45 05/12/17 18:44 Dextrose (Dextrose 50% 50ML Syringe) 25-50ML OF 50% DW IV FOR... UD PRN IV 04/12/17 18:45 05/12/17 18:44 Glucagon (Glucagon Inj) 1 mg UD PRN SQ 04/12/17 18:45 05/12/17 18:44 Methimazole (Methimazole Tab) 10 mg BID PO 04/14/17 09:00 05/14/17 08:59 04/28/17 07:43 10 MG Lidocaine (Lidoderm Patch 5%) 1 patch QPM TD 04/14/17 21:00 05/14/17 20:59 04/27/17 21:06 1 PATCH Miscellaneous (Remove Lidoderm Patch) 1 ea QAM N/A 04/14/17 15:00 05/14/17 14:59 04/28/17 07:44 1 EA Cyclobenzaprine HCl (Flexeril Tab) 5 mg BID PRN PO 04/14/17 15:30 05/14/17 15:29 04/27/17 21:06 5 MG Senna/Docusate Sodium (Senokot S Tab) 1 tab QAM PO 04/15/17 09:00 05/15/17 08:59 Future Hold 04/20/17 08:19 1 TAB Magnesium Hydroxide (Milk Of Magnesia Susp) 30 ml Q6H PRN PO 04/14/17 15:30 05/14/17 15:29 04/19/17 06:13 30 ML Aspirin (Ecotrin Tab) 81 mg DAILY PO 04/20/17 09:00 05/20/17 08:59 04/28/17 07:44 81 MG Tramadol HCl (Ultram Tab) 25 mg Q6H PRN PO 04/20/17 05:30 05/20/17 05:29 04/27/17 19:19 25 MG Enteral Nutritional Formula (Boost Breeze Nutritional Drink) 1 box BID PO 04/22/17 12:00 05/22/17 20:59 04/28/17 08:25 1 BOX Metoprolol Succinate (Toprol Xl Tab) 25 mg DAILY PO 04/24/17 09:00 05/12/17 20:59 04/28/17 07:42 25 MG Lactulose (Chronulac Syrup) 15 gm BID PRN PO 04/24/17 12:30 05/24/17 12:29 Acetaminophen/ Hydrocodone Bitart ([place] 5/325 Tab) 1 tab Q12H PRN PO 04/24/17 12:45 05/08/17 12:44 04/28/17 07:42 1 TAB Heparin Sodium (Porcine) (Heparin 10 Unit/ ml 5 ml Flush) 5 ml PRN PRN FLUSH 04/24/17 15:30 05/24/17 15:29 04/26/17 08:39 5 ML Lorazepam (Ativan Tab) 0.5 mg BID PRN PO 04/24/17 18:45 05/24/17 18:44 04/27/17 23:55 0.5 MG Ondansetron HCl (Zofran Inj) 4 mg Q6H PRN IV 04/26/17 08:30 05/26/17 08:29 04/26/17 08:39 4 MG Daptomycin (Consult) 1 ea UD PRN N/A 04/26/17 09:15 05/26/17 09:14 Daptomycin 350 mg/ Syringe 7 ml @ 3.5 mls/min Q24H IV 04/26/17 18:00 05/05/17 17:59 04/27/17 18:07 3.5 MLS/MIN Albumin Human (Albumin 25%) 12.5 gm Q12H IV 04/26/17 14:30 04/28/17 14:29 04/28/17 02:24 12.5 GM Pantoprazole Sodium (Protonix Tab) 40 mg BID PO 04/26/17 21:00 05/26/17 20:59 04/28/17 07:42 40 MG Albumin Human (Albumin 25%) 12.5 gm Q12H IV 04/26/17 15:00 04/28/17 14:59 04/28/17 03:39 12.5 GM Docusate Sodium (coLACE CAP) 100 mg BID PO 04/26/17 21:00 05/26/17 20:59 04/28/17 07:42 100 MG Senna (Senokot Tab) 17.2 mg QAM PO 04/27/17 09:00 05/27/17 08:59 04/28/17 07:43 17.2 MG Methylnaltrexone [place] (Relistor Inj) 6 mg Q2D SQ 04/26/17 20:00 05/26/17 19:59 04/26/17 20:45 6 MG Sodium Chloride 1,000 ml @ 50 mls/hr Q20H IV 04/27/17 07:00 05/27/17 06:59 04/28/17 01:46 50 MLS/HR Bisacodyl (Dulcolax Supp) 10 mg DAILY PRN [place] 04/27/17 15:45 05/27/17 15:44 04/28/17 08:25 10 MG Miscellaneous (Tap Water Enema) 1 ea ONE PRN MT 04/27/17 15:45 05/27/17 15:44
[2017-04-28 09:24] LABS: ALBUMIN 3.5 gm/dl (3.4-5.0); TOTAL PROTEIN 5.5 gm/dl (6.4-8.2)
[2017-04-28] MEDS: SODIUM CHLORIDE 0.9% 1000ML 250 ML IV SCH ×3 (14:45→15:15)
[2017-04-28] MEDS ORDERED: SODIUM CHLORIDE 0.9% 500ML 500 ML IV ONE (15:30)
--- NOTE | 2017-04-28 16:22 | Nephrology Progress Note ---
Nephrology Progress Note Date of Service: Apr 28, 2017. Subjective seen on rounds this am at about 0900; somewhat challenging to arouse >> had pain overnight, had dilaudid; also w/ HR in 160s and lower BP which have worsened today; creatinine cont to worsen Objective Date Time Temp Pulse Resp B/P (MAP) Pulse Ox O2 Delivery O2 Flow Rate FiO2 04/28/17 15:36 78/52 (61) 04/28/17 15:13 74/58 (63) 04/28/17 15:05 62/42 (49) 04/28/17 14:30 79/58 (65) 04/28/17 14:30 36.0 115 16 79/51 (60) 97 04/28/17 12:00 Room Air 04/28/17 11:32 36.4 69 16 91/58 (69) 97 04/28/17 08:00 Room Air 04/28/17 07:14 36.4 121 16 105/65 (78) 97 Room Air 04/28/17 04:11 36.7 125 18 109/68 (82) 98 Room Air 04/28/17 04:10 Room Air 04/28/17 03:36 36.7 115 18 104/69 (81) 98 Room Air 04/28/17 02:58 36.7 108 18 92/61 (71) 98 Room Air 04/28/17 02:25 36.6 115 18 93/65 (74) 97 Room Air 04/28/17 01:07 112 104/66 (79) 04/28/17 00:47 120 87/58 (68) 04/28/17 00:41 144 106/70 04/28/17 00:27 158 97/66 (76) 97 Room Air 04/28/17 00:10 Room Air 04/28/17 00:05 36.5 121 19 94/57 (69) 96 Room Air 04/27/17 20:10 36.2 114 18 121/75 (90) 96 Room Air 04/27/17 20:00 97 Room Air Physical Exam: General-sleeping and mostly arouseable w/ effort on RA; answers in monosyllables Eyes-eomi ENT-dry mm Neck-supple Lungs-very diminished Heart-rapid/regular in 120s Abdomen-distended soft, rao w/ some urine Extremities-3+ dependent edema; also in arms Neuro-lethargic; blair Current Inpatient Medications Medications (Trade) Dose Ordered Sig/Sal Route Start Time Stop Time Status Last Admin Dose Admin Diltiazem HCl (Cardizem Cd Cap) 180 mg QAM PO 04/13/17 09:00 05/13/17 08:59 04/28/17 07:43 180 MG Docusate Sodium (coLACE CAP) 100 mg BID PRN PO 04/12/17 18:45 05/12/17 18:44 04/19/17 06:13 100 MG Fluticasone Propionate (Flovent Hfa 44MCG Inhaler) 2 puffs BID INH 04/12/17 21:00 05/12/17 20:59 04/28/17 07:44 2 PUFFS Fluticasone Propionate (Flonase Nasal [place]) 2 sprays DAILY SHALONDA 04/13/17 09:00 05/13/17 08:59 04/28/17 07:44 2 SPRAYS Montelukast Sodium (Singulair Tab) 10 mg QPM PO 04/12/17 21:00 05/12/17 20:59 04/27/17 21:05 10 MG Acetaminophen (Tylenol Tab) 650 mg Q4H PRN PO 04/12/17 18:30 05/12/17 18:29 Insulin Aspart (novoLOG ASPART) SLIDING SCALE ACHS SC 04/12/17 21:00 05/12/17 20:59 04/19/17 21:14 4 UNITS Glucose (Glucose 40% Gel) 15-30 GRAMS 15 GRAMS... UD PRN PO 04/12/17 18:45 05/12/17 18:44 Glucose (Glucose Chew Tab) 4-8 Tablets 4 Tabl... UD PRN PO 04/12/17 18:45 05/12/17 18:44 Dextrose (Dextrose 50% 50ML Syringe) 25-50ML OF 50% DW IV FOR... UD PRN IV 04/12/17 18:45 05/12/17 18:44 Glucagon (Glucagon Inj) 1 mg UD PRN SQ 04/12/17 18:45 05/12/17 18:44 Methimazole (Methimazole Tab) 10 mg BID PO 04/14/17 09:00 05/14/17 08:59 04/28/17 07:43 10 MG Lidocaine (Lidoderm Patch 5%) 1 patch QPM TD 04/14/17 21:00 05/14/17 20:59 04/27/17 21:06 1 PATCH Miscellaneous (Remove Lidoderm Patch) 1 ea QAM N/A 04/14/17 15:00 05/14/17 14:59 04/28/17 07:44 1 EA Cyclobenzaprine HCl (Flexeril Tab) 5 mg BID PRN PO 04/14/17 15:30 05/14/17 15:29 04/27/17 21:06 5 MG Senna/Docusate Sodium (Senokot S Tab) 1 tab QAM PO 04/15/17 09:00 05/15/17 08:59 Future Hold 04/20/17 08:19 1 TAB Magnesium Hydroxide (Milk Of Magnesia Susp) 30 ml Q6H PRN PO 04/14/17 15:30 05/14/17 15:29 04/19/17 06:13 30 ML Aspirin (Ecotrin Tab) 81 mg DAILY PO 04/20/17 09:00 05/20/17 08:59 04/28/17 07:44 81 MG Tramadol HCl (Ultram Tab) 25 mg Q6H PRN PO 04/20/17 05:30 05/20/17 05:29 04/27/17 19:19 25 MG Enteral Nutritional Formula (Boost Breeze Nutritional Drink) 1 box BID PO 04/22/17 12:00 05/22/17 20:59 04/28/17 08:25 1 BOX Metoprolol Succinate (Toprol Xl Tab) 25 mg DAILY PO 04/24/17 09:00 05/12/17 20:59 04/28/17 07:42 25 MG Lactulose (Chronulac Syrup) 15 gm BID PRN PO 04/24/17 12:30 05/24/17 12:29 04/28/17 08:49 15 GM Acetaminophen/ Hydrocodone Bitart ([place] 5/325 Tab) 1 tab Q12H PRN PO 04/24/17 12:45 05/08/17 12:44 04/28/17 07:42 1 TAB Heparin Sodium (Porcine) (Heparin 10 Unit/ ml 5 ml Flush) 5 ml PRN PRN FLUSH 04/24/17 15:30 05/24/17 15:29 04/26/17 08:39 5 ML Lorazepam (Ativan Tab) 0.5 mg BID PRN PO 04/24/17 18:45 05/24/17 18:44 04/27/17 23:55 0.5 MG Ondansetron HCl (Zofran Inj) 4 mg Q6H PRN IV 04/26/17 08:30 05/26/17 08:29 04/26/17 08:39 4 MG Daptomycin (Consult) 1 ea UD PRN N/A 04/26/17 09:15 05/26/17 09:14 Daptomycin 350 mg/ Syringe 7 ml @ 3.5 mls/min Q24H IV 04/26/17 18:00 05/05/17 17:59 04/27/17 18:07 3.5 MLS/MIN Pantoprazole Sodium (Protonix Tab) 40 mg BID PO 04/26/17 21:00 05/26/17 20:59 04/28/17 07:42 40 MG Docusate Sodium (coLACE CAP) 100 mg BID PO 04/26/17 21:00 05/26/17 20:59 04/28/17 07:42 100 MG Senna (Senokot Tab) 17.2 mg QAM PO 04/27/17 09:00 05/27/17 08:59 04/28/17 07:43 17.2 MG Methylnaltrexone [place] (Relistor Inj) 6 mg Q2D SQ 04/26/17 20:00 05/26/17 19:59 04/26/17 20:45 6 MG Sodium Chloride 1,000 ml @ 50 mls/hr Q20H IV 04/27/17 07:00 05/27/17 06:59 04/28/17 01:46 50 MLS/HR Bisacodyl (Dulcolax Supp) 10 mg DAILY PRN [place] 04/27/17 15:45 05/27/17 15:44 04/28/17 08:25 10 MG Miscellaneous (Tap Water Enema) 1 ea ONE PRN [place] 04/27/17 15:45 05/27/17 15:44 Albumin Human (Albumin 25%) 12.5 gm Q6H IV 04/28/17 16:15 05/01/17 16:14 UNV Last 24 Hours Test 04/27/17 16:15 04/27/17 20:27 04/28/17 05:25 04/28/17 06:08 Bedside Glucose 85 mg/dl 92 mg/dl 139 mg/dl White Blood Count 18.58 K/uL Red Blood Count 2.86 M/uL Hemoglobin 9.1 g/dL Hematocrit 27.5 % Mean Corpuscular Volume 96.2 fL Mean Corpuscular Hemoglobin 31.8 pg Mean Corpuscular Hemoglobin Concent 33.1 g/dl Platelet Count 129 K/uL Mean Platelet Volume 9.5 fL Neutrophils (%) (Auto) 85.0 % Lymphocytes (%) (Auto) 4.8 % Monocytes (%) (Auto) 6.5 % Eosinophils (%) (Auto) 2.6 % Basophils (%) (Auto) 0.2 % Neutrophils # (Auto) 15.78 K/uL Lymphocytes # (Auto) 0.90 K/uL Monocytes # (Auto) 1.21 K/uL Eosinophils # (Auto) 0.49 K/uL Basophils # (Auto) 0.04 K/uL RDW Standard Deviation 68.7 fL RDW Coefficient of Variation 19.6 % Immature Granulocyte % (Auto) 0.9 % Immature Granulocyte # (Auto) 0.16 K/uL Prothrombin Time 51.6 SECONDS Prothromb Time International Ratio 5.1 Sodium Level 134 mmol/L Potassium Level 4.4 mmol/L Chloride Level 103 mmol/L Carbon Dioxide Level 18 mmol/L Anion Gap 13.0 mmol/L Blood Urea Nitrogen 90 mg/dl Creatinine 2.86 mg/dl Est Creatinine Clear Calc Drug Dose 26.0 ml/min Estimated GFR () 25.4 Estimated GFR (Non- 21.9 BUN/Creatinine Ratio 31.5 Random Glucose 79 mg/dl Calcium Level 9.2 mg/dl Phosphorus Level 3.8 mg/dl Magnesium Level 2.5 mg/dl Total Creatine Kinase 12 U/L Test 04/28/17 07:22 04/28/17 08:24 04/28/17 11:52 Bedside Glucose 79 mg/dl 94 mg/dl Total Bilirubin 2.6 mg/dl Direct Bilirubin 1.2 mg/dl Aspartate Amino Transf (AST/SGOT) 28 U/L Alanine Aminotransferase (ALT/SGPT) 8 U/L Alkaline Phosphatase 60 U/L Total Protein 5.5 gm/dl Albumin 3.5 gm/dl Assessment & Plan 66 y/o M w/ atrial flutter and atrial thrombus, hyperthyroid, CAD, chronic DHF, DM 2, s/p bioprosthetic AVR admitted for eval of generalized weakness/ malaise and found to have 5 cm pancreatic mass w/ biopsy showing high grade large B cell lymphoma, hypercalcemia, PIPPA. Presenting creatinine 2.0; baseline 0.8. He recovered to baseline then recently worsened again. Also with atrial thrombus PIPPA, prerenal versus ?HRS or less likely ATN w/ worsening tachycardia/ hypotension past 12-24 hrs -increase albumin frequency to 12.5 gm 25% tid-qid; would not bolus more than 500 mL he's already had; cont 50 mL NS for now -if no improvement tomorrow/this evening, consider octreotide/midodrine -consider sepsis work up given high wbc (already on daptomcyin) -uric acid / chemistries not suggestive of TLS; renal u/s w/o structural abnormality to explain worsened function -would not offer dialysis unless it were a bridge to chemotherapy for example; at this point he is so unstable hemodynamically that I doubt he would tolerate dialysis therapy if we did offer it -his chemistries for now are acceptable Low threshold to involve palliative care/ to discuss goals of care frankly Appreciate consult; will follow with you. Care coordinated w/ Dr. Kellogg
[2017-04-28] MEDS: DAPTOmycin IV 350 MG in SYRINGE 0 ML IV SCH (17:51)
[2017-04-28] MEDS ORDERED: CONSULT PHARMACY STA (19:08)
[2017-04-28] MEDS ORDERED: PIPERACILL/TAZOBAC CONSULT ACTIVE PRN (20:00)
[2017-04-28] MEDS: METHYLNALTREXONE BROMIDE INJ 12 MG/0.6 ML SYR SQ SCH (20:28)
[2017-04-28] MEDS: MONTELUKAST SOD 10 MG TAB PO SCH (20:29)
[2017-04-28] MEDS ORDERED: PIPERACILL/TAZOBAC IV 3.375 GM in DEXTROSE 5% 100ML IV ONE (20:30)
[2017-04-28] MEDS: LIDODERM (LIDOCAINE) PATCH 5% TD SCH (20:33)
[2017-04-28] MEDS ORDERED: D5W AND 1/2NSS 1,000 ML IV SCH (21:00)
[2017-04-29 00:16] VITALS: BP 89/53; PULSE 104; TEMP 36.5; O2SAT 94
[2017-04-29 00:52] VITALS: BP 89/50; PULSE 94; TEMP 36.5; O2SAT 96
[2017-04-29] MEDS ORDERED: HYDROmorphone INJ 0.5 MG/0.5 ML SYR IV STA (01:09)
[2017-04-29] MEDS ORDERED: PIPERACILL/TAZOBAC IV 3.375 GM in DEXTROSE 5% 100ML IV SCH (02:00)
[2017-04-29 03:15] VITALS: BP 84/53; PULSE 114; TEMP 36.5; O2SAT 98
[2017-04-29] MEDS ORDERED: DIGOXIN INJ 500 MCG/2 ML AMP IV ONE (03:30)
[2017-04-29] MEDS ORDERED: DIGOXIN IV SCH ×2 (04:00→16:00)
[2017-04-29 05:08] VITALS: PULSE 94; TEMP 36.4; O2SAT 99
[2017-04-29 05:55] LABS: BASO % 0.2 %; BASO ABS # 0.04 K/uL (0-0.2); EOS % 1.7 %; EOS ABS # 0.29 K/uL (0-0.5); HEMATOCRIT 25.3 % (42-52); HEMOGLOBIN 7.9 g/dL (14.0-18.0); IG# 0.15 K/uL (0.00-0.02); LYMPH % 4.6 %; MEAN CELL VOLUME 98.1 fL (80-100); MEAN CORPUSCULAR HEMOGLOBIN 30.6 pg (25-34); MEAN CORPUSCULAR HGB CONC 31.2 g/dl (32-36); MEAN PLATELET VOLUME 9.4 fL (7.4-10.4); MONO ABS # 1.04 K/uL (0.11-0.59); NEUT % 86.6 %; NEUT ABS # 15.04 K/uL (1.4-6.5); PLATELET COUNT 155 K/uL (130-400); RED CELL DISTRIBUTION WIDTH SD 70.2 fL (36.4-46.3); WHITE BLOOD COUNT 17.36 K/uL (4.8-10.8)
[2017-04-29] MEDS: ALBUMIN HUMAN 25% 12.5 GM/50 ML VIAL IV SCH (06:11)
[2017-04-29 06:18] LABS: INR 5.8 (0.9-1.1)
[2017-04-29 06:20] VITALS: BP 92/50; PULSE 132; TEMP 36.5; O2SAT 96
[2017-04-29 06:27] LABS: CALCIUM 8.8 mg/dl (8.5-10.1); CREATININE 3.79 mg/dl (0.60-1.40); POTASSIUM 4.9 mmol/L (3.5-5.1)
[2017-04-29 08:12] VITALS: BP 83/50; PULSE 120; TEMP 35.7; O2SAT 97
[2017-04-29] MEDS: INSULIN ASPART 100 UNITS/ML 3 ML PEN SC SCH (08:14)
[2017-04-29] MEDS ORDERED: SCOPOLAMINE 1.5 MG TDSY TD PRN (08:30)
[2017-04-29] MEDS ORDERED: MoRPHine SULF/NSS 250MG/250ML 250 ML IV PRN (08:30)
[2017-04-29] MEDS: MoRPHine SULFATE 4 MG/ML 1 ML CARP\\VIAL IV PRN ×2 (09:41→12:39)
--- NOTE | 2017-04-29 10:07 | Progress Note ---
Medicine Progress Note Date & Time of Visit: Apr 29, 2017 at 09:58. Subjective overnight patient was in RVR again, given Digoxin also noted to be confused this AM, patient's systolic BP in the low 80s patient seen, drowsy, confused, but not combative, not in distress when asked if he has pain, patient replied no no shortness of breath poor urine output Objective Last 8 Hrs Date Time Temp Pulse Resp B/P (MAP) Pulse Ox O2 Delivery O2 Flow Rate FiO2 04/29/17 08:12 35.7 120 16 83/50 (61) 97 04/29/17 08:00 Room Air 04/29/17 06:20 36.5 132 20 92/50 (64) 96 Room Air 04/29/17 05:08 36.4 94 16 99 Room Air 04/29/17 04:11 146 04/29/17 04:00 Room Air 04/29/17 03:15 36.5 114 22 84/53 (63) 98 Room Air Physical Exam: General- confused drowsy, not in distress, speaks in short phrases Eyes- anicteric Neck- no JVD Lungs- decreased breath sounds at the bases Heart- irregular rhythm; no murmur, mild tachycardia Abdomen- distended but nontender Extremities- left upper extremity: (+) edema on the forearm and hand with some seepage, also has hematoma--> moderate no warmth/tenderness/erythema (+) lower leg edema, no calf tenderness Neuro-drowsy Skin- warm & dry Laboratory Results: Last 24 Hours Test 04/28/17 11:52 04/28/17 16:23 04/28/17 20:29 04/28/17 20:50 Bedside Glucose 94 mg/dl 71 mg/dl 68 mg/dl 71 mg/dl Test 04/28/17 23:59 04/29/17 04:42 04/29/17 05:15 04/29/17 07:33 Bedside Glucose 83 mg/dl 96 mg/dl 91 mg/dl White Blood Count 17.36 K/uL Red Blood Count 2.58 M/uL Hemoglobin 7.9 g/dL Hematocrit 25.3 % Mean Corpuscular Volume 98.1 fL Mean Corpuscular Hemoglobin 30.6 pg Mean Corpuscular Hemoglobin Concent 31.2 g/dl Platelet Count 155 K/uL Mean Platelet Volume 9.4 fL Neutrophils (%) (Auto) 86.6 % Lymphocytes (%) (Auto) 4.6 % Monocytes (%) (Auto) 6.0 % Eosinophils (%) (Auto) 1.7 % Basophils (%) (Auto) 0.2 % Neutrophils # (Auto) 15.04 K/uL Lymphocytes # (Auto) 0.80 K/uL Monocytes # (Auto) 1.04 K/uL Eosinophils # (Auto) 0.29 K/uL Basophils # (Auto) 0.04 K/uL RDW Standard Deviation 70.2 fL RDW Coefficient of Variation 20.0 % Immature Granulocyte % (Auto) 0.9 % Immature Granulocyte # (Auto) 0.15 K/uL Polychromasia 1+ Anisocytosis PRESENT Echinocytes 1+ Prothrombin Time 58.9 SECONDS Prothromb Time International Ratio 5.8 Sodium Level 134 mmol/L Potassium Level 4.9 mmol/L Chloride Level 104 mmol/L Carbon Dioxide Level 15 mmol/L Anion Gap 15.0 mmol/L Blood Urea Nitrogen 110 mg/dl Creatinine 3.79 mg/dl Est Creatinine Clear Calc Drug Dose 19.9 ml/min Estimated GFR () 18.1 Estimated GFR (Non- 15.6 BUN/Creatinine Ratio 29.0 Random Glucose 94 mg/dl Calcium Level 8.8 mg/dl Phosphorus Level 5.0 mg/dl Magnesium Level 2.6 mg/dl Date/Time Source Procedure Growth Status 04/28/17 19:44 Blood Blood Culture Pending Received 04/28/17 19:43 Blood Blood Culture Pending Received Assessment & Plan 66 year old male with history of CAD, CHF, A fib on coumadin, DM, HTN, Hyperthyroidism presenting with poor oral intake and weakness. ACUTE RENAL FAILURE LIKELY PRERENAL, with HYPER CA AND HYPER K, Resolved holding lasix, spironolactone, metformin since admission -- crea increased after paracentesis -- crea increasing, -> further increasing to 3.7 despite being given Albumin and IV fluids remains to have poor urine output also encephalopathic -- case discussed at length with yesterday including critical condition-- Ms Wilkins prefers not to do any more aggressive measures , transition to DNR status called patient's again today to update on patient's declining status-- Ms Wilkins has decided to transition patient to comfort measures only also agreeable with consulting Palliative Care -- PRN Morphine IV Ativan Scopolamine HYPOTENSION -- possible Sepsis? Hepatorenal Syndrome? -- given IV fluids, Albumin -- patient's has declined any aggressive measures including Vasopressors, Central line ENCEPHALOPATHY LIKELY MULTIFACTORIAL FROM ACUTE RENAL FAILURE, POSSIBLE CIRRHOSIS, UNDERLYING LYMPHOMA INTRAABDOMINAL LYMPHADENOPATHY, B CELL LYMPHOMA, NEW DIAGNOSIS PANCREATIC MASS, LIKELY SPREAD OF B CELL LYMPHOMA 04/17: s/p EUS with Biopsy of Pancreatic mass, and Lymph nodes: (+) aggressive B cell lymphoma -- Dr. Coleen Doan consulted recommend work up for staging and chemo when medically stable- at this time, patient has acute renal failure, ascites, a fib in rvr ASCITES, FROM LIVER CIRRHOSIS VS. MALIGNANT EFFUSION SBP LIKELY PRESENT ON ADMISSION 04/18: s/p Paracentesis, 4 liters, Pathology: no malignant cells seen Peritoneal fluid culture: (+) Coag neg staph -- abdomen still distended diuretics on hold due to elevated crea -- GI re-consulted -- Nephro re-consulted albumin IV BID re-ordered, NSS started crea still increasing, poor urine output -- ID consulted continue Vanco IV to complete 14 days--> crea increasing, changed to Daptomycin IV Day 10/19 AFIB ON COUMADIN went into RVR overnight Metoprolol held yesterday due to systolic bp 90s continue Diltiazem and Metoprolol with holding parameters INR 5.3 HOLD coumadin CAD no cardiac symptoms Aspirin CHF hold diuretics LEFT ATRIAL APPENDAGE THROMBUS Cardiology consulted needs heparin bridge when INR subtherapeutic as per Oncology, patient would need Lovenox LOW BACK PAIN, CONSTIPATION CONTRIBUTING? Lactulose and Dulcolax suppository, if still unsuccessful, Enema Lidoderm patch, PRN Tramadol and Flexeril [place] PRN DM hold Metformin Pharm Gly Cx HTN on Diltiazem and Metoprolol with parameters HYPERTHYROIDISM TFTs slightly improved from last month Endo consulted increased Methimazole to 10mg BID repeat TFTs: TSH now normal, T4 low DNR DVT PPX INR supratherapeutic Disposition transition to Comfort Measures Palliative care consult Current Inpatient Medications: Current Inpatient Medications Medications (Trade) Dose Ordered Sig/Sal Route Start Time Stop Time Status Last Admin Dose Admin Acetaminophen (Tylenol Tab) 650 mg Q4H PRN PO 04/12/17 18:30 05/12/17 18:29 Lidocaine (Lidoderm Patch 5%) 1 patch QPM TD 04/14/17 21:00 05/14/17 20:59 04/28/17 20:33 1 PATCH Miscellaneous (Remove Lidoderm Patch) 1 ea QAM N/A 04/14/17 15:00 05/14/17 14:59 04/29/17 08:42 1 EA Senna/Docusate Sodium (Senokot S Tab) 1 tab QAM PO 04/15/17 09:00 05/15/17 08:59 Future Hold 04/20/17 08:19 1 TAB Ondansetron HCl (Zofran Inj) 4 mg Q6H PRN IV 04/26/17 08:30 05/26/17 08:29 04/26/17 08:39 4 MG Morphine Sulfate (MoRPHine SULFATE INJ) 3 mg Q2H PRN IV 04/29/17 08:30 05/13/17 08:29 04/29/17 09:41 3 MG Lorazepam 0.5 mg/ Syringe 0.5 ml @ 0.5 mls/min Q4H PRN IV 04/29/17 08:30 05/29/17 08:29 Morphine Sulfate/ Dextrose 250 ml @ 1 mls/hr Q24H PRN IV 04/29/17 08:30 05/13/17 08:29 04/29/17 09:54 1 MLS/HR Scopolamine (Transderm-Scop Patch) 1.5 mg Q72H PRN TD 04/29/17 08:30 05/29/17 08:29 Miscellaneous (Remove Transderm-Scop Patch) 1 ea Q72H N/A 05/02/17 10:00 06/01/17 09:59 Miscellaneous Information (Check Scopolamine Patch Placement) 1 ea QS N/A 04/29/17 16:00 05/29/17 15:59
[2017-04-29] MEDS: LORAZEPAM INJ 0.5 MG in SYRINGE 0.25 ML IV PRN ×2 (10:16→14:34)
[2017-04-29] MEDS ORDERED: NURSING VERBAL MED ORDER ONE (12:45)
[2017-04-29] MEDS ORDERED: CHECK SCOPOLAMINE PATCH PLACEMENT SCH (16:00)
[2017-04-29] MEDS: ATROPINE SULFATE 1% OP SOLN 5 ML BTL SL PRN ×2 (17:44→19:45)
--- NOTE | 2017-04-29 20:10 | Death Pronouncement Note ---
Pronouncement Note Date & Time of Apr 29, 2017. 7:55PM Pronouncement note: Patient reported to medical doctor that patient has . Medical doctor arrived to room. There was no spontaneous respiratory effort, no palpable pulse, no audible heart sounds, and no response to pain or voice. No palpable pulses were felt. Patient pronounced which occurred at 7:55 PM on 04/29/17
[2017-04-30] MEDS ORDERED: DIGOXIN INJ 500 MCG/2 ML AMP IV SCH (03:30)
--- NOTE | 2017-04-30 07:51 | Discharge Summary ---
Discharge Summary Date of Service Apr 30, 2017. Discharge Summary Admission Date: Apr 12, 2017 at 17:11 Discharge Date: Apr 29, 2017 Discharge Disposition: Home Principal Diagnosis: INTRAABDOMINAL LYMPHADENOPATHY, B CELL LYMPHOMA, NEW DIAGNOSIS PANCREATIC MASS, LIKELY SPREAD OF B CELL LYMPHOMA Secondary Diagnoses/Problems: PLEASE REFER TO HOSPITAL COURSE BELOW. Procedures: EUS WITH BIOPSY Consultations: Gastroenterology, cardiology, oncology, nephrology Admission Information HPI (per Admitting provider): 66 year old male with history of CAD, CHF, A fib on coumadin, DM, HTN, Hyperthyroidism presenting with poor oral intake and weakness. Patient was discharged last March 2017 after evaluation and management of A fib with RVR. During that time, patient was found to have low TSH and high Free T4. Methimazole PO initiated. Diltiazem PO also started. Since discharge, patient was apparently having loss of appetite, generalized malaise. Patient also noted to have abdominal distention, but denies abdominal pain, nausea, changes with BM or urination. No fever/chills, cough, dyspnea, chest pain, palpitations, dizziness. Patient then presented to the ER. CT abdomen notable for pancreatic mass with moderate ascites. Crea also elevated at 2.0 with K 5.4 and Ca Corrected 12.3. EKG a fib. CXR possible bilateral effusion/atelectasis: unchanged from previous INR 9.5 Patient was given IV Lactated Ringer's and Vit K. On exam, patient seen resting in bed, alert, oriented, comfortable. States he feels slightly better after IV fluids. No active dyspnea, chest pain, abdominal pain, nausea. No bleeding. denies other symptoms Physical Exam (per Admitting): General Appearance: WD/WN, no apparent distress Head: normocephalic, atraumatic Eyes: normal inspection, PERRL, EOMI, sclerae normal ENT: normal ENT inspection, hearing grossly normal, pharynx normal Neck: supple, no adenopathy, thyroid normal, no JVD, trachea midline Respiratory/Chest: chest non-tender, lungs clear, no respiratory distress, no accessory muscle use, + decreased breath sounds (bilateral bases) Cardiovascular: no edema, no JVD, no murmur, + irregularly irregular Abdomen/GI: soft, + pertinent finding (moderately distended, non tender) Back: normal inspection, no CVA tenderness Extremities/Musculoskelatal: normal inspection, no calf tenderness, normal capillary refill, no pedal edema, normal range of motion, pelvis stable Neurologic/Psych: busperson II-XII nml as tested, no motor/sensory deficits, alert , normal mood/affect, normal reflexes, oriented x 3 Skin: normal color, warm/dry, no rash Lymphatic: no adenopathy Hospital Course 66 year old male with history of CAD, CHF, A fib on coumadin, DM, HTN, Hyperthyroidism presenting with poor oral intake and weakness. INTRAABDOMINAL LYMPHADENOPATHY, B CELL LYMPHOMA, NEW DIAGNOSIS PANCREATIC MASS, LIKELY SPREAD OF B CELL LYMPHOMA 04/17: s/p EUS with Biopsy of Pancreatic mass, and Lymph nodes: (+) aggressive B cell lymphoma -- Dr. Coleen Doan consulted recommend work up for staging and chemo when medically stable- at this time, patient has acute renal failure, ascites, a fib in rvr ASCITES, FROM LIVER CIRRHOSIS VS. MALIGNANT EFFUSION SBP LIKELY PRESENT ON ADMISSION 04/18: s/p Paracentesis, 4 liters, Pathology: no malignant cells seen Peritoneal fluid culture: (+) Coag neg staph -- abdomen distended diuretics held due to elevated crea -- GI re-consulted -- Nephro re-consulted albumin IV BID re-ordered, NSS started crea still increasing, poor urine output -- ID consulted continue Vanco IV to complete 14 days--> crea increasing, changed to Daptomycin IV ACUTE RENAL FAILURE LIKELY PRERENAL, with HYPER CA AND HYPER K, Resolved Helmet Lasix, spironolactone, metformin since admission -- crea increased after paracentesis -- crea increasing, -> further increasing to 3.7 despite being given Albumin and IV fluids remains to have poor urine output also encephalopathic -- case discussed at length with yesterday including critical condition-- Ms Wilkins prefers not to do any more aggressive measures , transition to DNR status called patient's again today to update on patient's declining status-- Ms Wilkins has decided to transition patient to comfort measures only also agreeable with consulting Palliative Care --Patient transferred to #4 E. Morphine drip started as well as scopolamine and atropine Patient remained comfortable peaceful Pronounced evening of April 29, 2017 HYPOTENSION -- possible Sepsis? Hepatorenal Syndrome? 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 Lidoderm patch, PRN Tramadol and Flexeril [place] PRN DM Metformin Pharm Gly Cx HTN Diltiazem and Metoprolol with parameters HYPERTHYROIDISM TFTs slightly improved from last month Endo consulted increased Methimazole to 10mg BID repeat TFTs: TSH now normal, T4 low Total time spent on discharge = This includes examination of the patient, discharge planning, medication reconciliation, and communication with other providers. Discharge Instructions Patient .
== END 2017-04-29 19:55 | disposition expired | DRG 823 ==
LOC: C.EDB 13:39 → C.MED 17:11 → ENRESERV 17:48 → C.4E 04-29 11:08
PROVIDERS: ADMIT Internal Medicine; ATTEND Internal Medicine
PROC: 079 Lymphatic and Hemic Systems, Drainage (ICD-10-PCS; principal; 2017-04-17 07:30)
PROC: 0W9G3ZX Drainage of Peritoneal Cavity, Percutaneous Approach, Diagnostic (ICD-10-PCS; principal; 2017-04-17 07:30)
PROC: 0F9G3ZX Drainage of Pancreas, Percutaneous Approach, Diagnostic (ICD-10-PCS; principal; 2017-04-17 07:30)
PROC: 0DB68ZX Excision of Stomach, Via Natural or Artificial Opening Endoscopic, Diagnostic (ICD-10-PCS; principal; 2017-04-17 07:30)
PROC: 0W9G3ZZ Drainage of Peritoneal Cavity, Percutaneous Approach (ICD-10-PCS; 2017-04-18)
PROC: 05H933Z Insertion of Infusion Device into Right Brachial Vein, Percutaneous Approach (ICD-10-PCS; 2017-04-24)
DX: C85.13 Unspecified B-cell lymphoma, intra-abdominal lymph nodes (principal); K65.2 Spontaneous bacterial peritonitis; G93.40 Encephalopathy, unspecified; R18.8 Other ascites; N17.9 Acute kidney failure, unspecified; E87.1 Hypo-osmolality and hyponatremia; I48.92 Unspecified atrial flutter; E87.2 Acidosis; I50.32 Chronic diastolic (congestive) heart failure; C85.19 Unspecified B-cell lymphoma, extranodal and solid organ sites; B95.7 Other staphylococcus as the cause of diseases classified elsewhere; K74.60 Unspecified cirrhosis of liver; R16.1 Splenomegaly, not elsewhere classified; E83.52 Hypercalcemia; E87.5 Hyperkalemia; R79.1 Abnormal coagulation profile; R63.8 Other symptoms and signs concerning food and fluid intake; K29.50 Unspecified chronic gastritis without bleeding; D69.6 Thrombocytopenia, unspecified; K59.00 Constipation, unspecified; R19.7 Diarrhea, unspecified; I95.9 Hypotension, unspecified; I25.10 Atherosclerotic heart disease of native coronary artery without angina pectoris; I48.91 Unspecified atrial fibrillation; I51.3 Intracardiac thrombosis, not elsewhere classified; E11.9 Type 2 diabetes mellitus without complications; I11.0 Hypertensive heart disease with heart failure; E05.90 Thyrotoxicosis, unspecified without thyrotoxic crisis or storm; M54.5 Low back pain; E78.5 Hyperlipidemia, unspecified; J44.9 Chronic obstructive pulmonary disease, unspecified; G47.33 Obstructive sleep apnea (adult) (pediatric); E66.9 Obesity, unspecified; Z66 Do not resuscitate; Z68.39 Body mass index [BMI] 39.0-39.9, adult; Z95.1 Presence of aortocoronary bypass graft; Z95.2 Presence of prosthetic heart valve; Z79.01 Long term (current) use of anticoagulants; Z79.51 Long term (current) use of inhaled steroids; Z79.82 Long term (current) use of aspirin; Z79.84 Long term (current) use of oral hypoglycemic drugs; Z79.899 Other long term (current) drug therapy; Z88.8 Allergy status to other drugs, medicaments and biological substances